=== PATIENT | male | born 1950 | race Caucasian/White ===

== ENCOUNTER 2018-07-01 23:51 | Inpatient (IN) | payer MEDICARE, MEDICAID, SELFPAY ==
[2018-07-01 23:52] VITALS: BP 116/85; PULSE 75; RESP 18; TEMP 36.6; O2SAT 92; BMI 16.7
[2018-07-01 23:58] VITALS: BP 116/85; PULSE 65; RESP 16; TEMP 36.6; O2SAT 91
[2018-07-02] VITALS (13 sets, daily range): BP systolic 120–143; BP diastolic 53–77; PULSE 54–107; RESP 16–24; TEMP 36.6–37.6; O2SAT 91–100; BMI 16.2
--- NOTE | 2018-07-02 00:20 | RAD_ITS ---
STUDY: X-RAY CHEST REASON FOR EXAM: Male, 68 years old. Dyspnea TECHNIQUE: Single AP portable view of the chest. COMPARISON: 12/20/2016 FINDINGS: There is hyperinflation of the lungs consistent with chronic obstructive lung disease (COPD). Ill-defined groundglass opacities are seen in the left upper lobe and left lower lobe suggesting superimposed pneumonia. There is no demonstrated pleural abnormality. Normal size heart. Normal mediastinum and ankur. Normal visualized pulmonary arteries. Normal visualized aortic arch and descending thoracic aorta. Normal visualized thoracic spine. Normal visualized ribs, clavicles, and shoulders. There is no demonstrated abnormality of the visualized soft tissue structures of the upper abdomen. RAD/Chest 1 View (Portable) IMPRESSION: Left upper lobe and left lower lobe pneumonia. Electronically Signed: Jory Alvarez MD at 1:10 EST Tel , Service support ,
--- NOTE | 2018-07-02 00:21 | EKG12_ITS ---
Test Reason : GENERAL ILLNESS Blood Pressure : / mmHG Vent. Rate : 093 BPM Atrial Rate : 093 BPM P-R Int : 134 ms QRS Dur : 080 ms QT Int : 326 ms P-R-T Axes : 077 074 069 degrees QTc Int : 405 ms Sinus rhythm with Premature supraventricular complexes Possible Left atrial enlargement Borderline ECG Confirmed by JUAN VILLANUEVA, DAVONTE ([id number]), editorial director SHERITA YOON ([id number]) on 07/06/2018 10:57:15 AM Referred By: CARLIN Confirmed By:DAVONTE MARTINEZ MD
--- NOTE | 2018-07-02 00:26 | ED.VISSUMM ---
- ER Visit Summary Date of Service: 07/02/18 Chief Complaint: Diarrhea and confusion History of Present Illness: The patient is a 68 M with frequent diarrhea for the past 1 week. Family states he is not really eaten. His arms and legs were discolored and the patient is more confused this evening so EMS was called. Blood sugar was 86 for EMS. Patient is a drinker and typically drinks beer. He is been drinking less this past week but is drinking some. He is not in withdrawal. Physical Examination: Blood pressure is 116/85, temperature 97.9, heart rate 75, respiratory rate 18, pulse ox 92% on room air. At time of my exam patient does have frequent PACs on monitor. His pulse ox is 88 with a poor waveform. He is placed on 2 L nasal cannula. Patient is sitting upright in bed. He is in no acute distress. He appears older than his stated age. Head and neck examination significant for dry mucous membranes. Heart is regular. Lungs sounds are grossly clear, with slightly diminished sounds at the bases. Abdomen is soft and nontender. Active bowel sounds are noted throughout. Skin examination is a slightly dark discoloration to his legs. They are warm to the touch. Palpable distal pulses. Neuro exam reveals him to be alert. He has no focal deficits. Test Results: EKG is sinus at 93 with no sign of acute ischemia. Portable chest x-ray read by radiology as left upper and left lower lobe pneumonia. CBC was normal white count with a left shift. Hemoglobin is concentrated at 16.6. Chemistry studies significant for a BUN of 43 and a creatinine 1.4. LFTs and lipase normal. Troponin 0 0.018. Lactate is elevated at 2.6. Emergency Department Course and Treatment: Patient was given IV fluids. Upon completion of lab studies blood cultures have been ordered along with IV fluid bolus. He is given Rocephin and Zithromax. Test results were discussed with patient and family at bedside. Patient be admitted for further treatment and care. Treatment Plan: [] Disposition: Admit Impression: 1. Pneumonia 2. Dehydration 3. Diarrhea 4. Elevated lactate This note was generated with [employer] dictation software. It may contain incorrect words, spelling, and punctuation that were not noted in review of the chart prior to signing ED Disposition - Plan for ED Patient: Referrals: Care Physician,No Primary [Primary Care Provider] -
[2018-07-02] MEDS: 0.9% Normal Saline 1,000 ML 1000 ML IV (00:29)
[2018-07-02 00:43] LABS: Absolute Lymphocyte Count 0.39 X10^3/ul (0.83-4.51); Absolute Neutrophil Count 7.9 X10^3/uL (2.0-7.7); Basophil# 0.02 X10^3/uL; Basophil% 0.2 % (0-1); Hematocrit 48.6 % (40-54); Hemoglobin 16.6 g/dl (13.0-16.5); Lymphocyte # 0.39 X10^3/ul (4.0); Lymphocyte % 4.3 % (19-41); Mean Corp Hgb Conc 34.2 g/gl (32-36); Mean Corpuscular Hgb 33.3 pg (27.0-32.0); Mean Corpuscular Volume 97.4 fL (80-94); Mean Platelet Vol. 8.6 fl (6.2-12.0); Monocyte# 0.74 X10^3/uL; Monocyte% 8.2 % (0-10); Neutrophil # 7.85 X10^3/uL (2.7-7.7); Neutrophil % 86.6 % (47-70); Platelet Count 169 K/mm3 (150-450); RBC Distribution Width CV 12.6 % (11.6-14.6); RBC Distribution Width SD 44.5 fl (35.1-43.9); Red Blood Count 4.99 M/mm3 (4.6-6.2); White Blood Count 9.1 K/mm3 (4.4-11.0)
[2018-07-02 00:45] LABS: Differential Indicated SCAN CRITERIA MET; POSITIVE COUNT NO; POSITIVE DIFFERENTIAL YES; POSITIVE MORPHOLOGY NO
[2018-07-02 00:52] LABS: AST(SGOT) 73 U/L (15-37); Alanine Aminotransfer ALT/SGPT 52 U/L (16-61); Albumin, Serum 3.2 g/dL (3.2-5.0); Alkaline Phosphatase 100 U/L (45-117); Anion Gap 11 (5-15); BUN 43 mg/dL (7-18); BUN/Creat Ratio 30.7 RATIO (10-20); Bilirubin, Direct 0.22 mg/dL (0.00-0.30); Calcium,Total 8.7 mg/dL (8.5-10.1); Chloride 99 mmol/L (98-107); EST Glomerular Filtration Rate 54 mL/min (>60); Est Glom Filt Rate - Afr Amer 65 mL/min (>60); Estimated Creatinine Clearance 39.54 ml/min; Globulin 4.6 g/dL (2.2-4.2); Glucose 131 mg/dL (74-106); Lipase 76 U/L (73-393); Potassium 3.9 mmol/L (3.5-5.1); Protein, Total 7.8 g/dL (6.4-8.2); Sodium Level 135 mmol/L (136-145)
[2018-07-02 01:06] LABS: Lactic Acid 2.6 mmol/L (0.4-2.0)
--- NOTE | 2018-07-02 01:19 | ED.RN ---
HOSPITALIST PAGED FOR DR GILLIS
--- NOTE | 2018-07-02 01:22 | PCM.HP.STD ---
Problem List (1) Pneumonia Status: Acute Qualifiers: Pneumonia type: due to unspecified organism Laterality: left Lung location: unspecified part of lung Qualified Code(s): J18.9 - Pneumonia, unspecified organism (2) JUAN (acute kidney injury) Status: Acute (3) Elevated lactic acid level Status: Acute (4) Viral syndrome Status: Acute (5) Alcohol abuse Status: Chronic (6) Tobacco use Status: Chronic (7) COPD (chronic obstructive pulmonary disease) Status: Chronic Qualifiers: COPD type: COPD with acute exacerbation Qualified Code(s): J44.1 - Chronic obstructive pulmonary disease with (acute) exacerbation History of Present Illness Date of Admission: 07/02/18 Chief Complaint: Confusion, Cough, Diarrhea, Malaise The patient is a 68 y/o M w/ PMHx: Severe Protein-Calorie Malnutrition, Tobacco use, Chronic COPD, EtOH Abuse who presents to the [facility] ED on 07/02/18 with history of recent confusion per family as well as ongoing loose stools for at least a week with poor oral intake, increased productive cough, progressively worsening malaise, fatigue, no fevers or chills. He notes that over the last week his alcohol consumption has decreased from his prior. He again confirms that he can go without alcohol for duration without any alcohol withdrawal history and previous admission when he had hip fracture for majority of this. Patient denies any abdominal pain or cramping. Work-up in the ED included T 97.9, heart rate 75, BP 116/85, respiratory rate 18, 92% on room air, CBC with W BC 9.1, hemoglobin 16.6, platelet 169 with left shift, CMP with sodium 135, BUN/Cr 43/1.40 (baseline Cr 0.6), glucose 131, LA 2.6, trop 0.018, chest x-ray with left upper lobe and left lower lobe pneumonia, Bld Cx x 2 obtained per ED. In the ED patient administered IV rocephin, azithromycin, NS. Past Medical History Past Medical History (Chronic Problems): Chronic Problems Tobacco use (Chronic) Alcohol abuse (Chronic) COPD (chronic obstructive pulmonary disease) (Chronic) Allergies No Known Allergies Allergy (Verified 07/02/18 00:02) Home Medications: Ambulatory Orders Medication Instructions Recorded NK 07/02/18 Surgical History: - - right hip cephalomedullary nail gamma s/p fracture. Psychiatric History: No pertinent psych hx Lives: Roommate Smoking Status: Current every day smoker - 1-1.5 ppd Tobacco Use: Cigarettes Alcohol: Heavy - / 24 ounce beers QOD, notes has gone periods without intake without withdrawal Drugs: None - *Family History Maternal History Items: Hypertension Paternal History Items: - - No marked paternal history including DM, HD, CA. Review of Systems Constitutional: Reports: Anorexia, Malaise, Weakness, Fatigue. Denies: Chills, Fever, Weight Change HEENT: Denies: Head Aches, Sinus Congestion, Sinus Drainage Cardiovascular: Denies: Chest Pain, Palpitations Respiratory: Reports: Cough, Shortness of Breath, Shortness of breath at rest, Shortness of breath upon exertion, Sputum production. Denies: Wheezing Gastrointestinal: Reports: Diarrhea. Denies: Abdominal Pain, Nausea, Vomiting Genitourinary: Denies: Dysuria Musculoskeletal: Reports: Joint Pain. Denies: Joint Tenderness Skin: Reports: Skin Changes. Denies: Rash, Wounds Neurological: Reports: Confusion. Denies: Focal weakness, Numbness, Tingling Psychiatric: Denies: Anxiety, Depression, Homicidal Ideations, Suicidal Ideations Hematologic/ Lymphatic: Denies: Easy Bruising, Easy Bleeding VTE Information - Inpt Only VTE Present on Admission: No VTE Mechan Device Prophylaxis: SCD's VTE Pharm Prophylaxis ordered?: Yes Patient Problems: Active and Suspected Problems Pneumonia (Acute) JUAN (acute kidney injury) (Acute) Elevated lactic acid level (Acute) Viral syndrome (Acute) Subjective: Patient seated upright in bed, notes feeling mildly improved since initial presentation, currently mental status improved since initial presentation as had been noted to be confused per family roommate. Objective: Physical Examination: General: awake, alert, oriented to self, place, some recent events, improved from initial complaints of confusion per family and roommate, remains cooperative, seated upright in the ED bed in no apparent distress. Skin: Decreased hue, decreased skin turgor, no icterus, cyanotic finger tips w/ clubbing. HEENT: AT/NC, EOMI, PERRLA, MMM, no carotid bruits or JVD noted. Lungs: Severely diffusely diminished, does not appear distressed, no accessory muscle usage, moderate effort, no rales, ronchi or wheezing. Heart: Regular rate and rhythm; no gallop, rub audible. Abdomen: soft, thin cachetic habitus, NTTP, ND, mildly hyperactive BS, + HM. Extremities: cyanotic finger tips w/ clubbing, no edema. Neurological: patient awake, alert, oriented as noted; cognitive function improved, nearing baseline intact; pupils equally reactive to light and accomodation; cranial nerves II-XII grossly normal, moving all 4 extremities, no focal deficits, strength moderately to severely globally decreased secondary to acute presentation. Psychiatric: affect appears flat, fatigued, no acute evidence of depressive or anxiety feelings. - Physical Exam Vital Signs Temp Pulse Resp BP Pulse Ox 97.9 F 83 16 116/85 H 91 07/02/18 01:07 07/02/18 01:07 07/02/18 01:07 07/01/18 23:58 07/02/18 01:07 Oxygen Delivery Method Room Air Weight: 120 lb 5.958 oz Body Mass Index (BMI) 16.7 Laboratory Tests Past 24 Hrs 07/02/18 07/02/18 07/02/18 00:15 00:15 00:15 WBC 9.1 RBC 4.99 Hgb 16.6 H Hct 48.6 MCV 97.4 H MCH 33.3 H MCHC 34.2 RDW 12.6 RDW Differential 44.5 H Plt Count 169 MPV 8.6 Immature Gran % (Auto) 0.700 Neut % (Auto) 86.6 H Lymph % (Auto) 4.3 L Calloway % (Auto) 8.2 Eos % (Auto) 0.0 Baso % (Auto) 0.2 Absolute Neuts (auto) 7.9 H Absolute Lymphs (auto) 0.39 L Total Counted Pending Sodium 135 L Potassium 3.9 Chloride 99 Carbon Dioxide 25.0 Anion Gap 11 BUN 43 H Creatinine 1.40 H Estim Creat Clear Calc 39.54 Est GFR (MDRD) Af Amer 65 Est GFR (MDRD) Non-Af 54 L BUN/Creatinine Ratio 30.7 H Glucose 131 H Lactic Acid 2.6 H Calcium 8.7 Total Bilirubin 0.40 Direct Bilirubin 0.22 AST 73 H ALT 52 Alkaline Phosphatase 100 Troponin I 0.018 Total Protein 7.8 Albumin 3.2 Globulin 4.6 H Lipase 76 Assessment/Plan All Active Problems Pneumonia (Acute) JUAN (acute kidney injury) (Acute) Elevated lactic acid level (Acute) Viral syndrome (Acute) Wrist drop, right wrist (Acute) Closed right hip fracture (Acute) The patient is a 68 y/o M w/ PMHx: Severe Protein-Calorie Malnutrition, Tobacco use, Chronic COPD, EtOH Abuse who presents to the [facility] ED on 07/02/18 with history of recent confusion per family as well as ongoing loose stools for at least a week with poor oral intake, increased productive cough, progressively worsening malaise, fatigue, no fevers or chills. (1) Acute Encephalopathy (Infectious, metabolic), Multifactorial (#2, #3), including Community Acquired Pneumonia: Aspiration/Community Acquired/HCAP Pneumonia: Work-up in the ED included T 97.9, heart rate 75, BP 116/85, respiratory rate 18, 92% on room air, CBC with W BC 9.1, hemoglobin 16.6, platelet 169 with left shift, CMP with sodium 135, BUN/Cr 43/1.40 (baseline Cr 0.6), glucose 131, LA 2.6, trop 0.018, chest x-ray with left upper lobe and left lower lobe pneumonia. Will admit to MS w/ telemetry, maintain on oxygen with wean as tolerated to room air, continue ATC duonebs, PRN albuterol, maintained on IV Rocephin and Azithromycin, HOB, IS parameters w/ pending sputum cultures, respiratory viral panel and urine antigens. Bld cx x 2 obtained in the ED. (2) Acute kidney injury: Secondary to #1, GI losses as noted #3. Admission BUN/Cr 43/1.40, prior baseline creatinine noted to be 0/6. Will hydrate, hold nephrotoxic medications and repeat chemistry in AM. If no improvement would plan FeNa and renal US assessment. (3) Diarrhea, Unclear Etiology, Possibly secondary to #1: Will continue aggressive hydration, will obtain c diff, stool cx, trend CBC, on abx for #1 as noted above. (4) Lactic Acidosis: Admission LA mildly elevated 2.6, suspected secondary to dehydration with GI losses as noted and acute CAP, continue to hydrate, trend LA per facility protocol. (5) EtOH Abuse: Will maintain on CIWA protocol, MVI, thiamine and folic acid. Mag, phos pending. No history prior withdrawal when patient has gone without, will closely monitor and if necessitated will initiate and continue on tapering course of librium, initiate as needed Seroquel, Catapres, Bentyl, Vistaril, IV fluids, IV antiemetics, Tylenol as needed for pain. Case management consulted. (6) Chronic COPD: Will maintain on oxygen with wean as tolerated to room air, continue ATC duonebs, PRN albuterol, HOB, IS parameters. (7) Tobacco Abuse: Encouraged cessation, inpatient consultation per RT, NR if desired. (8) Severe Protein-Calorie Malnutrition: Evidenced per BMI, habitus with obvious muscle and fat loss, nutrition consulted, supplementations with diet. (9) DVT Prophylaxis: SCDs, heparin. Code Visit Inpatient E&M: 91237 Init Hosp L3
[2018-07-02] MEDS: Ceftriaxone 1 GM/50 ML BAG IV ×2 (01:30→21:16)
[2018-07-02] MEDS: 0.9% Normal Saline 1,000 ML 150 ML IV (01:38)
[2018-07-02 02:06] LABS: Allen Test POS; Base Excess -5 mmol/L (-2 to +2); Bicarbonate 20.3 mmol/L (22-26); Blood Gas Specimen Type ART; O2 Delivery Device Nasal Can; PO2 71 mmHG (75-100); SITE R Radial; SO2 94 % (95-99); Time Given 150; Total Carbon Dioxide 21 mmol/L; pCO2 33.9 mmHg (35-45); pH 7.39 (7.35-7.45)
[2018-07-02 02:42] LABS: Magnesium 2.2 mg/dL (1.6-2.6); Phosphorus 2.6 mg/dL (2.5-4.9)
[2018-07-02] MEDS: 0.9% Normal Saline 1,000 ML 125 ML IV ×3 (03:04→18:16)
[2018-07-02] MEDS: Ipratropium/Albuterol Sulfate 3 ML AMPUL.NEB INHALATION ×4 (03:05→18:33)
[2018-07-02 04:18] LABS: Mucous, Urine 0 SEEN /hpf (<or=2+)
[2018-07-02 04:21] LABS: Color, Urine Yellow (Yellow); Glucose, Dipstick Normal (Normal); Ketone-Dipstick Negative (Negative); Leukocyte Esterase-Dipstick Negative /ul (Negative); Nitrite-Dipstick Negative (Negative); Occult Blood-Urine 25 /ul (Negative); Protein-Dipstick 30 mg/dl (Negative); Specific Gravity, Urine 1.015 (1.002-1.030); Urine Bilirubin Dipstick Negative (Negative); Urine Clarity Sl. Cloudy (Clear); Urine Urobilinogen Normal (Normal)
[2018-07-02 04:31] LABS: Reflex Lactate? Y
[2018-07-02 04:31] LABS: Bacteria RARE /hpf (None Seen); Hyaline Cast 0-5 SEEN /lpf (0-5); Red Blood Cells-Urine 0-5 SEEN /hpf (0-5); Squamous Epithelial Cells - UA 0-5 SEEN /hpf (0-5); White Blood Cells 0-5 SEEN /hpf (0-5)
[2018-07-02 05:04] LABS: Absolute Lymphocyte Count 0.56 X10^3/ul (0.83-4.51); Absolute Neutrophil Count 6.6 X10^3/uL (2.0-7.7); Basophil# 0.02 X10^3/uL; Basophil% 0.3 % (0-1); Hematocrit 44.6 % (40-54); Lymphocyte # 0.56 X10^3/ul (4.0); Lymphocyte % 7.2 % (19-41); Mean Corp Hgb Conc 33.6 g/gl (32-36); Mean Platelet Vol. 8.7 fl (6.2-12.0); Monocyte# 0.57 X10^3/uL; Monocyte% 7.3 % (0-10); Neutrophil # 6.64 X10^3/uL (2.7-7.7); Neutrophil % 84.9 % (47-70); Platelet Count 140 K/mm3 (150-450); RBC Distribution Width CV 12.4 % (11.6-14.6); Red Blood Count 4.55 M/mm3 (4.6-6.2); White Blood Count 7.8 K/mm3 (4.4-11.0)
[2018-07-02 05:06] LABS: Differential Indicated SCAN CRITERIA MET; POSITIVE COUNT NO; POSITIVE DIFFERENTIAL YES; POSITIVE MORPHOLOGY NO
[2018-07-02 05:13] LABS: Anion Gap 11 (5-15); BUN 34 mg/dL (7-18); BUN/Creat Ratio 34.4 RATIO (10-20); Chloride 105 mmol/L (98-107); Creatinine, Serum 0.99 mg/dL (0.70-1.30); EST Glomerular Filtration Rate 80 mL/min (>60); Est Glom Filt Rate - Afr Amer 97 mL/min (>60); Estimated Creatinine Clearance 52.49 ml/min; Glucose 152 mg/dL (74-106); Potassium 3.2 mmol/L (3.5-5.1); Sodium Level 139 mmol/L (136-145)
--- NOTE | 2018-07-02 05:20 | NURSING ---
pt forgets to call for assist when getting up and is unsteady on his feet. pt moved to ms [id number] to be closer to nursing station for safety.
[2018-07-02 05:26] LABS: Lactic Acid 2.4 mmol/L (0.4-2.0)
--- NOTE | 2018-07-02 08:33 | PCM.PN.BLA ---
Progress Note Patient is a 68-year-old gentleman who presented with confusion with associated diarrhea and generalized malaise. His workup was consistent with acute influenza A infection superimposed pneumonia admitted to regular nursing floor for further management Physical examination: GENERAL: cooperative HEENT: Atraumatic; moist oral mucosa EYES; Anicteric, Normal Conjunctiva NECK; supple, normal thyroid, RESPIRATORY: Diminished to auscultation bilaterally, CARDIOVASCULAR: Regular S1 S2, GI: soft, non-tender, : No Renal angle tenderness; EXTREMITIES: No edema, no clubbing, MUSCULOSKELETAL: No Joint Tenderness; NEURO: Awake; no lateralizing signs. SKIN: No Rash PSYCH; Normal affect 1. Acute influenza A infection: Patient has been admitted to regular nursing floor currently being managed with Tamiflu in addition to symptomatic management 2. Acute infectious encephalopathy secondary to above 3. Severe sepsis secondary to acute influenza A infection and pneumonia 4. Left upper lobe and lower lobe pneumonia in the setting of acute influenza A infection. Admitted to nursing floor after cultures have been obtained. Placed on bronchodilator treatment in addition to azithromycin and Rocephin 4. Diarrhea secondary to viral gastroenteritis treated symptomatically 5. Chronic alcohol abuse patient placed on DT precautions 5. Acute kidney injury; kidney function improved with rehydration 7. COPD not in acute exacerbation did continue home regimen 8. Severe protein calorie malnutrition as evidenced by patient decreased energy level low BMI consultation placed to dietitian 9. Tobacco dependence counseled on cessation, offered nicotine patch for tobacco cravings 10. DVT Prophylaxis: SCDs, heparin. Clinical Impression(s) from Imaging Studies Chest X-Ray 07/02/18 00:20 IMPRESSION: Left upper lobe and left lower lobe pneumonia. Electronically Signed: Jory Alvarez MD at 1:10 EST Tel , Service support , Active Medications Acetaminophen (Tylenol) 650 mg PO Q6H PRN PRN PRN Reason: Non-cardiac pain (mod-severe) Al Hydroxide/Mg Hydroxide (Mylanta Ii) 30 ml PO Q6H PRN PRN PRN Reason: Gastric burning Albuterol Sulfate (Ventolin Aerosols) 2.5 mg INHALATION Q2H PRN PRN PRN Reason: SHORTNESS OF BREATH Albuterol/Ipratropium (Duoneb) 3 ml INHALATION Q4HWA.RT PARVEEN Last Admin: 07/02/18 10:55 Dose: Not Given Dicyclomine HCl (Bentyl) 20 mg PO Q6H PRN PRN PRN Reason: abdominal discomfort Folic Acid (Folic Acid) 1 mg PO DAILYCM [facility] Last Admin: 07/02/18 10:38 Dose: 1 mg Guaifenesin (Mucinex) 1,200 mg PO BID [facility] Last Admin: 07/02/18 10:38 Dose: 1,200 mg Heparin Sodium (Porcine) (Heparin Na) 5,000 unit SC Q12 [facility] Last Admin: 07/02/18 10:38 Dose: 5,000 unit Hydralazine HCl (Apresoline Iv) 10 mg IV Q4H PRN PRN PRN Reason: SBP > 160 Hydroxyzine Pamoate (Vistaril Pamoate Capsule) 50 mg PO Q6H PRN PRN PRN Reason: Mild Anxiety (score 1/3) Sodium Chloride () 1,000 mls @ 125 mls/hr IV .Q8H [facility] Last Admin: 07/02/18 10:39 Dose: 125 mls/hr Azithromycin 500 mg/ Dextrose 255 mls @ 250 mls/hr IV Q24H [facility] Stop: 07/04/18 23:02 Ceftriaxone Sodium (Rocephin) 1 gm in 50 mls @ 100 mls/hr IV Q24H [facility] Lorazepam (Ativan) 1 mg IV Q4H PRN PRN PRN Reason: Severe Anxiety Lorazepam (Ativan) 2 mg IV X1 PRN PRN Reason: Seizure Magnesium Hydroxide (Milk Of Magnesia) 30 ml PO DAILY PRN PRN PRN Reason: Constipation Methocarbamol (Methocarbamol) 750 mg PO Q6H PRN PRN PRN Reason: Muscle Aches Last Admin: 07/02/18 10:38 Dose: 750 mg [facility]amin) [facility] Last Admin: 07/02/18 10:38 Dose: 1 tablet Nicotine (Nicoderm Cq (Pbkc)) 21 mg TRANSDERM. DAILY [facility] Last Admin: 07/02/18 10:38 Dose: 21 mg Nutritional Formula (Lactose Free) (Ensure Enlive) 120 ml PO 4X/DAY [facility] Last Admin: 07/02/18 10:37 Dose: 120 ml Ondansetron HCl (Zofran) 4 mg IV Q8H PRN PRN PRN Reason: NAUSEA/VOMITING Quetiapine Fumarate (Seroquel) 25 mg PO Q6H PRN PRN PRN Reason: AGITATION Sodium Chloride () 5 - 15 ml IV UD PRN PRN Reason: SALINE FLUSH Thiamine HCl ([facility]amin B1) [facility] Last Admin: 07/02/18 10:38 Dose: 100 mg
[2018-07-02] MEDS: Thiamine Hydrochloride 100 MG Tablet PO (10:38)
[2018-07-02] MEDS: Multivitamins,Therapeutic Tablet 1 TABLET PO (10:38)
[2018-07-02] MEDS: Heparin Injection (Vial) 5,000 UNIT/ML VIAL 5000 UNIT SC ×2 (10:38→21:16)
[2018-07-02] MEDS: Folic Acid 1 MG Tablet PO (10:38)
[2018-07-02] MEDS: guaiFENesin 1,200 MG Tablet 1200 MG PO ×2 (10:38→21:16)
[2018-07-02] MEDS: Methocarbamol 750 MG Tablet PO (10:38)
--- NOTE | 2018-07-02 11:32 | CASEMGMT ---
RN CM Assessment Presentation: Admitted for PNA, unsp. organism, JUAN, Elevated Lactate, Viral Syndrome. C/o Confusion, Cough, Malaise. Intro role of CM and purpose of RN CM assessment, alert and oriented to participate in discussion. PCP: None, Provided Resources on PCP's per patient request. Preferred Pharmacy: [id number] Insurance: Medicare A&B, Medicaid Prescription Benefit: Yes LNOK: Tati Boo-Friend Living Arrangements: Lives in a Home wih Friend Tati & her sister and sister's BF. Independent with ambulation and ADL's. Transportation: Does not drive, Friend and others listed above whom he lives transports and will on DC. DME: Denies/None. No preference of DME company. HHC: Denies HH in past. States SNF in past in [facility]. DC PLAN: Home with possible Home Oxygen, HH PT, Walker. Consult done for ETOH Abuse. MARYCARMEN Gaona CM
--- NOTE | 2018-07-02 13:44 | CASEMGMT ---
SW spoke w/pt regarding his alcohol abuse and marijuana use. Pt states he plans to stop drinking, states he thinks he can do it on her own. Pt states he has been drinking a long time. SW asked about counseling or AA resources, pt declined. SW asked if he has ever had counseling for alcohol or been to AA in the past, pt states no. SW asked pt if he would like resources, pt declined. SW explained can get them for him should he change his mind, pt states very politely he does not want any resources and would likely not look at them. No further needs at this time, pt declining any resources in regard to substance abuse support. IDALIA Ashton, LICENSED OPTICAL DISPENSER
[2018-07-03 02:49] VITALS: BP 132/71; PULSE 80; RESP 20; TEMP 36.3; O2SAT 97
[2018-07-03] MEDS: 0.9% Normal Saline 1,000 ML 125 ML IV (04:42)
[2018-07-03 07:03] LABS: Hemoglobin 14.2 g/dl (13.0-16.5); Mean Corp Hgb Conc 32.3 g/gl (32-36); Mean Corpuscular Hgb 31.8 pg (27.0-32.0); Mean Corpuscular Volume 98.7 fL (80-94); Mean Platelet Vol. 9.4 fl (6.2-12.0); Platelet Count 131 K/mm3 (150-450); RBC Distribution Width CV 12.8 % (11.6-14.6); RBC Distribution Width SD 46.5 fl (35.1-43.9); Red Blood Count 4.46 M/mm3 (4.6-6.2); White Blood Count 6.9 K/mm3 (4.4-11.0)
[2018-07-03 07:06] LABS: Scan Indicated on CBC? Y/N NO
[2018-07-03 07:20] VITALS: PULSE 88; RESP 16; O2SAT 95
[2018-07-03] MEDS: Ipratropium/Albuterol Sulfate 3 ML AMPUL.NEB INHALATION (07:20)
[2018-07-03 07:30] VITALS: BP 129/70; PULSE 73; RESP 18; TEMP 36.4; O2SAT 95
[2018-07-03] MEDS: Folic Acid 1 MG Tablet PO (07:30)
[2018-07-03] MEDS: Thiamine Hydrochloride 100 MG Tablet PO (07:30)
[2018-07-03] MEDS: Multivitamins,Therapeutic Tablet 1 TABLET PO (07:30)
[2018-07-03 07:35] LABS: Anion Gap 9 (5-15); BUN 10 mg/dL (7-18); BUN/Creat Ratio 23.8 RATIO (10-20); Calcium,Total 7.9 mg/dL (8.5-10.1); Chloride 109 mmol/L (98-107); Creatinine, Serum 0.42 mg/dL (0.70-1.30); EST Glomerular Filtration Rate 215 mL/min (>60); Est Glom Filt Rate - Afr Amer 261 mL/min (>60); Estimated Creatinine Clearance 51.97 ml/min; Glucose 93 mg/dL (74-106); Magnesium 1.7 mg/dL (1.6-2.6); Potassium 2.9 mmol/L (3.5-5.1); Sodium Level 143 mmol/L (136-145)
--- NOTE | 2018-07-03 08:47 | DCINST_ITS ---
- Discharge Diagnoses Current Active Problems: Current Active and Chronic Problems Pneumonia (Acute) JUAN (acute kidney injury) (Acute) Elevated lactic acid level (Acute) Viral syndrome (Acute) You will use the following diet at home:: No restrictions Allergies/Adverse Reactions: Allergies No Known Allergies Allergy (Verified 07/02/18 00:02) Medications to take at Discharge Acetaminophen [Tylenol Tablet] 650 mg PO Q6H PRN PRN tablet 07/03/18 Albuterol IH (ProAir) [Proair Hfa] 2 puff INHALATION Q4H PRN PRN #1 inhaler 07/03/18 Doxycycline 100 mg PO BID #14 capsule 07/03/18 Guaifenesin [Mucinex] 1,200 mg PO BID #14 tablet 07/03/18 Oseltamivir Phosphate [Tamiflu] 75 mg PO BID #14 capsule 07/03/18 Prednisone [Deltasone] 20 mg PO BID #10 tablet 07/03/18 The following prescriptions were given: Albuterol IH (ProAir) [Proair Hfa] 2 puff INHALATION Q4H PRN PRN #1 inhaler PRN Reason: Dyspnea/Wheezing/Sob Doxycycline 100 mg PO BID #14 capsule Guaifenesin [Mucinex] 1,200 mg PO BID #14 tablet Oseltamivir Phosphate [Tamiflu] 75 mg PO BID #14 capsule Prednisone [Deltasone] 20 mg PO BID #10 tablet Primary Care Physician: Care Physician,No Primary [Primary Care Provider] - Please follow up with your Primary Care Physician in: in 5-7 days Test Results: Test results from this visit will be discussed in further detail at your follow- up appointment, if applicable. Proposed Discharge Date: 07/03/18
--- NOTE | 2018-07-03 08:47 | PCM.DC.SUM ---
Discharge Date and Diagnosis - Problem List Patient Problems: Active and Suspected Problems Pneumonia (Acute) JUAN (acute kidney injury) (Acute) Elevated lactic acid level (Acute) Viral syndrome (Acute) Date of Admission: 07/02/18 Date of Discharge: 07/03/18 - Primary Discharge Diagnosis Active and Suspected Problems Pneumonia (Acute) JUAN (acute kidney injury) (Acute) Elevated lactic acid level (Acute) Viral syndrome (Acute) - Secondary Discharge Diagnosis Chronic Problems Tobacco use (Chronic) Alcohol abuse (Chronic) COPD (chronic obstructive pulmonary disease) (Chronic) Hospital Course and Treatment Imaging Results: Clinical Impression(s) from Imaging Studies Chest X-Ray 07/02/18 00:20 IMPRESSION: Left upper lobe and left lower lobe pneumonia. Electronically Signed: Jory Alvarez MD at 1:10 EST Tel , Service support , Microbiology 07/02/18 03:15 Mucosa - Nasopharyngeal Respiratory Panel (PCR) - Final Influenza A (Subtype H1) 07/02/18 03:15 Sputum, Expectorated/Coughed Gram Stain - Final 07/02/18 04:05 Stool C. difficile DNA Amplification - Final 07/02/18 04:05 Urine, Clean Catch Streptococcus pneumoniae Antigen (M - Final 07/02/18 04:05 Urine, Clean Catch Legionella Antigen - Final Operations: - - Right hip septal medullary nail. Summary of Care Provided: Patient is a 68-year-old gentleman who presented with confusion with associated diarrhea and generalized malaise. His workup was consistent with acute influenza A infection superimposed pneumonia admitted to regular nursing floor for further management 1. Acute influenza A infection: Patient has been admitted to regular nursing floor currently being managed with Tamiflu in addition to symptomatic management patient was expected to stay at least 2 midnight however his condition did improve rapidly necessitating patient being discharged home after a day of hospitalization. Of note patient did request to be discharged 2. Acute infectious encephalopathy secondary to above 3. Severe sepsis secondary to acute influenza A infection and pneumonia 4. Left upper lobe and lower lobe pneumonia in the setting of acute influenza A infection. Admitted to nursing floor after cultures have been obtained. Placed on bronchodilator treatment in addition to azithromycin and Rocephin 4. Diarrhea secondary to viral gastroenteritis treated symptomatically 5. Chronic alcohol abuse patient placed on DT precautions 5. Acute kidney injury; kidney function improved with rehydration 7. COPD not in acute exacerbation did continue home regimen 8. Severe protein calorie malnutrition as evidenced by patient decreased energy level low BMI consultation placed to dietitian 9. Tobacco dependence counseled on cessation, offered nicotine patch for tobacco cravings 10. DVT Prophylaxis: SCDs, heparin. 11. Chronic alcohol abuse counseled on cessation patient was offered to be managed with the [facility] medical stabilization protocol he was not interested at this point. Patient Problems: Active and Suspected Problems Pneumonia (Acute) JUAN (acute kidney injury) (Acute) Elevated lactic acid level (Acute) Viral syndrome (Acute) Objective: Patient is a 68-year-old gentleman who presented with confusion with associated diarrhea and generalized malaise. His workup was consistent with acute influenza A infection superimposed pneumonia admitted to regular nursing floor for further management Physical examination: GENERAL: cooperative HEENT: Atraumatic; moist oral mucosa EYES; Anicteric, Normal Conjunctiva NECK; supple, normal thyroid, RESPIRATORY: Diminished to auscultation bilaterally, CARDIOVASCULAR: Regular S1 S2, GI: soft, non-tender, : No Renal angle tenderness; EXTREMITIES: No edema, no clubbing, MUSCULOSKELETAL: No Joint Tenderness; NEURO: Awake; no lateralizing signs. SKIN: No Rash PSYCH; Normal affect 1. Acute influenza A infection: Patient has been admitted to regular nursing floor currently being managed with Tamiflu in addition to symptomatic management 2. Acute infectious encephalopathy secondary to above 3. Severe sepsis secondary to acute influenza A infection and pneumonia 4. Left upper lobe and lower lobe pneumonia in the setting of acute influenza A infection. Admitted to nursing floor after cultures have been obtained. Placed on bronchodilator treatment in addition to azithromycin and Rocephin 4. Diarrhea secondary to viral gastroenteritis treated symptomatically 5. Chronic alcohol abuse patient placed on DT precautions 5. Acute kidney injury; kidney function improved with rehydration 7. COPD not in acute exacerbation did continue home regimen 8. Severe protein calorie malnutrition as evidenced by patient decreased energy level low BMI consultation placed to dietitian 9. Tobacco dependence counseled on cessation, offered nicotine patch for tobacco cravings 10. DVT Prophylaxis: SCDs, heparin. - Physical Exam Vital Signs Temp Pulse Resp BP Pulse Ox 97.5 F L 73 18 129/70 H 95 07/03/18 07:30 07/03/18 07:30 07/03/18 07:30 07/03/18 07:30 07/03/18 07:30 Oxygen Flow Rate (L/min) 1 Oxygen Delivery Method Nasal Cannula Weight: 51.256 kg Body Mass Index (BMI) 16.2 Intake and Output for Last 24 Hours 07/01/18 07/02/18 07/03/18 23:59 23:59 23:59 Intake Total 3805 / 3805 950 / 950 Balance 3805 / 3805 950 / 950 Microbiology Past 72 Hours 07/02/18 03:15 Respiratory Panel (PCR) - Final Mucosa - Nasopharyngeal Influenza A (Subtype H1) 07/02/18 03:15 Gram Stain - Final Sputum, Expectorated/Coughed 07/02/18 04:05 C. difficile DNA Amplification - Final Stool 07/02/18 04:05 Streptococcus pneumoniae Antigen (M - Final Urine, Clean Catch 07/02/18 04:05 Legionella Antigen - Final Urine, Clean Catch Laboratory Tests Past 24 Hrs 07/03/18 07/03/18 06:36 06:36 WBC 6.9 RBC 4.46 L Hgb 14.2 Hct 44.0 MCV 98.7 H MCH 31.8 MCHC 32.3 RDW 12.8 RDW Differential 46.5 H Plt Count 131 L MPV 9.4 Sodium 143 Potassium 2.9 L Chloride 109 H Carbon Dioxide 25.0 Anion Gap 9 BUN 10 Creatinine 0.42 L Estim Creat Clear Calc 51.97 Est GFR (MDRD) Af Amer 261 Est GFR (MDRD) Non-Af 215 BUN/Creatinine Ratio 23.8 H Glucose 93 Calcium 7.9 L Magnesium 1.7 Discharge Diet: No Restrictions Discharge Activity: May not drive while taking narcotic pain medications. Home Medications: Medications to take at Discharge Acetaminophen [Tylenol Tablet] 650 mg PO Q6H PRN PRN tablet 07/03/18 Albuterol IH (ProAir) [Proair Hfa] 2 puff INHALATION Q4H PRN PRN #1 inhaler 07/03/18 Doxycycline 100 mg PO BID #14 capsule 07/03/18 Guaifenesin [Mucinex] 1,200 mg PO BID #14 tablet 07/03/18 Oseltamivir Phosphate [Tamiflu] 75 mg PO BID #14 capsule 07/03/18 Prednisone [Deltasone] 20 mg PO BID #10 tablet 07/03/18 Following Prescrptions Were Given to Patient: Albuterol IH (ProAir) [Proair Hfa] 2 puff INHALATION Q4H PRN PRN #1 inhaler PRN Reason: Dyspnea/Wheezing/Sob Doxycycline 100 mg PO BID #14 capsule Guaifenesin [Mucinex] 1,200 mg PO BID #14 tablet Oseltamivir Phosphate [Tamiflu] 75 mg PO BID #14 capsule Prednisone [Deltasone] 20 mg PO BID #10 tablet Primary Care Physician: Care Physician,No Primary [Primary Care Provider] - Please follow up with your Primary Care Physician in: in 5-7 days Disposition: Home Minutes spent on discharge:: 35 Patient Condition:: Stable Medical Necessity - Tobacco Use Smoking Status: Current every day smoker Tobacco Use: Cigarettes Meaningful Use Info Meaningful Use Diagnoses (Choose all that apply): None applicable Code Visit Inpatient E&M: 26700 Disch Hosp
[2018-07-03] MEDS: guaiFENesin 1,200 MG Tablet 1200 MG PO (10:00)
[2018-07-03 10:10] VITALS: BP 122/67; PULSE 84; RESP 18; TEMP 37.3; O2SAT 93
== END 2018-07-03 10:46 | disposition home or self-care (01) | DRG 871 ==
LOC: ED 07-02 00:45 → MS2 07-02 01:45
PROVIDERS: Admitting Provider Family Medicine; Emergency Provider Emergency Medicine; Visit Provider Internal Medicine
DX: A41.89 Other specified sepsis (principal); J10.00 Influenza due to other identified influenza virus with unspecified type of pneumonia; G93.41 Metabolic encephalopathy; E43 Unspecified severe protein-calorie malnutrition; Z68.1 Body mass index [BMI] 19.9 or less, adult; N17.9 Acute kidney failure, unspecified; E87.2 Acidosis; R65.20 Severe sepsis without septic shock; F10.10 Alcohol abuse, uncomplicated; A08.4 Viral intestinal infection, unspecified; J44.9 Chronic obstructive pulmonary disease, unspecified; F17.210 Nicotine dependence, cigarettes, uncomplicated
CPT/HCPCS: 36415; 36600; 71045; 80048; 80076; 81001; 82803; 83605; 83690; 83735; 84100; 84484; 85025; 85027; 87040; 87070; 87205; 87449; 87493; 87506; 87633; 93005; 94640; 94667; 94668; 97162; 97165; 97802; 99285; 99406; J7030; J7040; A4216

== ENCOUNTER 2018-11-27 04:15 | Emergency (ER) | payer MEDICARE, MEDICAID, SELFPAY ==
[2018-07-02 02:25] VITALS: BMI 16.2
[2018-11-27 04:16] VITALS: BP 169/110; PULSE 90; RESP 16; TEMP 36.5; O2SAT 92; BMI 16.7
--- NOTE | 2018-11-27 04:36 | RAD_ITS ---
HISTORY: Fall EXAMINATION/TECHNIQUE: XR right wrist 3 views COMPARISON: None FINDINGS: No dislocation or acute fracture. Joint spaces are preserved. Remote, healed fractures of the right fourth and fifth metacarpals. No radiopaque foreign body. RAD/Wrist min 3 Views IMPRESSION: No fracture or acute osseous abnormality. at 0557 Reported and signed by: Kashmir Longoria MD Electronically Signed: Kashmir Longoria, at 5:56 EDT Tel , Service support ,
--- NOTE | 2018-11-27 04:36 | RAD_ITS ---
HISTORY: Fall EXAMINATION/TECHNIQUE: XR right hand 3 views COMPARISON: None FINDINGS: Remote, healed fractures of the right fourth and fifth metacarpal necks. No dislocation or acute fracture. Joint spaces appear preserved. No radiopaque foreign body. RAD/Hand Min 3 Views IMPRESSION: 1. No dislocation or acute fracture. 2. Remote, healed fractures of the right fourth and fifth metacarpals. at 0603 Reported and signed by: Kashmir Longoria MD Electronically Signed: Kashmir Longoria, at 6:02 EDT Tel , Service support ,
--- NOTE | 2018-11-27 04:45 | RAD_ITS ---
HISTORY: Pain fall. EXAMINATION/TECHNIQUE: XR right forearm 2 views COMPARISON: None FINDINGS: No fracture or dislocation. No bone destruction or bony lesion. No osteomyelitis seen. Minor atherosclerotic calcifications. Otherwise negative exam. No radiopaque foreign body seen. RAD/Forearm 2 Views IMPRESSION: No fracture or acute osseous abnormality. at 0554 Reported and signed by: Kashmir Longoria MD Electronically Signed: Kashmir Longoria, at 5:53 EDT Tel , Service support ,
--- NOTE | 2018-11-27 04:45 | RAD_ITS ---
HISTORY: Pain falling injury EXAMINATION/TECHNIQUE: XR right humerus 3 views COMPARISON: None FINDINGS: No dislocation or acute fracture. Remote, healed fracture of the right humeral neck which shows residual cortical thickening and bony sclerosis. Intact distal right humerus. As visualized, the soft tissues are negative. RAD/Humerus min 2 Views IMPRESSION: 1. No dislocation or acute fracture. 2. Remote, healed fracture of the right humeral neck. at 0609 Reported and signed by: Kashmir Longoria MD Electronically Signed: Kashmir Longoria, at 6:08 EDT Tel , Service support ,
--- NOTE | 2018-11-27 06:16 | ED.VISSUMM ---
- ER Visit Summary Date of Service: 11/27/18 Chief Complaint: Right wrist injury History of Present Illness: The patient is a 68 M who presents with wrist drop. 2 to 2-1/2 weeks ago he fell in the basement floor and suffered a hyperflexion injury to his wrist. Since that time he has been unable to extend his wrist. He no longer has any pain. He denies paresthesias. Physical Examination: Afebrile blood pressure 164/110 vitals otherwise normal Heart regular rate and rhythm Lungs clear Abdomen soft No pain at the shoulder elbow he does have tenderness over the right wrist and right hand without bony deformity his sensation is intact to light touch in the radial ulnar and median nerve distributions of the hand he has an easily palpable radial pulse he is able to oppose all digits and heel sprayer first but he is unable to extend the wrist Test Results: X-rays were obtained of the right humerus forearm wrist and hand. There are no acute fractures. There are remote healed fractures of the humeral neck and right fourth and fifth metacarpals. Emergency Department Course and Treatment: X-rays are negative. There is no fracture. Patient's wrist drop is likely due to radial nerve injury from hyperflexion of the wrist. However this has already been 2 to [address] him in a wrist splint and referred to orthopedics for follow-up. I stressed that it is critical he follows up. He understands to return for new or worsening symptoms. Treatment Plan: [] Disposition: Discharge Impression: Right wrist drop This note was generated with [employer] dictation software. It may contain incorrect words, spelling, and punctuation that were not noted in review of the chart prior to signing ED Disposition - Plan for ED Patient: Referrals: Care Physician,No Primary [Primary Care Provider] -
--- NOTE | 2018-11-27 06:20 | ED.DEP ---
ED Disposition - Plan for ED Patient: Instructions: Wrist Drop Referrals: Care Physician,No Primary [Primary Care Provider] - Hugh Castillo DO [STAFF PHYSICIAN] -
== END 2018-11-27 06:36 | disposition home or self-care (01) ==
LOC: ED 05:41
PROVIDERS: Emergency Provider Emergency Medicine
DX: M21.331 Wrist drop, right wrist (principal); W19.XXXA Unspecified fall, initial encounter; Y93.9 Activity, unspecified; Y92.9 Unspecified place or not applicable; Z72.0 Tobacco use
CPT/HCPCS: 73060; 73090; 73110; 73130; 99283

== ENCOUNTER 2018-12-18 11:15 | Emergency (ER) | payer MEDICARE, MEDICAID, SELFPAY ==
[2018-12-18 11:18] VITALS: BP 158/100; PULSE 97; RESP 20; TEMP 36; O2SAT 91; BMI 16.5
--- NOTE | 2018-12-18 11:44 | RAD_ITS ---
STUDY: X-RAY - UNILATERAL RIBS ( RIGHT ) WITH CHEST REASON FOR EXAM: Male, 68 years old. Fall and rib pain TECHNIQUE - RIBS: 5 view(s) of the ribs. TECHNIQUE - CHEST: 1 COMPARISON: None. FINDINGS - No evidence for pneumothorax or consolidation. Eighth posterior rib slightly displaced rib fractures seen possibly acute. Fracture deformities of the fifth, sixth and seventh posterior ribs also seen which were not present on previous examination from July 02, 2018. Bilateral increased reticular markings seen. Left upper lobe nodule again seen similar to previous examination. There are likely emphysematous changes present. Calcifications of the thoracic aorta. Chronic deformity of the right humerus. RAD/Ribs Uni Min 3V w/PA Chest IMPRESSION: Multiple right-sided rib fractures which were not seen on previous radiographs likely acute. No pneumothorax or consolidative process. Electronically Signed: Ezio Rock, at 13:05 EDT Tel , Service support ,
--- NOTE | 2018-12-18 11:48 | ED.DCSUM_ITS ---
History of Present Illness <Aristeo Xiao - Last Filed: 12/18/18 13:38> Detail of Chief Complaint: Right rib pain after fall Informant: Patient, Family Onset: Yesterday Current Severity: Moderate Maximum Severity: Moderate Worsened by: Movement and cough Relieved by: remaining still Narrative: Adis is a 68-year-old male who drinks alcohol daily. He was at the bar last night and lost his balance falling off the barstool. He landed on his right side and is complaining of right rib pain. He denies chest pain or shortness of breath or fever or chills. He denies head trauma or loss of consciousness. Prior similar symptoms: No Recent Illness/Hospitalization: No <Phylicia Keita - Last Filed: 12/18/18 15:36> Chief Complaint: Chest Other Past Medical History <Aristeo Xiao - Last Filed: 12/18/18 13:38> Surgical History: - - right hip cephalomedullary nail gamma s/p fracture. Smoking Status: Current every day smoker - Family History Maternal Family History: Reports: Hypertension Paternal Family History: Reports: - - No marked paternal history including DM, HD, CA. <Phylicia Keita - Last Filed: 12/18/18 15:36> - Allergies and Home Meds Allergies/Adverse Reactions: Allergies No Known Allergies Allergy (Verified 12/18/18 11:16) Primary Care Physician: Care Physician,No Primary [Primary Care Provider] - Review of Systems General: Denies: Chills, Fever Eyes: Denies: Visual changes - left, Blurred vision - left Cardiovascular: Reports: - - Right chest wall pain. Denies: Chest pain, Palpitations, Heart racing Respiratory: Reports: Cough - Chronic smoker's cough. Denies: Dyspnea, Sputum Gastrointestinal: Denies: Abdominal pain, Nausea, Vomiting, Melena Neurological: Denies: Headache, Weakness - Chronic right wrist drop, Parasthesia, Numbness <Phylicia Keita - Last Filed: 12/18/18 15:36> Physical Exam Vital Signs/Narrative: Vital Signs Temp Pulse Resp BP Pulse Ox 12/18/18 13:15 95 18 95 12/18/18 11:18 96.8 F L 97 20 H 158/100 H 91 <Aristeo Xiao - Last Filed: 12/18/18 13:38> Vital Signs/Narrative: Vital Signs Temp Pulse Resp BP Pulse Ox 12/18/18 11:18 96.8 F L 97 20 H 158/100 H 91 Inital Vital Signs reviewed: Yes General: Well nourished, Well developed Head: Normocephalic, Atraumatic. Negative for: Trauma, Tenderness Eyes: Perrl, EOMI ENT: Moist mucous membranes, No rhinorrhea. Negative for: Dry mucous membranes Neck: Negative for: Supple, Nontender, No lymphadenopathy Cardiovascular: Negative for: Regular rate, Regular rhythm, No murmurs Respiratory: No distress, CTA bilaterally, Wheezing - Diffuse scattered wheeze history of COPD, Chest tenderness - Right lateral chest wall tenderness without crepitance Abdomen: Negative for: Soft, Nontender, Nondistended Back: Normal Inspection. Negative for: CVA tenderness Extremities: Negative for: Tenderness, Edema Skin: Normal color, No rash Neurological: Alert, Oriented x3 Psychological: Normal affect, Normal Mood <Phylicia Keita - Last Filed: 12/18/18 15:36> Diagnostic/Tx/Re-eval - Medical Decision Making Evaluated this patient with our [employer]. 68-year-old male chronic history of alcohol abuse. Was drinking last night. A another male in the room states this patient drinks when he wakes up in the morning till when he goes to bed at night. He fell off a barstool this morning injuring his right rib cage. He denies any LOC. States he did not hit his head. He denies other injuries. Physical exam vital signs are stable and afebrile. Acutely intoxicated older male tolerating that well. HEENT exam atraumatic nontender. Neck nontender. Lungs clear to auscultation bilaterally. Splinting on the right. Heart regular rhythm no murmur. Chest wall tender on the right lateral lower rib cage. Abdomen soft and nontender. No bruising. No peritoneal signs. Pelvic girdle intact. Extremities moving all 4. He has a Velcro wrist brace on the right which is old. Neurologically he is awake and alert. With no focal motor deficits. Chest x-ray AP and lateral view shows multiple rib fractures on the right. No pneumothorax. No hemothorax. Family wants the patient undergo detox. I explained to him that his decision. I encouraged him to do so. We are waiting to see if he wants to be admitted to detox or not. If he gets admitted to detox will do screening labs. Impression: 1. Acute fall with multiple rib fractures on the right 2. History of chronic alcohol abuse with acute intoxication <DameonAristeo - Last Filed: 12/18/18 13:38> Chest X-Ray - ED: Right Rib Fx, - - No pneumothorax on chest x-ray. Patient has rib fractures 5, 6, 7, 8 - Medical Decision Making Remain in no acute distress and hemodynamically stable. He was initially treated with Lidoderm patch for his pain but when x-ray results revealed multiple rib fractures, he was treated with IV morphine with some improvement. Laboratory tests reveal sodium of 128, white count 12.2 and mild liver function elevations. Hospitalist was notified to see if they would admit him for detoxification but since he is intoxicated none acute alcohol withdrawal he declined. He was told that he should try to stop drinking he becomes tremulous or having any signs of withdrawal he should return for admission for detoxification. He is prescribed Vicodin for his rib fracture pain but instructed not to use it with alcohol. He is in agreement with this plan will be discharged with family member. He is comfortable with discharge plan. He was discharged with incentive spirometer and given instructions on use. Also instructed return for worsening pain. Impression: Alcohol abuse Acute alcohol intoxification Multiple rib fractures Requesting Alcohol detox <Phylicia Keita - Last Filed: 12/18/18 15:36> ED Disposition <DameonAristeo - Last Filed: 12/18/18 13:38> <Phylicia Keita - Last Filed: 12/18/18 15:36> - Plan for ED Patient: Disposition: Home or Assisted Living Diagnosis: Alcohol abuse, Ribs, multiple fractures, Alcohol intoxication Prescriptions: Hydrocodone Bitart/Apap 5-325 [[place] 5MG-325MG] 1 tablet PO Q6H PRN PRN 3 Days #10 tablet PRN Reason: Pain Referrals: Care Physician,No Primary [Primary Care Provider] - Additional Instructions: Use incentive spirometer hourly awake. Return for fever, worsening pain or shortness of breath. If you stop drinking alcohol and develop withdrawal symptoms such as tremor or confusion or nausea vomiting return to the ED for detoxification admission.
[2018-12-18] MEDS: Lidocaine 5% Patch 1 PATCH TOPICAL (12:15)
[2018-12-18 13:15] VITALS: PULSE 95; RESP 18; O2SAT 95
--- NOTE | 2018-12-18 13:45 | CM.ED ---
SOCIAL WORK INFORMANT: NURSING REASON FOR REFERRAL: D/C PLANNING/SUBSTANCE ABUSE LIVING ARRANGEMENTS: PATIENT LIVES HOME WITH FRIENDS, EILEEN OLMOS AND CANDICE IRIZARRY. MENTAL HEALTH: PATIENT DENIES ANY HX OF MENTAL HEALTH. SUBSTANCE ABUSE: PATIENT AND PATIENT'S FRIEND REPORT PATIENT DRINKS FROM THE TIME HE WAKES UP UNTIL HE GOES TO BED AT NIGHT. PATIENT REPORTS LAST DRINK WAS EARLY THIS MORNING. PATIENT FELL OFF A BAR STOOL AND PRESENTS TO ED WITH RIB PAIN. PATIENT ADMITS TO MARIJUANA USE WEEKLY. DME: [facility]E NEEDED TRANSPORTATION: PATIENT DOES NOT DRIVE. FRIENDS ASSIST WITH TRANSPORTATION NEEDS. ASSESSMENT: PATIENT IS A 68 Y/O MALE WHO PRESENTS TO ED AFTER FALLING OFF A BAR STOOL. PATIENT C/O OF RIB PAIN. PATIENT ADMITS TO ALCOHOL ABUSE AND IS WANTING PLACEMENT AT [facility] FRIEND WORKS THERE AND HAS ALREADY STARTED WORKING ON PLACEMENT FOR PATIENT. INFORMED PATIENT [facility] WILL NOT TAKE PATIENT UNTIL DETOXED. PATIENT IN AGREEMENT WITH DETOX PRIOR TO [facility] PLACEMENT. DR. VENTURA TO DISCUSS WITH HOSPITALIST. PATIENT AND FRIEND GIVEN INFORMATION ON ALL TREATMENT OPTIONS IF NOT ACCEPTED TO DETOX HERE IN THE HOSPITAL. ALL QUESTIONS ANSWERED AND THIS WORKER'S CONTACT INFORMATION PROVIDED. PLAN: TBD- DR. VENTURA TO DISCUSS WITH HOSPITALIST. ADE REY, HEAT TRANSFER TECHNICIAN, [employer] APPLIANCE TECH.
[2018-12-18] MEDS: Morphine 4 MG/ML Syringe IV (14:05)
[2018-12-18 14:14] LABS: Absolute Lymphocyte Count 0.59 X10^3/uL (0.83-4.51); Basophil# 0.04 X10^3/uL; Basophil% 0.3 % (0-1); Differential Indicated SCAN CRITERIA MET; Hematocrit 45.4 % (40-54); Lymphocyte # 0.59 X10^3/ul (4.0); Lymphocyte % 4.8 % (19-41); Mean Corp Hgb Conc 35.2 g/dL (32-36); Mean Corpuscular Hgb 33.7 pg (27.0-32.0); Mean Corpuscular Volume 95.6 fL (80-94); Mean Platelet Vol. 8.3 fl (6.2-12.0); Monocyte# 0.53 X10^3/uL; Monocyte% 4.3 % (0-10); NRBC Flagged by Analyzer 0 % (0-5); Neutrophil # 10.98 X10^3/uL (2.7-7.7); POSITIVE DIFFERENTIAL YES; Platelet Count 216 K/mm3 (150-450); RBC Distribution Width CV 12.2 % (11.6-14.6); RBC Distribution Width SD 42.5 fl (35.1-43.9); Red Blood Count 4.75 M/mm3 (4.6-6.2); White Blood Count 12.2 K/mm3 (4.4-11.0)
[2018-12-18 14:28] LABS: ALB/GLOB Ratio 0.8 RATIO (0.9-2.4); AST(SGOT) 69 U/L (15-37); Alanine Aminotransfer ALT/SGPT 37 U/L (16-61); Albumin, Serum 3.7 g/dL (3.2-5.0); Alkaline Phosphatase 187 U/L (45-117); Anion Gap 6 (5-15); BUN 5 mg/dL (7-18); BUN/Creat Ratio 8.6 RATIO (10-20); Calcium,Total 8.8 mg/dL (8.5-10.1); Chloride 93 mmol/L (98-107); Creatinine, Serum 0.58 mg/dL (0.70-1.30); EST Glomerular Filtration Rate 148 mL/min (>60); Est Glom Filt Rate - Afr Amer 179 mL/min (>60); Estimated Creatinine Clearance 52.89 ml/min; Globulin 4.4 g/dL (2.2-4.2); Glucose 99 mg/dL (74-106); Potassium 4.1 mmol/L (3.5-5.1); Protein, Total 8.1 g/dL (6.4-8.2); Sodium Level 128 mmol/L (136-145)
[2018-12-18 15:00] VITALS: PULSE 90; RESP 18
[2018-12-18 15:57] VITALS: RESP 18
== END 2018-12-18 15:58 | disposition home or self-care (01) ==
PROVIDERS: Emergency Provider Nurse Practitioner
DX: S22.41XA Multiple fractures of ribs, right side, initial encounter for closed fracture (principal); F10.129 Alcohol abuse with intoxication, unspecified; Y90.9 Presence of alcohol in blood, level not specified; W17.89XA Other fall from one level to another, initial encounter; Y93.9 Activity, unspecified; Y92.9 Unspecified place or not applicable; J44.9 Chronic obstructive pulmonary disease, unspecified; F17.200 Nicotine dependence, unspecified, uncomplicated
CPT/HCPCS: 71101; 80053; 85025; 99283; A4216

== ENCOUNTER 2018-12-18 23:40 | Inpatient (IN) | payer MEDICARE, MEDICAID, SELFPAY ==
[2018-12-18 11:18] VITALS: BMI 16.5
[2018-12-18 23:42] VITALS: BP 140/80; PULSE 94; RESP 20; TEMP 36.3; O2SAT 89; BMI 17.2
[2018-12-19] VITALS (10 sets, daily range): BP systolic 98–159; BP diastolic 58–93; PULSE 70–100; RESP 14–20; TEMP 36.6–37.8; O2SAT 92–97; BMI 16.3
--- NOTE | 2018-12-19 00:35 | ED.VISSUMM ---
- ER Visit Summary Date of Service: 12/19/18 Chief Complaint: Rib fractures History of Present Illness: The patient is a 68 M alcoholic who fell last night. He was seen in the emergency department yesterday and diagnosed with multiple rib fractures. He was discharged on [place] which is not controlling his pain. He does complain of shortness of breath. No new injury. Physical Examination: Afebrile vitals unremarkable Heart regular rate and rhythm Equal breath sounds bilaterally right-sided chest tenderness Abdomen soft Alert Test Results: Two-view chest x-ray shows right fourth through ninth rib fractures and chronic interstitial lung disease. Emergency Department Course and Treatment: She was given IV morphine and Zofran. He is more comfortable on reevaluation. He was put on nasal cannula due to her initial pulse ox of 89%. Given multiple rib fractures the patient will likely need some rehab. He is also requesting detox from alcohol is not in alcohol withdrawal currently. Patient will be discussed with hospitalist and admitted. Treatment Plan: [] Disposition: Admit Impression: Multiple right-sided rib fractures This note was generated with [employer] dictation software. It may contain incorrect words, spelling, and punctuation that were not noted in review of the chart prior to signing ED Disposition - Plan for ED Patient: Referrals: Care Physician,No Primary [Primary Care Provider] -
[2018-12-19] MEDS: Ondansetron 4 MG/2 ML Vial IV (00:44)
[2018-12-19] MEDS: Morphine 4 MG/ML Syringe IV (00:44)
[2018-12-19 01:14] LABS: Absolute Neutrophil Count 12.3 X10^3/uL (2.0-7.7); Basophil# 0.03 X10^3/uL; Basophil% 0.2 % (0-1); Eosinophil# 0.07 X10^3/uL; Eosinophils% 0.5 % (0-5); Hematocrit 45.6 % (40-54); Hemoglobin 16.1 g/dL (13.0-16.5); Lymphocyte % 4.4 % (19-41); Mean Corp Hgb Conc 35.3 g/dL (32-36); Mean Corpuscular Volume 96.4 fL (80-94); Mean Platelet Vol. 8.7 fl (6.2-12.0); Monocyte# 0.54 X10^3/uL; NRBC Flagged by Analyzer 0 % (0-5); Neutrophil % 90.2 % (47-70); POSITIVE DIFFERENTIAL YES; POSITIVE MORPHOLOGY YES; Platelet Count 217 K/mm3 (150-450); RBC Distribution Width CV 12.4 % (11.6-14.6); RBC Distribution Width SD 44.1 fl (35.1-43.9); Red Blood Count 4.73 M/mm3 (4.6-6.2); White Blood Count 13.6 K/mm3 (4.4-11.0)
[2018-12-19 01:15] LABS: Differential Indicated SCAN CRITERIA MET
[2018-12-19 01:22] LABS: Anion Gap 5 (5-15); BUN 9 mg/dL (7-18); BUN/Creat Ratio 12.3 RATIO (10-20); Chloride 94 mmol/L (98-107); Creatinine, Serum 0.73 mg/dL (0.70-1.30); EST Glomerular Filtration Rate 113 mL/min (>60); Est Glom Filt Rate - Afr Amer 137 mL/min (>60); Estimated Creatinine Clearance 55.19 ml/min; Glucose 125 mg/dL (74-106); Sodium Level 128 mmol/L (136-145)
[2018-12-19 01:42] LABS: Differential Comment SCANNED
--- NOTE | 2018-12-19 02:00 | RAD_ITS ---
STUDY: X-RAY CHEST REASON FOR EXAM: Male, 68 years old. PT SEEN THIS AM FOR FALL AT THE BAR, DX WITH 4 FX RIBS. PT STATES PAIN MEDS ARE NOT WORKING WELL ENOUGH, HURTS TO BREATHE. TECHNIQUE: Single AP portable view of the chest. COMPARISON: None. FINDINGS: Patchy groundglass opacities are seen in both lungs with increased interstitial markings in the lung bases suggesting chronic interstitial lung disease. There is hyperinflation of the lungs consistent with chronic obstructive lung disease (COPD). A calcified granuloma seen in the left lung upper lobe measures 1 cm. There is no demonstrated pleural abnormality. Normal size heart. Normal mediastinum and ankur. Normal visualized pulmonary arteries. Normal visualized aortic arch and descending thoracic aorta. Normal visualized thoracic spine. Nondisplaced fractures of the right fourth, fifth, 6, seventh, eighth, ninth ribs. There is no demonstrated abnormality of the visualized soft tissue structures of the upper abdomen. RAD/Chest PA and Lateral IMPRESSION: Patchy groundglass opacities are seen in both lungs with increased interstitial markings in the lung bases suggesting chronic interstitial lung disease. There is hyperinflation of the lungs consistent with chronic obstructive lung disease (COPD). Nondisplaced fractures of the right fourth, fifth, 6, seventh, eighth, ninth ribs. Electronically Signed: Jory Alvarez, at 3:58 EDT Tel , Service support ,
--- NOTE | 2018-12-19 04:33 | HP.PCM_ITS ---
Problem List (1) Multiple fractures of ribs, right side, initial encounter for closed fracture Status: Acute (2) Closed right hip fracture Status: Acute (3) Elevated lactic acid level Status: Acute (4) Pneumonia Status: Acute Qualifiers: Pneumonia type: due to unspecified organism Laterality: left Lung location: unspecified part of lung Qualified Code(s): J18.9 - Pneumonia, unspecified organism (5) Viral syndrome Status: Acute (6) Wrist drop, right wrist Status: Acute (7) Alcohol abuse Status: Chronic (8) COPD (chronic obstructive pulmonary disease) Status: Chronic Qualifiers: COPD type: COPD with acute exacerbation Qualified Code(s): J44.1 - Chronic obstructive pulmonary disease with (acute) exacerbation (9) Tobacco use Status: Chronic History of Present Illness Date of Admission: 12/19/18 Chief Complaint: Right-sided rib fracture The patient is a 68 year old M with history of chronic alcohol use and dependence came to ER when he slid down from a stool in bar on the right side of chest and severe pain. Patient came in the morning of 12/18 and was sent home on pain medication but returned back same night for uncontrolled pain. Patient states whenever he tries to move or cough he experienced severe pain. [] Patient also drinks about 6-8 Budweiser beer and hard drink like leatha 1-2 shots daily. Earlier chest x-ray done in ER shows typical right-sided rib fracture including fifth 6, seventh and eighth rib. Today, x-ray was repeated and shows further from right 4th-9th rib fractures. It also shows patchy ground grams opacities in both lungs with increased interstitial marking lung bases history of chronic interstitial lung disease. Patient has history of COPD and he smokes 11/2 pack since teenage. Currently, he does not have tremors, sweating, nausea, vomiting, tachycardia or high blood pressure suggestive of alcohol withdrawal syndrome but he has potential for undergoing alcohol withdrawal syndrome Past Medical History Past Medical History (Chronic Problems): Chronic Problems Tobacco use (Chronic) Alcohol abuse (Chronic) COPD (chronic obstructive pulmonary disease) (Chronic) Allergies No Known Allergies Allergy (Verified 12/18/18 23:41) Home Medications: Ambulatory Orders Medication Instructions Recorded NK 12/19/18 Surgical History: - - right hip cephalomedullary nail gamma s/p fracture. Psychiatric History: No pertinent psych hx Smoking Status: Current every day smoker - *Family History Maternal History Items: Hypertension Paternal History Items: - - No marked paternal history including DM, HD, CA. Review of Systems Constitutional: Denies: Chills, Fever, Weight Change HEENT: Denies: Head Aches, Sinus Congestion, Sinus Drainage Cardiovascular: Reports: Chest Pain. Denies: Palpitations Respiratory: Reports: Cough - Chronic cough secondary to smoking and COPD, Shortness of breath upon exertion. Denies: Shortness of breath at rest, Sputum production Gastrointestinal: Denies: Abdominal Pain, Nausea, Vomiting Genitourinary: Denies: Dysuria, Frequency, Urgency Musculoskeletal: Reports: - - Rib pain. Denies: Joint Pain, Joint Tenderness Skin: Denies: Rash, Wounds Neurological: Reports: Balance problems. Denies: Focal weakness, Numbness, Tingling Psychiatric: Denies: Anxiety, Depression, Homicidal Ideations, Suicidal Ideations Hematologic/ Lymphatic: Denies: Easy Bruising, Easy Bleeding VTE Information - Inpt Only VTE Present on Admission: No VTE Mechan Device Prophylaxis: None VTE Pharm Prophylaxis ordered?: Yes Patient Problems: Active and Suspected Problems Multiple fractures of ribs, right side, initial encounter for closed fracture (Acute) - Physical Exam General: Alert, Oriented x3, Cooperative HEENT: Atraumatic, PERRLA, EOMI, Normocephalic Oral: Dry Mucosa Neck: Supple, No JVD, Negative Carotid Bruits, Negative Hepatojugular Reflux Lungs: Diminished - Air entry diminished in all lung jenkins, predominantly in the right side. Tenderness from right 4th-9th rib. Any movement is painful. Cardiovascular: Regular rate, Regular Rhythm, Normal S1, Normal S2, No murmurs Abdomen: Bowel Sounds Present, Soft, Non Tender, Non-Distended Extremities: No edema, Capillary Refill Less than 3 Seconds Skin: No rashes, No breakdown Musculoskeletal: No Tenderness to Palpation of Joints or Extremities, Arthritic Changes, Muscle Wasting - Muscle wasting of extremities including intervertebral and intercostal muscle Neurological: Cranial nerves II-XII grossly intact, Deep Tendon Reflexes 2+/4 and Symmetrical, Neuro grossly intact Psych/Mental Status: Normal Affect, Appropriate Vital Signs Temp Pulse Resp BP Pulse Ox 97.4 F L 85 18 121/78 H 96 12/18/18 23:42 12/19/18 04:05 12/19/18 04:05 12/19/18 04:05 12/19/18 04:05 Oxygen Delivery Method Room Air Weight: 120 lb Body Mass Index (BMI) 17.2 Laboratory Tests Past 24 Hrs 12/19/18 12/19/18 00:40 00:40 WBC 13.6 H RBC 4.73 Hgb 16.1 Hct 45.6 MCV 96.4 H MCH 34.0 H MCHC 35.3 RDW Std Deviation 44.1 H RDW Coeff of Gabrielle 12.4 Plt Count 217 MPV 8.7 Immature Gran % (Auto) 0.700 Neut % (Auto) 90.2 H Lymph % (Auto) 4.4 L Holt % (Auto) 4.0 Eos % (Auto) 0.5 Baso % (Auto) 0.2 Absolute Neuts (auto) 12.3 H Absolute Lymphs (auto) 0.60 L Nucleated RBC % 0 Differential Comment SCANNED Sodium 128 L Potassium 4.0 Chloride 94 L Carbon Dioxide 29.0 Anion Gap 5 BUN 9 Creatinine 0.73 Estim Creat Clear Calc 55.19 Est GFR (MDRD) Af Amer 137 Est GFR (MDRD) Non-Af 113 BUN/Creatinine Ratio 12.3 Glucose 125 H Calcium 9.0 Assessment/Plan All Active Problems Pneumonia (Acute) JUAN (acute kidney injury) (Acute) Elevated lactic acid level (Acute) Viral syndrome (Acute) Multiple fractures of ribs, right side, initial encounter for closed fracture (Acute) Wrist drop, right wrist (Acute) Closed right hip fracture (Acute) The patient is a 68 year old M with history of chronic alcohol use and dependence came to ER when he slid down from a stool in bar on the right side of chest and severe pain. Patient came in the morning of 12/18 and was sent home on pain medication but returned back same night for uncontrolled pain. Patient states whenever he tries to move or cough he experienced severe pain. [] Patient also drinks about 6-8 Budweiser beer and hard drink like leatha 1-2 shots daily. Earlier chest x-ray done in ER shows typical right-sided rib fracture including fifth 6, seventh and eighth rib. Today, x-ray was repeated and shows further from right 4th-9th rib fractures. It also shows patchy ground grams opacities in both lungs with increased interstitial marking lung bases history of chronic interstitial lung disease. Patient has history of COPD and he smokes 11/2 pack since teenage. Currently, he does not have tremors, sweating, nausea, vomiting, tachycardia or high blood pressure suggestive of alcohol withdrawal syndrome but he has potential for undergoing alcohol withdrawal syndrome 1. Multiple rib fracture without evidence of pneumothorax: [facility] Pain control. Incentive spirometry. PT and OT ordered. 2. Chronic alcohol use with dependence and tolerance with potential alcohol withdrawal syndrome: CIWA monitoring. Patient is started on diazepam as per CIWA score. Ativan as needed for agitation, seizure. On thiamine, folic acid and multivitamin. IV fluid normal saline total 2 L at 100 mL/h as patient is very dehydrated. Serum alcohol, GGT, LFT and U tox ordered. 3. COPD with chronic x-ray changes of reticular markings suggestive of interstitial lung disease or possible due to COPD: Albuterol as needed as needed. Patient needs to further follow-up in pulmonary clinic for PFT. 4. Cigarette smoking/nicotine dependence: Nicotine patch. Severe protein calorie malnutrition secondary to chronic alcohol abuse and COPD: Nutrition is consulted. DVT prophylaxis: Lovenox 40 mg subcu daily. Discontinue if platelet count drops less than 50,000 or hemoglobin less than 8 g% Clinical Impression(s) from Imaging Studies Chest X-Ray 12/19/18 02:00 IMPRESSION: Patchy groundglass opacities are seen in both lungs with increased interstitial markings in the lung bases suggesting chronic interstitial lung disease. There is hyperinflation of the lungs consistent with chronic obstructive lung disease (COPD). Nondisplaced fractures of the right fourth, fifth, 6, seventh, eighth, ninth ribs. Code Visit OBSV E&M: 18308 Initial observation care L3
[2018-12-19 05:23] LABS: Amphetamine Urine VISTA NEGATIVE (<1000 ng/mL); Barbiturate Urine VISTA NEGATIVE (< 200 ng/mL); Benzodiazepine Urine VISTA NEGATIVE (< 200 ng/mL); Cocaine Urine VISTA NEGATIVE (< 300 ng/mL); Ecstacy Urine VISTA NEGATIVE (< 500 ng/mL); Methadone Urine VISTA NEGATIVE (< 300 ng/mL); PCP Urine VISTA NEGATIVE (< 25 ng/mL); THC Urine VISTA NEGATIVE (< 50 ng/mL); Vista UDS pH Range 6
[2018-12-19] MEDS: 0.9% Normal Saline 1,000 ML 100 ML IV ×2 (05:31→15:36)
[2018-12-19 05:32] LABS: Alcohol, Blood (Medical)-Serum < 3.0 mg/dL
[2018-12-19] MEDS: LORazepam 1 MG Tablet 2 MG PO ×4 (05:32→23:55)
[2018-12-19] MEDS: oxyCODONE 5 MG Tablet 10 MG PO (05:32)
[2018-12-19 05:47] LABS: AST(SGOT) 38 U/L (15-37); Alanine Aminotransfer ALT/SGPT 27 U/L (16-61); Alkaline Phosphatase 151 U/L (45-117); Bilirubin, Direct 0.54 mg/dL (0.00-0.30); GGTP 153 U/L (15-85); Globulin 3.5 g/dL (2.2-4.2); Protein, Total 6.5 g/dL (6.4-8.2)
--- NOTE | 2018-12-19 07:30 | PN_ITS ---
Progress Note Is a 68-year-old gentleman presented to the emergency department with right- sided chest pain. He apparently slid from us to and hit his chest. Imaging studies obtained in the emergency department demonstrated multiple rib fractures without evidence of pneumothorax. Patient admitted to regular nursing floor for subsequent management Patient has been seen and examined. His initial assessment including physical, diagnostic work-up, management orders reviewed follow
[2018-12-19 08:38] LABS: International Normalized Ratio 1.1; Prothrombin Time (Protime)PT. 14.4 SECONDS (11.7-14.9)
[2018-12-19 08:55] LABS: Magnesium 1.7 mg/dL (1.6-2.6); Thyroid Stim Hormone (TSH) 1.55 uIU/mL (0.358-3.74)
[2018-12-19] MEDS: Thiamine Hydrochloride 100 MG Tablet PO ×2 (11:48→17:51)
[2018-12-19] MEDS: Enoxaparin 40 MG/0.4 ML Syringe SC (11:48)
[2018-12-19] MEDS: Multivitamins,Ther W-Minerals Tablet 1 TABLET PO (11:48)
[2018-12-19] MEDS: Folic Acid 1 MG Tablet PO (11:48)
--- NOTE | 2018-12-19 12:02 | NURSING ---
LIDADERM PATCH REMOVED FROM PT'S RIGHT SIDE - LOOKS LIKE IT WAS FROM HIS VISIT TO ER- WASTED WITH ELFEGO CONROY
[2018-12-20 02:55] VITALS: BP 145/88; PULSE 108; RESP 20; TEMP 37; O2SAT 94
[2018-12-20 05:35] LABS: Absolute Lymphocyte Count 0.77 X10^3/uL (0.83-4.51); Absolute Neutrophil Count 9.5 X10^3/uL (2.0-7.7); Basophil# 0.03 X10^3/uL; Basophil% 0.3 % (0-1); Eosinophil# 0.14 X10^3/uL; Eosinophils% 1.3 % (0-5); Hematocrit 41.9 % (40-54); Hemoglobin 14.3 g/dL (13.0-16.5); Lymphocyte # 0.77 X10^3/ul (4.0); Mean Corp Hgb Conc 34.1 g/dL (32-36); Mean Corpuscular Hgb 33.6 pg (27.0-32.0); Mean Corpuscular Volume 98.6 fL (80-94); Mean Platelet Vol. 9.1 fl (6.2-12.0); Monocyte# 0.57 X10^3/uL; Monocyte% 5.2 % (0-10); NRBC Flagged by Analyzer 0 % (0-5); Neutrophil # 9.45 X10^3/uL (2.7-7.7); Neutrophil % 85.7 % (47-70); POSITIVE MORPHOLOGY YES; Platelet Count 175 K/mm3 (150-450); RBC Distribution Width CV 12.6 % (11.6-14.6); RBC Distribution Width SD 45.2 fl (35.1-43.9); Red Blood Count 4.25 M/mm3 (4.6-6.2)
[2018-12-20] MEDS: LORazepam 1 MG Tablet 2 MG PO (05:40)
[2018-12-20 06:37] LABS: ALB/GLOB Ratio 0.7 RATIO (0.9-2.4); AST(SGOT) 24 U/L (15-37); Alanine Aminotransfer ALT/SGPT 20 U/L (16-61); Albumin, Serum 2.4 g/dL (3.2-5.0); Alkaline Phosphatase 126 U/L (45-117); Anion Gap 7 (5-15); BUN 5 mg/dL (7-18); BUN/Creat Ratio 13.8 RATIO (10-20); Calcium,Total 8.2 mg/dL (8.5-10.1); Chloride 102 mmol/L (98-107); Creatinine, Serum 0.36 mg/dL (0.70-1.30); EST Glomerular Filtration Rate 255 mL/min (>60); Est Glom Filt Rate - Afr Amer 309 mL/min (>60); Globulin 3.4 g/dL (2.2-4.2); Glucose 110 mg/dL (74-106); Potassium 3.4 mmol/L (3.5-5.1); Protein, Total 5.8 g/dL (6.4-8.2); Sodium Level 136 mmol/L (136-145)
[2018-12-20 06:42] LABS: Differential Indicated SCAN CRITERIA MET
[2018-12-20 07:22] LABS: Differential Comment SCANNED
[2018-12-20 07:53] LABS: Magnesium 1.6 mg/dL (1.6-2.6)
[2018-12-20] MEDS: Enoxaparin 40 MG/0.4 ML Syringe SC (08:01)
[2018-12-20] MEDS: Folic Acid 1 MG Tablet PO (08:16)
[2018-12-20] MEDS: Thiamine Hydrochloride 100 MG Tablet PO ×2 (08:16→16:02)
[2018-12-20] MEDS: Multivitamins,Ther W-Minerals Tablet 1 TABLET PO (08:16)
[2018-12-20 08:47] VITALS: BP 108/67; PULSE 102; RESP 20; TEMP 37.5; O2SAT 96
--- NOTE | 2018-12-20 10:16 | NURSING ---
Please note brace to right arm is from home, patient reports for wrist drop
[2018-12-20] MEDS: Lidocaine 5% Patch 2 PATCH TOPICAL (10:28)
--- NOTE | 2018-12-20 11:57 | CASEMGMT ---
RN CM Note. Attempted to speak with pt re: assessment/DC planning. Pt very sleepy, not able to participate at this time. Alvin MONTERON RN ACM
[2018-12-20 12:00] VITALS: O2SAT 93
--- NOTE | 2018-12-20 12:06 | PN_ITS ---
Patient Problems: Active and Suspected Problems Multiple fractures of ribs, right side, initial encounter for closed fracture (Acute) Subjective: Patient was seen and examined. He is somnolent this morning. Medicated with scheduled Ativan for alcohol withdrawal. Currently on 4L oxygen. Not been taking in deep breath. Objective: Physical Exam General: Lethargic, cooperative HEENT: Atraumatic, PERRLA, EOMI, Normocephalic Oral: Dry Mucosa Neck: Supple, No JVD, Negative Carotid Bruits, Negative Hepatojugular Reflux Lungs: Diminished - Air entry diminished in all lung jenkins, predominantly in the right side. Tenderness from right 4th-9th rib Cardiovascular: Regular rate, Regular Rhythm, Normal S1, Normal S2, No murmurs Abdomen: Bowel Sounds Present, Soft, Non Tender, Non-Distended Extremities: No edema, Capillary Refill Less than 3 Seconds Skin: No rashes, No breakdown Musculoskeletal: No Tenderness to Palpation of Joints or Extremities, Arthritic Changes, Muscle Wasting - Muscle wasting of extremities including intervertebral and intercostal muscle Neurological: Cranial nerves II-XII grossly intact, Deep Tendon Reflexes 2+/4 and Symmetrical, Neuro grossly intact Psych/Mental Status: Normal Affect, Appropriate Vitals/I&O's: Vital Signs Temp Pulse Resp BP Pulse Ox 99.5 F H 102 H 20 H 108/67 96 12/20/18 08:47 12/20/18 08:47 12/20/18 08:47 12/20/18 08:47 12/20/18 08:47 Oxygen Flow Rate (L/min) 4 Oxygen Delivery Method Nasal Cannula Weight: 50.2 kg Body Mass Index (BMI) 16.3 Intake and Output for Last 24 Hours 12/18/18 12/19/18 12/20/18 23:59 23:59 23:59 Intake Total 2382 / 2382 300 / 300 Output Total 350 / 350 Balance 2031 / 2031 300 / 300 Laboratory Results 12/20/18 05:06: WBC 11.0, RBC 4.25 L, Hgb 14.3, Hct 41.9, MCV 98.6 H, MCH 33.6 H , MCHC 34.1, RDW Std Deviation 45.2 H, RDW Coeff of Gabrielle 12.6, Plt Count 175, MPV 9.1, Immature Gran % (Auto) 0.500, Neut % (Auto) 85.7 H, Lymph % (Auto) 7.0 L, Jasper % (Auto) 5.2, Eos % (Auto) 1.3, Baso % (Auto) 0.3, Absolute Neuts (auto) 9.5 H, Absolute Lymphs (auto) 0.77 L, Nucleated RBC % 0, Differential Comment S CANNED 12/20/18 05:06: Sodium 136, Potassium 3.4 L, Chloride 102, Carbon Dioxide 27.0, Anion Gap 7, BUN 5 L, Creatinine 0.36 L, Estim Creat Clear Calc 50.90, Est GFR (MDRD) Af Amer 309, Est GFR (MDRD) Non-Af 255, BUN/Creatinine Ratio 13.8, Glucose 110 H, Calcium 8.2 L, Total Bilirubin 0.90, AST 24, ALT 20, Alkaline Phosphatase 126 H, Total Protein 5.8 L, Albumin 2.4 L, Globulin 3.4, Albumin/Globulin Ratio 0.7 L 12/20/18 05:06: Magnesium 1.6 Current Medications Acetaminophen (Tylenol) 650 mg PO Q6H PRN PRN PRN Reason: Mild Pain (1-3)/Temp > 100.7 F Albuterol Sulfate (Ventolin Aerosols) 2.5 mg INHALATION Q2H PRN PRN PRN Reason: Shortness of Breath/Wheezing Bisacodyl (Dulcolax) 10 mg RECTAL DAILY PRN PRN Reason: Constipation Dextrose (D50w Syringe) 0 gm IV X1 PRN; Protocol PRN Reason: Hypoglycemia Dicyclomine HCl (Bentyl) 20 mg PO Q6H PRN PRN PRN Reason: abdominal discomfort Enoxaparin Sodium (Lovenox) 40 mg SC DAILY [facility] Last Admin: 12/20/18 08:01 Dose: 40 mg Documented by: Folic Acid (Folic Acid) 1 mg PO DAILY@0800 [facility] Stop: 12/21/18 08:01 Last Admin: 12/20/18 08:16 Dose: 1 mg Documented by: Glucagon () 1 mg IM .X1 PRN PRN Reason: Hypoglycemia Hydroxyzine Pamoate (Vistaril Pamoate Capsule) 50 mg PO Q6H PRN PRN PRN Reason: Mild Anxiety (score 1/3) Ibuprofen (Motrin) 600 mg PO Q8H PRN PRN PRN Reason: Mild-Moderate Pain (1-5/10) Lidocaine (Lidoderm Patch) 2 patch TOPICAL DAILY [facility]; Protocol Last Admin: 12/20/18 10:28 Dose: 2 patch Documented by: Loperamide HCl (Imodium) 2 - 4 mg PO UD PRN PRN Reason: LOOSE STOOLS Lorazepam (Ativan) 2 mg PO Q2H PRN PRN; Protocol PRN Reason: CIWA score > 8 but <15 Lorazepam (Ativan) 2 mg PO UD PRN; Protocol PRN Reason: CIWA score >/=15. Lorazepam (Ativan) 2 mg IV Q2H PRN PRN; Protocol PRN Reason: CIWA score > 8 but <15 Lorazepam (Ativan) 2 mg IV UD PRN; Protocol PRN Reason: CIWA score >/=15. Lorazepam (Ativan) 2 mg IV X1 PRN PRN Reason: Seizure Lorazepam (Ativan) 1 mg PO Q24H PRN PRN Reason: Agitation Lorazepam (Ativan) 1 mg PO Q6 [facility]; Taper Stop: 12/26/18 11:59 Melatonin (Melatonin) 3 mg PO QHS PRN PRN PRN Reason: INSOMNIA Methocarbamol (Methocarbamol) 750 mg PO Q6H PRN PRN PRN Reason: Muscle Aches Multivitamins/Minerals (Multivitamin With Minerals) [facility] Last Admin: 12/20/18 08:16 Dose: 1 tablet Documented by: Nutritional Formula (Lactose Free) (Ensure Enlive) 120 ml PO 4X/DAY [facility] Last Admin: 12/20/18 08:02 Dose: 120 ml Documented by: Ondansetron HCl (Zofran) 4 mg IV Q8H PRN PRN PRN Reason: NAUSEA/VOMITING Oxycodone HCl (Oxyir) 10 mg PO Q4H PRN PRN PRN Reason: Moderate Pain (4-6/10) Last Admin: 12/19/18 05:32 Dose: 10 mg Documented by: Promethazine HCl (Phenergan) 12.5 mg IV Q6H PRN PRN PRN Reason: Breakthrough nausea/vomiting Senna/Docusate Sodium (Senokot-S, Darlene-Colace) 2 tablet PO BID PRN PRN PRN Reason: Constipation Sodium Chloride () 10 - 40 ml IV UD PRN PRN Reason: SALINE FLUSH Thiamine HCl (Vitamin B1) 100 mg PO BIDCM [facility] Stop: 12/21/18 17:01 Last Admin: 12/20/18 08:16 Dose: 100 mg Documented by: Medical Necessity - Tobacco Use Smoking Status: Current every day smoker Assessment/Plan All Active Problems Pneumonia (Acute) JUAN (acute kidney injury) (Acute) Elevated lactic acid level (Acute) Viral syndrome (Acute) Multiple fractures of ribs, right side, initial encounter for closed fracture (Acute) Wrist drop, right wrist (Acute) Closed right hip fracture (Acute) 68 y/o male with past medical history of alcohol use disorder comes in ,after he slid from his stool in the bar, with acute onset of right-sided chest pain. 1. Acute right 4th-9th rib fractures, traumatic, status post fall, pain is fairly controlled, continue on oxycodone, discontinue Dilaudid IV PT and OT to evaluate and treat 2. Hypoxia left secondary to atelectasis secondary to rib fractures, patient is on 4 L oxygen, will continue to wean for SPO2 more than 94% Encourage use of incentive spirometer 3. Acute alcohol withdrawal, on medical stabilization for alcohol withdrawal, will continue on protocol -decrease Ativan to 1 mg 4. Nicotine dependence, on replacement 5. COPD, no signs of acute exacerbation, on PRN albuterol, outpatient follow-up with pulmonology recommended 6. DVT prophylaxis with Lovenox subcu Code Visit Inpatient E&M: 68816 Subs Hosp L2
--- NOTE | 2018-12-20 12:22 | CASEMGMT ---
RN CM Assessment Presentation: pt presented to ER with rib fx and closed fx of R hip after falling off stool in bar. Intro role of CM and purpose of RN CM assessment Pt was very sleepy, unable to participate in assessment at this time. Pt appears unkempt. PCP: none. Requested SW give pt information on [facility]. Preferred Pharmacy: [facility] Prescription Benefit: yes LNOK: Friend Daniel Boo Living Arrangements: Pt lives with daniel Boo. Pt not able to participate in PT/OT at this time and not able to discuss care needs at home Transportation: does not drive. DME: unknown HHC: none SW referral: social issues, ETOH abuse. Patient DC goals: unknown DC PLAN: undetermined at this time. Will await PT/OT evaluations and SW evaluation. Alvin CHANG RN ACM
--- NOTE | 2018-12-20 14:09 | CASEMGMT ---
Social Work Note SW received referral for alcohol use. Per RN EMMA Michael note, pt is sleepy and unable to participate in assessment. PT/OT evaluations state pt was drowsy from ativan and confused and max assist of 2 and are recommending SNF. SW unable to meet with pt at this time due to being sleepy, drowsy, and confused. SW will continue to follow along and meet with pt once pt continues to go through alcohol withdrawal and hopefully becomes more alert. Plan: TBD. SW will follow up with pt once pt becomes more alert. SW Will discuss alcohol resources and SNF if needed. Barbara Berman [employer] MA[employer], M[employer]GAGE CLOSING CLERK
[2018-12-20 14:34] VITALS: BP 123/79; PULSE 96; RESP 20; TEMP 36.6; O2SAT 96
[2018-12-20] MEDS: 0.9% NaCl Peripheral Flush Adult/Peds IV ×2 (16:02→21:26)
[2018-12-20 21:19] VITALS: BP 140/91; PULSE 95; RESP 16; TEMP 38.1; O2SAT 95
[2018-12-20] MEDS: Acetaminophen 325 MG Tablet 650 MG PO (21:46)
[2018-12-21] VITALS (7 sets, daily range): BP systolic 106–142; BP diastolic 64–91; PULSE 75–100; RESP 18–20; TEMP 36.7–37.3; O2SAT 93–98
[2018-12-21] MEDS: LORazepam 1 MG Tablet PO ×5 (00:11→23:13)
--- NOTE | 2018-12-21 07:20 | PN_ITS ---
Patient Problems: Active and Suspected Problems Multiple fractures of ribs, right side, initial encounter for closed fracture (Acute) Subjective: Patient was seen and examined. No acute events overnight. CIWA score is 1. Patient is less lethargic. Awake and interactive this morning. Denies any pain. Lidoderm patches in situ. He is off oxygen. Objective: Physical Exam General: Lethargic, cooperative HEENT: Atraumatic, PERRLA, EOMI, Normocephalic Oral: Dry Mucosa Neck: Supple, No JVD, Negative Carotid Bruits Lungs: Diminished - Air entry diminished in all lung jenkins, predominantly in the right side. Tenderness from right 4th-9th rib Cardiovascular: Regular rate, Regular Rhythm, Normal S1, Normal S2, No murmurs Abdomen: Bowel Sounds Present, Soft, Non Tender, Non-Distended Extremities: No edema, Capillary Refill Less than 3 Seconds Skin: No rashes, No breakdown Musculoskeletal: No Tenderness to Palpation of Joints or Extremities, Arthritic Changes, Muscle Wasting - Muscle wasting of extremities including intervertebral and intercostal muscle Neurological: Cranial nerves II-XII grossly intact, Deep Tendon Reflexes 2+/4 and Symmetrical, Neuro grossly intact Psych/Mental Status: Normal Affect, Appropriate Vitals/I&O's: Vital Signs Temp Pulse Resp BP Pulse Ox 99.2 F H 91 20 H 116/74 95 12/21/18 06:57 12/21/18 06:57 12/21/18 06:57 12/21/18 06:57 12/21/18 06:57 Oxygen Flow Rate (L/min) 2.5 Oxygen Delivery Method Nasal Cannula Weight: 50.2 kg Body Mass Index (BMI) 16.3 Intake and Output for Last 24 Hours 12/19/18 12/20/18 12/21/18 23:59 23:59 23:59 Intake Total 2382 / 2382 600 / 710 210 / 210 Output Total 350 / 350 300 / 300 Balance 2031 / 2031 600 / 710 -90 / -90 Laboratory Results 12/20/18 05:06: Differential Comment SCANNED 12/20/18 05:06: Magnesium 1.6 Current Medications Acetaminophen (Tylenol) 650 mg PO Q6H PRN PRN PRN Reason: Mild Pain (1-3)/Temp > 100.7 F Last Admin: 12/20/18 21:46 Dose: 650 mg Documented by: Albuterol Sulfate (Ventolin Aerosols) 2.5 mg INHALATION Q2H PRN PRN PRN Reason: Shortness of Breath/Wheezing Bisacodyl (Dulcolax) 10 mg RECTAL DAILY PRN PRN Reason: Constipation Dextrose (D50w Syringe) 0 gm IV X1 PRN; Protocol PRN Reason: Hypoglycemia Dicyclomine HCl (Bentyl) 20 mg PO Q6H PRN PRN PRN Reason: abdominal discomfort Enoxaparin Sodium (Lovenox) 40 mg SC DAILY [facility] Last Admin: 12/20/18 08:01 Dose: 40 mg Documented by: Folic Acid (Folic Acid) 1 mg PO DAILY@0800 [facility] Stop: 12/21/18 08:01 Last Admin: 12/20/18 08:16 Dose: 1 mg Documented by: Glucagon () 1 mg IM .X1 PRN PRN Reason: Hypoglycemia Hydroxyzine Pamoate (Vistaril Pamoate Capsule) 50 mg PO Q6H PRN PRN PRN Reason: Mild Anxiety (score 1/3) Ibuprofen (Motrin) 600 mg PO Q8H PRN PRN PRN Reason: Mild-Moderate Pain (1-5/10) Lidocaine (Lidoderm Patch) 2 patch TOPICAL DAILY [facility]; Protocol Last Admin: 12/20/18 10:28 Dose: 2 patch Documented by: Loperamide HCl (Imodium) 2 - 4 mg PO UD PRN PRN Reason: LOOSE STOOLS Lorazepam (Ativan) 2 mg PO Q2H PRN PRN; Protocol PRN Reason: CIWA score > 8 but <15 Lorazepam (Ativan) 2 mg PO UD PRN; Protocol PRN Reason: CIWA score >/=15. Lorazepam (Ativan) 2 mg IV Q2H PRN PRN; Protocol PRN Reason: CIWA score > 8 but <15 Lorazepam (Ativan) 2 mg IV UD PRN; Protocol PRN Reason: CIWA score >/=15. Lorazepam (Ativan) 2 mg IV X1 PRN PRN Reason: Seizure Lorazepam (Ativan) 1 mg PO Q24H PRN PRN Reason: Agitation Lorazepam (Ativan) 1 mg PO Q6 [facility]; Taper Stop: 12/26/18 11:59 Last Admin: 12/21/18 05:56 Dose: 1 mg Documented by: Melatonin (Melatonin) 3 mg PO QHS PRN PRN PRN Reason: INSOMNIA Methocarbamol (Methocarbamol) 750 mg PO Q6H PRN PRN PRN Reason: Muscle Aches Multivitamins/Minerals (Multivitamin With Minerals) [facility] Last Admin: 12/20/18 08:16 Dose: 1 tablet Documented by: Nutritional Formula (Lactose Free) (Ensure Enlive) 120 ml PO 4X/DAY [facility] Last Admin: 12/20/18 21:26 Dose: 120 ml Documented by: Ondansetron HCl (Zofran) 4 mg IV Q8H PRN PRN PRN Reason: NAUSEA/VOMITING Oxycodone HCl (Oxyir) 5 mg PO Q4H PRN PRN PRN Reason: Moderate Pain (4-6/10) Promethazine HCl (Phenergan) 12.5 mg IV Q6H PRN PRN PRN Reason: Breakthrough nausea/vomiting Senna/Docusate Sodium (Senokot-S, Darlene-Colace) 2 tablet PO BID PRN PRN PRN Reason: Constipation Sodium Chloride () 10 - 40 ml IV UD PRN PRN Reason: SALINE FLUSH Last Admin: 12/20/18 21:26 Dose: 10 ml Documented by: Thiamine HCl (Vitamin B1) [facility] Stop: 12/21/18 17:01 Last Admin: 12/20/18 16:02 Dose: 100 mg Documented by: Medical Necessity - Tobacco Use Smoking Status: Current every day smoker Assessment/Plan All Active Problems Pneumonia (Acute) JUAN (acute kidney injury) (Acute) Elevated lactic acid level (Acute) Viral syndrome (Acute) Multiple fractures of ribs, right side, initial encounter for closed fracture (Acute) Wrist drop, right wrist (Acute) Closed right hip fracture (Acute) 68 y/o male with past medical history of alcohol use disorder comes in ,after he slid from his stool in the bar, with acute onset of right-sided chest pain. 1. Acute right 4th-9th rib fractures, traumatic, status post fall, is controlled on Lidoderm patches, oxycodone as needed, PT and OT consulted 2. Hypokalemia, noted on 12/20/18, resolved with replacement, recheck in am 3. Hypomagnesemia, replaced, recheck in am 4. Hypoxia left secondary to atelectasis secondary to rib fractures, resolved, continue to encourage use of incentive spirometer 5. Acute alcohol withdrawal, on medical stabilization for alcohol withdrawal, continue on Ativan protocol 6. Nicotine dependence, on replacement 7. COPD, no signs of acute exacerbation, on PRN albuterol, outpatient follow-up with pulmonology recommended 8. DVT prophylaxis with Lovenox subcu 9. Disposition: Discharge to SNF when bed is available Code Visit Inpatient E&M: 49998 Subs Hosp L2
[2018-12-21] MEDS: Lidocaine 5% Patch 2 PATCH TOPICAL (08:04)
[2018-12-21] MEDS: Enoxaparin 40 MG/0.4 ML Syringe SC (08:05)
[2018-12-21] MEDS: Multivitamins,Ther W-Minerals Tablet 1 TABLET PO (08:05)
[2018-12-21] MEDS: Folic Acid 1 MG Tablet PO (08:05)
[2018-12-21] MEDS: Thiamine Hydrochloride 100 MG Tablet PO ×2 (08:05→16:55)
[2018-12-21 09:06] LABS: ALB/GLOB Ratio 0.5 RATIO (0.9-2.4); AST(SGOT) 28 U/L (15-37); Alanine Aminotransfer ALT/SGPT 17 U/L (16-61); Albumin, Serum 2.2 g/dL (3.2-5.0); Alkaline Phosphatase 143 U/L (45-117); Anion Gap 6 (5-15); BUN 10 mg/dL (7-18); BUN/Creat Ratio 19.9 RATIO (10-20); Chloride 103 mmol/L (98-107); EST Glomerular Filtration Rate 175 mL/min (>60); Est Glom Filt Rate - Afr Amer 212 mL/min (>60); Globulin 4.6 g/dL (2.2-4.2); Glucose 90 mg/dL (74-106); Potassium 4.2 mmol/L (3.5-5.1); Protein, Total 6.8 g/dL (6.4-8.2); Sodium Level 132 mmol/L (136-145)
[2018-12-21 10:21] LABS: Magnesium 1.9 mg/dL (1.6-2.6)
--- NOTE | 2018-12-21 10:33 | CASEMGMT ---
Addendum entered by Barbara Berman 12/21/18 13:25: SW placed a call to Vanessa at [facility]. [facility] is able to accept pt tomorrow. Vanessa provided cell phone number [phone]. Plan: [facility] tomorrow Original Note: Social Work Note Pt worked with PT/OT and pt is max assist of 2 and SNF is recommended for pt. Per physician note, pt is more alert today. SW met with pt. SW introduced self and role at [facility]. Pt is alert and orientated x3, does periodically fall asleep, still appears drowsy. Pt states that she lives with someone in a one story home. Pt states there are three steps in the front and two steps in the back. Pt states that he has a cane and walker at home and was previously independent with ADLs. Mental Health Hx: Pt denied Substance abuse Hx: Pt admits to smoking cigarettes, states still currently smokes. SW asked pt specifically about alcohol use. Pt states I used to drink but I am no longer drinking. Pt states that he would drink couple bottles of vodka and Ashly everyday. Pt confirms that he is at [facility] because he was intoxicated at a bar and slipped out of his barstool. Pt states he plans on no longer drinking when he returns home. Pt denied wanting any counseling/rehab resources at this time. SW informed pt that at this time pt is max assist of two and PT/OT are recommending SNF. Pt is agreeable states he has been to [facility] in the past and is agreeable to returning to [facility]. SW explained that pt will remain at [facility] tonight and possibly discharge to [facility] tomorrow. Pt states understanding. SW faxed referral to [facility]. SW waiting to hear back. Plan: [facility] tomorrow pending acceptance Barbara Berman CODE NUMBER STAMPER, LOAN ORIGINATOR
--- NOTE | 2018-12-21 15:28 | CASEMGMT ---
Social Work Spoke with pt about [facility] accepting pt for rehab. Pt agreed. SW will continue to follow for finalized discharge plans. Cristina Carrasco, BUFFET SERVER SYSTEMS MECHANIC
[2018-12-21] MEDS: Ibuprofen 600 MG Tablet PO (22:39)
[2018-12-22 03:15] VITALS: BP 113/72; PULSE 88; RESP 18; TEMP 37.2; O2SAT 92
[2018-12-22] MEDS: LORazepam 1 MG Tablet PO ×2 (05:04→11:27)
[2018-12-22] MEDS: 0.9% NaCl Peripheral Flush Adult/Peds IV (05:04)
[2018-12-22 05:42] LABS: ALB/GLOB Ratio 0.6 RATIO (0.9-2.4); AST(SGOT) 17 U/L (15-37); Alanine Aminotransfer ALT/SGPT 16 U/L (16-61); Albumin, Serum 2.3 g/dL (3.2-5.0); Alkaline Phosphatase 119 U/L (45-117); Anion Gap 6 (5-15); BUN 15 mg/dL (7-18); BUN/Creat Ratio 33.4 RATIO (10-20); Calcium,Total 8.6 mg/dL (8.5-10.1); Chloride 104 mmol/L (98-107); Creatinine, Serum 0.45 mg/dL (0.70-1.30); EST Glomerular Filtration Rate 199 mL/min (>60); Est Glom Filt Rate - Afr Amer 241 mL/min (>60); Globulin 3.8 g/dL (2.2-4.2); Glucose 100 mg/dL (74-106); Magnesium 2.2 mg/dL (1.6-2.6); Potassium 3.4 mmol/L (3.5-5.1); Protein, Total 6.1 g/dL (6.4-8.2); Sodium Level 140 mmol/L (136-145)
[2018-12-22 07:27] VITALS: BP 121/68; PULSE 87; RESP 18; TEMP 36.9; O2SAT 94; O2SAT 95
[2018-12-22] MEDS: Multivitamins,Ther W-Minerals Tablet 1 TABLET PO (07:31)
--- NOTE | 2018-12-22 09:08 | PCM.TXEXTCAR ---
- Diet 12/19/18 05:07 Diet: Regular Diet Food consistency:: Regular Liquid Consistency:: Regular/Thin Type of Dietary Supplement:: Ensure Complete - Routine Orders/Code Status Keep PO Greater than or Equal to (%): 94 - Encourage use of incentive spirometer Routine Lab Work: CBC - within 3 days, BMP - within 3 days - Wound(s) left lower leg Wound Type: scabs - Therapies Weight Bearing: Weight bearing as tolerated Physical Therapy: Eval and Treat Occupational Therapy: Eval and Treat - Allergies/Procedures Done in Hospital Allergies/Adverse Reactions: Allergies No Known Allergies Allergy (Verified 12/18/18 23:41) Procedures: None - Type of Care/Length of Stay Estimated LOS: Convalescent Care Less Than 30 days Type of Care Needed: Skilled Rehab Potential: Good Prognosis: Good - Additional Orders/Day of Discharge Day of Discharge: 12/22/18 - Dietary and Speech Recommendations Dietitian Recommendations/Changes: Will provide ensure pudding or magic cup w/ meals instead of ensure enlive to help prevent flavor fatigue - pt receiving ensure enlive w/ medpass - Follow Up Care Primary Care Physician: Care Physician,No Primary [Primary Care Provider] - Please follow up with your Primary Care Physician in: within 1-2 weeks
[2018-12-22] MEDS: Lidocaine 5% Patch 2 PATCH TOPICAL (09:09)
[2018-12-22] MEDS: Enoxaparin 40 MG/0.4 ML Syringe SC (09:09)
--- NOTE | 2018-12-22 09:10 | PCM.DC.SUM ---
Discharge Date and Diagnosis - Problem List Patient Problems: Active and Suspected Problems Multiple fractures of ribs, right side, initial encounter for closed fracture (Acute) Date of Admission: 12/19/18 Date of Discharge: 12/22/18 - Primary Discharge Diagnosis Active and Suspected Problems Multiple fractures of ribs, right side, initial encounter for closed fracture (Acute) Hypokalemia Hypomagnesemia Hypoxia Acute alcohol withdrawal Nicotine dependence - Secondary Discharge Diagnosis Chronic Problems Tobacco use (Chronic) Alcohol abuse (Chronic) COPD (chronic obstructive pulmonary disease) (Chronic) Hospital Course and Treatment Imaging Results: Clinical Impression(s) from Imaging Studies Chest X-Ray 12/19/18 02:00 IMPRESSION: Patchy groundglass opacities are seen in both lungs with increased interstitial markings in the lung bases suggesting chronic interstitial lung disease. There is hyperinflation of the lungs consistent with chronic obstructive lung disease (COPD). Nondisplaced fractures of the right fourth, fifth, 6, seventh, eighth, ninth ribs. Electronically Signed: Jory Alvarez, at 3:58 EDT Tel , Service support , None Operations: None, - - Right hip septal medullary nail. Procedures: None Summary of Care Provided: 68 y/o male with past medical history of alcohol use disorder comes in ,after he slid from his stool in the bar, with acute onset of right-sided chest pain. His management in the hospital was as follows: 1. Acute right 4th-9th rib fractures, traumatic, status post fall, patient's pain was controlled with Tylenol, ibuprofen as needed as well as Lidoderm patches. He was encouraged on incentive spirometer 2. Hypokalemia, replaced 3. Hypomagnesemia, replaced 4. Hypoxia left secondary to atelectasis secondary to rib fractures, patient's oxygen use improved with use of incentive spirometer. He was off oxygen at the time of discharge. 5. Acute alcohol withdrawal, managed on medical stabilization for alcohol withdrawal 6. Nicotine dependence, was on nicotine replacement 7. COPD, no signs of acute exacerbation, on PRN albuterol, outpatient follow-up with pulmonology recommended He was seen by PT and OT and skilled for subacute care in a detention facility and subsequently discharged there. Patient Problems: Active and Suspected Problems Multiple fractures of ribs, right side, initial encounter for closed fracture (Acute) Subjective: On the day of discharge, patient was seen and examined. He is more coherent. Denied any complaints. Pain in his right chest is improved. Objective: Physical Exam General: Lethargic, cooperative HEENT: Atraumatic, PERRLA, EOMI, Normocephalic Oral: Dry Mucosa Neck: Supple, No JVD, Negative Carotid Bruits Lungs: Diminished - Air entry diminished in all lung jenkins, predominantly in the right side. Tenderness from right 4th-9th rib Cardiovascular: Regular rate, Regular Rhythm, Normal S1, Normal S2, No murmurs Abdomen: Bowel Sounds Present, Soft, Non Tender, Non-Distended Extremities: No edema, Capillary Refill Less than 3 Seconds Skin: No rashes, No breakdown Musculoskeletal: No Tenderness to Palpation of Joints or Extremities, Arthritic Changes, Muscle Wasting - Muscle wasting of extremities including intervertebral and intercostal muscle Neurological: Cranial nerves II-XII grossly intact, Deep Tendon Reflexes 2+/4 and Symmetrical, Neuro grossly intact Psych/Mental Status: Normal Affect, Appropriate - Physical Exam Vital Signs Temp Pulse Resp BP Pulse Ox 98.4 F 87 18 121/68 H 94 12/22/18 07:27 12/22/18 07:27 12/22/18 07:27 12/22/18 07:27 12/22/18 07:27 Oxygen Flow Rate (L/min) 2 Oxygen Delivery Method Nasal Cannula Weight: 50.2 kg Body Mass Index (BMI) 16.3 Intake and Output for Last 24 Hours 12/20/18 12/21/18 12/22/18 23:59 23:59 23:59 Intake Total 600 / 710 730 / 730 60 / 60 Output Total 300 / 300 Balance 600 / 710 430 / 430 60 / 60 Laboratory Tests Past 24 Hrs 12/21/18 12/22/18 09:50 04:46 Sodium 140 Potassium 3.4 L Chloride 104 Carbon Dioxide 30.0 Anion Gap 6 BUN 15 Creatinine 0.45 L Estim Creat Clear Calc 50.90 Est GFR (MDRD) Af Amer 241 Est GFR (MDRD) Non-Af 199 BUN/Creatinine Ratio 33.4 H Glucose 100 Calcium 8.6 Magnesium 1.9 2.2 Total Bilirubin 1.10 H AST 17 ALT 16 Alkaline Phosphatase 119 H Total Protein 6.1 L Albumin 2.3 L Globulin 3.8 Albumin/Globulin Ratio 0.6 L Discharge Diet: No Restrictions Discharge Activity: Return to Normal Activity Home Medications: Medications to take at Discharge Acetaminophen [Tylenol Tablet] 650 mg PO Q6H PRN PRN tab 12/22/18 Albuterol Aerosols [Ventolin Aerosols] 2.5 mg INHALATION Q2H PRN PRN vial.neb. 12/22/18 Ensure Enlive 120 ml PO 4X/DAY liquid 12/22/18 Ibuprofen [Motrin] 600 mg PO Q8H PRN PRN tab 12/22/18 Lidocaine [Lidoderm Patch] 2 patch TOPICAL DAILY patch 12/22/18 Melatonin 3 mg PO QHS PRN PRN tab 12/22/18 Multivitamins,Ther W-Minerals [Multivitamin With Minerals] 1 tab PO DAILYCM tab 12/22/18 Primary Care Physician: Care Physician,No Primary [Primary Care Provider] - Please follow up with your Primary Care Physician in: within 1-2 weeks Disposition: Assisted facility Minutes spent on discharge:: 40 Patient Condition:: Stable Medical Necessity - Tobacco Use Smoking Status: Current every day smoker Tobacco Use: Cigarettes Meaningful Use Info Meaningful Use Diagnoses (Choose all that apply): None applicable Code Visit Inpatient E&M: 43267 Disch Hosp
--- NOTE | 2018-12-22 10:20 | CASEMGMT ---
Social Work Note Pt is discharging today to [facility]. TALI faxed completed discharge paperwork to [facility] including transfer to extended care facility, signed medication list and any scripts. Original in SNF folder and copy on pt's chart. TALI completed convalescent [facility]000 in [facility]. Original in SNF folder and copy on pt's chart. TALI arranged transportation through [facility] via cot for 3:00pm as this is the earliest they can transport pt. Transportation form completed and original in SNF folder and copy on pt's chart. TALI placed a call to Vanessa at [facility] and updated her on discharge and transportation time. RN and Pt updated on transportation time. Plan: Pt to discharge to [facility] today skilled with [facility] transporting via cot at 3:00pm Barbara GONZÁLES, OTOLARYNGOLOGY TEACHER
--- NOTE | 2018-12-22 12:47 | NURSING ---
call placed to [facility], report given
[2018-12-22 14:03] VITALS: BP 149/91; PULSE 99; RESP 18; TEMP 36.7; O2SAT 94
== END 2018-12-22 15:55 | disposition skilled nursing facility (03) | DRG 183 ==
LOC: ED 12-19 04:22 → MS3 12-19 05:29
PROVIDERS: Admitting Provider Internal Medicine; Emergency Provider Emergency Medicine; Referring Provider Internal Medicine; Visit Provider Internal Medicine
DX: S22.41XA Multiple fractures of ribs, right side, initial encounter for closed fracture (principal); E43 Unspecified severe protein-calorie malnutrition; Z68.1 Body mass index [BMI] 19.9 or less, adult; F10.239 Alcohol dependence with withdrawal, unspecified; J98.11 Atelectasis; W07.XXXA Fall from chair, initial encounter; Y92.89 Other specified places as the place of occurrence of the external cause; F17.210 Nicotine dependence, cigarettes, uncomplicated; J44.9 Chronic obstructive pulmonary disease, unspecified; R09.02 Hypoxemia; E87.6 Hypokalemia; E83.42 Hypomagnesemia
CPT/HCPCS: 36415; 71046; 71101; 80048; 80053; 80076; 80307; 80320; 82977; 83735; 84443; 85025; 85610; 96374; 97162; 97166; 97530; 99283; 99284; 99406; J7030; A4216; G0480; J2405

== ENCOUNTER 2019-07-28 17:38 | Inpatient (IN) | payer MEDICARE, MEDICAID, SELFPAY ==
[2018-12-19 05:16] VITALS: BMI 16.3
[2019-07-28] VITALS (8 sets, daily range): BP systolic 121–190; BP diastolic 70–99; PULSE 81–109; RESP 20–28; TEMP 36.5–36.9; O2SAT 84–97; BMI 17.4
--- NOTE | 2019-07-28 18:00 | EKG12_ITS ---
Test Reason : SOB Blood Pressure : / mmHG Vent. Rate : 075 BPM Atrial Rate : 075 BPM P-R Int : 150 ms QRS Dur : 082 ms QT Int : 396 ms P-R-T Axes : 069 054 063 degrees QTc Int : 442 ms Sinus rhythm with marked sinus arrhythmia Otherwise normal ECG Confirmed by KRISTY VILLANUEVA, ANGELA ([id number]), fan mail editor MICHELINE MAGANA ([id number]) on 07/29/2019 1:14:21 PM Referred By: JORDAN Confirmed By:OPAL WAGNER MD
[2019-07-28] MEDS: MethylPREDNISolone 125 MG/2 ML Vial IV (18:14)
[2019-07-28] MEDS: 0.9% Normal Saline 1,000 ML 999 ML IV (18:18)
[2019-07-28 18:27] LABS: Absolute Lymphocyte Count 2.85 X10^3/uL (0.83-4.51); Absolute Neutrophil Count 6.3 X10^3/uL (2.0-7.7); Basophil% 0.9 % (0-1); Eosinophil# 0.37 X10^3/uL; Eosinophils% 3.5 % (0-5); Hematocrit 47.7 % (40-54); Hemoglobin 15.5 g/dL (13.0-16.5); Lymphocyte # 2.85 X10^3/ul (4.0); Lymphocyte % 26.8 % (19-41); Mean Corp Hgb Conc 32.5 g/dL (32-36); Mean Corpuscular Hgb 29.7 pg (27.0-32.0); Mean Corpuscular Volume 91.4 fL (80-94); Mean Platelet Vol. 9.2 fl (6.2-12.0); Monocyte# 0.97 X10^3/uL; Monocyte% 9.1 % (0-10); NRBC Flagged by Analyzer 0 % (0-5); Neutrophil # 6.31 X10^3/uL (2.7-7.7); Neutrophil % 59.2 % (47-70); Platelet Count 322 K/mm3 (150-450); RBC Distribution Width CV 12.1 % (11.6-14.6); RBC Distribution Width SD 40.8 fl (35.1-43.9); Red Blood Count 5.22 M/mm3 (4.6-6.2); White Blood Count 10.7 K/mm3 (4.4-11.0)
[2019-07-28 18:38] LABS: Anion Gap 6 (5-15); BUN 13 mg/dL (7-18); BUN/Creat Ratio 15.2 RATIO (10-20); Calcium,Total 9.2 mg/dL (8.5-10.1); Chloride 106 mmol/L (98-107); Creatinine, Serum 0.86 mg/dL (0.70-1.30); EST Glomerular Filtration Rate 94 mL/min (>60); Est Glom Filt Rate - Afr Amer 114 mL/min (>60); Estimated Creatinine Clearance 62.24 ml/min; Glucose 105 mg/dL (74-106); Potassium 3.7 mmol/L (3.5-5.1); Sodium Level 140 mmol/L (136-145)
--- NOTE | 2019-07-28 18:44 | RAD_ITS ---
STUDY: X-RAY CHEST REASON FOR EXAM: Male, 69 years old. SOB WITH PRODUCTIVE COUGH x2 WKS TECHNIQUE: PA and lateral chest COMPARISON: 12/19/2018. FINDINGS: There is old calcified granuloma within the left upper lobe. There are COPD changes and scattered pulmonary scarring unchanged. Old right rib fractures and old right humeral fracture. The lungs are clear and expanded. There is no demonstrated pleural abnormality. Normal size heart. Normal mediastinum and ankur. Normal visualized pulmonary arteries. Normal visualized aortic arch and descending thoracic aorta. There is generalized osteopenia with kyphosis. There are old lower thoracic spine mild compression fractures. There is no demonstrated abnormality of the visualized soft tissue structures of the upper abdomen. RAD/Chest PA and Lateral IMPRESSION: No acute process COPD changes and scattered pulmonary scarring Old right rib fractures and old right humeral fracture Generalized osteopenia with kyphosis, old lower thoracic spine mild compression fractures Electronically Signed: Benson Jimenez, at 20:16 EDT Tel , Service support ,
[2019-07-28] MEDS: Ipratropium/Albuterol Sulfate 3 ML AMPUL.NEB INHALATION (18:50)
[2019-07-28 18:57] LABS: Lactic Acid 1.9 mmol/L (0.4-1.9)
--- NOTE | 2019-07-28 19:06 | HP.PCM_ITS ---
Problem List (1) COPD exacerbation Status: Acute (2) Hypoxia Status: Acute (3) Severe protein-calorie malnutrition Status: Chronic (4) Tobacco use Status: Chronic (5) History of alcohol abuse Status: Chronic History of Present Illness Date of Admission: 07/28/19 Chief Complaint: Dyspnea, cough, wheezing The patient is a 69 y/o M w/ PMHx: Tobacco use, History of EtOH Abuse, Severe protein calorie malnutrition, Chronic COPD who presents to the [facility] ED on 07/28/19 with history of ongoing mildly productive cough with dyspnea, progressively worsening with wheezing without fever or chills x 2 weeks, more severe over the last 48 hours prompting eventual ED presentation. Work-up in the ED includes T 97.8, HR initially 109, BP 190/92, RR 28, 84% on RA-->97% on 2L NC, unremarkable CBC without WBC elevation or shift, unremarkable BMP, LA 1.9, Bld Cx x 2 pending per ED, CXR with preliminary assessment with ED physician with chronic changes without evidence of acute cardiopulmonary findings. In the ED patient administered NS, solumedrol, duoneb. Past Medical History Past Medical History (Chronic Problems): Chronic Problems Severe protein-calorie malnutrition (Chronic) Tobacco use (Chronic) Former cigarette smoker (Chronic) History of alcohol abuse (Chronic) Alcohol abuse (Chronic) COPD (chronic obstructive pulmonary disease) (Chronic) Allergies No Known Allergies Allergy (Verified 07/28/19 17:50) Surgical History: - - right hip cephalomedullary nail gamma s/p fracture. Psychiatric History: No pertinent psych hx Lives: Roommate Smoking Status: Current every day smoker - Ongoing 1 ppd tobacco usage. Tobacco Use: Cigarettes Alcohol: Sober - Sober x1 year. Drugs: None - *Family History Maternal History Items: Hypertension Paternal History Items: - - No marked paternal history including DM, HD, CA. Review of Systems Constitutional: Reports: Malaise, Weakness, Fatigue. Denies: Anorexia, Chills, Fever, Weight Change HEENT: Denies: Head Aches, Sinus Congestion, Sinus Drainage Cardiovascular: Denies: Chest Pain, Palpitations Respiratory: Reports: Cough, Shortness of Breath, Shortness of breath at rest, Shortness of breath upon exertion, Sputum production, Wheezing Gastrointestinal: Denies: Abdominal Pain, Nausea, Vomiting Genitourinary: Denies: Dysuria Musculoskeletal: Reports: Back Pain, Joint Pain. Denies: Joint Tenderness Skin: Denies: Rash, Wounds Neurological: Denies: Numbness, Tingling, Focal weakness Psychiatric: Denies: Anxiety, Depression, Homicidal Ideations, Suicidal Ideations Hematologic/ Lymphatic: Denies: Easy Bruising, Easy Bleeding VTE Information - Inpt Only VTE Present on Admission: No VTE Mechan Device Prophylaxis: SCD's VTE Pharm Prophylaxis ordered?: Yes Patient Problems: Active and Suspected Problems COPD exacerbation (Acute) Hypoxia (Acute) Subjective: Patient seated upright in the ED, fatigued appearance, improved but still increased respiratory rate, some accessory muscle usage. Objective: Physical Examination: General: awake, alert, oriented x 3 and cooperative, seated upright in the ED bed, fatigued and ill-appearing, increased respiratory rate and some accessory muscle usage but improved since ED presentation. Skin: normal color, turgor, no icterus, cyanosis. HEENT: AT/NC, EOMI, PERRLA, dry MM, no carotid bruits or JVD noted. Lungs: Diminished BS throughout, > bases, increased respiratory rate and some accessory muscle usage but improved since ED presentation, wheezing. Heart: Tachycardic with regular rhythm; no gallop, rub audible. Abdomen: soft, thin cachetic habitus, NTTP, ND, normal BS, no HSM. Extremities: no cyanosis, clubbing, or edema. Neurological: patient awake, alert, oriented x 3; cognitive function appears bas faustino intact; pupils equally reactive to light and accomodation; cranial nerves II-XII grossly normal, moving all 4 extremities, no focal deficits, strength severely globally decreased. Psychiatric: affect appears fatigued and ill, no acute evidence of depressive or anxiety feelings. - Physical Exam Vitals/I&O's: Vital Signs Temp Pulse Resp BP Pulse Ox 97.8 F 81 21 H 190/92 H 97 07/28/19 17:39 07/28/19 18:52 07/28/19 18:52 07/28/19 17:39 07/28/19 17:57 Oxygen Flow Rate (L/min) 2 Oxygen Delivery Method Nasal Cannula Weight: 118 lb Body Mass Index (BMI) 17.4 Laboratory Results 07/28/19 18:09: WBC 10.7, RBC 5.22, Hgb 15.5, Hct 47.7, MCV 91.4, MCH 29.7, MCHC 32.5, RDW Std Deviation 40.8, RDW Coeff of Gabrielle 12.1, Plt Count 322, MPV 9.2, Immature Gran % (Auto) 0.500, Neut % (Auto) 59.2, Lymph % (Auto) 26.8, Benzie % (Auto) 9.1, Eos % (Auto) 3.5, Baso % (Auto) 0.9, Absolute Neuts (auto) 6.3, Absolute Lymphs (auto) 2.85, Nucleated RBC % 0 07/28/19 18:09: Sodium 140, Potassium 3.7, Chloride 106, Carbon Dioxide 28.0, Anion Gap 6, BUN 13, Creatinine 0.86, Estim Creat Clear Calc 62.24, Est GFR (MDRD) Af Amer 114, Est GFR (MDRD) Non-Af 94, BUN/Creatinine Ratio 15.2, Glucose 105, Calcium 9.2 07/28/19 18:09: Lactic Acid 1.9 Assessment/Plan All Active Problems Pneumonia (Acute) JUAN (acute kidney injury) (Acute) Elevated lactic acid level (Acute) Viral syndrome (Acute) Multiple fractures of ribs, right side, initial encounter for closed fracture (Acute) COPD exacerbation (Acute) Hypoxia (Acute) Wrist drop, right wrist (Acute) Closed right hip fracture (Acute) The patient is a 69 y/o M w/ PMHx: Tobacco use, History of EtOH Abuse, Severe protein calorie malnutrition, Chronic COPD who presents to the [facility] ED on 07/28/19 with history of ongoing mildly productive cough with dyspnea, progressively worsening with wheezing without fever or chills x 2 weeks, more severe over the last 48 hours prompting eventual ED presentation. 1. Acute on chronic COPD exacerbation with Acute Hypoxic Respiratory Failure: Work-up in the ED includes T 97.8, HR initially 109, BP 190/92, RR 28, 84% on RA-->97% on 2L NC, unremarkable CBC without WBC elevation or shift, unremarkable BMP, LA 1.9, Bld Cx x 2 pending per ED, CXR with preliminary assessment with ED physician with chronic changes without evidence of acute cardiopulmonary findings. Will admit to [facility] with telemetry given severity of hypoxia, maintain on oxygen with wean as tolerated to room air, continue ATC duonebs, PRN albuterol, IV methylprednisolone, HOB, IS parameters, defer abx given no WBC elevation or L shift and afebrile with pending sputum cultures and requested respiratory viral panel. 2. Tobacco Abuse: Encouraged cessation, inpatient consultation per RT, NR if desired. 3. Severe protein calorie malnutrition: Evidenced per BMI, muscle and fat loss, nutrition consulted. 4. Former EtOH Abuse: Sober nearly 1 year, encouraged continued sobriety, mag and phos pending. 5. GERD: Maintain on famotidine. 6. DVT prophylaxis: SCDs, lovenox. Inpatient E&M: 54078 Init Hosp L3
[2019-07-28] MEDS: 0.9% Normal Saline 1,000 ML 100 ML IV (20:30)
[2019-07-28 20:54] LABS: Magnesium 2.3 mg/dL (1.6-2.6); Phosphorus 3.5 mg/dL (2.5-4.9)
[2019-07-28] MEDS: Famotidine 20 MG Tablet PO (22:36)
[2019-07-28] MEDS: MELATONIN 3 MG TABLET PO (23:21)
[2019-07-29] VITALS (9 sets, daily range): BP systolic 135–145; BP diastolic 83–88; PULSE 77–100; RESP 18–20; TEMP 36.3–36.5; O2SAT 95–96
--- NOTE | 2019-07-29 00:28 | ED.DCSUM_ITS ---
- ER Visit Summary Date of Service: 07/29/19 Chief Complaint: Cough and shortness of breath History of Present Illness: The patient is a 69 M with no primary care physician. The cough began 2 weeks ago. Is productive yellow sputum without blood. Denies any fever or chills. Does report he has severe shortness of breath worse and is mild currently. He ran out of his inhaler 2 days ago. He did get a flu shot this year. He denies any other complaints. Physical Examination: Vitals: 97.8, 190/92, 84, 28, 84% on room air which is hypoxic rile. General: Well-nourished and well-developed. Head: Normocephalic atraumatic. Neck: Supple, no lymphadenopathy. No JVD. Nontender. Cardiovascular: Regular rate and rhythm. No murmurs. Respiratory: No respiratory distress. Mild wheezing bilaterally with greatly decreased air movement. Abdominal: Soft, nontender, nondistended, normal bowel sounds. No guarding, rebound, or peritoneal signs. Back: Nontender. Extremities: Nontender, no edema. Clubbing of his fingers. Skin: Normal color, no rash. Neurologic: Alert and oriented ?3. Cranial nerves II through XII are intact. Normal strength and sensation. Psych: Normal affect. Test Results: EKG is sinus at 75 nonspecific changes. CBC is normal. Chem-7 is normal. Lactic acid is 1.9. Clinical Impression(s) from Imaging Studies Chest X-Ray 07/28/19 18:44 IMPRESSION: No acute process COPD changes and scattered pulmonary scarring Old right rib fractures and old right humeral fracture Generalized osteopenia with kyphosis, old lower thoracic spine mild compression fractures Electronically Signed: Benson Jimenez, at 20:16 EDT Tel , Service support , Emergency Department Course and Treatment: Patient was treated for butyryl and Atrovent aerosols. He was given Solu-Medrol IV. He is resting comfortably. Treatment Plan: Patient was discussed with Dr. Freeman. He will be admitted the hospital for further evaluation and treatment. Disposition: Admitted in improved condition. Impression: 1. COPD exacerbation. This note was generated with [employer] software. It may contain incorrect words, spelling, and punctuation that were not noted in review of the chart prior to signing ED Disposition - Plan for ED Patient: Disposition: Acute Care Hospital [facility]
[2019-07-29] MEDS: Ipratropium/Albuterol Sulfate 3 ML AMPUL.NEB INHALATION ×3 (00:36→10:55)
[2019-07-29] MEDS: 0.9% Normal Saline 1,000 ML 100 ML IV (06:47)
[2019-07-29 07:13] LABS: Absolute Lymphocyte Count 1.18 X10^3/uL (0.83-4.51); Absolute Neutrophil Count 7.6 X10^3/uL (2.0-7.7); Basophil# 0.01 X10^3/uL; Basophil% 0.1 % (0-1); Hematocrit 41.2 % (40-54); Hemoglobin 13.4 g/dL (13.0-16.5); Lymphocyte # 1.18 X10^3/ul (4.0); Lymphocyte % 13.3 % (19-41); Mean Corp Hgb Conc 32.5 g/dL (32-36); Mean Corpuscular Hgb 29.2 pg (27.0-32.0); Mean Corpuscular Volume 89.8 fL (80-94); Mean Platelet Vol. 9.7 fl (6.2-12.0); Monocyte# 0.06 X10^3/uL; Monocyte% 0.7 % (0-10); NRBC Flagged by Analyzer 0 % (0-5); Neutrophil # 7.56 X10^3/uL (2.7-7.7); Neutrophil % 85.4 % (47-70); POSITIVE MORPHOLOGY YES; Platelet Count 282 K/mm3 (150-450); RBC Distribution Width CV 12.2 % (11.6-14.6); RBC Distribution Width SD 40.1 fl (35.1-43.9); Red Blood Count 4.59 M/mm3 (4.6-6.2); White Blood Count 8.9 K/mm3 (4.4-11.0)
[2019-07-29 07:14] LABS: Differential Indicated SCAN CRITERIA MET
[2019-07-29 07:32] LABS: Differential Comment SCANNED; Reactive Lymphocyte RARE
[2019-07-29 07:38] LABS: Anion Gap 6 (5-15); BUN 10 mg/dL (7-18); BUN/Creat Ratio 16.2 RATIO (10-20); Calcium,Total 8.7 mg/dL (8.5-10.1); Chloride 110 mmol/L (98-107); Creatinine, Serum 0.62 mg/dL (0.70-1.30); EST Glomerular Filtration Rate 137 mL/min (>60); Est Glom Filt Rate - Afr Amer 166 mL/min (>60); Estimated Creatinine Clearance 53.52 ml/min; Glucose 152 mg/dL (74-106); Potassium 3.9 mmol/L (3.5-5.1); Sodium Level 141 mmol/L (136-145)
--- NOTE | 2019-07-29 09:27 | NURSING ---
per dr. leung pt will need new aerosol machine as one at home is broken. CM to be notified.
--- NOTE | 2019-07-29 10:35 | CASEMGMT ---
MARYCARMEN CARTER Face to Face with patient for initial transition planning/care coordination assessment. MARYCARMEN CARTER introduced self and role at [facility]. Patient lying in bed, alert and oriented. Patient willing to participate in assessment and is able to answer all questions appropriately. Care providers, pharmacy, and demographics verified. Patient wishes to discharge home, denies need for home health at this time. Patient states he has no further needs or concerns at this time. CM to follow for discharge planning needs that may arise. PCP: no PCP, list provided, patient to review and CM to assist with scheduling appt Specialists: none Preferred Pharmacy: [facility] Insurance: [facility] Prescription Benefit: yes Living Will/HPOA: none LNOK: friends Living Arrangements: Patient lives with friends in mobile home with 4 steps and railing to enter the home. Patient is independent at home Transportation: friends DME/HHC: Patient states he has cane at home. Uses inhaler and space but inhaler is empty and spacer is broken. MARYCARMEN CARTER updated hospitalist. Disposition Plan: Patient to discharge home with support from friends and follow-up plans in place. Barbara CHANG, RN, CM
[2019-07-29] MEDS: Enoxaparin 40 MG/0.4 ML Syringe SC (11:19)
[2019-07-29] MEDS: Famotidine 20 MG Tablet PO (11:19)
--- NOTE | 2019-07-29 11:54 | DCINST_ITS ---
- Discharge Diagnoses Current Active Problems: Current Active and Chronic Problems COPD exacerbation (Acute) Hypoxia (Acute) Severe protein-calorie malnutrition (Chronic) Tobacco use (Chronic) Former cigarette smoker (Chronic) History of alcohol abuse (Chronic) You will use the following diet at home:: No restrictions Your food should be the consistency of: Regular Your liquids should be the consistency of: Regular/Thin Discharge Activity: Return to Normal Activity Weight Bearing Status: Full weight bearing Additional Instructions: do not smoke Allergies/Adverse Reactions: Allergies No Known Allergies Allergy (Verified 07/28/19 17:50) Medications to take at Discharge Albuterol Inhaler [Ventolin Hfa (SP)] 2 puff INHALATION Q4H PRN PRN #1 inhaler 07/29/19 MethylPREDNISolone DosePak [Medrol DosePak] 4 mg PO UD #1 box 07/29/19 The following prescriptions were given: MethylPREDNISolone DosePak [Medrol DosePak] 4 mg PO UD #1 box Transmission Status: Pending to [facility] Albuterol Inhaler [Ventolin Hfa (SP)] 2 puff INHALATION Q4H PRN PRN #1 inhaler PRN Reason: Wheezing Transmission Status: Pending to [facility] Primary Care Physician: Care Physician,No Primary [Primary Care Provider] - Please follow up with your Primary Care Physician in: next week Test Results: Test results from this visit will be discussed in further detail at your follow- up appointment, if applicable.
--- NOTE | 2019-07-29 12:30 | CASEMGMT ---
Addendum entered by Barbara Betancourt 07/29/19 13:56: MARYCARMEN CARTER received call from Dr. Christianson's office and patient was scheduled for wrong physician. Office attempted to call patient but number not working. New appt made with ELO Cottrell for 08/02/19 1130, office unable to get a hold of patient. MARYCARMEN CARTER called friend Mahi and updated with appt. Original Note: MARYCARMEN CARTER back to discuss patient' choice for PCP. Patient states he would like setup with Dr. Perales or Dr. Christianson. MARYCARMEN CARTER called [facility] and Dr. Perales is not accepting new patients. Appt made with Dr. Christianson for Thursday08/01/19 1500. Script received for inhaler spacer and given to patient.
--- NOTE | 2019-07-31 15:58 | DS.PCM_ITS ---
Discharge Date and Diagnosis Date of Admission: 07/28/19 Date of Discharge: 07/29/19 - Primary Discharge Diagnosis #1 exacerbation of COPD #2 noncompliance with medical regimen - Secondary Discharge Diagnosis Chronic Problems Severe protein-calorie malnutrition (Chronic) Tobacco use (Chronic) Former cigarette smoker (Chronic) History of alcohol abuse (Chronic) Alcohol abuse (Chronic) COPD (chronic obstructive pulmonary disease) (Chronic) Hospital Course and Treatment Operations: None, - - Right hip septal medullary nail. Procedures: None Summary of Care Provided: The patient is a 69 year old M was seen in the emergency room at [facility] with a chief complaint of shortness of breath and cough, work-up in the emergency room included a chest x-ray which showed no active pulmonary disease, patient was felt to have an exacerbation of COPD, he was admitted to [place] [address] and placed on IV corticosteroids as well as aerosol treatm ents, patient improved rapidly on this regimen and quite unexpectedly, patient appeared stable for discharge on 07/29/2019-he was on room air and was not short of breath. On 07/29/2019, patient was seen and examined: On examination he appeared in good health and spirits. Vital signs as documented. Skin warm and dry and without overt rashes. Neck without JVD. Lungs clear, breath sounds were distant bilaterally. Heart exam notable for regular rhythm, normal sounds and absence of murmurs, rubs or gallops. Abdomen unremarkable and without evidence of organomegaly, masses, or abdominal aortic enlargement. Extremities nonedematous. Neuro: Cranial nerves II through XII are grossly intact, no focal motor deficits were noted, sensation to light touch and pinprick intact. Psych: Patient is alert and oriented x3, he does not appear anxious or depressed Patient was discharged home in stable condition on 07/29/2019, patient admitted that he had not followed up with a doctor as directed when he was discharged from a group home recently, he also continues to smoke although he has been instructed many times to quit smoking. - Physical Exam Vitals/I&O's: Vital Signs Temp Pulse Resp BP Pulse Ox 97.4 F L 82 20 H 145/88 H 96 07/29/19 11:55 07/29/19 11:55 07/29/19 11:55 07/29/19 11:55 07/29/19 11:55 Oxygen Flow Rate (L/min) 2 Oxygen Delivery Method Room Air Weight: 53.524 kg Body Mass Index (BMI) 17.4 Intake and Output for Last 24 Hours 07/29/19 07/30/19 07/31/19 23:59 23:59 23:59 Intake Total 1000 / 1000 Output Total 200 / 200 Balance 800 / 800 Microbiology Past 72 Hours 07/28/19 18:23 Blood Culture (Wb) #2 - Venous Blood Culture - Preliminary No growth in 48 hours. 07/28/19 18:09 Blood Culture (Wb) - Right Forearm Blood Culture - Preliminary No growth in 48 hours. 07/29/19 00:30 Sputum, Expectorated/Coughed Gram Stain - Final 07/29/19 00:30 Mucosa - Nose Respiratory Panel (PCR) - Final Discharge Activity: Return to Normal Activity Weight Bearing Status: Full weight bearing Home Medications: Medications to take at Discharge Albuterol Inhaler [Ventolin Hfa (SP)] 2 puff INHALATION Q4H PRN PRN #1 inhaler 07/29/19 MethylPREDNISolone DosePak [Medrol DosePak] 4 mg PO UD #1 box 07/29/19 Following Prescrptions Were Given to Patient: MethylPREDNISolone DosePak [Medrol DosePak] 4 mg PO UD #1 box Transmission Status: Received by [facility]30 Albuterol Inhaler [Ventolin Hfa (SP)] 2 puff INHALATION Q4H PRN PRN #1 inhaler PRN Reason: Wheezing Transmission Status: Received by [facility] #30 Primary Care Physician: Care Physician,No Primary [Primary Care Provider] - Please follow up with your Primary Care Physician in: next week Please Follow Up With: Jazzy Christianson MD When: Thursday Disposition: Home Minutes spent on discharge:: 30 Patient Condition:: Stable Medical Necessity - Tobacco Use Smoking Status: Current every day smoker Tobacco Use: Cigarettes Meaningful Use Info Meaningful Use Diagnoses (Choose all that apply): None applicable Inpatient E&M: 46310 Disch Hosp
== END 2019-07-29 12:55 | disposition home or self-care (01) | DRG 190 ==
LOC: ED 18:41 → MS3 19:42
PROVIDERS: Admitting Provider Family Medicine; Emergency Provider Emergency Medicine; Visit Provider Internal Medicine
DX: J44.1 Chronic obstructive pulmonary disease with (acute) exacerbation (principal); E43 Unspecified severe protein-calorie malnutrition; J96.01 Acute respiratory failure with hypoxia; Z68.1 Body mass index [BMI] 19.9 or less, adult; F17.210 Nicotine dependence, cigarettes, uncomplicated; F10.11 Alcohol abuse, in remission; K21.9 Gastro-esophageal reflux disease without esophagitis; Z91.19 Patient's noncompliance with other medical treatment and regimen
CPT/HCPCS: 36415; 71046; 80048; 83605; 83735; 84100; 85025; 87040; 87070; 87077; 87205; 87633; 93005; 94640; 94667; 94668; 97802; 99251; 99285; 99406; J7030; A4216; G0463

== ENCOUNTER 2022-06-03 10:56 | Emergency (ER) | payer MEDICARE, MEDICAID, SELFPAY ==
[2022-06-03] VITALS (10 sets, daily range): BP systolic 111–206; BP diastolic 74–118; PULSE 62–94; RESP 16–20; TEMP 36.3–36.5; O2SAT 88–96; BMI 17.6
--- NOTE | 2022-06-03 11:00 | CT_ITS ---
We are attempting to reach an attending provider to discuss findings. An addendum with communication details will be sent when the communication is complete. HISTORY: Neuro deficit, acute, stroke suspected. TECHNIQUE: Multiple axial images were obtained of the head without intravenous contrast. A radiation dose optimization technique was used for this scan. 244 images. COMPARISON: None. 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 Multiple foci and zones of low attenuation in the bilateral cerebral white matter compatible with chronic small vessel ischemic gliosis. No acute intra-axial hemorrhage identified. CSF SPACES: Generalized volume loss. No midline shift or other significant mass effect. No acute extra-axial hemorrhage seen. OTHER: Intact calvarium. No significant air fluid levels in the paranasal sinuses or mastoid air cells. Unremarkable orbits. 5 mm left parietal cutaneous scalp nodule. ASPECTS Score for Acute Strokes: 10 CT/STROKE Brain/Head without Cont IMPRESSION: No acute intracranial process identified. Chronic involutional and white matter changes. Old right parietal infarct. Electronically Signed: Meghan Green MD at 11:15 EST ,
--- NOTE | 2022-06-03 11:00 | EKG12_ITS ---
Test Reason : STROKE TEAM Blood Pressure : / mmHG Vent. Rate : 078 BPM Atrial Rate : 078 BPM P-R Int : 172 ms QRS Dur : 078 ms QT Int : 410 ms P-R-T Axes : 080 065 061 degrees QTc Int : 467 ms Sinus rhythm with Premature supraventricular complexes and with occasional Premature ventricular comp lexes Otherwise normal ECG Confirmed by JUAN VILLANUEVA, DAVONTE ([id number]), script editor DEISY NAVARRO ([id number]) on 06/04/2022 2:46:35 PM Referred By: Confirmed By:DAVONTE MARTINEZ MD
--- NOTE | 2022-06-03 11:00 | RAD_ITS ---
HISTORY: Neuro deficit, acute stroke suspected. TECHNIQUE: XR Chest 1 View. COMPARISON: 07/28/2019. FINDINGS: CARDIOMEDIASTINAL BORDERS: Cardiac silhouette within normal limits in size. Mediastinal contour unchanged with mild tortuosity and calcification of the aorta. LUNGS: Calcified left upper lobe granuloma and chronic coarse interstitial markings in the lungs without focal consolidation. PLEURA: No pleural effusion or pneumothorax seen. OSSEOUS STRUCTURES: Osteopenia and degenerative change. Multiple old right rib fractures and old right humeral neck fracture. RAD/Chest 1 View IMPRESSION: No acute cardiopulmonary process identified. Electronically Signed: Meghan Green MD at 12:50 EST ,
--- NOTE | 2022-06-03 11:00 | CT_ITS ---
HISTORY: Neuro deficit, acute stroke suspected. TECHNIQUE: [place]/head and carotid CT angiogram protocol was performed after the intravenous administration of 100 mL Isovue 370. NASCET criteria using the distal ICAs for comparison were used for evaluation of stenoses. 3D reconstructions were reviewed. A radiation dose optimization technique was used for this scan. 2090 images. COMPARISON: CT head same day. FINDINGS: AORTIC ARCH AND BRANCHES: Calcified plaque present. Bovine arch configuration. Noncalcified plaque in the proximal left subclavian artery with 50% stenosis. RIGHT CCA: Calcified plaque with approximately 60% stenosis at the bifurcation. RIGHT ICA: Calcified plaque with approximately 50% stenosis proximally. LEFT CCA: Calcified plaque with approximately 50% stenosis at the bifurcation. LEFT ICA: Severe stenosis at the origin and long segment occlusion. RIGHT VERTEBRAL ARTERY: Hypoplastic. Severe calcified plaque with occlusion or near occlusion. LEFT VERTEBRAL ARTERY: Dominant. Calcified plaque at the origin with approximately 50% stenosis. No occlusion, other significant stenosis or dissection. SOFT TISSUES: Emphysema in the lung apices. Soft tissue fullness and asymmetry in the left nasopharynx. ICAs: Long occluded segment of the left internal carotid artery extends into the petrous and cavernous portions with reconstitution of flow distally at its bifurcation. Patent intracranial right internal carotid artery with calcified plaque at the carotid siphon. ACAs: No significant stenosis at the visualized segments. MCAs: No significant stenosis at the visualized segments. lining machine operator: No significant stenosis at the visualized segments. BASILAR ARTERY: No significant stenosis. VERTEBRAL ARTERIES: Occluded intracranial right vertebral artery with slight reconstitution of flow distally. Dominant and patent intracranial left vertebral artery. No evidence of intracranial aneurysm or vascular malformation. 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 Occluded segments of the right vertebral artery in the neck and intracranial portion. Moderate stenoses at the bilateral carotid bifurcations in the neck. Soft tissue fullness of the left nasopharynx, nonspecific. N.B. : The above Results were Read Back by Meghan Green MD to Leonardo Ordonez DO, and understanding confirmed on 06/03/2022 11:37:28 (ET). Electronically Signed: Meghan Green MD at 11:38 EST Reading Location ID and State: [facility] / [place] Tel , Service support ,
--- NOTE | 2022-06-03 11:02 | ED.VIS.STROK ---
HPI History of Present Illness Chief Complaint: Stroke Alert Narrative Narrative: 72-year-old male with strokelike symptoms. Stroke team was called from the field. Patient was met at the door. Last known well 10:30 AM. This was witnessed by his . Patient had reportedly complained of some chest discomfort and fell over onto a freezer and he was holding himself up. On EMS arrival patient reported that both of his arms felt tight. He had an ataxic gait, rightward gaze palsy, left-sided weakness in the left upper extremity and lower extremity. Patient reportedly not on any blood thinners. No reported history of trauma. PFSH PFS Medical History COPD (chronic obstructive pulmonary disease) ETOH abuse Home Medications NK 06/03/22 [History Last Taken Unknown] Allergy/AdvReac Type Severity Reaction Status Date / Time No Known Allergies Allergy Verified 06/03/22 10:57 Social History Smoking Status: Current every day smoker tobacco type: cigarettes ROS ROS ED Constitutional Constitutional ED: Denies fever(s) ENT ENT ED: Denies rhinorrhea or sore throat Cardiovascular Cardiovascular: Reports chest pain Respiratory/Chest Respiratory/Chest: Denies cough or dyspnea Gastrointestinal Gastrointestinal: Denies nausea or vomiting Genitourinary Genitourinary ED: Denies dysuria or hematuria Musculoskeletal Musculoskeletal: Denies arthralgias or myalgias Integumentary Denies abscess or Abrasions Neurologic Neurologic: Denies headache(s) Psychiatric Psychiatric: Denies anxiety Endocrine Endocrinology: Denies polydipsia or polyphagia EXAM Physical Exam Const Vital Signs: 06/03/22 11:00 06/03/22 11:00 06/03/22 11:12 Temperature 97.3 F L Temperature Source Temporal Pulse Rate 70 94 Respiratory Rate 18 18 Blood Pressure 156/116 H 155/105 H Blood Pressure Mean 129 121 Blood Pressure Source Blood Pressure Position Blood Pressure Location Pulse Ox 94 94 Oxygen Delivery Method Room Air Room Air Oxygen Flow Rate (L/min) 06/03/22 11:00 06/03/22 11:39 06/03/22 11:30 Temperature Temperature Source Pulse Rate 87 84 Respiratory Rate 18 18 Blood Pressure 206/79 H 175/104 H 161/118 H Blood Pressure Mean 121 132 Blood Pressure Source Blood Pressure Position Blood Pressure Location Pulse Ox 96 96 Oxygen Delivery Method Room Air Room Air Oxygen Flow Rate (L/min) 06/03/22 12:00 06/03/22 11:30 06/03/22 11:45 Temperature 97.3 F L 97.4 F L 97.7 F L Temperature Source Temporal Temporal Temporal Pulse Rate 68 80 75 Respiratory Rate 20 H 18 16 Blood Pressure 138/87 H 175/104 H 143/95 H Blood Pressure Mean 104 127 111 Blood Pressure Source Monitor Monitor Blood Pressure Position Semi-Fowlers Supine Blood Pressure Location Right Arm Right Arm Pulse Ox 95 95 95 Oxygen Delivery Method Room Air Room Air Room Air Oxygen Flow Rate (L/min) 06/03/22 12:00 06/03/22 12:35 06/03/22 12:15 Temperature 97.7 F L 97.6 F L Temperature Source Temporal Temporal Pulse Rate 67 64 Respiratory Rate 18 16 Blood Pressure 137/78 H 121/82 H Blood Pressure Mean 97 95 Blood Pressure Source Monitor Monitor Blood Pressure Position Semi-Fowlers Semi-Fowlers Blood Pressure Location Right Arm Right Arm Pulse Ox 93 88 94 Oxygen Delivery Method Room Air Room Air Room Air Oxygen Flow Rate (L/min) 06/03/22 12:30 06/03/22 12:30 06/03/22 12:43 Temperature 97.7 F L 97.7 F L 97.7 F L Temperature Source Temporal Temporal Pulse Rate 62 62 65 Respiratory Rate 16 16 18 Blood Pressure 136/78 H 136/78 H 111/74 Blood Pressure Mean 97 97 86 Blood Pressure Source Monitor Blood Pressure Position Semi-Fowlers Blood Pressure Location Right Arm Pulse Ox 94 94 94 Oxygen Delivery Method Nasal Cannula Nasal Cannula Oxygen Flow Rate (L/min) 2 2 Positive cachectic and unkempt General Appearance ED: unkempt and cachectic Nutritional Appearance: cachectic HEENT Reports dry mucous membranes Mouth ED: Yes dry mucous membranes Mouth: dry mucous membranes Eyes PERRL and EOMs intact bilaterally Neck no lymphadenopathy Chest Wall inspection of chest normal Resp normal respiratory effort Cardio Rate: regular rate Rhythm: regular rhythm GI normal to inspection, nondistended, normoactive bowel sounds Neuro Sensorium / Orientation: alert Speech: speech normal Psych Psych Narrative: Confused Appearance: unkempt Skin no wounds NIHSS NIHSS Initial: 1a Level of Consciousness: 0 1b LOC Questions (Score 2 if aphasic/stupor): 1 1c LOC Commands (Only score 1st attempt): 2 2 Best Gaze (If aphasic, use reflexive mvmts.): 1 3 Visual: 1 4 Facial Palsy: 0 5 Motor Arm Right (UN = amputation/fusion): 0 5 Motor Arm Left: 4 6 Motor Leg Right: 2 6 Motor Leg Left: 0 7 Limb ataxia (Only + if out of proportion): 2 8 Sensory (Aphasia/stupor=0 or 1, coma=2): 1 9 Best Language: 1 10 Dysarthria (mute, coma=2, intubated=UN): 1 11 Extinction and Inattention (only scored if +): 1 Total Score: 17 MDM MDM MDM Narrative Medical decision making narrative: 72-year-old male presenting with strokelike symptoms. Patient was met at the door. NIH stroke scale score of 17. Patient was taken to CT scanner. [facility] was able to [facility] in and at that point the patient had an NIH score of 16 and was moving his left arm although it was very difficult for him to hold it up and there was some mild drift. CT brain was initially negative. After speaking with the patient, neurologist we did determine that we wanted to use tPA. This was ordered at 11:30 AM. Prior to tPA given patient had an elevated blood pressure and needed labetalol 20 mg x 1. Initial blood pressure on arrival was 156/160. Highest blood pressure was 206/79. After labetalol patient's blood pressure is now 138/87. After receiving the tPA I was called to the room as a patient was started to have involuntary twitching. Patient given initial dose of Ativan without relief was given a second dose of Ativan for total 2. Received a phone call from radiology stating patient had abnormal findings on CTA. These wereLong segment occlusion of the left internal carotid artery in the neck and intracranial portion and occluded segments of the right vertebral artery in the neck and intracranial portion. This was discussed with neurology as well as the new onset twitching. Patient was given 40 mg/kg of Keppra per neurology. At this point we determined that we would transport the patient to [facility] for neurology care. We did initially speak with [facility] who is not flying. We are trying to arrange ground transport. EKG was obtained and on my interpretation shows sinus rhythm at 78 bpm with occasional PACs. UT interval 170 ms, QRS duration 78 ms, QTC 467 ms. Chest x-ray on my interpretation shows no acute cardiopulmonary process. Radiologist represents and agrees. Patient reassessed and appears to have improvement of the shaking however due to giving him the Ativan he seems to be more sedated. His vital signs remained stable. Review of his blood work shows that his CBC shows normal blood cell count 8.7. Hemoglobin hematocrit are stable. Platelets are normal. PT/INR within normal limits. Renal function and electrolytes unremarkable. High-sensitivity troponin is 10. Critical care transport was able to take the patient to [facility] by ground. Impression: 1. Acute CVA 2. 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 Seizure-like activity Lab Data Attestation: I reviewed the patient's lab results. Labs: Laboratory Results - last 24 hr 06/03/22 06/03/22 06/03/22 11:00 11:00 11:00 WBC 8.7 RBC 5.07 Hgb 15.3 Hct 47.2 MCV 93.1 MCH 30.2 MCHC 32.4 RDW Std Deviation 42.3 RDW Coeff of Gabrielle 12.3 Plt Count 236 MPV 9.2 Immature Gran % (Auto) 0.500 Neut % (Auto) 52.5 Lymph % (Auto) 34.1 [place] % (Auto) 7.7 Eos % (Auto) 4.3 Baso % (Auto) 0.9 Absolute Neuts (auto) 4.6 Absolute Lymphs (auto) 2.95 Nucleated RBC % 0 PT 12.7 INR 1.0 APTT 25.9 Sodium 137 Potassium 3.5 Chloride 102 Carbon Dioxide 27.0 Anion Gap 8 BUN 5 L Creatinine 0.93 Estim Creat Clear Calc 57.60 Est GFR (MDRD) Af Amer 103 Est GFR (MDRD) Non-Af 85 BUN/Creatinine Ratio 5.4 L Glucose 120 H Calcium 9.1 Troponin I High Sens 10 Ethyl Alcohol 06/03/22 11:16 WBC RBC Hgb Hct MCV MCH MCHC RDW Std Deviation RDW Coeff of Gabrielle Plt Count MPV Immature Gran % (Auto) Neut % (Auto) Lymph % (Auto) [place] % (Auto) Eos % (Auto) Baso % (Auto) Absolute Neuts (auto) Absolute Lymphs (auto) Nucleated RBC % PT INR APTT Sodium Potassium Chloride Carbon Dioxide Anion Gap BUN Creatinine Estim Creat Clear Calc Est GFR (MDRD) Af Amer Est GFR (MDRD) Non-Af BUN/Creatinine Ratio Glucose Calcium Troponin I High Sens Ethyl Alcohol < 3.0 Radiography Diagnostic Testing: Clinical Impression(s) from Imaging Studies Brain CT 06/03/22 11:00 IMPRESSION: No acute intracranial process identified. Chronic involutional and white matter changes. Old right parietal infarct. Electronically Signed: Meghan Green MD at 11:15 EST Reading Location ID and State: [facility] / [place] Tel , Service support , ADDENDUM: 06/03/22 1124 IMPRESSION: No acute intracranial process identified. Chronic involutional and white matter changes. Old right parietal infarct. N.B. : The above Results were Read Back by Meghan Green MD to Leonardo Ordonez DO, and understanding confirmed on 06/03/2022 11:17:14 (ET). Electronically Signed: Meghan Green MD at 11:15 EST , Chest X-Ray 06/03/22 11:00 IMPRESSION: No acute cardiopulmonary process identified. 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 Occluded segments of the right vertebral artery in the neck and intracranial portion. Moderate stenoses at the bilateral carotid bifurcations in the neck. Soft tissue fullness of the left nasopharynx, nonspecific. N.B. : The above Results were Read Back by Meghan Green MD to Leonardo Ordonez DO, and understanding confirmed on 06/03/2022 11:37:28 (ET). 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 Occluded segments of the right vertebral artery in the neck and intracranial portion. Moderate stenoses at the bilateral carotid bifurcations in the neck. Soft tissue fullness of the left nasopharynx, nonspecific. N.B. : The above Results were Read Back by Meghan Green MD to Leonardo Ordonez DO, and understanding confirmed on 06/03/2022 11:37:28 (ET). Electronically Signed: Meghan Green MD at 11:38 EST , Stroke Documentation Questions Stroke Team Activated: Yes Reviewed Inclusion/Exclusion criteria: Yes Was Patient considered for Endovascular Intervention?: Yes-CTA +,PT transferred for further eval of endovascular intervention IV Thrombolytic Administered: Yes No contraindications from thrombolytic administration: Yes Risks, Benefits, Alternatives Discussed: Yes Not given: Patient refusal: No Reasons for Thrombolytic Delay IV antihypertensives needed to reduce BP prior to Thrombolytic Administration: Yes Critical Care Time Critical care time (excluding procedures): 30-74 minutes (32), Discussing w/Patient &/or Family/Director Of Pharmacy, Discussing w/Consultants, Arranging Admission or Transfer and Performing Direct Patient Care at Bedside Discharge Plan Triage Chief Complaint: Stroke Alert ED Provider: Leonardo Ordonez Dx/Rx/DC Orders Prescriptions: No Action NK Primary Care Provider: Care Physician,No Primary Referrals: Care Physician,No Primary [Primary Care Provider] - Disposition Disposition: Acute Care Hospital Discharge Location: [facility] Discharge Date/Time: 06/03/22 12:44
[2022-06-03 11:06] LABS: Absolute Lymphocyte Count 2.95 X10^3/uL (0.83-4.51); Absolute Neutrophil Count 4.6 X10^3/uL (2.0-7.7); Basophil# 0.08 X10^3/uL; Basophil% 0.9 % (0-1); Eosinophil# 0.37 X10^3/uL; Eosinophils% 4.3 % (0-5); Hematocrit 47.2 % (40-54); Hemoglobin 15.3 g/dL (13.0-16.5); Lymphocyte # 2.95 X10^3/ul (0.83-4.51); Lymphocyte % 34.1 % (19-41); Mean Corp Hgb Conc 32.4 g/dL (32-36); Mean Corpuscular Hgb 30.2 pg (27.0-32.0); Mean Corpuscular Volume 93.1 fL (80-94); Mean Platelet Vol. 9.2 fl (6.2-12.0); Monocyte# 0.67 X10^3/uL; Monocyte% 7.7 % (0-10); NRBC Flagged by Analyzer 0 % (0-5); Neutrophil # 4.55 X10^3/uL (2.7-7.7); Neutrophil % 52.5 % (47-70); Platelet Count 236 K/mm3 (150-450); RBC Distribution Width CV 12.3 % (11.6-14.6); RBC Distribution Width SD 42.3 fl (35.1-43.9); Red Blood Count 5.07 M/mm3 (4.6-6.2); White Blood Count 8.7 K/mm3 (4.4-11.0)
[2022-06-03 11:15] LABS: Prothrombin Time (Protime)PT. 12.7 SECONDS (11.7-14.9)
--- NOTE | 2022-06-03 11:16 | CM.ED ---
TALI Note TALI and TALI Jacobs responded to stroke alert. No family present. Patient lives with roommate. Roommate is not present in the ED room. SW is available if roommate comes to the ED to offer support. Jeaneth DOMINGO
[2022-06-03 11:17] LABS: Partial Thromboplast Time 25.9 Seconds (24.1-36.2)
[2022-06-03 11:20] LABS: Anion Gap 8 (5-15); BUN 5 mg/dL (7-18); BUN/Creat Ratio 5.4 RATIO (10-20); Calcium,Total 9.1 mg/dL (8.5-10.1); Chloride 102 mmol/L (98-107); Creatinine, Serum 0.93 mg/dL (0.70-1.30); EST Glomerular Filtration Rate 85 mL/min (>60); Est Glom Filt Rate - Afr Amer 103 mL/min (>60); Glucose 120 mg/dL (74-106); Potassium 3.5 mmol/L (3.5-5.1); Sodium Level 137 mmol/L (136-145); Troponin-I HS 10 pg/mL (3.0-78.0)
--- NOTE | 2022-06-03 11:29 | ED.RN ---
Dr. Ordonez spoke with neurologist Dr. Villar while on telestroke. Dr. Ordonez will order TPA, pharmacy notified.
[2022-06-03] MEDS: Labetalol (Prefilled) 20 MG/4 ML IV (11:38)
[2022-06-03] MEDS: 0.9% Normal Saline 1,000 ML 100 ML IV (11:43)
[2022-06-03 11:52] LABS: Alcohol, Blood (Medical)-Serum < 3.0 mg/dL
--- NOTE | 2022-06-03 11:53 | ED.RN ---
THIS RN CONTACTED [facility] TO ARRANGE TRANSPORT FOR PT TO [facility].
[2022-06-03] MEDS: LORazepam 2 MG/ML Syringe 1 MG IV ×2 (11:55→12:11)
--- NOTE | 2022-06-03 12:04 | ED.RN ---
Addendum entered by Yolanda Sibley 06/03/22 12:05: 1151 instead of 1051. Original Note: at 1051, noticed seizure activity to left arm, left side of face/head. Dr. Ordonez witnessed as well and ordered 1 mg Ativan, IVP. seizure activity lasted approx 3 min.
--- NOTE | 2022-06-03 12:20 | CM.ED ---
TALI met with Isaiah, patient's roommates. Provided emotional support. SW advised patient is being transferred to [facility] and roommates said that they will go to [facility] with patient. SW provided them with driving directions and address and map of [facility]. No further needs identified at this time. Plan: Transfer to [facility] Jeaneth DOMINGO
--- NOTE | 2022-06-03 12:50 | CHAPLAIN ---
Type of Pastoral Visit ___ Initial Visit ___ Follow-up Visit ___ On-call Visit ___ General Patient Visit ___ Spiritual Assessment ___ Family Conference ___ Bereavement _x__ Rapid Response ___ Code Blue ___ Other (describe below) Pastoral Care Referral From ___ Patient ___ Family ___ Nurse ___ Physician ___ Surgical Endoscopist ___ Drug Safety Scientist _x__ Other (describe below) Sacrament/Intervention ___ Active listening ___ Anointing ___ Moravian ___ Bereavement ___ Communion ___ [place] exploration ___ ___ Life review ___ Prayer ___ Reconciliation ___ Sacrament of Sick _x__ Supportive presence ___ Wedding ___ Other (describe below) Pastoral Comments responded to stroke alert and was present when patient was brought in to ED; no family came at that time; patient was taken to CT; SW's were present and this piercing artist noted return as needed
--- NOTE | 2022-06-03 12:56 | ED.RN ---
seizure activity continued at 1200, another dose of 1 mg ativan and keppra dose given- see MAR. verified dose with pharmacist and Dr. Ordonez.
--- NOTE | 2022-06-03 12:57 | ED.RN ---
1215- pt increase in drowsiness, see NIH score. Dr. Ordonez at bedside and discussed changes with.
--- NOTE | 2022-06-03 13:02 | ED.RN ---
friends were giving directions to [facility] and will meet pt there. called transfter center to inquire about calling report- update given on seizure activity, meds given, and now with increased drowsiness. Transfer center reported not needing to give nurse to nurse report.
== END 2022-06-03 12:44 | disposition short-term general hospital (02) ==
PROVIDERS: Emergency Provider Student in an Organized Health Care Education/Training Program; Visit Provider Student in an Organized Health Care Education/Training Program
DX: I63.233 Cerebral infarction due to unspecified occlusion or stenosis of bilateral carotid arteries (principal); J44.9 Chronic obstructive pulmonary disease, unspecified; R56.9 Unspecified convulsions; R26.0 Ataxic gait; R03.0 Elevated blood-pressure reading, without diagnosis of hypertension; F17.210 Nicotine dependence, cigarettes, uncomplicated; R29.717 NIHSS score 17
CPT/HCPCS: 51702; 70450; 70496; 70498; 71045; 80048; 82077; 84484; 85025; 85610; 85730; 93005; 96365; 96367; 96375; 96376; 99285; J2997; J7030; J7050; Q9967; A4216

== ENCOUNTER 2022-10-31 16:56 | Emergency (ER) | payer MEDICARE, MEDICAID, SELFPAY ==
[2022-10-31 16:57] VITALS: BP 158/93; PULSE 68; RESP 16; TEMP 36.6; O2SAT 95; BMI 17.0
--- NOTE | 2022-10-31 17:12 | CT_ITS ---
INDICATION: weakness EXAMINATION: CT BRAIN - CT Head or Brain W/O Contrast Injection TECHNIQUE: Multiple axial images were obtained of the head without intravenous contrast. A radiation dose optimization technique was used for this scan. IV Contrast dosage and agent: None. RADIATION DOSAGE (If Supplied By Facility): CTDIvol = ( 44.99 ) mGy, DLP = ( 829.85 ) mGycm COMPARISON: 06/03/2022 FINDINGS: BRAIN PARENCHYMA: No intra- or extra-axial hemorrhage. Right temporal parietal encephalomalacia redemonstrated. No evidence of acute infarct. No intracranial mass or mass effect. There is preservation of the coronado/white matter interface. Posterior fossa structures are unremarkable. CSF SPACES: Appropriate for age. No hydrocephalus. Basal cisterns are patent. CALVARIUM, SKULL BASE, PARANASAL SINUSES AND MASTOID AIR CELLS: Clear. No discrete lytic or blastic abnormalities. ORBITS: Both globes, extraocular muscles, optic nerves and retrobulbar fat appear unremarkable. ASPECTS Score for Acute Strokes: 10 CT/Brain/Head without Contrast IMPRESSION: No acute abnormal intracranial finding. Electronically Signed: Fran Mckeon MD at 18:17 EDT ,
--- NOTE | 2022-10-31 17:12 | EKG12_ITS ---
Test Reason : WEAKNESS Blood Pressure : / mmHG Vent. Rate : 055 BPM Atrial Rate : 055 BPM P-R Int : 170 ms QRS Dur : 080 ms QT Int : 406 ms P-R-T Axes : 054 055 068 degrees QTc Int : 388 ms Sinus bradycardia Otherwise normal ECG Confirmed by KRISTY VILLANUEVA, ANGELA ([id number]), online editor DEISY NAVARRO ([id number]) on 11/03/2022 10:51:40 A M Referred By: TAD Confirmed By:OPAL WAGNER MD
--- NOTE | 2022-10-31 17:14 | EDS_ITS ---
HPI History of Present Illness Chief Complaint: Weakness Narrative Narrative: 72-year-old male past medical history of previous stroke in May where he had vision problems and went unresponsive, per EMR COPD and alcohol abuse presents with generalized weakness that began today. He states his symptoms have essentially resolved and he feels improved. He was sitting down watching TV and felt numbness of his bilateral arms and felt weak where he could not get up. He has improved significantly. He denies any headache currently, no nausea or vomiting recently, no diarrhea, no other symptoms. PFSH PFSH Medical History COPD (chronic obstructive pulmonary disease) CVA (cerebral vascular accident) ETOH abuse Home Medications NK 06/03/22 [History Last Taken Unknown] Allergy/AdvReac Type Severity Reaction Status Date / Time No Known Allergies Allergy Verified 06/03/22 10:57 Social History Smoking Status: Current every day smoker tobacco type: cigarettes ROS ROS ED ROS Narrative Constitutional: No fever, no chills. HEENT: No sore throat. No neck pain. No loss of vision. No rhinorrhea. Cardiovascular: No chest pain. No palpitations. No pedal edema. Respiratory: No cough, no shortness of breath. Abdominal: No abdominal pain. No nausea. No vomiting. Genitourinary: No dysuria. No hematuria. Musculoskeletal: No myalgias. No arthralgias. Neurologic: No headaches. No dizziness. No lightheadedness. Paresthesias bilateral upper extremities-resolved Skin: No rash. No change in color. Psychiatric: No depression. No anxiety. EXAM Physical Exam Narrative Exam Narrative: Afebrile. Vital signs noted. HEENT: Normocephalic. Atraumatic. PERRL, EOMI. Neck soft and supple. No point tenderness or step off. Cardiovascular: Regular rate and rhythm. No murmurs, rubs, or gallops appreciated. Respiratory: No tachypnea. Lungs clear to auscultation bilaterally. Gastrointestinal: Abdomen soft, nontender, with normoactive bowel sounds. No rebound or guarding. Neurological: Awake. Alert. Nonfocal, nonlateralizing. Skin: No rash. Normal color. No pallor. Musculoskeletal: No pedal edema. Full range of motion extremities. Const Vital Signs: 10/31/22 16:57 10/31/22 17:01 10/31/22 18:26 Temperature 97.8 F Temperature Source Oral Pulse Rate 68 88 Respiratory Rate 16 18 Respiratory Effort Normal Non-Labored Respiratory Pattern Normal Blood Pressure 158/93 H 158/83 H Blood Pressure Mean 114 108 Pulse Ox 95 94 Oxygen Delivery Method Room Air Room Air 10/31/22 19:08 Temperature Temperature Source Pulse Rate 63 Respiratory Rate 17 Respiratory Effort Respiratory Pattern Blood Pressure 130/85 H Blood Pressure Mean 100 Pulse Ox 93 Oxygen Delivery Method Room Air MDM MDM MDM Narrative Medical decision making narrative: His symptoms have completely resolved. He is already on medication for stroke. I will obtain a CT of the brain just to look for any acute process. I do feel that his weakness was generalized and his paresthesias were bilateral upper extremities so I have low suspicion for stroke or other central nervous process. I will also obtain a chest x-ray and urinalysis along with basic laboratory work including CBC and CMP. EKG was obtained and interpreted by myself as sinus bradycardia at 55 bpm without ectopy or acute ST changes. No STEMI. No significant change from previous EKG dated June 03, 2022. I reviewed his laboratory work and he has a normal white count of 7.5, hemoglobin normal at 14.9, platelet count normal at 277. He has slight hypokalemia of 3.3 which was replaced orally. BUN normal at 8, creatinine 0.68 without evidence of dehydration. Glucose appropriately elevated at 98 with a normal anion gap of 8. Ethyl alcohol level is only slightly elevated at 10. He does have a history of alcohol abuse. Urinalysis is negative after review, no evidence of infection or ketones. I do not feel that he requires antibiotics. Chest x-ray interpreted by myself independently shows no pneumothorax, no pneumonia. I reviewed the radiology report which confirms my independent interpretation. I reviewed the CT imaging of the brain, and reviewed the radiology report which shows no acute process. At this point in time, I do feel that he can be discharged safely home to follow-up with his primary care provider. Return instructions to the emergency department were reviewed. Disposition is discharged home in stable condition. I do not feel that he requires observation at this time. History & Record Review Discussion w/independent historian: Patient and Friend Additional record(s) reviewed:: Prior ED visit and Prior labs Lab Data Attestation: I reviewed the patient's lab results. Labs: Laboratory Results - last 24 hr 10/31/22 10/31/22 10/31/22 17:20 17:20 17:20 WBC 7.5 RBC 5.03 Hgb 14.9 Hct 46.7 MCV 92.8 MCH 29.6 MCHC 31.9 L RDW Std Deviation 44.2 H RDW Coeff of Gabrielle 13.0 Plt Count 277 MPV 9.9 Immature Gran % (Auto) 0.400 Neut % (Auto) 59.6 Lymph % (Auto) 30.7 [place] % (Auto) 6.4 Eos % (Auto) 2.0 Baso % (Auto) 0.9 Absolute Neuts (auto) 4.4 Absolute Lymphs (auto) 2.29 Nucleated RBC % 0 Sodium 137 Potassium 3.3 L Chloride 102 Carbon Dioxide 27.0 Anion Gap 8 BUN 8 Creatinine 0.68 L Estim Creat Clear Calc 51.56 Est GFR (MDRD) Af Amer 147 Est GFR (MDRD) Non-Af 121 BUN/Creatinine Ratio 11.7 Glucose 98 Calcium 8.9 Total Bilirubin 0.60 AST 35 ALT 19 Alkaline Phosphatase 143 H Total Protein 7.7 Albumin 3.2 Globulin 4.5 H Albumin/Globulin Ratio 0.7 L Urine Color Urine Clarity Urine pH Ur Specific [place] Urine Protein Urine Glucose (UA) Urine Ketones Urine Occult Blood Urine Nitrite Urine Bilirubin Urine Urobilinogen Ur Leukocyte Esterase Urine RBC Urine WBC Ur Squamous Epith Cells Urine Bacteria Urine Mucus Ethyl Alcohol 10.0 10/31/22 18:20 WBC RBC Hgb Hct MCV MCH MCHC RDW Std Deviation RDW Coeff of Gabrielle Plt Count MPV Immature Gran % (Auto) Neut % (Auto) Lymph % (Auto) [place] % (Auto) Eos % (Auto) Baso % (Auto) Absolute Neuts (auto) Absolute Lymphs (auto) Nucleated RBC % Sodium Potassium Chloride Carbon Dioxide Anion Gap BUN Creatinine Estim Creat Clear Calc Est GFR (MDRD) Af Amer Est GFR (MDRD) Non-Af BUN/Creatinine Ratio Glucose Calcium Total Bilirubin AST ALT Alkaline Phosphatase Total Protein Albumin Globulin Albumin/Globulin Ratio Urine Color Yellow Urine Clarity Sl. Cloudy Urine pH 6.5 Ur Specific [place] 1.015 Urine Protein 15 H Urine Glucose (UA) Normal Urine Ketones Negative Urine Occult Blood 10 H Urine Nitrite Negative Urine Bilirubin Negative Urine Urobilinogen 1 H Ur Leukocyte Esterase Negative Urine RBC 0 SEEN Urine WBC 0-5 SEEN Ur Squamous Epith Cells 0 SEEN Urine Bacteria 0 SEEN Urine Mucus 0 SEEN Ethyl Alcohol Radiography Diagnostic Testing: Clinical Impression(s) from Imaging Studies Brain CT 10/31/22 17:12 IMPRESSION: No acute abnormal intracranial finding. Electronically Signed: Fran Mckeon MD at 18:17 EDT Reading Location ID and State: [facility] / [place] Tel , Service support , Chest X-Ray 10/31/22 17:57 IMPRESSION: No radiographic evidence of acute cardiopulmonary disease. Electronically Signed: Fran Mckeon MD at 18:12 EDT , Discharge Plan Triage Chief Complaint: Weakness ED Provider: Arjun Rodriguez Dx/Rx/DC Orders Clinical Impression: Generalized weakness, Hypokalemia Prescriptions: No Action NK Primary Care Provider: Richard Escobedo Referrals: Care Physician,No Primary [Non-Staff] - Activity Restrictions/Additional Instructions: Follow-up with Dr. Escobedo as soon as possible. Call the office on Thursday for an appointment. Disposition Disposition: Home, Self Care
[2022-10-31 17:45] LABS: Absolute Lymphocyte Count 2.29 X10^3/uL (0.83-4.51); Absolute Neutrophil Count 4.4 X10^3/uL (2.0-7.7); Basophil# 0.07 X10^3/uL; Basophil% 0.9 % (0-1); Eosinophil# 0.15 X10^3/uL; Hematocrit 46.7 % (40-54); Hemoglobin 14.9 g/dL (13.0-16.5); Lymphocyte # 2.29 X10^3/ul (0.83-4.51); Lymphocyte % 30.7 % (19-41); Mean Corp Hgb Conc 31.9 g/dL (32-36); Mean Corpuscular Hgb 29.6 pg (27.0-32.0); Mean Corpuscular Volume 92.8 fL (80-94); Mean Platelet Vol. 9.9 fl (6.2-12.0); Monocyte# 0.48 X10^3/uL; Monocyte% 6.4 % (0-10); NRBC Flagged by Analyzer 0 % (0-5); Neutrophil # 4.43 X10^3/uL (2.7-7.7); Neutrophil % 59.6 % (47-70); Platelet Count 277 K/mm3 (150-450); RBC Distribution Width SD 44.2 fl (35.1-43.9); Red Blood Count 5.03 M/mm3 (4.6-6.2); White Blood Count 7.5 K/mm3 (4.4-11.0)
--- NOTE | 2022-10-31 17:57 | RAD_ITS ---
INDICATION: Weakness, cad EXAMINATION/TECHNIQUE: X-RAY - XR Chest 1 View COMPARISON: 06/03/2022 FINDINGS: LUNGS: Emphysematous lungs. No focal consolidation or large pleural effusion. MEDIASTINUM AND CARDIOVASCULAR STRUCTURES: Cardiac silhouette not enlarged. Central airways and mediastinal contour are unremarkable. RAD/Chest 1 View (Portable) IMPRESSION: No radiographic evidence of acute cardiopulmonary disease. Electronically Signed: Fran Mckeon MD at 18:12 EDT ,
[2022-10-31 18:07] LABS: ALB/GLOB Ratio 0.7 RATIO (0.9-2.4); AST(SGOT) 35 U/L (15-37); Alanine Aminotransfer ALT/SGPT 19 U/L (16-61); Albumin, Serum 3.2 g/dL (3.2-5.0); Alkaline Phosphatase 143 U/L (45-117); Anion Gap 8 (5-15); BUN 8 mg/dL (7-18); BUN/Creat Ratio 11.7 RATIO (10-20); Calcium,Total 8.9 mg/dL (8.5-10.1); Chloride 102 mmol/L (98-107); Creatinine, Serum 0.68 mg/dL (0.70-1.30); EST Glomerular Filtration Rate 121 mL/min (>60); Est Glom Filt Rate - Afr Amer 147 mL/min (>60); Estimated Creatinine Clearance 51.56 ml/min; Globulin 4.5 g/dL (2.2-4.2); Glucose 98 mg/dL (74-106); Potassium 3.3 mmol/L (3.5-5.1); Protein, Total 7.7 g/dL (6.4-8.2); Sodium Level 137 mmol/L (136-145)
[2022-10-31 18:26] VITALS: BP 158/83; PULSE 88; RESP 18; O2SAT 94
[2022-10-31 18:28] LABS: Bacteria 0 SEEN /hpf (None Seen); Mucous, Urine 0 SEEN /hpf (<or=2+); Red Blood Cells-Urine 0 SEEN /hpf (0-5); Squamous Epithelial Cells - UA 0 SEEN /hpf (0-5)
[2022-10-31] MEDS: Potassium Chloride Oral Tablet 20 MEQ 40 MEQ PO (18:41)
[2022-10-31 18:45] LABS: Color, Urine Yellow (Yellow); Glucose, Dipstick Normal (Normal); Ketone-Dipstick Negative (Negative); Leukocyte Esterase-Dipstick Negative /ul (Negative); Nitrite-Dipstick Negative (Negative); Occult Blood-Urine 10 /ul (Negative); Protein-Dipstick 15 mg/dl (Negative); Specific Gravity, Urine 1.015 (1.002-1.030); Urine Bilirubin Dipstick Negative (Negative); Urine Clarity Sl. Cloudy (Clear); Urine Urobilinogen 1 mg/dl (Normal); Urine pH 6.5 (5.0 - 8.0)
[2022-10-31 18:56] LABS: White Blood Cells 0-5 SEEN /hpf (0-5)
[2022-10-31 19:08] VITALS: BP 130/85; PULSE 63; RESP 17; O2SAT 93
[2022-11-02 06:18] LABS: Bedside Glucose 92 mg/dL (74-106)
== END 2022-10-31 19:54 | disposition home or self-care (01) ==
PROVIDERS: Emergency Provider Emergency Medicine; PCP Internal Medicine; Visit Provider Emergency Medicine
DX: R53.1 Weakness (principal); J44.9 Chronic obstructive pulmonary disease, unspecified; E87.6 Hypokalemia; F17.210 Nicotine dependence, cigarettes, uncomplicated; Z86.73 Personal history of transient ischemic attack (TIA), and cerebral infarction without residual deficits; Z79.899 Other long term (current) drug therapy
CPT/HCPCS: 99285; 70450; 71045; 80053; 81001; 82077; 82962; 85025; 93005; A4216

== ENCOUNTER 2022-11-01 09:56 | Inpatient (IN) | payer MEDICARE, MEDICAID, SELFPAY ==
[2022-11-01] VITALS (29 sets, daily range): BP systolic 76–188; BP diastolic 53–118; PULSE 22–114; RESP 18–31; TEMP 34.6–38; O2SAT 92–977; BMI 16.5; BMI 16.6
--- NOTE | 2022-11-01 10:07 | ED.RN ---
pt has deficits from previous cva,
--- NOTE | 2022-11-01 10:11 | EKG12_ITS ---
Test Reason : Blood Pressure : / mmHG Vent. Rate : 091 BPM Atrial Rate : 091 BPM P-R Int : 164 ms QRS Dur : 074 ms QT Int : 376 ms P-R-T Axes : 077 073 068 degrees QTc Int : 462 ms Normal sinus rhythm ST elevation consider inferolateral injury or acute infarct vs artifact Abnormal ECG Confirmed by KRISTY VILLANUEVA, ANGELA ([id number]), editor book DEISY NAVARRO ([id number]) on 11/03/2022 11:01:04 A M Referred By: MAY Confirmed By:OPAL WAGNER MD
--- NOTE | 2022-11-01 10:11 | CT_ITS ---
EXAM: CT HEAD WITHOUT INTRAVENOUS CONTRAST CLINICAL INDICATION: AMS TECHNIQUE: Multiple axial images were obtained of the head without intravenous contrast. This CT exam was performed using one or more of the following dose reduction techniques: automated exposure control, adjustment of the mA and/or kV according to patient size, and/or use of iterative reconstruction technique. COMPARISON: CT Head dated 10/31/2022 FINDINGS: BRAIN AND EXTRA-AXIAL SPACES: Chronic right temporal and parieto-occipital lobe encephalomalacia again noted. Areas of diminished white matter density noted within both cerebral hemispheres suggestive of chronic microvascular change. Prominence of the cortical sulci and ventricles related to volume loss change. No evidence of acute ischemia. No hemorrhage or mass effect. BONES/JOINTS: No suspicious lytic or blastic abnormality. SINUSES: No acute sinusitis. MASTOID AIR CELLS: Normal. Clear. ORBITS: Visualized globes, extraocular muscles, optic nerves and retrobulbar fat appear unremarkable. CT/Brain/Head without Contrast IMPRESSION: 1. No acute intracranial abnormality. 2. Stable chronic ischemic changes Electronically Signed: Wilmar Henderson MD at 11:42 EDT ,
--- NOTE | 2022-11-01 10:14 | EDS_ITS ---
HPI History of Present Illness Chief Complaint: Alt LOC PFSH PFSH Medical History COPD (chronic obstructive pulmonary disease) CVA (cerebral vascular accident) ETOH abuse Home Medications albuterol sulfate 90 mcg/actuation aerosol inhaler inhalation 11/01/22 [History Last Taken Unknown] aspirin 81 mg tablet,delayed release 81 mg PO DAILY 11/01/22 [History Last Taken Unknown] atorvastatin 40 mg tablet 40 mg PO DAILY 11/01/22 [History Last Taken Unknown] Allergy/AdvReac Type Severity Reaction Status Date / Time No Known Allergies Allergy Verified 11/01/22 10:10 Social History Smoking Status: Current every day smoker tobacco type: cigarettes EXAM Physical Exam Const Vital Signs: 11/01/22 09:57 11/01/22 10:08 11/01/22 11:08 Temperature 98 F Temperature Source Temporal Pulse Rate 95 94 Respiratory Rate 31 H 22 H Respiratory Pattern Blood Pressure 121/105 H 139/98 H Blood Pressure Mean 110 111 Pulse Ox 97 Oxygen Delivery Method Room Air Fraction of Inspired Oxygen (FIO2) 11/01/22 11:28 Temperature Temperature Source Pulse Rate 113 H Respiratory Rate 22 H Respiratory Pattern Normal Blood Pressure Blood Pressure Mean Pulse Ox 98 Oxygen Delivery Method Fraction of Inspired Oxygen (FIO2) 40 MDM MDM MDM Narrative Medical decision making narrative: HISTORY OF PRESENT ILLNESS: 72-year-old male here for change in mental status. History is provided by his and EMS. Previous records due to change in mental status. They sent prelim EKG. No blood sugar was 79. Per the patient's he was seen yesterday for low potassium. Potassium replaced here in the emergency department he was sent home. She notes at approximately 3:30 PM patient became more altered was vomiting dark vomitus. REVIEW OF SYSTEMS: Cannot obtain review of systems secondary to acuity of patient's condition PHYSICAL EXAM: Nursing triage notes reviewed, Vital signs reviewed Constitutional: please see mdm HENT: MMM, no nystagmus, dark vomitus noted on the chin Eyes: Pupils equal round and reactive to light, Extraocular muscles intact Neck: No stridor, no JVD, full neck ROM Lungs: Clear to auscultation, No wheezing or rales. No increased work of breathing, no conversational dyspnea, no accessory muscle use, no nasal flaring. No respiratory distress noted Heart: Regular rate and rhythm, No murmurs, No rubs and No gallops, 2+ distal pulses (radial, femoral, posterior tibial) in all extremities Abdomen: Soft, there is no tenderness, rigidity, rebound or guarding, no obvious peritoneal signs, no palpable pulsatile abdominal masses, no auscultated abdominal bruit : No CVAT Extremities: No edema Neuro: Patient was alert, oriented to 0, diffuse encephalopathic, responsive to pain and verbal stimuli, would not follow commands, moves all 4 extremities had sensation in all 4 extremities,. Patient looked to the left foot acknowledge object on his right. Skin: No rash or lesions noted MEDICAL DECISION MAKING: Chief Complaint: Altered mental status External records reviewed: Seen yesterday for generalized weakness Factors affecting care: History of CVA, alcohol abuse, COPD, malnutrition, hypokalemia Social determinants of health: Alcohol abuse History obtained from others: EMS, patient's Consults: Internal medicine ALL IMAGES (IF OBTAINED) HAVE BEEN PERSONALLY REVIEWED AND INTERPRETED BY MYSELF. MDM Narrative: Patient was initially hemodynamically stable, he was afebrile he was nontoxic- appearing. He appeared diffuse encephalopathic slightly uncomfortable. Did note patient was looking to the left however he had no focal neurologic deficits in terms of weakness or loss of sensation. I do not activate a stroke team given patient's diffuse encephalopathy. He had no obvious focality to his wea kness other than him looking to the left. He could look to the right although he preferred to look to the left again likely this is secondary to encephalopathy rather than acute CVA. I did obtain a CT scan of the head to rule out bleed or mass. Also obtained a broad lab work-up. I r resuscitated the patient patient with 1 L normal saline. Patient CBC showed evidence of leukocytosis suggestive of systemic inflammation and more suggestive of infection. At this point I obtained a lactate and audra blood cultures. Given the patient elevated lactate of 5.[address] scan of the chest abdomen pelvis to look for occult sources of infection. Patient was given a 30 cc/kg bolus and given broad-spectrum antibiotics in the form of Zosyn and vancomycin. CT scan of the head was negative. X-ray did not show evidence of pneumonia. He was admitted to the intensive care unit for ongoing evaluation and treatment. I considered the following differential diagnosis: ICH, acute CVA, infectious or metabolic encephalopathy, hypokalemia, dehydration, alcohol intoxication The patient and/or family, caregivers express understanding. The patient and/or family, caregivers agrees with the plan. Total critical care time today provided was at least 60 minutes. This excludes separately billable procedures. Critical care time (if documented) is secondary to the patient having high probability of clinically significant/life threatening deterioration in the patient's condition which required my urgent intervention. Shared decision making: I will have a discussion with the patient and or visitors regarding risk/benefits of further testing or admission. They will be made aware of of the risk/benefits inherent in this decision they will be given the opportunity to voice understanding. Goals of care discussion: Had a long and into goals of care discussion with the patient's POA. She agreed the patient in this case would want to be intubated and attempt to try to reverse his clinical condition. Lab Data Attestation: I reviewed the patient's lab results. Lab results narrative: CBC with leukocytosis suggestive of systemic inflammation, no anemia or thrombocytopenia noted Initial EKG with normal sinus rhythm normal axis no obvious STEMI BMP without significant electrolyte abnormalities, no acute kidney injury, no anion gap to suggest endorgan hypoperfusion, LFTs show no evidence of hepatobiliary pathology. Initial troponin elevated consistent with myocardial ischemia likely secondary to JUAN/demand ischemia given EKG shows no evidence of STEMI TSH initially elevated concerning for hypothyroidism Lipase is wnl indicating no pancreatic inflammation. Urine tox screen negative Serum alcohol negative Ammonia not elevated making hepatic encephalopathy less likely VBG with acute respiratory acidosis with pH 7.1 and a CO2 of 60 CK is elevated along with JUAN this may be indicative of rhabdomyolysis Labs: Laboratory Results - last 24 hr 11/01/22 11/01/22 11/01/22 09:40 09:40 09:40 WBC 27.2 H RBC 4.72 Hgb 14.5 Hct 43.7 MCV 92.6 MCH 30.7 MCHC 33.2 RDW Std Deviation 43.5 RDW Coeff of Gabrielle 12.7 Plt Count 309 MPV 10.0 Sodium 139 Potassium 4.0 Chloride 102 Carbon Dioxide 24.0 Anion Gap 13 BUN 12 Creatinine 1.76 H Estim Creat Clear Calc 28.40 Est GFR (MDRD) Af Amer 49 L Est GFR (MDRD) Non-Af 41 L BUN/Creatinine Ratio 6.8 L Glucose 78 Lactic Acid Calcium 9.8 Phosphorus Magnesium Total Bilirubin 0.60 AST 93 H ALT 43 Alkaline Phosphatase 159 H Ammonia Total Creatine Kinase Troponin I High Sens 104 H Total Protein 8.1 Albumin 3.5 Globulin 4.6 H Albumin/Globulin Ratio 0.8 L Lipase 18 TSH 4.16 H Free T4 1.43 Free T3 pg/dL 1.9 L Urine Opiates Screen Urine Methadone Screen Ur Barbiturates Screen Ur Phencyclidine Scrn Ur Amphetamines Screen MDMA (Ecstasy) Screen U Benzodiazepines Scrn Urine Cocaine Screen U Cannabinoids Screen Ur Drug Screen Comment Ethyl Alcohol 11/01/22 11/01/22 11/01/22 09:40 10:30 10:37 WBC RBC Hgb Hct MCV MCH MCHC RDW Std Deviation RDW Coeff of Gabrielle Plt Count MPV Sodium Potassium Chloride Carbon Dioxide Anion Gap BUN Creatinine Estim Creat Clear Calc Est GFR (MDRD) Af Amer Est GFR (MDRD) Non-Af BUN/Creatinine Ratio Glucose Lactic Acid Calcium Phosphorus 5.2 H Magnesium 3.3 H Total Bilirubin AST ALT Alkaline Phosphatase Ammonia 42.0 H Total Creatine Kinase 1180 H Troponin I High Sens Total Protein Albumin Globulin Albumin/Globulin Ratio Lipase TSH Free T4 Free T3 pg/dL Urine Opiates Screen NEGATIVE Urine Methadone Screen NEGATIVE Ur Barbiturates Screen NEGATIVE Ur Phencyclidine Scrn NEGATIVE Ur Amphetamines Screen NEGATIVE MDMA (Ecstasy) Screen NEGATIVE U Benzodiazepines Scrn NEGATIVE Urine Cocaine Screen NEGATIVE U Cannabinoids Screen NEGATIVE Ur Drug Screen Comment Ethyl Alcohol 11/01/22 11/01/22 10:37 10:37 WBC RBC Hgb Hct MCV MCH MCHC RDW Std Deviation RDW Coeff of Gabrielle Plt Count MPV Sodium Potassium Chloride Carbon Dioxide Anion Gap BUN Creatinine Estim Creat Clear Calc Est GFR (MDRD) Af Amer Est GFR (MDRD) Non-Af BUN/Creatinine Ratio Glucose Lactic Acid 5.3 H* Calcium Phosphorus Magnesium Total Bilirubin AST ALT Alkaline Phosphatase Ammonia Total Creatine Kinase Troponin I High Sens Total Protein Albumin Globulin Albumin/Globulin Ratio Lipase TSH Free T4 Free T3 pg/dL Urine Opiates Screen Urine Methadone Screen Ur Barbiturates Screen Ur Phencyclidine Scrn Ur Amphetamines Screen MDMA (Ecstasy) Screen U Benzodiazepines Scrn Urine Cocaine Screen U Cannabinoids Screen Ur Drug Screen Comment Ethyl Alcohol < 3.0 ABG Data ABG results: ABG 11/01/22 10:41 Specimen Type JORGE VBG pH 7.19 L* VBG pO2 27 VBG HCO3 23 VBG Total CO2 25 VBG O2 Sat (Calc) 35 L VBG Base Excess -5 L POC Mix VBG pCO2 Pt Tmp 60.6 H Crit Call To/Read Back Yes Blood Gas Notified Whom dr panchal Blood Gas Notified Time 10:43:10 Radiography Diagnostic Testing: Clinical Impression(s) from Imaging Studies Brain CT 11/01/22 10:11 IMPRESSION: 1. No acute intracranial abnormality. 2. Stable chronic ischemic changes Electronically Signed: Wilmar Henderson MD at 11:42 EDT , Chest X-Ray 11/01/22 10:52 IMPRESSION: No acute cardiopulmonary abnormality. COPD. Electronically Signed: Wilmar Henderson MD at 12:17 EDT Reading Location ID and State: [facility] / [place] Tel , Service support , KUB X-Ray 11/01/22 11:08 IMPRESSION: Satisfactory endogastric tube placement. Electronically Signed: Wilmar Henderson MD at 13:25 EDT , Chest/Abdomen/Pelvis CT 11/01/22 11:35 IMPRESSION: 1. Diffuse pulmonary emphysema. 2. Satisfactory intubation. 3. Evidence of old granulomatous disease involving the chest and abdomen. Electronically Signed: Wilmar Henderson MD at 15:01 EDT , Procedures Intubations Intubation Method: orotracheal Intubation Verification: Positive color change and Bilateral breath sounds confirmed Intubation Complications: no complications Discharge Plan Dx/Rx/DC Orders Clinical Impression: Acute alteration in mental status, Acidosis, metabolic, with respiratory acid osis, Acute renal failure due to rhabdomyolysis, Septic shock Disposition Disposition: Acute Care Hospital [facility] Discharge Date/Time: 11/01/22 13:25
[2022-11-01 10:38] LABS: Hematocrit 43.7 % (40-54); Hemoglobin 14.5 g/dL (13.0-16.5); Mean Corp Hgb Conc 33.2 g/dL (32-36); Mean Corpuscular Hgb 30.7 pg (27.0-32.0); Mean Corpuscular Volume 92.6 fL (80-94); Platelet Count 309 K/mm3 (150-450); RBC Distribution Width CV 12.7 % (11.6-14.6); RBC Distribution Width SD 43.5 fl (35.1-43.9); Red Blood Count 4.72 M/mm3 (4.6-6.2); White Blood Count 27.2 K/mm3 (4.4-11.0)
[2022-11-01 10:46] LABS: Blood Gas Specimen Type VEN; VBG BASE EXCESS -5 mmol/L (-1.0-3.5); VBG Bicarbonate 23 mmol/L (22-26); VBG PO2 27 mmHg (25-40); VBG SO2 35 % (50-70); VBG TCO2 25 mmol/L (23-33); VBG pCO2 60.6 mmHg (41-51); VBG pH 7.19 (7.32-7.42)
[2022-11-01 10:50] LABS: Amphetamine Urine VISTA NEGATIVE (<1000 ng/mL); Barbiturate Urine VISTA NEGATIVE (< 200 ng/mL); Benzodiazepine Urine VISTA NEGATIVE (< 200 ng/mL); Cocaine Urine VISTA NEGATIVE (< 300 ng/mL); Ecstacy Urine VISTA NEGATIVE (< 500 ng/mL); Methadone Urine VISTA NEGATIVE (< 300 ng/mL); PCP Urine VISTA NEGATIVE (< 25 ng/mL); THC Urine VISTA NEGATIVE (< 50 ng/mL); Vista UDS pH Range 6
--- NOTE | 2022-11-01 10:52 | RAD_ITS ---
EXAM: XR CHEST, 1 VIEW CLINICAL INDICATION: AMS TECHNIQUE: Frontal view of the chest. COMPARISON: XR Chest dated 10/31/2022 FINDINGS: LUNGS AND PLEURAL SPACES: Hyperinflation suggesting emphysema. No pneumothorax. No effusion. HEART: Normal heart size. MEDIASTINUM: No mediastinal or hilar mass. BONES/JOINTS: Chronic bilateral rib fractures and old right humeral fracture again seen. RAD/Chest 1 View (Portable) IMPRESSION: No acute cardiopulmonary abnormality. COPD. Electronically Signed: Wilmar Henderson MD at 12:17 EDT ,
[2022-11-01 11:03] LABS: ALB/GLOB Ratio 0.8 RATIO (0.9-2.4); AST(SGOT) 93 U/L (15-37); Alanine Aminotransfer ALT/SGPT 43 U/L (16-61); Albumin, Serum 3.5 g/dL (3.2-5.0); Alkaline Phosphatase 159 U/L (45-117); Anion Gap 13 (5-15); BUN 12 mg/dL (7-18); BUN/Creat Ratio 6.8 RATIO (10-20); Calcium,Total 9.8 mg/dL (8.5-10.1); Chloride 102 mmol/L (98-107); Creatinine, Serum 1.76 mg/dL (0.70-1.30); EST Glomerular Filtration Rate 41 mL/min (>60); Est Glom Filt Rate - Afr Amer 49 mL/min (>60); Globulin 4.6 g/dL (2.2-4.2); Glucose 78 mg/dL (74-106); Lipase 18 U/L (13-75); Protein, Total 8.1 g/dL (6.4-8.2); Sodium Level 139 mmol/L (136-145); Thyroid Stim Hormone (TSH) 4.16 uIU/mL (0.358-3.74); Troponin-I HS 104 pg/mL (3.0-78.0)
--- NOTE | 2022-11-01 11:08 | RAD_ITS ---
EXAM: XR ABDOMEN, 1 VIEW CLINICAL INDICATION: NG Insertion TECHNIQUE: Frontal supine view of the abdomen/pelvis. COMPARISON: No relevant prior studies available. FINDINGS: GASTROINTESTINAL TRACT: No evaluation of the bowel. ORGANS: Hepatic and splenic granulomata noted. BONES/JOINTS: No acute abnormality. TUBES, LINES AND DEVICES: Enteric tube extends into the stomach. OTHER FINDINGS: Only the upper portion of the abdomen is evaluated. RAD/Abdomen Single View (Portable) IMPRESSION: Satisfactory endogastric tube placement. Electronically Signed: Wilmar Henderson MD at 13:25 EDT ,
[2022-11-01] MEDS: Etomidate 20 MG/10 ML Vial 15 MG IV (11:20)
[2022-11-01] MEDS: Rocuronium Bromide 50 MG/5 ML Vial 73 MG IV (11:21)
[2022-11-01] MEDS: fentaNYL drip 100 ML 5 MCG CONT INF (11:25)
[2022-11-01 11:26] LABS: Alcohol, Blood (Medical)-Serum < 3.0 mg/dL
[2022-11-01 11:35] LABS: Lactic Acid 5.3 mmol/L (0.4-1.9)
--- NOTE | 2022-11-01 11:35 | CT_ITS ---
EXAM: CT CHEST, ABDOMEN AND PELVIS WITHOUT INTRAVENOUS CONTRAST CLINICAL INDICATION: +SIRS, no source, AMS TECHNIQUE: Helically acquired images were obtained of the chest, abdomen and pelvis without intravenous contrast. This CT exam was performed using one or more of the following dose reduction techniques: automated exposure control, adjustment of the mA and/or kV according to patient size, and/or use of iterative reconstruction technique. COMPARISON: No relevant prior studies available. FINDINGS: CHEST: LUNGS AND PLEURAL SPACES: Calcific pleural plaquing on the left which may be related to chronic empyema. Prominent diffuse centrilobular pulmonary emphysema. Mild atelectatic change left lung base. Calcified granulomata noted within the left lung. No mass. No pneumothorax. HEART: Normal. Heart size is normal. No pericardial effusion. No significant coronary artery calcifications. MEDIASTINUM: Normal. No mediastinal or hilar adenopathy. Esophagus is unremarkable. No hiatal hernia. THYROID: Normal. No thyroid nodules or calcification. ABDOMEN: LIVER: Ultimately hepatic granulomata. PANCREAS: Normal. No focal cystic mass. SPLEEN: Multiple splenic granulomata. ADRENALS: Normal. No nodules. KIDNEYS AND URETERS: Nonspecific perinephric fat stranding noted bilaterally. Bilateral renal sinus calcifications appear to be vascular in origin. STOMACH AND BOWEL: Normal. No bowel obstruction or ileus. No focal inflammatory change. PELVIS: APPENDIX: No evidence of acute appendicitis. BLADDER: Rodriguez catheter in the bladder. REPRODUCTIVE: Unremarkable as visualized. No mass. CHEST, ABDOMEN and PELVIS: INTRAPERITONEAL SPACE: Normal. No ascites or other fluid collection. No free air. BONES/JOINTS: Multilevel chronic appearing compression deformities of the thoracic and lumbar vertebral bodies. Chronic right-sided rib fractures. SOFT TISSUES: Normal. No discrete abdominal or pelvic wall hernia. VASCULATURE: Diffuse ectasia of the thoracic aorta. Ascending thoracic aorta measures 3.9 cm in maximum diameter. LYMPH NODES: Small calcified retroperitoneal lymph nodes noted along the hepatoduodenal ligament. TUBES, LINES AND DEVICES: The endotracheal tube (ETT) is in satisfactory position with tip 3 cm above the daniella. Enteric tube extends into the stomach. CT/CT Chest, Abd, Pelvis WO Cont IMPRESSION: 1. Diffuse pulmonary emphysema. 2. Satisfactory intubation. 3. Evidence of old granulomatous disease involving the chest and abdomen. Electronically Signed: Wilmar Henderson MD at 15:01 EDT ,
--- NOTE | 2022-11-01 11:37 | NURSING ---
DR ROSLYN UREÑA
--- NOTE | 2022-11-01 11:40 | PCM.HP.STD ---
HPI - General General Date of Admission: 11/01/22 Date of Service: 11/01/22 Chief Complaint: Altered mental status for last 2 days HPI Narrative PAULA HA, is a 72 M was brought to ED for altered mental status. Patient's friend and POA is present near the bedside. Patient was here yesterday for generalized weakness and concern of a stroke varies both arms felt numb and could not get up. Basic work-up was done along with CT head did not show acute change. Mild hypokalemia and potassium replacement was sent home. As per POA, he was still confused and disoriented at home, looking at ceiling, not comprehendible and does not follow command therefore was brought to ED. Glucose was 79. Patient also had dark-colored vomiting 1 time witnessed by it may be couple more. He has brownish staining of the mouth. ER physician felt diffuse encephalopathic and no focal neurological deficit in terms of weakness or loss of sensation therefore stroke alert was not called. Patient head and neck and eyes deviated to left side. Later on patient got more confused and unresponsive and was intubated. I saw the patient after intubated, on IV fentanyl drip. Social history: As per POA, patient has alcohol use disorder and has been drinking for more than 30 years, hard liquor whiskey continuously. History of smoking cigarettes and COPD. PFSH Medical History COPD (chronic obstructive pulmonary disease) CVA (cerebral vascular accident) ETOH abuse Home Medications albuterol sulfate 90 mcg/actuation aerosol inhaler inhalation 11/01/22 [History Last Taken Unknown] aspirin 81 mg tablet,delayed release 81 mg PO DAILY 11/01/22 [History Last Taken Unknown] atorvastatin 40 mg tablet 40 mg PO DAILY 11/01/22 [History Last Taken Unknown] Allergy/AdvReac Type Severity Reaction Status Date / Time No Known Allergies Allergy Verified 11/01/22 10:10 Social History Smoking Status: Current every day smoker tobacco type: cigarettes ROS ROS Narrative 14 system ROS unobtainable as patient intubated on fentanyl drip. Rest 14 system ROS obtained by patient's POA. As per her, he was walking without aid 2 days ago before confusion/altered mental status started. No fever but patient was shaking for last 2 days. No chest pain or acute shortness of breath. No acute cough or flulike symptoms. No abdominal pain, change in urine or bowel movement. Rest mentioned in HPI Vital Signs Vital Signs Vital Signs: 11/01/22 09:57 11/01/22 10:08 11/01/22 11:08 Temperature 98 F Temperature Source Temporal Pulse Rate 95 94 Respiratory Rate 31 H 22 H Blood Pressure 121/105 H 139/98 H Blood Pressure Mean 110 111 Pulse Ox 97 Oxygen Delivery Method Room Air Weight Weight: 115 lb Body Mass Index (BMI) 16.5 Physical Exam Narrative General: Intubated, unresponsive HEENT: Atraumatic, PERRLA, EOMI, Normocephalic Oral: ET and OG tube present. Neck: Supple, No JVD, Negative Carotid Bruits Lungs: On vent support. Cardiovascular: Irregular rhythm with PVCs, Normal S1, Normal S2, No murmurs Abdomen: Bowel Sounds absent. Soft, Non Tender, Non-Distended : Rodriguez catheter. Draining light yellow urine. No renal angle tenderness. No suprapubic tenderness. Extremities: No edema, Capillary Refill Less than 3 Seconds Skin: No rashes, No breakdown Musculoskeletal: Mild muscle atrophy of extremities of thigh calf and craniofacial muscles. No Tenderness to Palpation of Joints or Extremities Neurological: Neuro exam unobtainable. Was unresponsive then intubated Psych/Mental Status: On fentanyl drip. Results Lab / Micro Data Result Diagrams: 11/01/22 09:40 11/01/22 09:40 Labs: Laboratory Results - last 24 hr 11/01/22 09:40: WBC 27.2 H, RBC 4.72, Hgb 14.5, Hct 43.7, MCV 92.6, MCH 30.7, MCHC 33.2, RDW Std Deviation 43.5, RDW Coeff of Gabrielle 12.7, Plt Count 309, MPV 10.0 11/01/22 09:40: Sodium 139, Potassium 4.0, Chloride 102, Carbon Dioxide 24.0, Anion Gap 13, BUN 12, Creatinine 1.76 H, Estim Creat Clear Calc 28.40, Est GFR (MDRD) Af Amer 49 L, Est GFR (MDRD) Non-Af 41 L, BUN/Creatinine Ratio 6.8 L, Glucose 78, Calcium 9.8, Total Bilirubin 0.60, AST 93 H, ALT 43, Alkaline Phosphatase 159 H, Troponin I High Sens 104 H, Total Protein 8.1, Albumin 3.5, Globulin 4.6 H, Albumin/Globulin Ratio 0.8 L, Lipase 18, TSH 4.16 H 11/01/22 10:30: Urine Opiates Screen NEGATIVE, Urine Methadone Screen NEGATIVE, Ur Barbiturates Screen NEGATIVE, Ur Phencyclidine Scrn NEGATIVE, Ur Amphetamines Screen NEGATIVE, MDMA (Ecstasy) Screen NEGATIVE, U Benzodiazepines Scrn NEGATIVE, Urine Cocaine Screen NEGATIVE, U Cannabinoids Screen NEGATIVE, Ur Drug Screen Comment 11/01/22 10:37: Ammonia 42.0 H 11/01/22 10:37: Lactic Acid 5.3 H* 11/01/22 10:37: Ethyl Alcohol < 3.0 ABG Data ABG results: ABG 11/01/22 10:41 Specimen Type JORGE VBG pH 7.19 L* VBG pO2 27 VBG HCO3 23 VBG Total CO2 25 VBG O2 Sat (Calc) 35 L VBG Base Excess -5 L POC Mix VBG pCO2 Pt Tmp 60.6 H Crit Call To/Read Back Yes Blood Gas Notified Whom dr panchal Blood Gas Notified Time 10:43:10 Assessment & Plan Assessment/Plan (1) Unresponsive episode: (2) GI bleed: PLAN: Plan This 71-year-old gentleman was brought to ED for altered mental status which progressed to unresponsiveness and intubation 1. Altered mental status then unresponsiveness, acute encephalopathy exact etiology unclear: Possible differential diagnosis are metabolic encephalopathy from upper GI bleed, hypercapnia or infectious: Patient is intubated on ventilator. Patient is being admitted in ICU. MRI brain without contrast ordered when patient is hemodynamically stable. Rest as mentioned below 2. Acute hypercapnic respiratory failure with COPD with high probability of exacerbation: As per POA, she did not notice acute change in breathing, cough or other URI symptoms. VBG 7.19/60. Lactic acid 5.3. ABGs ordered. Patient is intubated on ventilator. Crate Tier consulted. Patient also history of smoking more than a pack per day since early age. 3. Concern of sepsis: There is concern of sepsis in view of acute hypercapnic respiratory failure, lactic acidosis, increased creatinine and acute encephalopathy. Patient has leukocytosis. Chest x-ray does not show acute infiltrate. CTA chest abdomen pelvis ordered. Panculture ordered. Empirically patient started on IV vancomycin and Zosyn. Patient had IV fluid bolus 30 mill per KG. 4. Upper GI bleed with concern of alcoholic hepatitis/cirrhosis with portal hypertension: Patient does not have prior abdominal imaging in our system. CTA chest abdomen and pelvis ordered by ER physician. OG tube still draining brownish/altered blood product. Hemoglobin 14.5/43.7%. H&H every 6 hourly for 24 hours. GI is consulted. Patient is started on Protonix drip after bolus and octreotide drip. Patient might have lactic acidosis from GI bleed. Patient is also history of longtime alcohol use disorder with more than 30 years of continuous, heavy drinking of whiskey. 5. Elevated troponin, exact etiology unclear possible from acute myocardial injury from increased cardiac demand/possible sepsis: Troponin 104. Cycle troponin enzymes. Serial EKG was done in ED from yesterday and today. First EKG from 10/31 shows sinus bradycardia 55 bpm. And today shows normal sinus rhythm with artifacts in inferior leads. Next EKG shows sinus irregular rhythm with PVCs and premature supraventricular complexes. EKG from 07/27 shows sinus rhythm with sinus arrhythmia. Patient does not have known prior cardiac disease. Prior history of CVA: As per. No residual deficit from previous stroke. 6. Moderate chronic protein calorie malnutrition: BMI 16.5 kg/m?. Patient has mild to moderate muscle atrophy of extremities and craniofacial muscles. Joint Machine Operator consult. Living will/advanced directive/end of life care: Patient does not have living will or advanced directive. He is POA is friend, present in ED. After discussion of benefits/risks procedures involved with full code, DNR CC arrest and DNR CC, the POA does not want CPR. Patient is already intubated on ventilator. Patient does want artificial life support including chest compression, and DC shock if needed Total time spent in [id number] encounter in discussion of advanced directive 17 minutes. Laboratory Results 11/01/22 09:40: WBC 27.2 H, RBC 4.72, Hgb 14.5, Hct 43.7, MCV 92.6, MCH 30.7, MCHC 33.2, RDW Std Deviation 43.5, RDW Coeff of Gabrielle 12.7, Plt Count 309, MPV 10.0 11/01/22 09:40: Sodium 139, Potassium 4.0, Chloride 102, Carbon Dioxide 24.0, Anion Gap 13, BUN 12, Creatinine 1.76 H, Estim Creat Clear Calc 28.40, Est GFR (MDRD) Af Amer 49 L, Est GFR (MDRD) Non-Af 41 L, BUN/Creatinine Ratio 6.8 L, Glucose 78, Calcium 9.8, Total Bilirubin 0.60, AST 93 H, ALT 43, Alkaline Phosphatase 159 H, Troponin I High Sens 104 H, Total Protein 8.1, Albumin 3.5, Globulin 4.6 H, Albumin/Globulin Ratio 0.8 L, Lipase 18, TSH 4.16 H 11/01/22 09:40: Free T4 1.43, Free T3 pg/dL 1.9 L 11/01/22 10:30: Urine Opiates Screen NEGATIVE, Urine Methadone Screen NEGATIVE, Ur Barbiturates Screen NEGATIVE, Ur Phencyclidine Scrn NEGATIVE, Ur Amphetamines Screen NEGATIVE, MDMA (Ecstasy) Screen NEGATIVE, U Benzodiazepines Scrn NEGATIVE, Urine Cocaine Screen NEGATIVE, U Cannabinoids Screen NEGATIVE, Ur Drug Screen Comment 11/01/22 10:37: Ammonia 42.0 H 11/01/22 10:37: Lactic Acid 5.3 H* 11/01/22 10:37: Ethyl Alcohol < 3.0 11/01/22 10:41: Specimen Type JORGE, VBG pH 7.19 L*, VBG pO2 27, VBG HCO3 23, VBG Total CO2 25, VBG O2 Sat (Calc) 35 L, VBG Base Excess -5 L, POC Mix VBG pCO2 Pt Tmp 60.6 H, Crit Call To/Read Back Yes, Blood Gas Notified Whom dr panchal, Blood Gas Notified Time 10:43:10 11/01/22 11:54: Urine Color Yellow, Urine Clarity Clear, Urine pH 7.0, Ur Specific [place] 1.005, Urine Protein 15 H, Urine Glucose (UA) Normal, Urine Ketones 5 H, Urine Occult Blood 250 H, Urine Nitrite Negative, Urine Bilirubin Negative, Urine Urobilinogen Normal, Ur Leukocyte Esterase Negative, Urine RBC 0 SEEN, Urine WBC 0 SEEN, Ur Squamous Epith Cells 0 SEEN, Urine Bacteria 0 SEEN, Urine Mucus 0 SEEN 11/01/22 : PT 14.8, INR 1.2, APTT 28.7 Charges/Coding Visit Charges Inpatient E&M: 12251 Init Hosp L3 Procedures Hospitalists Procedures: 53149 Advncd Care Plan 30 Min
[2022-11-01] MEDS: Sodium Bicarbonate 8.4% 50 ML Syringe 50 MEQ IV (11:55)
[2022-11-01 11:59] LABS: Bacteria 0 SEEN /hpf (None Seen); Mucous, Urine 0 SEEN /hpf (<or=2+); Red Blood Cells-Urine 0 SEEN /hpf (0-5); Squamous Epithelial Cells - UA 0 SEEN /hpf (0-5); White Blood Cells 0 SEEN /hpf (0-5)
[2022-11-01] MEDS: Lactated Ringers 1,500 ML 999 ML IV (12:00)
[2022-11-01 12:02] LABS: Color, Urine Yellow (Yellow); Glucose, Dipstick Normal (Normal); Ketone-Dipstick 5 mg/dl (Negative); Leukocyte Esterase-Dipstick Negative /ul (Negative); Nitrite-Dipstick Negative (Negative); Occult Blood-Urine 250 /ul (Negative); Protein-Dipstick 15 mg/dl (Negative); Specific Gravity, Urine 1.005 (1.002-1.030); Urine Bilirubin Dipstick Negative (Negative); Urine Clarity Clear (Clear); Urine Urobilinogen Normal (Normal)
[2022-11-01 12:15] LABS: Free T3 1.9 pg/mL (2.18-3.98); T4 Free Direct 1.43 ng/dL (0.76-1.46)
--- NOTE | 2022-11-01 12:30 | RAD_ITS ---
EXAM: XR CHEST, 1 VIEW CLINICAL INDICATION: tube placement TECHNIQUE: Frontal view of the chest. COMPARISON: XR Chest dated 11/01/2022 FINDINGS: LUNGS AND PLEURAL SPACES: Hyperinflation suggesting emphysema. No pneumothorax. No effusion. HEART: Normal heart size. MEDIASTINUM: No mediastinal or hilar mass. BONES/JOINTS: Chronic right-sided rib fractures. Chronic fracture of the right humerus. TUBES, LINES AND DEVICES: The endotracheal tube (ETT) is in satisfactory position with tip 6.0 cm above the daniella. Enteric tube extends into the stomach. RAD/Chest 1 View (Portable) IMPRESSION: Satisfactory intubation. COPD. Electronically Signed: Wilmar Henderson MD at 13:26 EDT ,
[2022-11-01 12:43] LABS: International Normalized Ratio 1.2; Partial Thromboplast Time 28.7 Seconds (24.1-36.2); Prothrombin Time (Protime)PT. 14.8 SECONDS (11.7-14.9)
--- NOTE | 2022-11-01 13:12 | NURSING ---
ICU ROSLYN ALTERED MENTAL STATUS
--- NOTE | 2022-11-01 13:17 | NURSING ---
ICU 1
--- NOTE | 2022-11-01 13:23 | CON.PCM.GI_ITS ---
HPI Consult Data Date of Consult: 11/01/22 HPI Narrative Reason for Consultation: Possible GI bleed HPI Narrative: PAULA HA, is a 72 M w/ PMHx: Tobacco use, History of EtOH Abuse, Severe protein calorie malnutrition, Chronic COPD who presented to to the [facility] ED yesterday. He also presented in May where he had vision problems and went unresponsive. As per his who is at the bedside he has a previous history of alcohol abuse. He does not have any previous history of cirrhosis. She says that he has been cutting down the amount of alcohol that he drinks. Currently is intubated and sedated so all history is coming from family at the bedside and the chart. Hemoglobin in the ED is 14.5, white blood cell count is 27.2, platelet count is 309. His total bili is 0.6, AST 93, ALT 43, alkaline phosphatase 145, troponin is high at 104. His lipase is 18, ammonia 42, lactic acid 5.3. His alcohol level is less than 3. [facility] Medical History COPD (chronic obstructive pulmonary disease) CVA (cerebral vascular accident) ETOH abuse Home Medications albuterol sulfate 90 mcg/actuation aerosol inhaler inhalation 11/01/22 [History Last Taken Unknown] aspirin 81 mg tablet,delayed release 81 mg PO DAILY 11/01/22 [History Last Taken Unknown] atorvastatin 40 mg tablet 40 mg PO DAILY 11/01/22 [History Last Taken Unknown] Allergy/AdvReac Type Severity Reaction Status Date / Time No Known Allergies Allergy Verified 11/01/22 10:10 Social History Smoking Status: Current every day smoker tobacco type: cigarettes ROS Review of Systems ROS Unobtainable: due to mental status Physical Exam Narrative General: Intubated, unresponsive HEENT: Atraumatic, PERRLA, EOMI, Normocephalic Oral: ET and OG tube present. Neck: Supple, No JVD, Negative Carotid Bruits Lungs: On vent support. Cardiovascular: Irregular rhythm with PVCs, Normal S1, Normal S2, No murmurs Abdomen: Bowel Sounds absent. Soft, Non Tender, Non-Distended : Rodriguez catheter. Draining light yellow urine. No renal angle tenderness. No suprapubic tenderness. Extremities: No edema, Capillary Refill Less than 3 Seconds Skin: No rashes, No breakdown Musculoskeletal: Mild muscle atrophy of extremities of thigh calf and craniofacial muscles. No Tenderness to Palpation of Joints or Extremities Neurological: Neuro exam unobtainable. Was unresponsive then intubated Psych/Mental Status: On fentanyl drip. Lab / Micro Data Result Diagrams: 11/01/22 09:40 11/01/22 09:40 Labs: Laboratory Results - last 24 hr 11/01/22 09:40: WBC 27.2 H, RBC 4.72, Hgb 14.5, Hct 43.7, MCV 92.6, MCH 30.7, MCHC 33.2, RDW Std Deviation 43.5, RDW Coeff of Gabrielle 12.7, Plt Count 309, MPV 10.0 11/01/22 09:40: Sodium 139, Potassium 4.0, Chloride 102, Carbon Dioxide 24.0, Anion Gap 13, BUN 12, Creatinine 1.76 H, Estim Creat Clear Calc 28.40, Est GFR (MDRD) Af Amer 49 L, Est GFR (MDRD) Non-Af 41 L, BUN/Creatinine Ratio 6.8 L, Glucose 78, Calcium 9.8, Total Bilirubin 0.60, AST 93 H, ALT 43, Alkaline Phosphatase 159 H, Troponin I High Sens 104 H, Total Protein 8.1, Albumin 3.5, Globulin 4.6 H, Albumin/Globulin Ratio 0.8 L, Lipase 18, TSH 4.16 H 11/01/22 09:40: Free T4 1.43, Free T3 pg/dL 1.9 L 11/01/22 10:30: Urine Opiates Screen NEGATIVE, Urine Methadone Screen NEGATIVE, Ur Barbiturates Screen NEGATIVE, Ur Phencyclidine Scrn NEGATIVE, Ur Amphetamines Screen NEGATIVE, MDMA (Ecstasy) Screen NEGATIVE, U Benzodiazepines Scrn NEGATIVE, Urine Cocaine Screen NEGATIVE, U Cannabinoids Screen NEGATIVE, Ur Drug Screen Comment 11/01/22 10:37: Ammonia 42.0 H 11/01/22 10:37: Lactic Acid 5.3 H* 11/01/22 10:37: Ethyl Alcohol < 3.0 11/01/22 11:54: Urine Color Yellow, Urine Clarity Clear, Urine pH 7.0, Ur Specific [place] 1.005, Urine Protein 15 H, Urine Glucose (UA) Normal, Urine Ketones 5 H, Urine Occult Blood 250 H, Urine Nitrite Negative, Urine Bilirubin Negative, Urine Urobilinogen Normal, Ur Leukocyte Esterase Negative, Urine RBC 0 SEEN, Urine WBC 0 SEEN, Ur Squamous Epith Cells 0 SEEN, Urine Bacteria 0 SEEN, Urine Mucus 0 SEEN 11/01/22 : PT 14.8, INR 1.2, APTT 28.7 ABG Data ABG results: ABG 11/01/22 10:41 Specimen Type JORGE VBG pH 7.19 L* VBG pO2 27 VBG HCO3 23 VBG Total CO2 25 VBG O2 Sat (Calc) 35 L VBG Base Excess -5 L POC Mix VBG pCO2 Pt Tmp 60.6 H Crit Call To/Read Back Yes Blood Gas Notified Whom dr panchal Blood Gas Notified Time 10:43:[address] 11/01/22 10:11 IMPRESSION: 1. No acute intracranial abnormality. 2. Stable chronic ischemic changes Electronically Signed: Wilmar Henderson MD at 11:42 EDT , Chest X-Ray 11/01/22 10:52 IMPRESSION: No acute cardiopulmonary abnormality. COPD. Electronically Signed: Wilmar Henderson MD at 12:17 EDT , Assessment & Plan Assessment/Plan (1) GI bleed: PLAN: At this time he does not seem to be showing any signs of upper GI bleed and he does not have any labs or imaging consistent with cirrhosis. Would recommend ultrasound of the right upper quadrant, Protonix 40 mg IV every 12 hours for prophylaxis. Work-up is still in progress regarding the etiology of his altered mental status. I will continue to follow. Charges/Coding Visit Charges Inpatient E&M: 76624 Init Hosp L2
[2022-11-01 14:19] LABS: Allen Test Positive; Base Excess -2 mmol/L (-2 to +2); Bicarbonate 22.9 mmol/L (22-26); Blood Gas Specimen Type ART; FI02 40; Mode AC; O2 Delivery Device ET Tube; PEEP 5; PO2 73 mmHG (75-100); RR 22; SITE L Radial; SO2 95 % (95-99); Total Carbon Dioxide 24 mmol/L; Vt 400; pCO2 36.2 mmHg (35-45); pH 7.41 (7.35-7.45)
[2022-11-01 14:21] LABS: Hemoglobin 15.4 g/dL (13.0-16.5)
--- NOTE | 2022-11-01 14:29 | RAD_ITS ---
STUDY: X-RAY CHEST REASON FOR EXAM: Male, 72 years old. check tube placement TECHNIQUE: Single AP portable view of the chest. COMPARISON: 11/01/2022 FINDINGS: Endotracheal tube overlies mid trachea in proper position. NG tube overlies the mid to distal stomach. Hyperinflation is present with no distinct focal infiltrate. There is no demonstrated pleural abnormality. Normal size heart. Normal mediastinum and ankur. Normal visualized pulmonary arteries. Normal visualized aortic arch and descending thoracic aorta. Normal visualized thoracic spine. Normal visualized ribs, clavicles, and shoulders. There is no demonstrated abnormality of the visualized soft tissue structures of the upper abdomen. RAD/Chest 1 View (Portable) IMPRESSION: COPD related changes with lines and tubes as above. Electronically Signed: Joey Garcia DO at 16:00 EDT ,
--- NOTE | 2022-11-01 14:30 | CPS ---
physician wants tube at 25.5 at gum, charted 26 at lip
[2022-11-01] MEDS: 0.9% Normal Saline 1,000 ML 100 ML IV ×2 (14:34→20:26)
[2022-11-01 14:44] LABS: Reflex Lactate? Y
--- NOTE | 2022-11-01 14:47 | EX.PCM.CONCC ---
Assessment & Plan Assessment/Plan (1) Acute alteration in mental status: (2) ST elevation (STEMI) myocardial infarction: (3) Alcohol withdrawal seizure: (4) Alcohol abuse: (5) Septic shock: (6) GI bleed: (7) COPD (chronic obstructive pulmonary disease): QUALIFIERS: COPD type: COPD with acute exacerbation Qualified Code(s): J44.1 - Chronic obstructive pulmonary disease with (acute) exacerbation (8) JUAN (acute kidney injury): (9) Elevated lactic acid level: PLAN: Plan Altered mental status: Possibly due to seizures, related to alcohol withdrawal. This is the patient's presenting concern today, he apparently lost his mental status this morning with his family. In the ICU was observed to have twitching, possibly seizure activity. The patient was intubated for airway protection and altered mental status with GCS less than 8. Medications were ordered for seizure, he was supported on mechanical ventilation. He has not recovered his mental status since in ICU, with no lucid periods observed yet. He had a negative CT head during yesterday's ER evaluation, and in the absence of new focality, not repeated today. - as kim - lactulose 20 cc q4h Acute STEMI: This is likely due to the stress of seizure. I spoke with Dr. Do after cath: He Has JUANCARLOS 3 flow, 90% LAD, 80-90% distal RCA. Recommended medical treatment with statin, without anticoagulation for now due to hematemesis. Anticoagulation can be added when patient's GI bleeding stabilizes. 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 Alcohol withdrawal seizure: Patient had a positive EtOH level yesterday, which decreased today. He will be on propofol sedation for ventilation, which also covers seizure, in addition to Keppra. - propofol, Keppra Possible sepsis with septic shock (vs. cardiogenic shock). Source uncertain; increased WBC may also be due to seizure. Empirically covered with vanco/Zosyn. Await culture results, and will adjust antibiotics as clinically indicated. - Follow lactates. He received LR boluses for sepsis resuscitation - continue abx - await cultures - maintain MAP >65 with levophed - avoid fluid overload UGI bleed with hemetemesis. - follow h/h - octreotide per GI - holding anticoagulation for now. - PPI 80/12h COPD without exacerbation - Duoneb - holding steroids for now due to GI bleed Acute respiratory failure on mechanical ventilation. - ABG adequate on current settings. - neb - keep intubated for airway control, until pressors are weaned off and cardiac and neuro situations stabilize. - propofol and fentanyl sedation. - he received 1 dose of Rocuroniom 1 mg/kg for intubation. Very guarded prognosis. Critical care time spent with patient at bedside, review of documentation, lab results, radiology and other test results, discussion with colleagues and ancillary staff, clinical management of patient, and updating family if applicable, was 90 minutes. This time does not include any procedures, if performed. [place] 12456, [address]4748. HPI Consult Data Date of Consult: 11/01/22 HPI Narrative Reason for Consultation: 72-year-old man with failure to thrive, unresponsive, intubated HPI Narrative: PAULA HA, is a 72 M with known alcohol abuse (alcohol level yesterday was elevated at 10 in the ER), COPD, history of GI bleeding, who presents with altered mental status who went unresponsive in the emergency room, required intubation. His transferred to ICU for further management on mechanical ventilation. He was in the emergency room yesterday for weakness paresthesias and altered mental status. He had an extensive work-up which is summarized as follows from yesterday's ER providers note: His symptoms have completely resolved.? He is already on medication for stroke. I do feel that his weakness was generalized and his paresthesias were bilateral upper extremities so I have low suspicion for stroke or other central nervous process.? I will also obtain a chest x-ray and urinalysis along with basic laboratory work including CBC and CMP. EKG was obtained and interpreted by myself as sinus bradycardia at 55 bpm without ectopy and no acute ST changes.? No STEMI.? No significant change from previous EKG dated June 03, 2022.? I reviewed his laboratory work and he has a normal white count of 7.5, hemoglobin normal at 14.9, platelet count normal at 277.? He has slight hypokalemia of 3.3 which was replaced orally.? BUN normal at 8, creatinine 0.68 without evidence of dehydration.? Glucose appropriately elevated at 98 with a normal anion gap of 8.? Ethyl alcohol level is only slightly elevated at 10.? He does have a history of alcohol abuse.? Urinalysis is negative after review, no evidence of infection or ketones.? I do not feel that he requires antibiotics.? Chest x-ray interpreted by myself independently shows no pneumothorax, no pneumonia. Today, he was last seen well at approximately 5:30 AM by family members. Became more confused as the morning went on and then was unresponsive. Kemal was called and he came to the ER. He was initially talking according to some staff, then eyes deviated to the left and he became unresponsive. He was intubated after medications including rocuronium. He was cultured, initial ventilator settings of tidal volume 400 rate of 22 FiO2 40%, PEEP of 5 AC mode yielded a acceptable blood gas of 7.41 PCO2 36 PO2 73. Chest x-ray to my personal interpretation had no acute infiltrates or effusions but was severely hyperinflated. The high endotracheal tube was repositioned to 25 cm at the upper teeth in ICU arrival. Secretions with scant, clear, thin, according to the respiratory therapist. Continue with these ventilator settings for now. He is transferred to the ICU for further management. He was noted to have lipsmacking involuntary movements. Alcohol level today was 3. He was placed on Vanco, Zosyn, and loaded with Keppra. OG tube had been placed and tube feeds will start soon. Ammonia level was elevated, lactulose ordered, will recheck daily. CMP daily for his alcoholic hepatitis. He will be on Precedex drip with propofol added as needed for alcohol withdrawal which should occur within the next few days. Differential diagnosis includes sepsis, toxic metabolic encephalopathy, drug overdose, dehydration, low perfusion, blood loss, [employer] event. Head CT scan yesterday showed no acute pathology. Chest x-ray was clear today, white count has increased from 10-27 making infection more likely. We will obtain a chest and abdominal CT scan today stat. As the day continued, patient had intermittent eye twitching, minimal semi-purposeful response to stimuli, and I noted on the monitor that ST segments were elevated compared to AM. A second EKG showed a STEMI, and the STEMI team was called. Amador arrived on the unit at 6:45P. [facility] Medical History (Updated 11/01/22 @ 19:[address] Aman Washington MD) Alcohol withdrawal seizure COPD (chronic obstructive pulmonary disease) CVA (cerebral vascular accident) ETOH abuse ST elevation (STEMI) myocardial infarction Home Medications albuterol sulfate 90 mcg/actuation aerosol inhaler inhalation 11/01/22 [History Last Taken Unknown] aspirin 81 mg tablet,delayed release 81 mg PO DAILY 11/01/22 [History Last Taken Unknown] atorvastatin 40 mg tablet 40 mg PO DAILY 11/01/22 [History Last Taken Unknown] Allergy/AdvReac Type Severity Reaction Status Date / Time No Known Allergies Allergy Verified 11/01/22 10:10 Social History Smoking Status: Current every day smoker tobacco type: cigarettes ROS ROS Narrative Unable on mechanical ventilation Physical Exam Narrative Cachectic man with a BMI of 16.6, who is minimally responsive, none to noxious stimuli, intubated and sedated on the mechanical ventilator. HEENT: Extraoculars are diminished, random eye movements, does not track or focus. Pulls are 1 mm and reactive, equal bilaterally. Sclera anicteric. Intubated, mucous membranes moist. No significant secretions suctioned via endotracheal tube. Chest is hyperinflated, diminished, with coarse breath sounds, and bilateral expiratory wheezes present. Lungs expiratory phase. Heart normal S1-S2 with no murmurs rubs or gallops, distant heart sounds Abdomen is soft, nontender, with no organomegaly or mass, positive bowel sounds Extremities are slender with no clubbing cyanosis or edema. Neuro is diffusely obtunded, grossly nonfocal, does not follow commands, with apparent seizure like activity of the eyes mouth. Skin is cool, dry, temperature was 95 degrees. A robert hugger was on the patient. Medical Records Data Attestation: I reviewed the patient's medical records Lab / Micro Data Result Diagrams: 11/01/22 14:10 11/01/22 09:40 Labs: Laboratory Results - last 24 hr 11/01/22 09:40: WBC 27.2 H, RBC 4.72, Hgb 14.5, Hct 43.7, MCV 92.6, MCH 30.7, MCHC 33.2, RDW Std Deviation 43.5, RDW Coeff of Gabrielle 12.7, Plt Count 309, MPV 10.0 11/01/22 09:40: Sodium 139, Potassium 4.0, Chloride 102, Carbon Dioxide 24.0, Anion Gap 13, BUN 12, Creatinine 1.76 H, Estim Creat Clear Calc 28.40, Est GFR (MDRD) Af Amer 49 L, Est GFR (MDRD) Non-Af 41 L, BUN/Creatinine Ratio 6.8 L, Glucose 78, Calcium 9.8, Total Bilirubin 0.60, AST 93 H, ALT 43, Alkaline Phosphatase 159 H, Troponin I High Sens 104 H, Total Protein 8.1, Albumin 3.5, Globulin 4.6 H, Albumin/Globulin Ratio 0.8 L, Lipase 18, TSH 4.16 H 11/01/22 09:40: Free T4 1.43, Free T3 pg/dL 1.9 L 11/01/22 10:30: Urine Opiates Screen NEGATIVE, Urine Methadone Screen NEGATIVE, Ur Barbiturates Screen NEGATIVE, Ur Phencyclidine Scrn NEGATIVE, Ur Amphetamines Screen NEGATIVE, MDMA (Ecstasy) Screen NEGATIVE, U Benzodiazepines Scrn NEGATIVE, Urine Cocaine Screen NEGATIVE, U Cannabinoids Screen NEGATIVE, Ur Drug Screen Comment 11/01/22 10:37: Ammonia 42.0 H 11/01/22 10:37: Lactic Acid 5.3 H* 11/01/22 10:37: Ethyl Alcohol < 3.0 11/01/22 11:54: Urine Color Yellow, Urine Clarity Clear, Urine pH 7.0, Ur Specific Brave 1.005, Urine Protein 15 H, Urine Glucose (UA) Normal, Urine Ketones 5 H, Urine Occult Blood 250 H, Urine Nitrite Negative, Urine Bilirubin Negative, Urine Urobilinogen Normal, Ur Leukocyte Esterase Negative, Urine RBC 0 SEEN, Urine WBC 0 SEEN, Ur Squamous Epith Cells 0 SEEN, Urine Bacteria 0 SEEN, Urine Mucus 0 SEEN 11/01/22 14:10: Hgb 15.4, Hct 47.0 11/01/22 : PT 14.8, INR 1.2, APTT 28.7 ABG Data ABG results: ABG 11/01/22 11/01/22 10:41 14:15 Specimen Type JORGE ART Sample Site L Radial pH 7.41 Bicarbonate Actual 22.9 Total CO2 24 Base Excess -2 O2 Saturation 95 O2 % 40 ABG pCO2 36.2 ABG pO2 73 L Eric Test Positive VBG pH 7.19 L* VBG pO2 27 VBG HCO3 23 VBG Total CO2 25 VBG O2 Sat (Calc) 35 L VBG Base Excess -5 L POC Mix VBG pCO2 Pt Tmp 60.6 H Respiration Rate 22 O2 Delivery Device ET Tube Vent Mode AC Tidal Volume 400 POC PEEP 5 Crit Call To/Read Back Yes Blood Gas Notified Whom dr panchal Blood Gas Notified Time 10:43:10 1415 ABG on mechanical ventilation Interpretation: Adequate ventilation and oxygenation on current settings. Radiology Impression Brain CT 11/01/22 10:11 IMPRESSION: 1. No acute intracranial abnormality. 2. Stable chronic ischemic changes Electronically Signed: Wilmar Henderson MD at 11:42 EDT , Chest X-Ray 11/01/22 10:52 IMPRESSION: No acute cardiopulmonary abnormality. COPD. Electronically Signed: Wilmar Henderson MD at 12:17 EDT , KUB X-Ray 11/01/22 11:08 IMPRESSION: Satisfactory endogastric tube placement. Electronically Signed: Wilmar Henderson MD at 13:25 EDT , Chest X-Ray 11/01/22 12:30 IMPRESSION: Satisfactory intubation. COPD. Electronically Signed: Wilmar Henderson MD at 13:26 EDT , Sepsis Attestation Sepsis Alert: Yes Sepsis Attestation: Agree w/Sepsis Possible Source of Sepsis: Unknown Sepsis Organ Dysfunction Criteria Present: SBP < 90 mmHg or MAP < 65 mmHg, Acute Respiratory Failure (New need for BiPAP/CPAP or MV), Lactic Acid > 2 mmol/L and New/Unexplained change in mental status Fluid Resuscitation Fluid resuscitation indicated?: Yes Fluid Resuscitation ordered: 30 ml/kg fluid bolus ordered Amount of fluid ordered: 2 Sepsis Note Date exam was performed: 11/01/22 Sepsis Attestation: Sepsis re-evaluation was performed Response to fluids: Fluid responsive hypotension and Vasopressors started Charges/Coding Procedures Hospitalists Procedures: [id number] Critial Care 1st Hr (and [id number])
[2022-11-01 15:02] LABS: CPK Total, Creatine Kinase 1180 U/L (39-308); Magnesium 3.3 mg/dL (1.6-2.6); Phosphorus 5.2 mg/dL (2.5-4.9)
[2022-11-01 15:24] LABS: Troponin-I HS 102 pg/mL (3.0-78.0)
[2022-11-01] MEDS: Ipratropium/Albuterol Sulfate 3 ML AMPUL.NEB INHALATION ×3 (15:37→23:19)
[2022-11-01 15:38] LABS: Lactic Acid 4.9 mmol/L (0.4-1.9)
[2022-11-01 17:18] LABS: Troponin-I HS 126 pg/mL (3.0-78.0)
--- NOTE | 2022-11-01 17:38 | EKGRS_ITS ---
Test Reason : AM EKG Blood Pressure : / mmHG Vent. Rate : 096 BPM Atrial Rate : 096 BPM P-R Int : 146 ms QRS Dur : 076 ms QT Int : 364 ms P-R-T Axes : 078 073 074 degrees QTc Int : 459 ms Sinus rhythm with occasional Premature ventricular complexes Otherwise normal ECG When compared with ECG of 01-NOV-2022 17:39, MANUAL COMPARISON REQUIRED, DATA IS UNCONFIRMED Confirmed by JUAN VILLANUEVA, DAVONTE ([id number]), video effects editor DEISY NAVARRO ([id number]) on 11/10/2022 2:34:00 PM Referred By: ROSLYN Confirmed By:DAVONTE MARTINEZ MD
--- NOTE | 2022-11-01 17:39 | EKG12_ITS ---
Test Reason : Blood Pressure : / mmHG Vent. Rate : 093 BPM Atrial Rate : 093 BPM P-R Int : 172 ms QRS Dur : 082 ms QT Int : 370 ms P-R-T Axes : 075 078 078 degrees QTc Int : 460 ms Normal sinus rhythm ST elevation consider inferolateral injury or acute infarct ACUTE ND / STEMI Abnormal ECG When compared with ECG of 01-NOV-2022 10:03, ST more elevated in Inferior leads Confirmed by JUAN VILLANUEVA, DAVONTE ([id number]), city editor DEISY NAVARRO ([id number]) on 11/10/2022 2:37:12 PM Referred By: ROSLYN Confirmed By:DAVONTE MARTINEZ MD
--- NOTE | 2022-11-01 18:04 | PCM.RX.CS ---
Consult Pharmacy has been consulted to manage selected antiobiotic: Vancomycin Type of Consult: New start Suspected Infection: Sepsis Prior Doses of Antibiotics Received/Current Regimen: loading dose of 1250mg Labs: Sodium 139 mmol/L (136-145) 11/01/22 09:40 Potassium 4.0 mmol/L (3.5-5.1) 11/01/22 09:40 Chloride 102 mmol/L (98-107) 11/01/22 09:40 Carbon Dioxide 24.0 mmol/L (21.0-32.0) 11/01/22 09:40 Anion Gap 13 (5-15) 11/01/22 09:40 BUN 12 mg/dL (7-18) 11/01/22 09:40 Creatinine 1.76 mg/dL (0.70-1.30) H 11/01/22 09:40 Est GFR (MDRD) Af Amer 49 mL/min (>60) L 11/01/22 09:40 Est GFR (MDRD) Non-Af 41 mL/min (>60) L 11/01/22 09:40 BUN/Creatinine Ratio 6.8 RATIO (10-20) L 11/01/22 09:40 Glucose 78 mg/dL (74-106) 11/01/22 09:40 Microbiology: Microbiology 11/01/22 11:54 Urine Catheter - Rodriguez Legionella Antigen - Final 11/01/22 11:54 Urine Catheter - Rodriguez Streptococcus pneumoniae Antigen (M - Final Weight used for dosin.6 kg Estimated Creatinine Clearance: 28 ml/min Goal Trough: 15-20 mcg/mL Pharmacy Plan for Drug Dosing: Will begin 500mg iv q24h per protocol. Trough level ordered for before third total dose on 11.03.22. Pharmacy Service will continue to monitor and adjust dosing as required. Follow-Up Labs: Trough Vancomycin - 11.03.22 @1130 before 1200 dose
--- NOTE | 2022-11-01 19:25 | NURSING ---
pt returned to room icu 1 from slab miller operator
--- NOTE | 2022-11-01 19:25 | PCM.CONS.C ---
Assessment & Plan Assessment/Plan (1) ST elevation (STEMI) myocardial infarction: PLAN: Patient does have significant CAD however has JUANCARLOS-3 flow in all the coronaries with no major occluded epicardial coronary vessels. It is reasonable to keep the patient on aspirin and statin. Aspirin can be on hold now till the hematemesis issue is stable. Patient is not a candidate for PCI at this time. At a later date revascularization can be addressed. Due to heavy calcification if patient is a candidate for CABG, that could be considered as well. If not a candidate for CABG then he may need rotablation. Patient may have had spasm superimposed on severe atherosclerotic CAD that may have contributed to the ST elevation. Also his hemoglobin may have dropped due to ongoing hematemesis and that in combination with underlying CAD and also alcohol withdrawal seizures could be the cause for his ST elevation as well. HPI Consult Data Date of Consult: 11/01/22 HPI Narrative Reason for Consultation: STEMI HPI Narrative: PAULA HA, is a 72 M who presents with altered mental status. Apparently patient also had coffee-ground emesis. Patient was intubated and admitted to the ICU. Telemetry revealed ST elevation and a twelve-lead EKG was done which revealed ST elevation in the inferior and lateral leads suspicious for a STEMI. Patient was brought emergently to the cardiac [employer]. He underwent coronary angiography which revealed significant stenoses in the LAD and RCA with JUANCARLOS-3 flow in both vessels. The vessels were heavily calcified. Patient has low GFR as well. Overall because of multiple medical problems including altered mental status hematemesis and renal failure we felt that patient's CAD is best treated medically at this time. Review of systems: Could not be obtained as patient is intubated and sedated. [facility] Medical History (Updated 11/01/22 @ 19:[address] Aman Washington MD) Alcohol withdrawal seizure COPD (chronic obstructive pulmonary disease) CVA (cerebral vascular accident) ETOH abuse ST elevation (STEMI) myocardial infarction Home Medications albuterol sulfate 90 mcg/actuation aerosol inhaler inhalation 11/01/22 [History Last Taken Unknown] aspirin 81 mg tablet,delayed release 81 mg PO DAILY 11/01/22 [History Last Taken Unknown] atorvastatin 40 mg tablet 40 mg PO DAILY 11/01/22 [History Last Taken Unknown] Allergy/AdvReac Type Severity Reaction Status Date / Time No Known Allergies Allergy Verified 11/01/22 10:10 Social History Smoking Status: Current every day smoker tobacco type: cigarettes Physical Exam Const Constitutional Narrative: Intubated, sedated HEENT normocephalic Skin no rashes or lesions noted Risk Stratification Risk Stratification Applicable: No Charges/Coding Visit Charges Inpatient E&M: 55456 Init Hosp L2 Objective Data Vital Signs: Vital Signs Temp Pulse Resp BP Pulse Ox O2 Del Method FiO2 96.5 F L 98 22 H 125/94 H 96 Mechanical Ventilator 40 11/01/22 15:00 11/01/22 18:00 11/01/22 15:40 11/01/22 15:00 11/01/22 15:40 11/01/22 15:00 11/01/22 15:40 Oxygen Delivery Method Mechanical Ventilator Weight: 116 lb 0.01 oz Body Mass Index (BMI) 16.6 Intake & Output: Intake and Output for Last 24 Hours 10/30/22 10/31/22 11/01/22 23:59 23:59 23:59 Intake Total 2683.55 / 2683.55 Output Total 850 / 850 Balance 1833.55 / 1833.55 Lab / Micro Data Result Diagrams: 11/01/22 14:10 11/01/22 09:40 Labs: Laboratory Results - last 24 hr 11/01/22 09:40: WBC 27.2 H, RBC 4.72, Hgb 14.5, Hct 43.7, MCV 92.6, MCH 30.7, MCHC 33.2, RDW Std Deviation 43.5, RDW Coeff of Gabrielle 12.7, Plt Count 309, MPV 10.0 11/01/22 09:40: Sodium 139, Potassium 4.0, Chloride 102, Carbon Dioxide 24.0, Anion Gap 13, BUN 12, Creatinine 1.76 H, Estim Creat Clear Calc 28.40, Est GFR (MDRD) Af Amer 49 L, Est GFR (MDRD) Non-Af 41 L, BUN/Creatinine Ratio 6.8 L, Glucose 78, Calcium 9.8, Total Bilirubin 0.60, AST 93 H, ALT 43, Alkaline Phosphatase 159 H, Troponin I High Sens 104 H, Total Protein 8.1, Albumin 3.5, Globulin 4.6 H, Albumin/Globulin Ratio 0.8 L, Lipase 18, TSH 4.16 H 11/01/22 09:40: Free T4 1.43, Free T3 pg/dL 1.9 L 11/01/22 09:40: Phosphorus 5.2 H, Magnesium 3.3 H, Total Creatine Kinase 1180 H 11/01/22 10:30: Urine Opiates Screen NEGATIVE, Urine Methadone Screen NEGATIVE, Ur Barbiturates Screen NEGATIVE, Ur Phencyclidine Scrn NEGATIVE, Ur Amphetamines Screen NEGATIVE, MDMA (Ecstasy) Screen NEGATIVE, U Benzodiazepines Scrn NEGATIVE, Urine Cocaine Screen NEGATIVE, U Cannabinoids Screen NEGATIVE, Ur Drug Screen Comment 11/01/22 10:37: Ammonia 42.0 H 11/01/22 10:37: Lactic Acid 5.3 H* 11/01/22 10:37: Ethyl Alcohol < 3.0 11/01/22 11:54: Urine Color Cancelled, Urine Clarity Cancelled, Urine pH Cancelled, Ur Specific [place] Cancelled, U Specif Grav (Refrac) Cancelled, Urine Protein Cancelled, Urine Glucose (UA) Cancelled, Urine Ketones Cancelled, Urine Occult Blood Cancelled, Urine Nitrite Cancelled, Urine Bilirubin Cancelled, Urine Urobilinogen Cancelled, Ur Leukocyte Esterase Cancelled, Urine RBC Cancelled, Urine WBC Cancelled, Ur Squamous Epith Cells Cancelled, Ur Transition Epith Cell Cancelled, Ur Renal Epithelial Cell Cancelled, Calcium Oxalate Crystal Cancelled, Uric Acid Crystals Cancelled, Triple Phos Crystals Cancelled, Other Crystals Cancelled, Amorphous Sediment Cancelled, Urine Bacteria Cancelled, Hyaline Casts Cancelled, Fine Granular Casts Cancelled, Coarse Granular Casts Cancelled, Waxy Casts Cancelled, RBC Casts Cancelled, WBC Casts Cancelled, Urine Mucus Cancelled, Urine Trichomonas Cancelled, Urine Yeast Cancelled 11/01/22 11:54: Urine Color Yellow, Urine Clarity Clear, Urine pH 7.0, Ur Specific [place] 1.005, Urine Protein 15 H, Urine Glucose (UA) Normal, Urine Ketones 5 H, Urine Occult Blood 250 H, Urine Nitrite Negative, Urine Bilirubin Negative, Urine Urobilinogen Normal, Ur Leukocyte Esterase Negative, Urine RBC 0 SEEN, Urine WBC 0 SEEN, Ur Squamous Epith Cells 0 SEEN, Urine Bacteria 0 SEEN, Urine Mucus 0 SEEN 11/01/22 13:45: COVID-19 (SHANTHI) Not Detected 11/01/22 14:10: Hgb 15.4, Hct 47.0 11/01/22 14:58: Lactic Acid 4.9 H* 11/01/22 14:58: Troponin I High Sens 102 H 11/01/22 16:50: Troponin I High Sens 126 H* 11/01/22 : PT 14.8, INR 1.2, APTT 28.7 Micro: Microbiology 11/01/22 11:54 Urine Catheter - Rodriguez Legionella Antigen - Final 11/01/22 11:54 Urine Catheter - Rodriguez Streptococcus pneumoniae Antigen (M - Final ABG Data ABG results: ABG 11/01/22 11/01/22 10:41 14:15 Specimen Type JORGE ART Sample Site L Radial pH 7.41 Bicarbonate Actual 22.9 Total CO2 24 Base Excess -2 O2 Saturation 95 O2 % 40 ABG pCO2 36.2 ABG pO2 73 L Eric Test Positive VBG pH 7.19 L* VBG pO2 27 VBG HCO3 23 VBG Total CO2 25 VBG O2 Sat (Calc) 35 L VBG Base Excess -5 L POC Mix VBG pCO2 Pt Tmp 60.6 H Respiration Rate 22 O2 Delivery Device ET Tube Vent Mode AC Tidal Volume 400 POC PEEP 5 Crit Call To/Read Back Yes Blood Gas Notified Whom dr panchal Blood Gas Notified Time 10:43:10 Cardiology Labs/Tests 11/01/22 09:40: WBC 27.2 H, RBC 4.72, Hgb 14.5, Hct 43.7, MCV 92.6, MCH 30.7, MCHC 33.2, Plt Count 309, MPV 10.0 11/01/22 09:40: Sodium 139, Potassium 4.0, Chloride 102, Carbon Dioxide 24.0, Anion Gap 13, BUN 12, Creatinine 1.76 H, Est GFR (MDRD) Af Amer 49 L, Est GFR (MDRD) Non-Af 41 L, BUN/Creatinine Ratio 6.8 L, Glucose 78, Calcium 9.8, Total Bilirubin 0.60 11/01/22 09:40: Phosphorus 5.2 H, Magnesium 3.3 H 11/01/22 10:37: Lactic Acid 5.3 H* 11/01/22 10:41: VBG pH 7.19 L*, VBG pO2 27, VBG HCO3 23, VBG O2 Sat (Calc) 35 L, VBG Base Excess -5 L 11/01/22 11:54: Urine Color Cancelled, Urine Clarity Cancelled, Urine pH Cancelled, Ur Specific [place] Cancelled, U Specif Grav (Refrac) Cancelled, Urine Protein Cancelled, Urine Glucose (UA) Cancelled, Urine Ketones Cancelled, Urine Occult Blood Cancelled, Urine Nitrite Cancelled, Urine Bilirubin Cancelled, Urine Urobilinogen Cancelled, Ur Leukocyte Esterase Cancelled, Urine RBC Cancelled, Urine WBC Cancelled 11/01/22 11:54: Urine Color Yellow, Urine Clarity Clear, Urine pH 7.0, Ur Specific [place] 1.005, Urine Protein 15 H, Urine Glucose (UA) Normal, Urine Ketones 5 H, Urine Occult Blood 250 H, Urine Nitrite Negative, Urine Bilirubin Negative, Urine Urobilinogen Normal, Ur Leukocyte Esterase Negative, Urine RBC 0 SEEN, Urine WBC 0 SEEN 11/01/22 14:10: Hgb 15.4, Hct 47.0 11/01/22 14:15: pH 7.41, Bicarbonate Actual 22.9, Base Excess -2, O2 Saturation 95, ABG pCO2 36.2, ABG pO2 73 L, Eric Test Positive 11/01/22 14:58: Lactic Acid 4.9 H* 11/01/22 : PT 14.8, INR 1.2, APTT 28.7 Rhythm: EKG: ECHO: Stress Test: Cardiac Cath: PCI: CT Surgery: Holter monitor: EPS: PPM: CXR: Chest CT Scan: Radiography Diagnostic Testing: Radiology Impression Brain CT 11/01/22 10:11 IMPRESSION: 1. No acute intracranial abnormality. 2. Stable chronic ischemic changes Electronically Signed: Wilmar Henderson MD at 11:42 EDT , Chest X-Ray 11/01/22 10:52 IMPRESSION: No acute cardiopulmonary abnormality. COPD. Electronically Signed: Wilmar Henderson MD at 12:17 EDT , KUB X-Ray 11/01/22 11:08 IMPRESSION: Satisfactory endogastric tube placement. Electronically Signed: Wilmar Henderson MD at 13:25 EDT , Chest/Abdomen/Pelvis CT 11/01/22 11:35 IMPRESSION: 1. Diffuse pulmonary emphysema. 2. Satisfactory intubation. 3. Evidence of old granulomatous disease involving the chest and abdomen. Electronically Signed: Wilmar Henderson MD at 15:01 EDT , Chest X-Ray 11/01/22 12:30 IMPRESSION: Satisfactory intubation. COPD. Electronically Signed: Wilmar Henderson MD at 13:26 EDT , Chest X-Ray 11/01/22 14:29 IMPRESSION: COPD related changes with lines and tubes as above. Electronically Signed: Joey Garcia DO at 16:00 EDT ,
--- NOTE | 2022-11-01 19:34 | US_ITS ---
INDICATION: RUQ, EtOH, hepatic ultrasound recc by GI EXAMINATION: Ultrasound US Abdomen RUQ (limited) TECHNIQUE: Huang scale and color doppler imaging was performed of the right upper quadrant. COMPARISON: None. FINDINGS: Pancreas: Not visualized due to overlying bowel gas and patient''s condition. Liver: The liver measures 18 cm in length and is mildly enlarged. Cirrhotic morphology and slightly heterogeneous echotexture. There are a few scattered calcifications which likely relate to calcified granulomas. No intrahepatic bile duct dilation. Normal hepatopedal flow. Gallbladder: Normal appearance with no intraluminal sludge or gallstones. No significant wall thickening or pericholecystic fluid. Negative sonographic [place] sign. Common bile duct: 6.0 cm and is within normal limits. Right kidney: 10.7 x 4.7 x 4.9 cm. Normal size and appearance. US/Abdomen Limited IMPRESSION: 1. No acute findings. 2. Mild hepatomegaly and hepatic cirrhosis. Electronically Signed: Gibson Lagos DO at 12:19 EDT ,
[2022-11-01] MEDS: Propofol 10MG/Ml 1,000 MG/100 ML Bottle 3.2 MG CONT INF (20:27)
[2022-11-01] MEDS: Lactulose 20 GM/30 ML UDC NG (22:10)
[2022-11-01] MEDS: CHLORHEXIDINE GLUC 2% CLOTH 1 EACH TOWELETTE TOPICAL (22:14)
--- NOTE | 2022-11-01 22:34 | PCM.HOSP.N ---
Hospitalist Note I was contacted tonight by ICU nursing regarding this patient, they are unable to get a pulse and the patient's left foot at this time, the left foot is not cold, below the left knee area of the leg is cool however as compared with the patient's right leg. We talked by phone with cardiology about his care, cardiology did not feel it was a good idea to place the patient on systemic anticoagulation due to his possibility of hematemesis, cardiology recommended continuing to observe the patient for any changes in the appearance of the patient's left foot. Relayed this to ICU nursing, they will keep me posted if there is any changes in the patient's condition.
[2022-11-01] MEDS: Chlorhexidine 15 ML PO (23:11)
[2022-11-02] VITALS (42 sets, daily range): BP systolic 88–113; BP diastolic 47–68; PULSE 84–114; RESP 16–22; TEMP 36.5–37.6; O2SAT 96–100; BMI 16.2
--- NOTE | 2022-11-02 00:26 | PCM.HOSP.N ---
Hospitalist Note Patient was seen and examined briefly at approximately 2300 hrs., left and right feet are cool to the touch but there is no cyanosis, at this time he will be monitored closely in the ICU for any changes regarding his circulatory status.
[2022-11-02] MEDS: Lactulose 20 GM/30 ML UDC NG ×5 (02:14→22:38)
[2022-11-02] MEDS: Ipratropium/Albuterol Sulfate 3 ML AMPUL.NEB INHALATION ×6 (02:46→23:10)
[2022-11-02] MEDS: TITRATION PARAMETER CHANGE 1 EACH IV ×2 (04:14→06:24)
[2022-11-02 04:31] LABS: International Normalized Ratio 1.2; Prothrombin Time (Protime)PT. 15.5 SECONDS (11.7-14.9)
[2022-11-02 04:36] LABS: Absolute Lymphocyte Count 1.02 X10^3/uL (0.83-4.51); Basophil# 0.03 X10^3/uL; Basophil% 0.3 % (0-1); Eosinophil# 0.19 X10^3/uL; Eosinophils% 1.6 % (0-5); Hematocrit 37.8 % (40-54); Hemoglobin 12.3 g/dL (13.0-16.5); Lymphocyte # 1.02 X10^3/ul (0.83-4.51); Lymphocyte % 8.7 % (19-41); Mean Corp Hgb Conc 32.5 g/dL (32-36); Mean Corpuscular Hgb 29.8 pg (27.0-32.0); Mean Corpuscular Volume 91.5 fL (80-94); Mean Platelet Vol. 9.8 fl (6.2-12.0); Monocyte# 0.51 X10^3/uL; Monocyte% 4.3 % (0-10); NRBC Flagged by Analyzer 0 % (0-5); Neutrophil # 9.98 X10^3/uL (2.7-7.7); Neutrophil % 84.8 % (47-70); Platelet Count 247 K/mm3 (150-450); RBC Distribution Width CV 13.2 % (11.6-14.6); RBC Distribution Width SD 44.5 fl (35.1-43.9); Red Blood Count 4.13 M/mm3 (4.6-6.2); White Blood Count 11.8 K/mm3 (4.4-11.0)
[2022-11-02 04:43] LABS: Phosphorus 3.8 mg/dL (2.5-4.9)
[2022-11-02 04:54] LABS: ALB/GLOB Ratio 0.7 RATIO (0.9-2.4); AST(SGOT) 156 U/L (15-37); Alanine Aminotransfer ALT/SGPT 37 U/L (16-61); Albumin, Serum 2.3 g/dL (3.2-5.0); Alkaline Phosphatase 103 U/L (45-117); Anion Gap 9 (5-15); BUN 14 mg/dL (7-18); BUN/Creat Ratio 12.5 RATIO (10-20); Calcium,Total 7.2 mg/dL (8.5-10.1); Chloride 110 mmol/L (98-107); Cholesterol 55 mg/dL (200); Creatinine, Serum 1.12 mg/dL (0.70-1.30); EST Glomerular Filtration Rate 69 mL/min (>60); Est Glom Filt Rate - Afr Amer 83 mL/min (>60); Estimated Creatinine Clearance 45.02 ml/min; Globulin 3.3 g/dL (2.2-4.2); Glucose 160 mg/dL (74-106); High Density Lipoprotein 28 mg/dL; Potassium 2.9 mmol/L (3.5-5.1); Protein, Total 5.6 g/dL (6.4-8.2); Sodium Level 142 mmol/L (136-145); Thyroid Stim Hormone (TSH) 0.58 uIU/mL (0.358-3.74); Triglycerides 73 mg/dL; Very Low Density Lipoprotein 15 mg/dL (5-40)
--- NOTE | 2022-11-02 05:55 | RAD_ITS ---
STUDY: X-RAY CHEST REASON FOR EXAM: Male, 72 years old. respiratory failure, shock, daily while on vent TECHNIQUE: Single AP portable view of the chest. COMPARISON: 11/01/2022 FINDINGS: Endotracheal tube and nasogastric tube which are unchanged. There is hyperinflation of the lungs consistent with chronic obstructive lung disease (COPD). There is no demonstrated pleural abnormality. Normal size heart. Normal mediastinum and ankur. Normal visualized pulmonary arteries. There is atherosclerotic tortuosity of the aortic arch and descending thoracic aorta. Normal visualized thoracic spine. Normal visualized ribs, clavicles, and shoulders. There is no demonstrated abnormality of the visualized soft tissue structures of the upper abdomen. RAD/Chest 1 View (Portable) IMPRESSION: No change from 11/01/2022. Electronically Signed: Shant Yanez MD at 18:30 EDT ,
--- NOTE | 2022-11-02 05:55 | EKGRS_ITS ---
Test Reason : POST CATH Blood Pressure : / mmHG Vent. Rate : 086 BPM Atrial Rate : 086 BPM P-R Int : 142 ms QRS Dur : 076 ms QT Int : 402 ms P-R-T Axes : 067 066 072 degrees QTc Int : 481 ms Sinus rhythm with occasional Premature ventricular complexes ST elevation consider inferior injury or acute infarct Prolonged QT ACUTE NE / STEMI Abnormal ECG Confirmed by JUAN VILLANUEVA, DAVONTE ([id number]), editorial project manager DEISY NAVARRO ([id number]) on 11/10/2022 2:34:35 PM Referred By: ROSLYN Confirmed By:DAVONTE MARTINEZ MD
[2022-11-02] MEDS: Chlorhexidine 15 ML PO ×2 (07:48→22:38)
[2022-11-02 08:20] LABS: Base Excess -4 mmol/L (-2 to +2); Bicarbonate 21.5 mmol/L (22-26); Blood Gas Specimen Type ART; FI02 40; Mode AC; O2 Delivery Device Adult Vent; PEEP 5; PO2 94 mmHG (75-100); RR 20; SITE Art Line; SO2 97 % (95-99); Total Carbon Dioxide 23 mmol/L; Vt 400; pCO2 38.7 mmHg (35-45); pH 7.35 (7.35-7.45)
[2022-11-02] MEDS: fentaNYL drip 100 ML 2.5 MCG CONT INF (08:49)
--- NOTE | 2022-11-02 09:00 | MRI_ITS ---
We are attempting to reach an attending provider to discuss findings. An addendum with communication details will be sent when the communication is complete. EXAM: MR HEAD WITHOUT INTRAVENOUS CONTRAST CLINICAL INDICATION: encephalopathic -- when pt more hemodynamically stable TECHNIQUE: Multiplanar and multisequence MR images of the brain were obtained without intravenous contrast. COMPARISON: CT brain 11/01/2022 FINDINGS: BRAIN AND EXTRA-AXIAL SPACES: Right temporal parietal encephalomalacic changes again seen. Increased T2 signal intensity within the cerebral white matter suggestive of chronic microvascular change. Cortical regions of restricted diffusion noted to involve the right temporal and posterior right frontal lobe consistent with acute cortical ischemia. No acute hemorrhage or mass effect. Posterior fossa structures are unremarkable. Ventricles are appropriate for age. No hydrocephalus. Basal cisterns are patent. SELLA: Normal. Normal sella turcica, pituitary gland, infundibular stalk, optic chiasm and hypothalamus. AUDITORY SYSTEM: Normal. The internal auditory canals are patent. BONES/JOINTS: Intact calvarium. SINUSES: Unremarkable as visualized. Clear. MASTOID AIR CELLS: Unremarkable as visualized. Clear. ORBITS: Unremarkable as visualized. Both globes, extraocular muscles, optic nerves and retrobulbar fat appear unremarkable. VASCULATURE: Unremarkable as visualized. Normal flow voids in the major intracranial circulation. MRI/Brain without Contrast IMPRESSION: 1. Focal acute cortical ischemic changes of the right frontal and temporal lobes. 2. Chronic ischemic changes. Electronically Signed: Wilmar Henderson MD at 11:25 EDT ,
[2022-11-02] MEDS: Propofol 10MG/Ml 1,000 MG/100 ML Bottle 3.1 MG CONT INF (09:10)
[2022-11-02] MEDS: Vancomycin IV 500 MG/100 ML BAG 100 MG IV ×2 (11:59→13:31)
--- NOTE | 2022-11-02 12:07 | PN.HOSP_ITS ---
Reason for Visit Reason for Visit: Diagnoses Sepsis, unspecified organism (11/01/22) Alcohol abuse, uncomplicated (11/01/22) Alcohol use, unspecified with withdrawal, unspecified (11/01/22) ST elevation (STEMI) myocardial infarction of unspecified site (11/01/22) Chronic obstructive pulmonary disease with (acute) exacerbation (11/01/22) Gastrointestinal hemorrhage, unspecified (11/01/22) Acute kidney failure, unspecified (11/01/22) Transient alteration of awareness (11/01/22) Altered mental status, unspecified (11/01/22) Unspecified convulsions (11/01/22) Severe sepsis with septic shock (11/01/22) Other specified abnormal findings of blood chemistry (11/01/22) Objective Data Objective Data Vital Signs: Vital Signs Temp Pulse Resp BP Pulse Ox O2 Del Method FiO2 98.7 F 93 21 H 100/55 L 96 Mechanical Ventilator 50 11/02/22 05:00 11/02/22 07:03 11/02/22 07:03 11/02/22 07:03 11/02/22 07:03 11/02/22 07:03 11/02/22 07:03 Oxygen Delivery Method Mechanical Ventilator Weight: 113 lb 9.6 oz Body Mass Index (BMI) 16.2 Intake & Output: Intake and Output for Last 24 Hours 10/31/22 11/01/22 11/02/22 23:59 23:59 23:59 Intake Total 3591.63 / 3606.73 1189.86 / 1189.86 Output Total 850 / 1125 500 / 500 Balance 2741.63 / 2481.73 689.86 / 689.86 Medical Nutrition Assessment Dietitian: Malnutrition Criteria Met Start: 11/01/22 14:49 Freq: Status: Active Protocol: Document 11/01/22 15:05 RMA (Rec: 11/01/22 15:06 RMA [id number]) Nutrition Malnutrition Evidence of Malnutrition Exists Yes Malnutrition (severe): Chronic,Social/Behavioral/ Environmental Evidenced By Suboptimal Energy Intake ( Severe),Weight Loss (Severe), Physical Changes (Severe) Intake Problem Inadequate Oral Intake Etiology related to intubation and altered GI function Signs/Symptoms as evidenced by NPO Status Active Problem Clinical Problem Chronic Disease or Condition Related Malnutrition Etiology Severe protein-calorie malnutrition in the context of chronic disease and social circumstance related to ETOH abuse and inadequate oral intake Signs/Symptoms as evidenced by BMI 16.6, currently NPO, ~6% recent wt loss noted x past 4-5 months, poor oral intake meeting less than 50% estimated nutrition needs x past 6-12 months, physical symptoms of muscle wasting/fat depletion visible through out including clavicle , face, arms and legs Status Active Problem Recommendation Dietitian Recommendations/Changes Recommend Enteral Nutrition Support if pt remains intubated greater than 24 hours to prevent further pro/ yari depletion. Diet as tolerated when medically able to Regular with ONS as tolerated; consistency /texture as per PAID SEARCH MANAGER. If PO inadequate as able to advance diet, suggest TF support for energy/pro repletion. Lab / Micro Data Result Diagrams: 11/02/22 04:10 11/02/22 04:10 Labs: Laboratory Results - last 24 hr 11/01/22 09:40: WBC 27.2 H, RBC 4.72, Hgb 14.5, Hct 43.7, MCV 92.6, MCH 30.7, MCHC 33.2, RDW Std Deviation 43.5, RDW Coeff of Gabrielle 12.7, Plt Count 309, MPV 10. 0 11/01/22 09:40: Sodium 139, Potassium 4.0, Chloride 102, Carbon Dioxide 24.0, Anion Gap 13, BUN 12, Creatinine 1.76 H, Estim Creat Clear Calc 28.40, Est GFR (MDRD) Af Amer 49 L, Est GFR (MDRD) Non-Af 41 L, BUN/Creatinine Ratio 6.8 L, Glucose 78, Calcium 9.8, Total Bilirubin 0.60, AST 93 H, ALT 43, Alkaline Phosphatase 159 H, Troponin I High Sens 104 H, Total Protein 8.1, Albumin 3.5, Globulin 4.6 H, Albumin/Globulin Ratio 0.8 L, Lipase 18, TSH 4.16 H 11/01/22 09:40: Free T4 1.43, Free T3 pg/dL 1.9 L 11/01/22 09:40: Phosphorus 5.2 H, Magnesium 3.3 H, Total Creatine Kinase 1180 H 11/01/22 10:30: Urine Opiates Screen NEGATIVE, Urine Methadone Screen NEGATIVE, Ur Barbiturates Screen NEGATIVE, Ur Phencyclidine Scrn NEGATIVE, Ur Amphetamines Screen NEGATIVE, MDMA (Ecstasy) Screen NEGATIVE, U Benzodiazepines Scrn NEGATIVE, Urine Cocaine Screen NEGATIVE, U Cannabinoids Screen NEGATIVE, Ur Drug Screen Comment 11/01/22 10:37: Ammonia 42.0 H 11/01/22 10:37: Lactic Acid 5.3 H* 11/01/22 10:37: Ethyl Alcohol < 3.0 11/01/22 11:54: Urine Color Yellow, Urine Clarity Clear, Urine pH 7.0, Ur S pecific [place] 1.005, Urine Protein 15 H, Urine Glucose (UA) Normal, Urine Ketones 5 H, Urine Occult Blood 250 H, Urine Nitrite Negative, Urine Bilirubin Negative, Urine Urobilinogen Normal, Ur Leukocyte Esterase Negative, Urine RBC 0 SEEN, Urine WBC 0 SEEN, Ur Squamous Epith Cells 0 SEEN, Urine Bacteria 0 SEEN, Urine Mucus 0 SEEN 11/01/22 13:45: COVID-19 (SHANTHI) Not Detected 11/01/22 14:10: Hgb 15.4, Hct 47.0 11/01/22 14:58: Lactic Acid 4.9 H* 11/01/22 14:58: Troponin I High Sens 102 H 11/01/22 16:50: Troponin I High Sens 126 H* 11/01/22 : PT 14.8, INR 1.2, APTT 28.7 11/02/22 04:10: Sodium 142, Potassium 2.9 L, Chloride 110 H, Carbon Dioxide 23.0, Anion Gap 9, BUN 14, Creatinine 1.12, Estim Creat Clear Calc 45.02, Est GFR (MDRD) Af Amer 83, Est GFR (MDRD) Non-Af 69, BUN/Creatinine Ratio 12.5, Glucose 160 H, Calcium 7.2 L, Magnesium 2.0, Total Bilirubin 0.60, AST 156 H, ALT 37, Alkaline Phosphatase 103, Total Protein 5.6 L, Albumin 2.3 L, Globulin 3.3, Albumin/Globulin Ratio 0.7 L, Triglycerides 73, Cholesterol 55, LDL Cholesterol 12, VLDL Cholesterol 15, HDL Cholesterol 28 L, TSH 0.58 11/02/22 04:10: WBC 11.8 H, RBC 4.13 L, Hgb 12.3 L, Hct 37.8 L, MCV 91.5, MCH 29.8, MCHC 32.5, RDW Std Deviation 44.5 H, RDW Coeff of Gabrielle 13.2, Plt Count 247, MPV 9.8, Immature Gran % (Auto) 0.300, Neut % (Auto) 84.8 H, Lymph % (Auto) 8.7 L, [place] % (Auto) 4.3, Eos % (Auto) 1.6, Baso % (Auto) 0.3, Absolute Neuts (auto) 10.0 H, Absolute Lymphs (auto) 1.02, Nucleated RBC % 0 11/02/22 04:10: PT 15.5 H, INR 1.2 11/02/22 04:10: Phosphorus 3.8 Micro: Microbiology 11/01/22 15:10 Mucosa - Nasopharyngeal Respiratory Panel (PCR) - Final 11/01/22 11:54 Urine Catheter - Rodriguez Legionella Antigen - Final 11/01/22 11:54 Urine Catheter - Rodriguez Streptococcus pneumoniae Antigen (M - Final ABG Data ABG results: ABG 11/01/22 11/01/22 10:41 14:15 Specimen Type JORGE ART Sample Site L Radial pH 7.41 Bicarbonate Actual 22.9 Total CO2 24 Base Excess -2 O2 Saturation 95 O2 % 40 ABG pCO2 36.2 ABG pO2 73 L Eric Test Positive VBG pH 7.19 L* VBG pO2 27 VBG HCO3 23 VBG Total CO2 25 VBG O2 Sat (Calc) 35 L VBG Base Excess -5 L POC Mix VBG pCO2 Pt Tmp 60.6 H Respiration Rate 22 O2 Delivery Device ET Tube Vent Mode AC Tidal Volume 400 POC PEEP 5 Crit Call To/Read Back Yes Blood Gas Notified Whom dr panchal Blood Gas Notified Time 10:43:10 Radiography Diagnostic Testing: Radiology Impression Brain CT 11/01/22 10:11 IMPRESSION: 1. No acute intracranial abnormality. 2. Stable chronic ischemic changes Electronically Signed: Wilmar Henderson MD at 11:42 EDT , Chest X-Ray 11/01/22 10:52 IMPRESSION: No acute cardiopulmonary abnormality. COPD. Electronically Signed: Wilmar Henderson MD at 12:17 EDT , KUB X-Ray 11/01/22 11:08 IMPRESSION: Satisfactory endogastric tube placement. Electronically Signed: Wilmar Henderson MD at 13:25 EDT , Chest/Abdomen/Pelvis CT 11/01/22 11:35 IMPRESSION: 1. Diffuse pulmonary emphysema. 2. Satisfactory intubation. 3. Evidence of old granulomatous disease involving the chest and abdomen. Electronically Signed: Wilmar Henderson MD at 15:01 EDT , Chest X-Ray 11/01/22 12:30 IMPRESSION: Satisfactory intubation. COPD. Electronically Signed: Wilmar Henderson MD at 13:26 EDT , Chest X-Ray 11/01/22 14:29 IMPRESSION: COPD related changes with lines and tubes as above. Electronically Signed: Joey Garcia DO at 16:00 EDT , Physical Exam Narrative Patient had a STEMI last night. Telemetry revealed STEMI and then twelve-lead EKG was done which shows inferior and lateral leads suspicious for STEMI. Patient was taken to [facility] and found significant stenosis in LAD and RCA with JUANCARLOS-3 flow in both vessels. The vessels were calcified. It was decided for medical treatment. Right groin heart cath sheath using arterial line. Left PDA/TELEMARKETING SUPERVISOR pulses not palpable or Doppler pulses but left popliteal Doppler pulses present. General: Intubated, unresponsive HEENT: Atraumatic, PERRLA, EOMI, Normocephalic Oral: ET and OG tube present.? Neck: Supple, No JVD, Negative Carotid Bruits Lungs: On vent support. Cardiovascular: Irregular rhythm with PVCs, S1-S2 heart sound on Levophed drip, low-volume radial pulse. No murmurs. Chronic skin changes of left leg due to chronic atherosclerotic lower leg PAD. : Rodriguez catheter.? Draining light yellow urine.? No renal angle tenderness.? No suprapubic tenderness. Extremities: No edema, Capillary Refill Less than 3 Seconds Skin: Chronic skin changes of left leg PAD Musculoskeletal: Mild muscle atrophy of extremities of thigh calf and craniofacial muscles.? No Tenderness to Palpation of Joints or Extremities: No edema. No obvious left foot cyanosis/ecchymosis but mild coldness. Abdomen: Bowel Sounds sluggish soft, Non Tender, Non-Distended Neurological: Neuro exam unobtainable.? Was unresponsive then intubated Psych/Mental Status: On fentanyl drip. Assessment & Plan Assessment/Plan (1) Unresponsive episode: (2) GI bleed: PLAN: Plan This 71-year-old gentleman was brought to ED for altered mental status which progressed to unresponsiveness and intubation 1. Altered mental status then unresponsiveness, acute encephalopathy exact et iology unclear: Possible differential diagnosis are metabolic encephalopathy from upper GI bleed, hypercapnia or infectious: Patient is intubated on ventilator. Patient is being admitted in ICU. MRI brain without contrast ordered when patient is hemodynamically stable. Rest as mentioned below 11/02: Patient opens eyes on command but does not follow motor function, hard. Possibility of seizure. Patient on Keppra. MRI of brain showed right temporal and posterior right frontal region consistent with acute cortical ischemia. Right temporal parietal chronic microvascular changes. Posterior fossa structures unremarkable. EEG still pending. Once we have the EEG he can have neuro consult but aspirin has been started after discussion with heating element winder. 2. Acute hypercapnic respiratory failure with COPD with high probability of exacerbation: As per POA, she did not notice acute change in breathing, cough or other URI symptoms. VBG 7.19/60. Lactic acid 5.3. ABGs ordered. Patient is intubated on ventilator. Electronics Assembler And Tester consulted. Patient also history of s moking more than a pack per day since early age. 11/02: He still intubated, managed by heating element winder. Discussed with Dr. Roger 3. Shock most likely septic shock: There is concern of sepsis in view of acute hypercapnic respiratory failure, lactic acidosis, increased creatinine and acute encephalopathy. Patient has leukocytosis. Chest x-ray does not show acute infiltrate. CTA chest abdomen pelvis ordered. Panculture ordered. Empirically patient started on IV vancomycin and Zosyn. Patient had IV fluid bolus 30 mill per KG. 11/02: No fever or chills. Patient on Levophed drip. Urinary antigens are negative. Respiratory panel negative. COVID-19 PCR negative. Blood cultures x2 are pending. Lactic acid improved. 4. Upper GI bleed with concern of alcoholic hepatitis/cirrhosis with portal hypertension: Patient does not have prior abdominal imaging in our system. CTA chest abdomen and pelvis ordered by ER physician. OG tube still draining brownish/altered blood product. Hemoglobin 14.5/43.7%. H&H every 6 hourly for 24 hours. GI is consulted. Patient is started on Protonix drip after bolus and octreotide drip. Patient might have lactic acidosis from GI bleed. Patient is also history of longtime alcohol use disorder with more than 30 years of continuous, heavy drinking of whiskey. 11/02: Patient is still has NG tube and had altered blood on NG tube suction last night. Hemoglobin dropped about 2 to 3 g but does not need PRBC transfusion. Continue Protonix drip, octreotide drip and antibiotic. Discussed with the GI 5. Inferior lateral wall STEMI after admission: Troponin 104. Cycle troponin enzymes. Serial EKG was done in ED from yesterday and today. First EKG from 10/31 shows sinus bradycardia 55 bpm. And today shows normal sinus rhythm with artifacts in inferior leads. Next EKG shows sinus irregular rhythm with PVCs and premature supraventricular complexes. EKG from 07/27 shows sinus rhythm with sinus arrhythmia. Patient does not have known prior cardiac disease. 11/02: Inferior lateral wall STEMI: Yesterday EKG showed ST elevation in inferior lateral leads suspicious for STEMI and patient was taken to [facility]. Troponin did not show any major delta change. Was found to have significant CAD with JUANCARLOS-3 flow with significant stenosis in LAD and RCA, vessels were heavily calcified. No major occluded epicardial coronary artery. Patient cannot have antiplatelet agent or antithrombotic agent due to GI bleed. CK high at 1189 therefore will hold for high intensity statin. Left leg PAD: My clinical suspicion is that patient has chronically occluded left lower TELEMARKETING SUPERVISOR and DPA with collaterals as there is no acute pale, cyanosis, mottling, or change in color but mild cold. No Doppler or palpable pulses felt at left PT and DPA. As revealed in cardiac cath with chronically significant stenosis with heavy calcification, I suspect similar pathology in left leg PAD. Unfortunately patient cannot have antithrombotic agent. Prior history of CVA: As per. No residual deficit from previous stroke. 6. Moderate chronic protein calorie malnutrition: BMI 16.5 kg/m?. Patient has mild to moderate muscle atrophy of extremities and craniofacial muscles. Sheet Metal Assembler And Riveter consult. I called POA and gave the clinical update about inferolateral STEMI, cardiac cath finding about heavily calcified vessels and significantly stenosis and unable to do PCI, PAD, acute stroke and seizure, shock on life-saving medications including Levophed, IV antibiotics and respiratory failure still intubated. She does not want CPR if patient gets cardiac arrest. She emphasized more on the quality of life therefore does not want CPR. I told her prognosis is poor with multiple organ system failure, multiple vascular bed thrombosis along with GI bleed. He will go for EGD tomorrow AM. Total time of the visit including total time spent in counseling or coordination of care, (more than 50% of the total time, spent in obtaining medical information from nurses and other ancillary care providers,explaining to the patient about labs, imaging, diagnosis and management of active complex medical conditions), discussion with licensed occupational therapist, manager payment, heating element winder, critical finding of date of MRI and discussion with the radiologist, clinical update to patient's POA review of labs and imaging is 70 minutes. Living will/advanced directive/end of life care: Patient does not have living will or advanced directive. He is POA is friend, present in ED. After discussion of benefits/risks procedures involved with full code, DNR CC arrest and DNR CC, the POA does not want CPR. Patient is already intubated on ventilator. Patient does want artificial life support including chest compression, and DC shock if needed Charges/Coding Visit Charges Inpatient E&M: 18670 Subs Hosp L3
[2022-11-02] MEDS: CHLORHEXIDINE GLUC 2% CLOTH 1 EACH TOWELETTE TOPICAL (12:08)
[2022-11-02 12:40] LABS: CPK Total, Creatine Kinase 6269 U/L (39-308)
[2022-11-02] MEDS: Aspirin E.C. 325 MG Tablet PO (12:50)
[2022-11-02] MEDS: KCL 20MEQ in 0.45%NS 20 MEQ/1,000 ML IV.SOLN. 75 MEQ IV (14:01)
--- NOTE | 2022-11-02 14:17 | PN.CC_ITS ---
Assessment & Plan Assessment/Plan (1) Acute CVA (cerebrovascular accident): PLAN: Patient had altered mental status, last known well yesterday at about 5:30 in the morning when his family noted that he was less responsive. He was noted to have seizure activity yesterday and was treated with seizure disorder medications, with resolution. CT scan of the head on 11/01/2022 was without acute changes. His lactulose was elevated he had metabolic acidosis, and the several reasons of altered mental status were treated yesterday. He had new EKG changes and elevated troponin consistent with an inferior wall ST elevation IN, with no acute thrombosis seen on emergent cardiac cath, but extensive vascular calcifications consistent with his known severe diffuse atherosclerotic disease. Medical treatment was recommended. This morning when he had not awakened as expected after lactulose and treatment of acidosis, MRI was obtained which showed an acute stroke in the right frontal and temporal areas. He is not a candidate for thrombolytic therapy at this time, due to late time window, and fresh upper GI bleed. -Medical management of CVA with atorvastatin high-dose and aspirin 325 mg daily -Continue PPI high-dose for ulcer and GI bleed prophylaxis -Follow H&H -The patient was intubated for airway control in the setting of altered mental status. He may prove to be a difficult wean from the ventilator if his new stroke affects his swallowing, ability to maintain his airway and cough. - The family was contacted about his new stroke diagnosis by Dr. Diehl. He told me they stated that if his mental status does not recover, he would not want to be kept on prolonged life support, no trach or intubation if we are able to wean him successfully from the ventilator. This resulted in a change in his CODE STATUS today. -Please see Eleazar Diehl MD's note for further details about the conversation with family. -PT, OT, case management after patient is extubated and hopefully can begin to rehab. -Neuro consult after extubation. (2) Alcohol withdrawal seizure: PLAN: Controlled, no sign of withdrawal or seizure at this time - EEG ordered - propofol held for mental status evaluation, will re-start for seizure activity PRN. - continue Keppra (3) Acute alteration in mental status: PLAN: As above, multifactorial; postictal, hyperammonemia, metabolic acidosis, a cute stroke. ammonia level is normal today after lectulose via OGT. (4) Upper GI bleed: PLAN: Hemoglobin is dropped from 15-12, but I's and O's have been positive due to initial ~3L fluid resuscitation - Monitor for GI bleeding. He did not have ongoing hematemesis, just co ffeeground emesis briefly at admission. - Pantoprazole drip per GI - Upper endoscopy is planned for tomorrow, after reevaluation of risks and benefits - monitor h/h. (5) COPD (chronic obstructive pulmonary disease): QUALIFIERS: COPD type: COPD with acute exacerbation Qualified Code(s): J44.1 - Chronic obstructive pulmonary disease with (acute) exacerbation PLAN: Stable and not exacerbated. - Maintenance bronchodilators - Hold steroids for now to avoid exacerbating GI bleeding (6) Elevated lactic acid level: PLAN: Downtrending. - Repeat today. Likely combination of seizure and initial low BP. - Maintain good perfusion and oxygenation. - Possible sepsis of unknown source is being empirically treated with Zosyn and Vanco. - Cultures are negative to date, complete respiratory PCR is negative. - check procalcitonin, de-escalate abx in AM if culture and calcitonin neg. (7) Tobacco use: PLAN: Smoking cessation is recommended. (8) ST elevation (STEMI) myocardial infarction: PLAN: Patient had acute elevation in inferior lead ST segments, which have improved. - medical management (not on anticoagulation due to UGI bleed) - ASA - atorvastatin - eventual b isadora - maintain h/h >8 - if he recovers, may be a candidate for eventual intervention per cardiology. (9) JUAN (acute kidney injury): PLAN: Resolved, likely due to rhabdo and initial hypotension. - hypokalemia supplemented, re-check today - maintain perfusion and oxygenation, avoid nephrotoxic medications. - patient completed hydration for rhabdo, urine has been clear yellow x 2 days. PLAN: Plan Critical care time spent with patient at bedside, review of documentation, lab results, radiology and other test results, discussion with colleagues and ancillary staff, clinical management of patient, and updating family if applicable, was 60 minutes. [place] [address] Subjective Subjective Patient remains obtunded, opens eyes to voice, but does not track, does not follow commands. Minimal nonpurposeful response to noxious stimuli. No further seizure activity noted. Objective Data Objective Data The patient was seen and examined at the bedside this morning. Events from the last 24 hours have been reviewed. The patient's most recent labs microbiology and imaging have all been personally reviewed. The case was discussed with ICU staff and hospitalist. Overnight: Stable Pertinent events include: MRI shows new stroke. Seizures have resolved clinically, after loading with Keppra and IV propofol ventilator sedation protocol Vital Signs: Vital Signs Temp Pulse Resp BP Pulse Ox O2 Del Method FiO2 98.7 F 99 20 H 103/60 98 Mechanical Ventilator 40 11/02/22 14:00 11/02/22 14:00 11/02/22 14:00 11/02/22 14:00 11/02/22 14:00 11/02/22 14:00 11/02/22 14:00 Oxygen Delivery Method Mechanical Ventilator Weight: 113 lb 9.6 oz Body Mass Index (BMI) 16.2 Intake & Output: Intake and Output for Last 24 Hours 10/31/22 11/01/22 11/02/22 23:59 23:59 23:59 Intake Total 3591.63 / 3606.73 1792.67 / 1792.67 Output Total 850 / 1125 650 / 650 Balance 2741.63 / 2481.73 1142.67 / 1142.67 Medical Nutrition Assessment Dietitian: Malnutrition Criteria Met Start: 11/01/22 14:49 Freq: Status: Active Protocol: Document 11/01/22 15:05 RMA (Rec: 11/01/22 15:06 RMA [id number]) Nutrition Malnutrition Evidence of Malnutrition Exists Yes Malnutrition (severe): Chronic,Social/Behavioral/ Environmental Evidenced By Suboptimal Energy Intake ( Severe),Weight Loss (Severe), Physical Changes (Severe) Intake Problem Inadequate Oral Intake Etiology related to intubation and altered GI function Signs/Symptoms as evidenced by NPO Status Active Problem Clinical Problem Chronic Disease or Condition Related Malnutrition Etiology Severe protein-calorie malnutrition in the context of chronic disease and social circumstance related to ETOH abuse and inadequate oral intake Signs/Symptoms as evidenced by BMI 16.6, currently NPO, ~6% recent wt loss noted x past 4-5 months, poor oral intake meeting less than 50% estimated nutrition needs x past 6-12 months, physical symptoms of muscle wasting/fat depletion visible through out including clavicle , face, arms and legs Status Active Problem Recommendation Dietitian Recommendations/Changes Recommend Enteral Nutrition Support if pt remains intubated greater than 24 hours to prevent further pro/ yari depletion. Diet as tolerated when medically able to Regular with ONS as tolerated; consistency /texture as per NATIONAL INVESTIGATIVE PRODUCER. If PO inadequate as able to advance diet, suggest TF support for energy/pro repletion. Lab / Micro Data Attestation: I reviewed the patient's lab results. Result Diagrams: 11/02/22 04:10 11/02/22 04:10 Labs: Laboratory Results - last 24 hr 11/01/22 09:40: Phosphorus 5.2 H, Magnesium 3.3 H, Total Creatine Kinase 1180 H 11/01/22 11:54: Urine Color Cancelled, Urine Clarity Cancelled, Urine pH Cancelled, Ur Specific [place] Cancelled, U Specif Grav (Refrac) Cancelled, Urine Protein Cancelled, Urine Glucose (UA) Cancelled, Urine Ketones Cancelled, Urine Occult Blood Cancelled, Urine Nitrite Cancelled, Urine Bilirubin Cancelled, Urine Urobilinogen Cancelled, Ur Leukocyte Esterase Cancelled, Urine RBC Cancelled, Urine WBC Cancelled, Ur Squamous Epith Cells Cancelled, Ur Trans ition Epith Cell Cancelled, Ur Renal Epithelial Cell Cancelled, Calcium Oxalate Crystal Cancelled, Uric Acid Crystals Cancelled, Triple Phos Crystals Cancelled, Other Crystals Cancelled, Amorphous Sediment Cancelled, Urine Bacteria Cancelled, Hyaline Casts Cancelled, Fine Granular Casts Cancelled, Coarse Granular Casts Cancelled, Waxy Casts Cancelled, RBC Casts Cancelled, WBC Casts Cancelled, Urine Mucus Cancelled, Urine Trichomonas Cancelled, Urine Yeast Cancelled 11/01/22 13:45: COVID-19 (SHANTHI) Not Detected 11/01/22 14:10: Hgb 15.4, Hct 47.0 11/01/22 14:58: Lactic Acid 4.9 H* 11/01/22 14:58: Troponin I High Sens 102 H 11/01/22 16:50: Troponin I High Sens 126 H* 11/02/22 04:10: Sodium 142, Potassium 2.9 L, Chloride 110 H, Carbon Dioxide 23.0, Anion Gap 9, BUN 14, Creatinine 1.12, Estim Creat Clear Calc 45.02, Est GFR (MDRD) Af Amer 83, Est GFR (MDRD) Non-Af 69, BUN/Creatinine Ratio 12.5, Glucose 160 H, Calcium 7.2 L, Magnesium 2.0, Total Bilirubin 0.60, AST 156 H, ALT 37, Alkaline Phosphatase 103, Total Protein 5.6 L, Albumin 2.3 L, Globulin 3.3, Albumin/Globulin Ratio 0.7 L, Triglycerides 73, Cholesterol 55, LDL Cholesterol 12, VLDL Cholesterol 15, HDL Cholesterol 28 L, TSH 0.58 11/02/22 04:10: WBC 11.8 H, RBC 4.13 L, Hgb 12.3 L, Hct 37.8 L, MCV 91.5, MCH 29.8, MCHC 32.5, RDW Std Deviation 44.5 H, RDW Coeff of Gabrielle 13.2, Plt Count 247, MPV 9.8, Immature Gran % (Auto) 0.300, Neut % (Auto) 84.8 H, Lymph % (Auto) 8.7 L, Gibson % (Auto) 4.3, Eos % (Auto) 1.6, Baso % (Auto) 0.3, Absolute Neuts (auto) 10.0 H, Absolute Lymphs (auto) 1.02, Nucleated RBC % 0 11/02/22 04:10: PT 15.5 H, INR 1.2 11/02/22 04:10: Phosphorus 3.8 11/02/22 04:10: Total Creatine Kinase 6269 H Micro: Microbiology 11/01/22 11:54 Urine Catheter - Rodriguez Urine Culture - Preliminary Culture exhibits no growth. 11/01/22 11:54 Urine Catheter - Rodriguez Legionella Antigen - Final 11/01/22 11:54 Urine Catheter - Rodriguez Streptococcus pneumoniae Antigen (M - Final 11/01/22 15:10 Mucosa - Nasopharyngeal Respiratory Panel (PCR) - Final ABG Data ABG results: ABG 11/01/22 11/02/22 14:15 08:15 Specimen Type ART ART Sample Site L Radial Art Line pH 7.41 7.35 Bicarbonate Actual 22.9 21.5 L Total CO2 24 23 Base Excess -2 -4 L O2 Saturation 95 97 O2 % 40 40 ABG pCO2 36.2 38.7 ABG pO2 73 L 94 Eric Test Positive Respiration Rate 22 20 O2 Delivery Device ET Tube Adult Vent Vent Mode AC AC Tidal Volume 400 400 POC PEEP 5 5 Radiography Diagnostic Testing: Radiology Impression Chest/Abdomen/Pelvis CT 11/01/22 11:35 IMPRESSION: 1. Diffuse pulmonary emphysema. 2. Satisfactory intubation. 3. Evidence of old granulomatous disease involving the chest and abdomen. Electronically Signed: Wilmar Henderson MD at 15:01 EDT , Chest X-Ray 11/01/22 14:29 IMPRESSION: COPD related changes with lines and tubes as above. Electronically Signed: Joey Garcia DO at 16:00 EDT , Brain MRI 11/02/22 09:00 IMPRESSION: 1. Focal acute cortical ischemic changes of the right frontal and temporal lobes. 2. Chronic ischemic changes. Electronically Signed: Wilmar Henderson MD at 11:25 EDT , ADDENDUM: 11/02/22 1140 IMPRESSION: 1. Focal acute cortical ischemic changes of the right frontal and temporal lobes. 2. Chronic ischemic changes. N.B. : The above Results were Read Back by Wilmar Henderson MD to Eleazar Diehl MD, and understanding confirmed on 11/02/2022 11:33:08 (ET). Electronically Signed: Wilmar Henderson MD at 11:25 EDT , CT/Brain/Head without Contrast IMPRESSION: ? 1.? No acute intracranial abnormality. ? 2.? Stable chronic ischemic changes ? Electronically Signed: Wilmar Henderson MD at 11:42 EDT Physical Exam Narrative Cachectic man with a BMI of 16.6, who is minimally responsive, none to noxious stimuli, intubated and sedated on the mechanical ventilator. HEENT: Extraoculars are diminished, random eye movements, does not track or focus. Pupils are 2 mm and reactive, equal bilaterally. Sclera anicteric. Intubated, mucous membranes moist. No significant secretions suctioned via endotracheal tube. Chest is hyperinflated, diminished, with coarse breath sounds, no wheezes present. Heart normal S1-S2 with no murmurs rubs or gallops, distant heart sounds Abdomen is soft, nontender, with no organomegaly or mass, positive bowel sounds Extremities are slender with no clubbing cyanosis or edema. Diminished pulses, decreased hair distribution in LEs consistent with chronic arterial insufficiency, no findings of arterial emboli after cath. Neuro is diffusely obtunded, grossly nonfocal, eyelet riveter both hands (not on request), no resistance to passive movement, does not follow commands, with apparent seizure like activity of the eyes mouth. No purposeful withdrawal to sternal rub, but on propofol during exam. Skin is cool, dry, not cyanotic. Charges/Coding Procedures Hospitalists Procedures: 70144 Critial Care 1st Hr
[2022-11-02] MEDS: Potassium Chloride 10mEq/100mL 10 MEQ/100 ML IV.SOLN. 100 MEQ IV BOLUS ×2 (14:35→15:43)
[2022-11-02 15:18] LABS: Anion Gap 6 (5-15); BUN 16 mg/dL (7-18); BUN/Creat Ratio 16.1 RATIO (10-20); Calcium,Total 7.5 mg/dL (8.5-10.1); Chloride 111 mmol/L (98-107); Creatinine, Serum 0.99 mg/dL (0.70-1.30); EST Glomerular Filtration Rate 79 mL/min (>60); Est Glom Filt Rate - Afr Amer 95 mL/min (>60); Estimated Creatinine Clearance 49.88 ml/min; Glucose 170 mg/dL (74-106); Potassium 2.8 mmol/L (3.5-5.1); Sodium Level 141 mmol/L (136-145)
--- NOTE | 2022-11-02 15:25 | CL.D_ITS ---
Patient Name: PAULA HA Study Date: 11/01/2022 Performing: Hal Do MD Ht: 70 inches 177.8 cm : 1950 Wt: 116.2 lbs 52.62 kg Age: 72 Gender: male BSA: 1.66 PROCEDURE(S) PERFORMED [id number])[facility] CLINICAL PROFILE AND INDICATIONS Indications: ACS <= 24 hrs Heart Failure: None CAD Presentations: STEMI. Symptom onset Date/Time: Time Not Available. Patient was intubated sedated. ST elevation was noted on telemetry and twelve-lead EKG was done which revealed inferior and lateral ST elevation OH. CONCLUSIONS Heavily calcified coronary arteries with significant lesions in the LAD and RCA. RECOMMENDATIONS DESCRIPTION OF PROCEDURE The patient arrived to the procedure lab. The risks and benefits of the procedure as well as a full description of our services here and current unavailability of surgical backup were fully explained to the patient and/or their significant other prior to the catheterization. The Timeout was completed, verifying the correct patient and procedure. The patient's procedural site was prepped and draped in the usual fashion. Local anesthetic was given subcutaneously to right groin region with Lidocaine 2%. Using a modified Seldinger technique, arterial access was obtained via the right femoral artery, a 6Fr sheath was inserted. Left Coronary Artery selective angiography was performed in multiple views using a 5 Fr. JL4 catheter. Right Coronary Artery selective angiography was then performed in multiple views using a 5 Fr. JR 4 catheter.The arterial sheath was sutured in place with heparinized normal saline under pressure CORONARY ANGIOGRAPHY DOMINANCE: Right Dominant Patient's coronary arteries are heavily calcified LEFT MAIN: Mild luminal irregularities LEFT ANTERIOR DESCENDING ARTERY: PROX LAD: 80-90 % Stenosis CIRCUMFLEX ARTERY: Mild luminal irregularities RIGHT CORONARY ARTERY: PROX RCA: 90 % Stenosis DISTAL RCA: 80-90 % Stenosis COMPLICATIONS No Complications PROCEDURE MEDICATIONS Oxygen: 100 % FiO2 via ventilator. See Resp Record for Settings SUMMARY OF HEMODYNAMIC DATA Time AIR REST ECG 18:42:45 AO 115/76 (94) SA 18:55:10 Signed By Hal Do MD On 11/02/2022 15:24:15 Hal Do MD
[2022-11-02 15:29] LABS: Procalcitonin 2.66 ng/mL (0.00-0.09)
[2022-11-02 15:42] LABS: Lactic Acid 2.3 mmol/L (0.4-1.9)
[2022-11-02 19:01] LABS: Reflex Lactate? Y
--- NOTE | 2022-11-02 19:38 | NURSING ---
PROPOFOL WAS HANGING AT START OF SHIFT
[2022-11-02 21:00] LABS: Lactic Acid 1.5 mmol/L (0.4-1.9)
[2022-11-02] MEDS: 0.9% Saline Lock 10 ML Syringe IV (22:38)
[2022-11-03] VITALS (38 sets, daily range): BP systolic 97–121; BP diastolic 54–78; PULSE 20–110; RESP 19–21; TEMP 36.8–37.7; O2SAT 20–99; BMI 16.7
--- NOTE | 2022-11-03 | GASB_PTH ---
PATIENT: PAULA HA LOC: [facility] U#:[id number] AGE/SX: 72/M ROOM: [facility] RE11/01/[address]: Dr. Steve Gilliam MD : 1950 BED: 1 DIS: 11/10/2022 SPEC #: [id number] RECD: 11/03/22 13:53 STATUS: RUBI RE[place] #: [id number] NIECY: 11/03/22 00:[address]: Michael Kerr DEPT: SURGICAL PATHOLOGY RECD BY: Will Balbuena ENTERED: 11/03/22 13:54 SP TYPE: Gastric Bx OTHR DR: MD Dr. Tank Nelson DO Dr. Lee Ann Baggott, MD Dr. Nicholas F Kotsonis, MD Dr. Prakash Chand, MD Dr. Tanmay Panchabhai, MD Dr. Victor Velasquez, MD Christina Muller, GENERAL INTERNIST AND PHYSICIAN LEADER-C Tissues: A - Duodenum, NOS B - Gastric mucous membrane Procedures: Surgery Specimen Level IV Comments: @ Ordering doctor for SUIV edited from to @ by RGOOD at 11/03/22 1526 @ Submitting doctor edited from to @ by RGOOD at 11/03/22 [id number] HEADER OPERATION: EGD (MAC) PRE-OP DIAGNOSIS: Anticoagulation evaluation TISSUE SUBMITTED: A ? Duodenum biopsy, B ? Gastric body biopsy MICROSCOPIC DIAGNOSIS A. Duodenum, biopsy: No pathologic change. B. Gastric body, biopsy: Focal mucosal ulceration with associated hemorrhage. Minimal chronic inflammation. AM:precious 11/04/2022 COMMENT B. The results of immunohistochemistry for Helicobacter pylori will be reported separately ([id number]). MICROSCOPIC DESCRIPTION Slides are reviewed. GROSS DESCRIPTION A - Received in fixative is one container labeled with the patient's name and designated duodenum biopsy. The specimen consists of one irregular fragment of light menjivar soft tissue that measures 0.5 x 0.5 x 0.1 cm. The specimen is totally submitted in one cassette. B - Received in fixative is one container labeled with the patient's name and designated gastric body. The specimen consists of one irregular fragment of light menjivar soft tissue that measures 0.5 x 0.3 x 0.1 cm. The specimen is totally submitted in one cassette. / AM:precious 11/03/2022 TC:5 CPT: 70320 x2
[2022-11-03] MEDS: Lactulose 20 GM/30 ML UDC NG ×5 (03:20→21:02)
[2022-11-03] MEDS: Propofol 10MG/Ml 1,000 MG/100 ML Bottle 6.2 MG CONT INF (03:20)
[2022-11-03] MEDS: Ipratropium/Albuterol Sulfate 3 ML AMPUL.NEB INHALATION ×5 (03:35→19:20)
--- NOTE | 2022-11-03 05:00 | RAD_ITS ---
EXAM: XR CHEST, 1 VIEW CLINICAL INDICATION: respiratory failure, shock, daily while on vent TECHNIQUE: Frontal view of the chest. COMPARISON: Previous chest radiographs of 11/02/2022 and 11/01/2022. FINDINGS: LUNGS AND PLEURAL SPACES: Patient is mildly rotated to the right. Lungs remain hyperinflated consistent with pulmonary emphysema. Stable calcified granuloma in the left upper lung. Interval development of very mild patchy airspace disease in the left lower lung, suspicious for pneumonia. Right lung is clear. No pleural effusion or pneumothorax identified. HEART: Stable normal heart size. Pruning of the peripheral pulmonary vascular markings due to pulmonary emphysema. MEDIASTINUM: Stable elongation and calcification of the thoracic aorta. BONES/JOINTS: Osseous structures are demineralized. Old thoracic compression fractures. Old fracture proximal right humerus. SOFT TISSUES: Calcified granulomas in spleen. TUBES, LINES AND DEVICES: ET tube remains in place in satisfactory position. NG tube remains in place, extending into the stomach with its tip projected in the region of the gastric antrum; sidehole of the tube lies below the level of the hemidiaphragms. Right sided PICC line has been placed and its tip is projected over the mid SVC, in satisfactory position. RAD/Chest 1 View (Portable) IMPRESSION: Interval placement of PICC line in satisfactory position; no pneumothorax. Interval development of minimal patchy airspace disease in the left lower lung, suspicious for pneumonia. Electronically Signed: Jai Vargas MD at 5:30 EDT ,
[2022-11-03] MEDS: CHLORHEXIDINE GLUC 2% CLOTH 1 EACH TOWELETTE TOPICAL (05:04)
[2022-11-03 05:09] LABS: Absolute Lymphocyte Count 0.75 X10^3/uL (0.83-4.51); Absolute Neutrophil Count 9.2 X10^3/uL (2.0-7.7); Basophil# 0.02 X10^3/uL; Basophil% 0.2 % (0-1); Hematocrit 34.1 % (40-54); Hemoglobin 10.9 g/dL (13.0-16.5); Lymphocyte # 0.75 X10^3/ul (0.83-4.51); Lymphocyte % 7.2 % (19-41); Mean Corpuscular Volume 93.9 fL (80-94); Mean Platelet Vol. 9.8 fl (6.2-12.0); Monocyte# 0.44 X10^3/uL; Monocyte% 4.2 % (0-10); NRBC Flagged by Analyzer 0 % (0-5); Neutrophil # 9.16 X10^3/uL (2.7-7.7); Neutrophil % 87.5 % (47-70); Platelet Count 171 K/mm3 (150-450); RBC Distribution Width CV 13.6 % (11.6-14.6); RBC Distribution Width SD 46.9 fl (35.1-43.9); Red Blood Count 3.63 M/mm3 (4.6-6.2); White Blood Count 10.5 K/mm3 (4.4-11.0)
[2022-11-03 05:54] LABS: ALB/GLOB Ratio 0.6 RATIO (0.9-2.4); AST(SGOT) 118 U/L (15-37); Alanine Aminotransfer ALT/SGPT 30 U/L (16-61); Albumin, Serum 1.8 g/dL (3.2-5.0); Alkaline Phosphatase 86 U/L (45-117); Anion Gap 4 (5-15); BUN 15 mg/dL (7-18); BUN/Creat Ratio 18.5 RATIO (10-20); Calcium,Total 7.1 mg/dL (8.5-10.1); Chloride 110 mmol/L (98-107); Creatinine, Serum 0.81 mg/dL (0.70-1.30); EST Glomerular Filtration Rate 100 mL/min (>60); Est Glom Filt Rate - Afr Amer 121 mL/min (>60); Estimated Creatinine Clearance 62.95 ml/min; Globulin 3.2 g/dL (2.2-4.2); Glucose 107 mg/dL (74-106); Potassium 4.8 mmol/L (3.5-5.1); Sodium Level 137 mmol/L (136-145)
--- NOTE | 2022-11-03 06:02 | CPS ---
5 PS 5 PEEP 280 tidal volume RR 18, MV decreased. Put pt back on 02/19 to finish his first SBT.
[2022-11-03 06:25] LABS: CPK Total, Creatine Kinase 2479 U/L (39-308)
[2022-11-03] MEDS: KCL 20MEQ in 0.45%NS 20 MEQ/1,000 ML IV.SOLN. 75 MEQ IV ×2 (06:56→20:34)
--- NOTE | 2022-11-03 06:57 | PCM.PN.INT ---
Assessment & Plan Assessment/Plan (1) Acute CVA (cerebrovascular accident): (2) ST elevation (STEMI) myocardial infarction: (3) Acute alteration in mental status: PLAN: Plan RECOMMENDATIONS: 1. Resume mechanical ventilation 2. Discussed with family about goals of therapy 3. Await GI work-up 4. Continue cardiac optimization 5. Wean oxygen as tolerated IMPRESSIONS: 1. Acute respiratory failure secondary to metabolic encephalopathy Patient currently on mechanical ventilation. Patient unable to tolerate a spontaneous breathing trial this morning on 09/19. Increased pressure settings are well-tolerated, but it is unclear if patient would be able to tolerate BiPAP after extubation. We will continue to optimize mentation and see if patient can be safely extubated. Okay to wean oxygen as tolerated. 2. Acute CVA Patient's MRI is showing an acute CVA. EEG shows no epileptiform activity, but patient does have global slowing. Unclear if this is secondary to underlying metabolic encephalopathy versus sedation. Patient does continue on Keppra. There was some concern for alcohol withdrawal seizure initially, but this appears to be ruled out. Patient is not having other forms of withdrawal symptoms, but does have an acute CVA that may have led to postictal activity. 3. Possible upper GI bleed Patient guaiac positive. Patient on high-dose PPI. GI has been consulted. Patient did have coffee-ground emesis on presentation. Unclear if this is secondary to gastritis. Patient likely to have a upper GI today. 4. ST elevation NV Management is complicated by calcification and problem #3. Patient is currently on aspirin, statin and plans to start beta-isadora in the future. Patient is off of pressors at this time and can likely be started on the low-dose beta-isadora if requested by cardiology. 5. Acute kidney injury Resolved. Likely secondary to initial hypotension. Patient's blood pressure is much improved and creatinine has normalized. Continue supportive care. 6. History of alcohol abuse/reported COPD/severe protein calorie malnutrition/advanced age Complicates care, management, recovery and prognosis. We will clarify with the family on whether patient is to be reintubated if he is not able to tolerate extubation. Patient does not appear to be showing signs of alcohol withdrawal at this time. TIME: 45 minutes critical care time spent addressing patient's acute respiratory failure, CVA, GI bleed, review of all data and collaboration with care team. Subjective Subjective Patient did okay overnight. No seizure activity has been noted. Patient able to be taken off of Levophed at approximately 3 AM. Patient continues to have a right femoral sheath in place and blood pressures have been adequate. Patient is awake and actively tracks, but not following commands. Patient was able to tolerate a spontaneous breathing trial on 09/19, but did okay on 02/19. Objective Data Objective Data Vital Signs: Vital Signs Temp Pulse Resp BP Pulse Ox O2 Del Method O2 Flow Rate 37.4 C H 99 20 H 116/63 98 Mechanical Ventilator 40 11/03/22 05:00 11/03/22 06:47 11/03/22 06:47 11/03/22 05:00 11/03/22 06:44 11/03/22 05:22 11/02/22 18:00 FiO2 35 11/03/22 06:44 Oxygen Flow Rate (L/min) 40 Oxygen Delivery Method Mechanical Ventilator Weight: 53.206 kg Body Mass Index (BMI) 16.7 Intake & Output: Intake and Output for Last 24 Hours 11/01/22 11/02/22 11/03/22 23:59 23:59 23:59 Intake Total 3591.63 / 3606.73 2764.25 / 2771.40 524.53 / 524.53 Output Total 850 / 1125 975 / 1100 300 / 300 Balance 2741.63 / 2481.73 1789.25 / 1671.40 224.53 / 224.53 Medical Nutrition Assessment Dietitian: Malnutrition Criteria Met Start: 11/01/22 14:49 Freq: Status: Active Protocol: Document 11/01/22 15:05 RMA (Rec: 11/01/22 15:06 RMA [id number]) Nutrition Malnutrition Evidence of Malnutrition Exists Yes Malnutrition (severe): Chronic,Social/Behavioral/ Environmental Evidenced By Suboptimal Energy Intake ( Severe),Weight Loss (Severe), Physical Changes (Severe) Intake Problem Inadequate Oral Intake Etiology related to intubation and altered GI function Signs/Symptoms as evidenced by NPO Status Active Problem Clinical Problem Chronic Disease or Condition Related Malnutrition Etiology Severe protein-calorie malnutrition in the context of chronic disease and social circumstance related to ETOH abuse and inadequate oral intake Signs/Symptoms as evidenced by BMI 16.6, currently NPO, ~6% recent wt loss noted x past 4-5 months, poor oral intake meeting less than 50% estimated nutrition needs x past 6-12 months, physical symptoms of muscle wasting/fat depletion visible through out including clavicle , face, arms and legs Status Active Problem Recommendation Dietitian Recommendations/Changes Recommend Enteral Nutrition Support if pt remains intubated greater than 24 hours to prevent further pro/ yari depletion. Diet as tolerated when medically able to Regular with ONS as tolerated; consistency /texture as per TUBE SIZER OPERATOR. If PO inadequate as able to advance diet, suggest TF support for energy/pro repletion. Lab / Micro Data Attestation: I reviewed the patient's lab results. Result Diagrams: 11/03/22 05:00 11/03/22 05:00 Labs: Laboratory Results - last 24 hr 11/02/22 04:10: Total Creatine Kinase 6269 H 11/02/22 14:10: Ammonia 27.0 11/02/22 14:50: Sodium 141, Potassium 2.8 L, Chloride 111 H, Carbon Dioxide 24.0, Anion Gap 6, BUN 16, Creatinine 0.99, Estim Creat Clear Calc 49.88, Est GFR (MDRD) Af Amer 95, Est GFR (MDRD) Non-Af 79, BUN/Creatinine Ratio 16.1, Glucose 170 H, Calcium 7.5 L 11/02/22 14:50: Lactic Acid 2.3 H* 11/02/22 14:50: Procalcitonin 2.66 H 11/02/22 20:10: Lactic Acid 1.5 11/03/22 05:00: Sodium 137, Potassium 4.8, Chloride 110 H, Carbon Dioxide 23.0, Anion Gap 4 L, BUN 15, Creatinine 0.81, Estim Creat Clear Calc 62.95, Est GFR (MDRD) Af Amer 121, Est GFR (MDRD) Non-Af 100, BUN/Creatinine Ratio 18.5, Glucose 107 H, Calcium 7.1 L, Total Bilirubin 0.60, AST 118 H, ALT 30, Alkaline Phosphatase 86, Total Protein 5.0 L, Albumin 1.8 L, Globulin 3.2, Albumin/Globulin Ratio 0.6 L 11/03/22 05:00: WBC 10.5, RBC 3.63 L, Hgb 10.9 L, Hct 34.1 L, MCV 93.9, MCH 30.0, MCHC 32.0, RDW Std Deviation 46.9 H, RDW Coeff of Gabrielle 13.6, Plt Count 171, MPV 9.8, Immature Gran % (Auto) 0.900, Neut % (Auto) 87.5 H, Lymph % (Auto) 7.2 L, [place] % (Auto) 4.2, Eos % (Auto) 0.0, Baso % (Auto) 0.2, Absolute Neuts (auto) 9.2 H, Absolute Lymphs (auto) 0.75 L, Nucleated RBC % 0 11/03/22 05:00: Total Creatine Kinase 2479 H Micro: Microbiology 11/01/22 13:45 Sputum, Induced/Lukens Gram Stain - Final 11/01/22 11:54 Urine Catheter - Rodriguez Urine Culture - Preliminary Culture exhibits no growth. 11/01/22 11:54 Urine Catheter - Rodriguez Legionella Antigen - Final 11/01/22 11:54 Urine Catheter - Rodriguez Streptococcus pneumoniae Antigen (M - Final 11/01/22 15:10 Mucosa - Nasopharyngeal Respiratory Panel (PCR) - Final ABG Data ABG results: ABG 11/02/22 08:15 Specimen Type ART Sample Site Art Line pH 7.35 Bicarbonate Actual 21.5 L Total CO2 23 Base Excess -4 L O2 Saturation 97 O2 % 40 ABG pCO2 38.7 ABG pO2 94 Respiration Rate 20 O2 Delivery Device Adult Vent Vent Mode AC Tidal Volume 400 POC PEEP 5 Radiography Diagnostic Testing: Radiology Impression Chest X-Ray 11/02/22 05:55 IMPRESSION: No change from 11/01/2022. Electronically Signed: Shant Yanez MD at 18:30 EDT , Brain MRI 11/02/22 09:00 IMPRESSION: 1. Focal acute cortical ischemic changes of the right frontal and temporal lobes. 2. Chronic ischemic changes. Electronically Signed: Wilmar Henderson MD at 11:25 EDT , ADDENDUM: 11/02/22 1140 IMPRESSION: 1. Focal acute cortical ischemic changes of the right frontal and temporal lobes. 2. Chronic ischemic changes. N.B. : The above Results were Read Back by Wilmar Henderson MD to Eleazar Diehl MD, and understanding confirmed on 11/02/2022 11:33:08 (ET). Electronically Signed: Wilmar Henderson MD at 11:25 EDT , Chest X-Ray 11/03/22 05:00 IMPRESSION: Interval placement of PICC line in satisfactory position; no pneumothorax. Interval development of minimal patchy airspace disease in the left lower lung, suspicious for pneumonia. Electronically Signed: Jai Vargas MD at 5:30 EDT , Physical Exam Const alert Constitutional Narrative: Appears older than stated age General Appearance: frail and patient mechanically ventilated HEENT normocephalic and head/scalp atraumatic Teeth and Gingiva: poor dentition Eyes PERRL, EOMs intact bilaterally and conjunctivae normal Eyes Narrative: Tracks appropriately Neck full ROM and no lymphadenopathy Chest Chest: abnormal inspection of the chest increased A-P diameter Resp Auscultation: diminished lung sounds; Negative for rales, rhonchi or wheezes Cardio regular rate, regular rhythm, S1 normal heart sound, S2 normal heart sound, no murmurs, no rub and no gallops GI normal to inspection, nondistended, normoactive bowel sounds Extremity no clubbing, cyanosis or edema Extremity Narrative: Severely diminished peripheral pulses, especially left lower extremity Skin no rashes or lesions noted Neuro moves all extremities Psych Mood & Affect: flat affect Charges/Coding Procedures Hospitalists Procedures: 45414 Critial Care 1st Hr
[2022-11-03] MEDS: Chlorhexidine 15 ML PO ×2 (08:13→21:02)
[2022-11-03] MEDS: Aspirin E.C. 325 MG Tablet PO (08:15)
--- NOTE | 2022-11-03 08:18 | PCM.PN.CARD ---
Subjective Subjective Patient seen and evaluated. Patient is intubated. Objective Data Vital Signs: Vital Signs Temp Pulse Resp BP Pulse Ox O2 Del Method O2 Flow Rate 99.3 F H 99 20 H 117/78 98 Mechanical Ventilator 40 11/03/22 05:00 11/03/22 06:47 11/03/22 06:47 11/03/22 06:00 11/03/22 06:44 11/03/22 05:22 11/02/22 18:00 FiO2 35 11/03/22 06:44 Oxygen Flow Rate (L/min) 40 Oxygen Delivery Method Mechanical Ventilator Weight: 117 lb 4.8 oz Body Mass Index (BMI) 16.7 Intake & Output: Intake and Output for Last 24 Hours 11/01/22 11/02/22 11/03/22 23:59 23:59 23:59 Intake Total 3591.63 / 3606.73 2764.25 / 2771.40 1524.53 / 1524.53 Output Total 850 / 1125 975 / 1100 300 / 300 Balance 2741.63 / 2481.73 1789.25 / 1671.40 1224.53 / 1224.53 Lab / Micro Data Result Diagrams: 11/03/22 05:00 11/03/22 05:00 Labs: Laboratory Results - last 24 hr 11/02/22 04:10: Total Creatine Kinase 6269 H 11/02/22 14:10: Ammonia 27.0 11/02/22 14:50: Sodium 141, Potassium 2.8 L, Chloride 111 H, Carbon Dioxide 24.0, Anion Gap 6, BUN 16, Creatinine 0.99, Estim Creat Clear Calc 49.88, Est GFR (MDRD) Af Amer 95, Est GFR (MDRD) Non-Af 79, BUN/Creatinine Ratio 16.1, Glucose 170 H, Calcium 7.5 L 11/02/22 14:50: Lactic Acid 2.3 H* 11/02/22 14:50: Procalcitonin 2.66 H 11/02/22 20:10: Lactic Acid 1.5 11/03/22 05:00: Sodium 137, Potassium 4.8, Chloride 110 H, Carbon Dioxide 23.0, Anion Gap 4 L, BUN 15, Creatinine 0.81, Estim Creat Clear Calc 62.95, Est GFR (MDRD) Af Amer 121, Est GFR (MDRD) Non-Af 100, BUN/Creatinine Ratio 18.5, Glucose 107 H, Calcium 7.1 L, Total Bilirubin 0.60, AST 118 H, ALT 30, Alkaline Phosphatase 86, Total Protein 5.0 L, Albumin 1.8 L, Globulin 3.2, Albumin/Globulin Ratio 0.6 L 11/03/22 05:00: WBC 10.5, RBC 3.63 L, Hgb 10.9 L, Hct 34.1 L, MCV 93.9, MCH 30.0, MCHC 32.0, RDW Std Deviation 46.9 H, RDW Coeff of Gabrielle 13.6, Plt Count 171, MPV 9.8, Immature Gran % (Auto) 0.900, Neut % (Auto) 87.5 H, Lymph % (Auto) 7.2 L, [place] % (Auto) 4.2, Eos % (Auto) 0.0, Baso % (Auto) 0.2, Absolute Neuts (auto) 9.2 H, Absolute Lymphs (auto) 0.75 L, Nucleated RBC % 0 11/03/22 05:00: Total Creatine Kinase 2479 H Micro: Microbiology 11/01/22 11:54 Urine Catheter - Rodriguez Urine Culture - Final Culture exhibits no growth. 11/01/22 11:54 Urine Catheter - Rodriguez Legionella Antigen - Final 11/01/22 11:54 Urine Catheter - Rodriguez Streptococcus pneumoniae Antigen (M - Final 11/01/22 13:45 Sputum, Induced/Lukens Gram Stain - Final ABG Data ABG results: ABG 11/02/22 08:15 Specimen Type ART Sample Site Art Line pH 7.35 Bicarbonate Actual 21.5 L Total CO2 23 Base Excess -4 L O2 Saturation 97 O2 % 40 ABG pCO2 38.7 ABG pO2 94 Respiration Rate 20 O2 Delivery Device Adult Vent Vent Mode AC Tidal Volume 400 POC PEEP 5 Cardiology Labs/Tests 11/02/22 08:15: pH 7.35, Bicarbonate Actual 21.5 L, Base Excess -4 L, O2 Saturation 97, ABG pCO2 38.7, ABG pO2 94 11/02/22 14:50: Sodium 141, Potassium 2.8 L, Chloride 111 H, Carbon Dioxide 24.0, Anion Gap 6, BUN 16, Creatinine 0.99, Est GFR (MDRD) Af Amer 95, Est GFR (MDRD) Non-Af 79, BUN/Creatinine Ratio 16.1, Glucose 170 H, Calcium 7.5 L 11/02/22 14:50: Lactic Acid 2.3 H* 11/02/22 20:10: Lactic Acid 1.5 11/03/22 05:00: Sodium 137, Potassium 4.8, Chloride 110 H, Carbon Dioxide 23.0, Anion Gap 4 L, BUN 15, Creatinine 0.81, Est GFR (MDRD) Af Amer 121, Est GFR (MDRD) Non-Af 100, BUN/Creatinine Ratio 18.5, Glucose 107 H, Calcium 7.1 L, Total Bilirubin 0.60 11/03/22 05:00: WBC 10.5, RBC 3.63 L, Hgb 10.9 L, Hct 34.1 L, MCV 93.9, MCH 30.0, MCHC 32.0, Plt Count 171, MPV 9.8, Immature Gran % (Auto) 0.900, Neut % (Auto) 87.5 H, Lymph % (Auto) 7.2 L, [place] % (Auto) 4.2, Eos % (Auto) 0.0, Baso % (Auto) 0.2, Absolute Neuts (auto) 9.2 H, Nucleated RBC % 0 Rhythm: EKG: ECHO: Stress Test: Cardiac Cath: PCI: CT Surgery: Holter monitor: EPS: PPM: CXR: Chest CT Scan: Radiography Diagnostic Testing: Radiology Impression Chest X-Ray 11/02/22 05:55 IMPRESSION: No change from 11/01/2022. Electronically Signed: Shant Yanez MD at 18:30 EDT , Brain MRI 11/02/22 09:00 IMPRESSION: 1. Focal acute cortical ischemic changes of the right frontal and temporal lobes. 2. Chronic ischemic changes. Electronically Signed: Wilmar Henderson MD at 11:25 EDT , ADDENDUM: 11/02/22 1140 IMPRESSION: 1. Focal acute cortical ischemic changes of the right frontal and temporal lobes. 2. Chronic ischemic changes. N.B. : The above Results were Read Back by Wilmar Henderson MD to Eleazar Diehl MD, and understanding confirmed on 11/02/2022 11:33:08 (ET). Electronically Signed: Wilmar Henderson MD at 11:25 EDT , Chest X-Ray 11/03/22 05:00 IMPRESSION: Interval placement of PICC line in satisfactory position; no pneumothorax. Interval development of minimal patchy airspace disease in the left lower lung, suspicious for pneumonia. Electronically Signed: Jai Vargas MD at 5:30 EDT , Physical Exam Const alert Constitutional Narrative: Appears older than stated age General Appearance: frail and patient mechanically ventilated HEENT normocephalic and head/scalp atraumatic Teeth and Gingiva: poor dentition Eyes PERRL, EOMs intact bilaterally and conjunctivae normal Eyes Narrative: Tracks appropriately Neck full ROM and no lymphadenopathy Chest Chest: abnormal inspection of the chest increased A-P diameter Resp Auscultation: diminished lung sounds; Negative for rales, rhonchi or wheezes Cardio regular rate, regular rhythm, S1 normal heart sound, S2 normal heart sound, no murmurs, no rub and no gallops GI normal to inspection, nondistended, normoactive bowel sounds Extremity no clubbing, cyanosis or edema Extremity Narrative: Severely diminished peripheral pulses, especially left lower extremity Skin no rashes or lesions noted Neuro moves all extremities Psych Mood & Affect: flat affect Assessment & Plan Assessment/Plan (1) ST elevation (STEMI) myocardial infarction: PLAN: Patient does have significant CAD however has JUANCARLOS-3 flow in all the coronaries with no major occluded epicardial coronary vessels. It is reasonable to keep the patient on aspirin and statin. Aspirin can be on hold now till the hematemesis issue is stable. This will be reevaluated after seen by GI. Patient is not a candidate for PCI at this time. At a later date revascularization can be addressed. Due to heavy calcification if patient is a candidate for CABG, that could be considered as well. If not a candidate for CABG then he may need rotablation. Patient may have had spasm superimposed on severe atherosclerotic CAD that may have contributed to the ST elevation. Also his hemoglobin may have dropped due to ongoing hematemesis and that in combination with underlying CAD and also alcohol withdrawal seizures could be the cause for his ST elevation as well. Will consider beta-isadora after procedures and when stable. Thank you for allowing me to participate in the care of your patient. Please don't hesitate to call if any issues arise.
--- NOTE | 2022-11-03 09:22 | CASEMGMT ---
Social Work Pt is currently on a ventilator, so SW unable to ask pt about Healthcare POA. As per chart, and when pt came in, he had identified Mahi Haji as POA. SW reviewed chart, there are no POA papers on file. SW called Mahi, she confirms is POA and has the documents at home. SW asked her to bring in the papers. She states will be here this afternoon and will bring in the papers then. IDALIA Ashton
--- NOTE | 2022-11-03 09:24 | CASEMGMT ---
Social Work SW participated in ICU rounds this morning. PHQ-9 not completed at this time as pt is on a ventilator. SW will continue to follow, available for discharge needs as appropriate. IDALIA Ashton
--- NOTE | 2022-11-03 10:44 | PCM.PN.HOSP ---
Subjective Subjective Remains intubated and sedated. No issues overnight Objective Data Objective Data Vital Signs: Vital Signs Temp Pulse Resp BP Pulse Ox O2 Del Method O2 Flow Rate 98.3 F 97 20 H 103/56 L 96 Mechanical Ventilator 40 11/03/22 10:02 11/03/22 10:34 11/03/22 10:34 11/03/22 10:02 11/03/22 10:34 11/03/22 10:02 11/02/22 18:00 FiO2 35 11/03/22 10:34 Oxygen Flow Rate (L/min) 40 Oxygen Delivery Method Mechanical Ventilator Weight: 117 lb 4.8 oz Body Mass Index (BMI) 16.7 Intake & Output: Intake and Output for Last 24 Hours 11/02/22 11/03/22 11/04/22 03:59 03:59 03:59 Intake Total 3705.73 / 3724.53 3968.21 / 3972.34 413.97 / 413.97 Output Total 1125 / 1125 825 / 825 175 / 175 Balance 2580.73 / 2599.53 3143.21 / 3147.34 238.97 / 238.97 Medical Nutrition Assessment Dietitian: Malnutrition Criteria Met Start: 11/01/22 14:49 Freq: Status: Active Protocol: Document 11/03/22 09:42 ISAAK (Rec: 11/03/22 09:42 ISAAK [id number]) Nutrition Malnutrition Evidence of Malnutrition Exists Yes Malnutrition (severe): Chronic,Social/Behavioral/ Environmental Evidenced By Suboptimal Energy Intake ( Severe),Weight Loss (Severe), Physical Changes (Severe) Intake Problem Inadequate Oral Intake Etiology related to intubation and altered GI function Signs/Symptoms as evidenced by NPO Status Active Problem Clinical Problem Chronic Disease or Condition Related Malnutrition Etiology Severe protein-calorie malnutrition in the context of chronic disease and social circumstance related to ETOH abuse and inadequate oral intake Signs/Symptoms as evidenced by BMI 16.6, currently NPO, ~6% recent wt loss noted x past 4-5 months, poor oral intake meeting less than 50% estimated nutrition needs x past 6-12 months, physical symptoms of muscle wasting/fat depletion visible through out including clavicle , face, arms and legs Status Active Problem Recommendation Dietitian Recommendations/Changes Initiate tf with Vital AF 1.2 at 20 ml/hr with 30 ml water flush every 4 hours to provide 576 yari/36 gm pro/ 570 ml free fluid/day. Monitor magnesium and phosphorous d/t risk of refeeding syndrome. When medically able, rec BELINDA to Regular with ONS as tolerated; consistency/texture as per MUSIC THEORY PROFESSOR. Lab / Micro Data Result Diagrams: 11/03/22 05:00 11/03/22 05:00 Labs: Laboratory Results - last 24 hr 11/02/22 04:10: Total Creatine Kinase 6269 H 11/02/22 14:10: Ammonia 27.0 11/02/22 14:50: Sodium 141, Potassium 2.8 L, Chloride 111 H, Carbon Dioxide 24.0, Anion Gap 6, BUN 16, Creatinine 0.99, Estim Creat Clear Calc 49.88, Est GFR (MDRD) Af Amer 95, Est GFR (MDRD) Non-Af 79, BUN/Creatinine Ratio 16.1, Glucose 170 H, Calcium 7.5 L 11/02/22 14:50: Lactic Acid 2.3 H* 11/02/22 14:50: Procalcitonin 2.66 H 11/02/22 20:10: Lactic Acid 1.5 11/03/22 05:00: Sodium 137, Potassium 4.8, Chloride 110 H, Carbon Dioxide 23.0, Anion Gap 4 L, BUN 15, Creatinine 0.81, Estim Creat Clear Calc 62.95, Est GFR (MDRD) Af Amer 121, Est GFR (MDRD) Non-Af 100, BUN/Creatinine Ratio 18.5, Glucose 107 H, Calcium 7.1 L, Total Bilirubin 0.60, AST 118 H, ALT 30, Alkaline Phosphatase 86, Total Protein 5.0 L, Albumin 1.8 L, Globulin 3.2, Albumin/Globulin Ratio 0.6 L 11/03/22 05:00: WBC 10.5, RBC 3.63 L, Hgb 10.9 L, Hct 34.1 L, MCV 93.9, MCH 30.0, MCHC 32.0, RDW Std Deviation 46.9 H, RDW Coeff of Gabrielle 13.6, Plt Count 171, MPV 9.8, Immature Gran % (Auto) 0.900, Neut % (Auto) 87.5 H, Lymph % (Auto) 7.2 L, [place] % (Auto) 4.2, Eos % (Auto) 0.0, Baso % (Auto) 0.2, Absolute Neuts (auto) 9.2 H, Absolute Lymphs (auto) 0.75 L, Nucleated RBC % 0 11/03/22 05:00: Total Creatine Kinase 2479 H Micro: Microbiology 11/01/22 13:45 Sputum, Induced/Lukens Gram Stain - Final 11/01/22 13:45 Sputum, Induced/Lukens Respiratory Culture - Final 11/01/22 11:54 Urine Catheter - Rodriguez Urine Culture - Final Culture exhibits no growth. 11/01/22 11:54 Urine Catheter - Rodriguez Legionella Antigen - Final 11/01/22 11:54 Urine Catheter - Rodriguez Streptococcus pneumoniae Antigen (M - Final 11/01/22 15:10 Mucosa - Nasopharyngeal Respiratory Panel (PCR) - Final Radiography Diagnostic Testing: Radiology Impression Chest X-Ray 11/02/22 05:55 IMPRESSION: No change from 11/01/2022. Electronically Signed: Shant Yanez MD at 18:30 EDT , Brain MRI 11/02/22 09:00 IMPRESSION: 1. Focal acute cortical ischemic changes of the right frontal and temporal lobes. 2. Chronic ischemic changes. Electronically Signed: Wilmar Henderson MD at 11:25 EDT , ADDENDUM: 11/02/22 1140 IMPRESSION: 1. Focal acute cortical ischemic changes of the right frontal and temporal lobes. 2. Chronic ischemic changes. N.B. : The above Results were Read Back by Wilmar Henderson MD to Eleazar Diehl MD, and understanding confirmed on 11/02/2022 11:33:08 (ET). Electronically Signed: Wilmar Henderson MD at 11:25 EDT , Chest X-Ray 11/03/22 05:00 IMPRESSION: Interval placement of PICC line in satisfactory position; no pneumothorax. Interval development of minimal patchy airspace disease in the left lower lung, suspicious for pneumonia. Electronically Signed: Jai Vargas MD at 5:30 EDT , Physical Exam Const General Appearance: intubated and patient mechanically ventilated HEENT normocephalic Eyes PERRL and conjunctivae normal Neck supple and no JVD Resp normal respiratory effort, no retractions and no use of accessory muscles Resp Narrative: Diminished Auscultation: Negative for crackles, rales, rhonchi or wheezes Cardio regular rate, regular rhythm, S1 normal heart sound, S2 normal heart sound and no murmurs GI soft to palpation and non-distended; Negative for hepatosplenomegaly Extremity no clubbing, cyanosis or edema Skin no rashes or lesions noted Neuro Sensorium / Orientation: sedated on vent Psych Appearance: intubated Assessment & Plan Assessment/Plan (1) Unresponsive episode: (2) GI bleed: PLAN: Plan 1. Altered mental status then unresponsiveness, acute encephalopathy exact etiology unclear: Possible differential diagnosis are metabolic encephalopathy from upper GI bleed, hypercapnia or infectious: Patient is intubated on ventilator. Patient is being admitted in ICU. MRI brain without contrast ordered when patient is hemodynamically stable. Rest as mentioned below 11/02: Patient opens eyes on command but does not follow motor function, hard. Possibility of seizure. Patient on Keppra. MRI of brain showed right temporal and posterior right frontal region consistent with acute cortical ischemia. Right temporal parietal chronic microvascular changes. Posterior fossa structures unremarkable. EEG still pending. Once we have the EEG he can have neuro consult but aspirin has been started after discussion with pastry decorator. 11/03: EEG pending 2. Acute hypercapnic respiratory failure with COPD with high probability of exacerbation: As per POA, she did not notice acute change in breathing, cough or other URI symptoms. VBG 7./60. Lactic acid 5.3. ABGs ordered. Patient is intubated on ventilator. Inventory Worker consulted. Patient also history of smoking more than a pack per day since early age. 11/02: He still intubated, managed by pastry decorator. Discussed with Dr. Roger 11/03: Failed spontaneous breathing trial today, will attempt to identify POA and clarify CODE STATUS 3. Shock most likely septic shock: There is concern of sepsis in view of acute hypercapnic respiratory failure, lactic acidosis, increased creatinine and acute encephalopathy. Patient has leukocytosis. Chest x-ray does not show acute infiltrate. CTA chest abdomen pelvis ordered. Panculture ordered. Empirically patient started on IV vancomycin and Zosyn. Patient had IV fluid bolus 30 mill per KG. 11/02: No fever or chills. Patient on Levophed drip. Urinary antigens are negative. Respiratory panel negative. COVID-19 PCR negative. Blood cultures x2 are pending. Lactic acid improved. 4. Upper GI bleed with concern of alcoholic hepatitis/cirrhosis with portal hypertension: Patient does not have prior abdominal imaging in our system. CTA chest abdomen and pelvis ordered by ER physician. OG tube still draining brownish/altered blood product. Hemoglobin 14.5/43.7%. H&H every 6 hourly for 24 hours. GI is consulted. Patient is started on Protonix drip after bolus and octreotide drip. Patient might have lactic acidosis from GI bleed. Patient is also history of longtime alcohol use disorder with more than 30 years of continuous, heavy drinking of whiskey. 11/02: Patient is still has NG tube and had altered blood on NG tube suction last night. Hemoglobin dropped about 2 to 3 g but does not need PRBC transfusion. Continue Protonix drip, octreotide drip and antibiotic. Discussed with the GI 11/03: Plan for EGD appreciate GIs assistance 5. Inferior lateral wall STEMI after admission: Troponin 104. Cycle troponin enzymes. Serial EKG was done in ED from yesterday and today. First EKG from 10/31 shows sinus bradycardia 55 bpm. And today shows normal sinus rhythm with artifacts in inferior leads. Next EKG shows sinus irregular rhythm with PVCs and premature supraventricular complexes. EKG from 07/27 shows sinus rhythm with sinus arrhythmia. Patient does not have known prior cardiac disease. 11/02: Inferior lateral wall STEMI: Yesterday EKG showed ST elevation in inferior lateral leads suspicious for STEMI and patient was taken to Protection Analyst. Troponin did not show any major delta change. Was found to have significant CAD with JUANCARLOS-3 flow with significant stenosis in LAD and RCA, vessels were heavily calcified. No major occluded epicardial coronary artery. Patient cannot have antiplatelet agent or antithrombotic agent due to GI bleed. CK high at 1189 therefore will hold for high intensity statin. Left leg PAD: My clinical suspicion is that patient has chronically occluded left lower HOSPITAL CLERK and DPA with collaterals as there is no acute pale, cyanosis, mottling, or change in color but mild cold. No Doppler or palpable pulses felt at left PT and DPA. As revealed in cardiac cath with chronically significant stenosis with heavy calcification, I suspect similar pathology in left leg PAD. Unfortunately patient cannot have antithrombotic agent. Prior history of CVA: As per. No residual deficit from previous stroke. 6. Moderate chronic protein calorie malnutrition: BMI 16.5 kg/m?. Patient has mild to moderate muscle atrophy of extremities and craniofacial muscles. Network Control Supervisor consult. Charges/Coding Visit Charges Inpatient E&M: 48881 Subs Hosp L2
[2022-11-03] MEDS: Vancomycin IV 500 MG/100 ML BAG 100 MG IV (11:53)
--- NOTE | 2022-11-03 12:00 | IMM_PTH ---
PATIENT: PAULA HA LOC: [facility] U#:[id number] AGE/SX: 72/M ROOM: [facility] RE11/01/[address]: Dr. Steve Gilliam MD : 1950 BED: 1 DIS: 11/10/2022 SPEC #: [id number] RECD: 11/03/22 13:58 STATUS: RUBI REQ #: [id number] NIECY: 11/03/22 12:[address]: Michael Kerr DEPT: IMMUNOHISTOCHEMISTRY RECD BY: Barbara Martin ENTERED: 11/03/22 13:59 SP TYPE: IMMUNO OTHR DR: MD Dr. Tank Nelson DO Dr. Lee Ann Baggott, MD Dr. Nicholas F Kotsonis, MD Dr. Prakash Chand, MD Dr. Tanmay Panchabhai, MD Dr. Victor Velasquez, MD Christina Muller, POWERHOUSE MECHANIC-C Tissues: B - Stomach, NOS Procedures: H Pylori (initial) PHYSICIAN & [place] [id number] SPECIMEN INFORMATION: Tissue Source: B ? Gastric body Clinical Info: Anticoagulation evaluation Specimen Number: [id number] CPT code: 04531 METHODOLOGY: Deparaffinized sections of prefer/formalin-fixed tissue or PAP/DQ stained slides are incubated with monoclonal/polyclonal antibodies/oligonucleotide probes. Localization is made via biotin free immunoperoxidase method. Appropriate controls are performed and reacted as expected. Results on target cell population are indicated in the following table: RESULTS: ANTIBODY / CLONE RESULT Block B H Pylori (polyclonal) negative These tests were developed and their performance characteristics determined by [facility]. They may not have been cleared or approved by the U.S. Food and Drug Administration. The FDA has determined that such clearance or approval is not necessary. The above immunohistochemical/dualISH markers are ordered and reviewed by the Pathologist. INTERPRETATION: B. Gastric body, biopsy: Negative for Helicobacter pylori organisms. AM:precious 11/04/2022
--- NOTE | 2022-11-03 13:09 | OP.EGD_ITS ---
Patient Name: Adis Ivey Procedure Date: 11/03/2022 12:16 PM Date of : 1950 Age: 72 Procedure: Upper GI endoscopy Indications: Iron deficiency anemia Providers: Michael Kerr DO Medicines: Propofol total dose 20 mg IV Patient Profile: This is a 72 year old male. Refer to note in patient chart for documentation of history and physical. Patient has symptoms. Complications: No immediate complications. Procedure: Pre-Anesthesia Assessment: - Prior to the procedure, a History and Physical was performed, and patient medications and allergies were reviewed. The patient is competent. The risks and benefits of the procedure and the sedation options and risks were discussed with the patient. All questions were answered and informed consent was obtained. Patient identification and proposed procedure were verified by the physician in the pre-procedure area. Mental Status Examination: alert and oriented. Airway Examination: normal oropharyngeal airway and neck mobility. Respiratory Examination: clear to auscultation. CV Examination: normal. Prophylactic Antibiotics: The patient does not require prophylactic antibiotics. Prior Anticoagulants: The patient has taken aspirin, last dose was 1 day prior to procedure. ASA Grade Assessment: II - A patient with mild systemic disease. After reviewing the risks and benefits, the patient was deemed in satisfactory condition to undergo the procedure. The anesthesia plan was to use moderate sedation / analgesia (conscious sedation). Immediately prior to administration of medications, the patient was re-assessed for adequacy to receive sedatives. The heart rate, respiratory rate, oxygen saturations, blood pressure, adequacy of pulmonary ventilation, and response to care were monitored throughout the procedure. The physical status of the patient was re-assessed after the procedure. After obtaining informed consent, the endoscope was passed under direct vision. Throughout the procedure, the patient's blood pressure, pulse, and oxygen saturations were monitored continuously. The gastroscope was introduced through the mouth, and advanced to the second part of duodenum. The upper GI endoscopy was accomplished without difficulty. The patient tolerated the procedure well. Moderate Sedation: Moderate (conscious) sedation was personally administered by the endoscopist. The following parameters were monitored: oxygen saturation, heart rate, blood pressure, respiratory rate, EKG, adequacy of pulmonary ventilation, and response to care. Scope In: 12:26:33 PM Scope Out: 12:35:11 PM Total Procedure Duration Time 0 hours 8 minutes 38 seconds Findings: The examined esophagus was normal. Two oozing cratered gastric ulcers with pigmented material were found in the cardia. The largest lesion was 4 mm in largest dimension. Area was successfully injected with 4 mL of a 1:10,000 solution of epinephrine for drug delivery. Two non-bleeding cratered gastric ulcers with adherent clot were found in the gastric body. The largest lesion was 3 mm in largest dimension. Coagulation for hemostasis using heater probe was successful. Estimated blood loss was minimal. Patchy moderate inflammation characterized by congestion (edema), erosions, erythema and friability was found in the gastric body. Biopsies were taken with a cold forceps for Helicobacter pylori testing. Verification of patient identification for the specimen was done. Estimated blood loss was minimal. Patchy moderate inflammation characterized by erythema and friability was found in the first portion of the duodenum and in the second portion of the duodenum. Biopsies were taken with a cold forceps for histology. Verification of patient identification for the specimen was done. Estimated blood loss was minimal. Impression: - Normal esophagus. - Oozing gastric ulcers with pigmented material. Injected. - Non-bleeding gastric ulcers with adherent clot. Treated with a heater probe. - Acute gastritis. Biopsied. - Acute duodenitis. Biopsied. Recommendation: - [facility]. - Give Protonix (pantoprazole): initiate therapy with 80 mg IV bolus, then 8 mg/hr IV by continuous infusion. - Continue present medications. Procedure Code(s): --- Professional --- 76083, 59, Esophagogastroduodenoscopy, flexible, transoral; with control of bleeding, any method 80314, 59, Esophagogastroduodenoscopy, flexible, transoral; with directed submucosal injection(s), any substance 02750, 51, Esophagogastroduodenoscopy, flexible, transoral; with biopsy, single or multiple CPT copyright 2017 [employer]. All rights reserved. The codes documented in this report are preliminary and upon manager program review may be revised to meet current compliance requirements. Michael Kerr DO 11/03/2022 1:08:32 PM This report has been signed electronically. Number of Addenda: 0 Note Initiated On: 11/03/2022 12:16 PM
--- NOTE | 2022-11-03 13:10 | OP.CCLET_ITS ---
11/03/2022 Richard Escobedo [address] [place] [address] Re : Upper GI endoscopy procedure for Adis Ivey Dear Dr. Escobedo This procedure was performed on Thursday, November 03, 2022. My impressions and recommendations are as follows: Impressions : - Normal esophagus. - Oozing gastric ulcers with pigmented material. Injected. - Non-bleeding gastric ulcers with adherent clot. Treated with a heater probe. - Acute gastritis. Biopsied. - Acute duodenitis. Biopsied. Recommendations : - [facility]. - Give Protonix (pantoprazole): initiate therapy with 80 mg IV bolus, then 8 mg/hr IV by continuous infusion. - Continue present medications. My findings are described in the full procedure note, which is enclosed. If I can be of further assistance, please feel free to contact me at . Sincerely, Michael Kerr, 11/03/2022 1:08:32 PM This report has been signed electronically.
--- NOTE | 2022-11-03 13:40 | CASEMGMT ---
RN CM called friend and POA, Mahi, for initial transition planning/care coordination assessment. RN EMMA introduced self and role at [facility]. Patient is currently on ventilator and unable to participate in assessment. Mahi willing to participate in assessment and is able to answer all questions appropriately. Care providers, pharmacy, and demographics verified. Mahi states she has no further needs or concerns at this time. CM to follow for discharge planning needs that may arise. PCP: Gregg Specialists: none Preferred Pharmacy[facility] Prescription Benefit: yes Living Will/HPOA: yes, friend Mahi Haji LNOK: friends Mahi and Daniel Living Arrangements: Patient lives with friends Mahi and Daniel, in a mobile home with 5 steps to enter the home. Patient is independent at home. Transportation: Mahi DME/HHC: Patient has grab bars at home. Patient has previously been to [facility]. No previous [facility] Disposition Plan: TBD, will monitor progress with therapy and course of treatment. Barbara CHANG, RN, CM
[2022-11-03] MEDS: Vital AF 1.2 Cal Liquid 1,000 ML 20 ML GT (15:05)
--- NOTE | 2022-11-03 15:52 | CASEMGMT ---
Social Work Pt's friend Mahi Haji visiting pt and provided copy of pt HCPOA naming Mahi Haji. No alternate named. HCPOA indicates pt chose not to complete living will at time of completing HCPOA. Copy placed on pt chart. HAYDEN Pond
--- NOTE | 2022-11-03 19:20 | NURSING ---
propofol running at 10mcg/kg/hr at the start of shift.
[2022-11-03] MEDS: Sucralfate 1 GM Tablet PO (21:02)
[2022-11-03] MEDS: 0.9% Saline Lock 10 ML Syringe IV (21:04)
[2022-11-04] VITALS (36 sets, daily range): BP systolic 93–163; BP diastolic 59–104; PULSE 88–105; RESP 16–35; TEMP 36.3–37.1; O2SAT 94–99; BMI 17.0
[2022-11-04] MEDS: Lactulose 20 GM/30 ML UDC NG ×3 (02:11→08:31)
[2022-11-04] MEDS: Sucralfate 1 GM Tablet PO ×2 (05:12→11:01)
[2022-11-04 05:22] LABS: Absolute Lymphocyte Count 1.04 X10^3/uL (0.83-4.51); Absolute Neutrophil Count 8.9 X10^3/uL (2.0-7.7); Basophil# 0.03 X10^3/uL; Basophil% 0.3 % (0-1); Eosinophil# 0.07 X10^3/uL; Eosinophils% 0.7 % (0-5); Hematocrit 33.2 % (40-54); Hemoglobin 10.8 g/dL (13.0-16.5); Lymphocyte # 1.04 X10^3/ul (0.83-4.51); Lymphocyte % 9.8 % (19-41); Mean Corp Hgb Conc 32.5 g/dL (32-36); Mean Corpuscular Volume 92.2 fL (80-94); Mean Platelet Vol. 9.8 fl (6.2-12.0); Monocyte# 0.54 X10^3/uL; Monocyte% 5.1 % (0-10); NRBC Flagged by Analyzer 0 % (0-5); Neutrophil # 8.86 X10^3/uL (2.7-7.7); Neutrophil % 83.2 % (47-70); Platelet Count 170 K/mm3 (150-450); RBC Distribution Width CV 13.8 % (11.6-14.6); RBC Distribution Width SD 47.7 fl (35.1-43.9); White Blood Count 10.6 K/mm3 (4.4-11.0)
[2022-11-04 05:49] LABS: ALB/GLOB Ratio 0.6 RATIO (0.9-2.4); AST(SGOT) 120 U/L (15-37); Alanine Aminotransfer ALT/SGPT 31 U/L (16-61); Alkaline Phosphatase 95 U/L (45-117); Anion Gap 4 (5-15); BUN 13 mg/dL (7-18); Calcium,Total 7.8 mg/dL (8.5-10.1); Chloride 112 mmol/L (98-107); Creatinine, Serum 0.72 mg/dL (0.70-1.30); EST Glomerular Filtration Rate 114 mL/min (>60); Est Glom Filt Rate - Afr Amer 138 mL/min (>60); Estimated Creatinine Clearance 50.99 ml/min; Globulin 3.3 g/dL (2.2-4.2); Glucose 108 mg/dL (74-106); Potassium 3.5 mmol/L (3.5-5.1); Protein, Total 5.3 g/dL (6.4-8.2); Sodium Level 141 mmol/L (136-145)
[2022-11-04 05:51] LABS: Phosphorus 1.4 mg/dL (2.5-4.9)
--- NOTE | 2022-11-04 05:55 | RAD_ITS ---
EXAM: XR CHEST, 1 VIEW CLINICAL INDICATION: respiratory failure, shock, daily while on vent TECHNIQUE: Frontal view of the chest. COMPARISON: November 03, 2022 FINDINGS: LUNGS AND PLEURAL SPACES: Increasing hazy airspace opacity and subsegmental atelectasis at the lung bases. At this time I cannot exclude the presence of a small left pleural effusion at the central. No pneumothorax. HEART: Unremarkable. Cardiac silhouette not enlarged. MEDIASTINUM: Redemonstration of atherosclerotic calcifications of the nonenlarged thoracic aortic arch. Central airways and mediastinal contour are unremarkable. BONES/JOINTS: Diffuse osteopenia. Suspect chronic compression fractures of the thoracic spine which would be better seen on a lateral view. SOFT TISSUES: Unremarkable. TUBES, LINES AND DEVICES: Stable support devices. UPPER ABDOMEN: Redemonstration of a calcified granulomas of the spleen in the left upper quadrant. RAD/Chest 1 View (Portable) IMPRESSION: Increasing hazy airspace opacities and subsegmental atelectasis at the lung bases. Correlate clinically to exclude infectious etiology. Attention on follow-up. Cannot exclude the presence of a small left pleural effusion at the central. Electronically Signed: Hi Koch MD at 3:30 EDT ,
[2022-11-04 06:06] LABS: Allen Test Positive; Base Excess -1 mmol/L (-2 to +2); Bicarbonate 24.7 mmol/L (22-26); Blood Gas Specimen Type ART; FI02 35; Mode CPAP/PS; O2 Delivery Device Adult Vent; PEEP 5; PO2 74 mmHG (75-100); PS 5; SITE L Brach; SO2 94 % (95-99); Total Carbon Dioxide 26 mmol/L; pCO2 42.9 mmHg (35-45); pH 7.37 (7.35-7.45)
[2022-11-04 06:09] LABS: CPK Total, Creatine Kinase 2235 U/L (39-308); Magnesium 1.9 mg/dL (1.6-2.6)
[2022-11-04] MEDS: Ipratropium/Albuterol Sulfate 3 ML AMPUL.NEB INHALATION ×5 (06:52→23:05)
--- NOTE | 2022-11-04 07:38 | PCM.PN.INT ---
Assessment & Plan Assessment/Plan (1) Acute CVA (cerebrovascular accident): (2) ST elevation (STEMI) myocardial infarction: (3) Acute alteration in mental status: PLAN: Plan RECOMMENDATIONS: 1. Continue mechanical ventilation pending family discussion 2. Discussed with family about goals of therapy 3. PPI per GI 4. Continue cardiac optimization 5. Wean oxygen as tolerated 6. Potential extubation later today once goals of therapy are clarified IMPRESSIONS: 1. Acute respiratory failure secondary to metabolic encephalopathy Patient currently on mechanical ventilation. Patient able to tolerate a spontaneous breathing trial this morning on 09/19 with adequate ABG. Will clarify with the family on plan if patient fails extubation. We will continue to optimize mentation and see if patient can be safely extubated. Patient's mentation appears to be improving, but he is still not following commands. 2. Acute CVA Patient's MRI is showing an acute CVA. EEG shows no epileptiform activity, but patient does have global slowing. Unclear if this is secondary to underlying metabolic encephalopathy versus sedation. Patient does continue on Keppra. There was some concern for alcohol withdrawal seizure initially, but this appears to be ruled out. Patient is not having other forms of withdrawal symptoms, but does have an acute CVA that may have led to postictal activity. No seizure activity has been noted 3. Acute blood loss anemia secondary to upper GI bleed secondary to gastric ulcers Patient guaiac positive and found to have clots on ulcers in the stomach. These have been cauterized and injected. H&H appears to be stable. 4. ST elevation NM Management is complicated by calcification and problem #3. Patient is currently on aspirin, statin and plans to start beta-isadora in the future. Patient is off of pressors at this time and can likely be started on the low-dose beta-isadora if requested by cardiology. 5. Acute kidney injury Resolved. Likely secondary to initial hypotension. Patient's blood pressure is much improved and creatinine has normalized. Continue supportive care. 6. History of alcohol abuse/reported COPD/severe protein calorie malnutrition/advanced age Complicates care, management, recovery and prognosis. We will clarify with the family on whether patient is to be reintubated if he is not able to tolerate extubation. Patient does not appear to be showing signs of alcohol withdrawal at this time. Addendum 10:30 AM: Spoke with Dr. Simon and patient's Mahi SÁNCHEZ. Dr. Simon said it is okay to remove arterial sheath. Spoke with Mahi about patient's mental status and updated her on his overall condition. After review of all the data, she believes that Mr. Ivey would not want to be reintubated or trach for any reason. She is asked that we would move forward with extubation with no reintubation. Orders will be changed. If patient does not do well on extubation, hospice measures will be implemented. TIME: 57 minutes critical care time spent addressing patient's acute respiratory failure, CVA, GI bleed, review of all data and collaboration with care team. Subjective Subjective Patient did okay overnight. There has been no issues from a hemodynamic standpoint. Patient did have an EGD with coagulation and injection. Patient has been keeping his eyes open, but not following commands. Objective Data Objective Data Vital Signs: Vital Signs Temp Pulse Resp BP Pulse Ox O2 Del Method O2 Flow Rate 37.0 C 90 35 H 130/68 H 95 Mechanical Ventilator 40 11/04/22 06:00 11/04/22 06:53 11/04/22 06:53 11/04/22 06:00 11/04/22 06:53 11/04/22 06:00 11/02/22 18:00 FiO2 40 11/04/22 06:00 Oxygen Flow Rate (L/min) 40 Oxygen Delivery Method Mechanical Ventilator Weight: 54.1 kg Body Mass Index (BMI) 17.0 Intake & Output: Intake and Output for Last 24 Hours 11/02/22 11/03/22 11/04/22 23:59 23:59 23:59 Intake Total 2764.25 / 2771.40 3278.95 / 3283.55 764.65 / 764.65 Output Total 975 / 1100 750 / 750 250 / 250 Balance 1789.25 / 1671.40 2528.95 / 2533.55 514.65 / 514.65 Medical Nutrition Assessment Dietitian: Malnutrition Criteria Met Start: 11/01/22 14:49 Freq: Status: Active Protocol: Document 11/03/22 09:42 ISAAK (Rec: 11/03/22 09:42 ISAAK [id number]) Nutrition Malnutrition Evidence of Malnutrition Exists Yes Malnutrition (severe): Chronic,Social/Behavioral/ Environmental Evidenced By Suboptimal Energy Intake ( Severe),Weight Loss (Severe), Physical Changes (Severe) Intake Problem Inadequate Oral Intake Etiology related to intubation and altered GI function Signs/Symptoms as evidenced by NPO Status Active Problem Clinical Problem Chronic Disease or Condition Related Malnutrition Etiology Severe protein-calorie malnutrition in the context of chronic disease and social circumstance related to ETOH abuse and inadequate oral intake Signs/Symptoms as evidenced by BMI 16.6, currently NPO, ~6% recent wt loss noted x past 4-5 months, poor oral intake meeting less than 50% estimated nutrition needs x past 6-12 months, physical symptoms of muscle wasting/fat depletion visible through out including clavicle , face, arms and legs Status Active Problem Recommendation Dietitian Recommendations/Changes Initiate tf with Vital AF 1.2 at 20 ml/hr with 30 ml water flush every 4 hours to provide 576 yari/36 gm pro/ 570 ml free fluid/day. Monitor magnesium and phosphorous d/t risk of refeeding syndrome. When medically able, rec BELINDA to Regular with ONS as tolerated; consistency/texture as per CUST[employer] BROKERAGE MANAGER. Lab / Micro Data Attestation: I reviewed the patient's lab results. Result Diagrams: 11/04/22 05:15 11/04/22 05:15 Labs: Laboratory Results - last 24 hr 11/04/22 05:15: Sodium 141, Potassium 3.5, Chloride 112 H, Carbon Dioxide 25.0, Anion Gap 4 L, BUN 13, Creatinine 0.72, Estim Creat Clear Calc 50.99, Est GFR (MDRD) Af Amer 138, Est GFR (MDRD) Non-Af 114, BUN/Creatinine Ratio 18.0, Glucose 108 H, Calcium 7.8 L, Total Bilirubin 0.70, AST 120 H, ALT 31, Alkaline Phosphatase 95, Total Protein 5.3 L, Albumin 2.0 L, Globulin 3.3, Albumin/Globulin Ratio 0.6 L 11/04/22 05:15: WBC 10.6, RBC 3.60 L, Hgb 10.8 L, Hct 33.2 L, MCV 92.2, MCH 30.0, MCHC 32.5, RDW Std Deviation 47.7 H, RDW Coeff of Gabrielle 13.8, Plt Count 170, MPV 9.8, Immature Gran % (Auto) 0.900, Neut % (Auto) 83.2 H, Lymph % (Auto) 9.8 L, [place] % (Auto) 5.1, Eos % (Auto) 0.7, Baso % (Auto) 0.3, Absolute Neuts (auto) 8.9 H, Absolute Lymphs (auto) 1.04, Nucleated RBC % 0 11/04/22 05:15: Magnesium 1.9, Total Creatine Kinase 2235 H 11/04/22 05:15: Phosphorus 1.4 L Micro: Microbiology 11/01/22 11:35 Blood Culture (Wb) - Venous Blood Culture - Preliminary No growth in 48 hours. 11/01/22 11:25 Blood Culture (Wb) - Venous Blood Culture - Preliminary No growth in 48 hours. 11/01/22 13:45 Sputum, Induced/Lukens Gram Stain - Final 11/01/22 13:45 Sputum, Induced/Lukens Respiratory Culture - Final 11/01/22 11:54 Urine Catheter - Rodriguez Urine Culture - Final Culture exhibits no growth. 11/01/22 11:54 Urine Catheter - Rodriguez Legionella Antigen - Final 11/01/22 11:54 Urine Catheter - Rodriguez Streptococcus pneumoniae Antigen (M - Final 11/01/22 15:10 Mucosa - Nasopharyngeal Respiratory Panel (PCR) - Final ABG Data ABG results: ABG 11/04/22 06:01 Specimen Type ART Sample Site L Brach pH 7.37 Bicarbonate Actual 24.7 Total CO2 26 Base Excess -1 O2 Saturation 94 L O2 % 35 ABG pCO2 42.9 ABG pO2 74 L Eric Test Positive O2 Delivery Device Adult Vent Vent Mode CPAP/PS POC PEEP 5 POC Pressure Suppt 5 Attestation: I personally reviewed and interpreted this ABG as follows: (Compensated metabolic alkalosis with increased AA gradient) Radiography Diagnostic Testing: Radiology Impression Chest X-Ray 11/04/22 05:55 IMPRESSION: Increasing hazy airspace opacities and subsegmental atelectasis at the lung bases. Correlate clinically to exclude infectious etiology. Attention on follow-up. Cannot exclude the presence of a small left pleural effusion at the central. Electronically Signed: Hi Koch MD at 3:30 EDT , Physical Exam Const alert Constitutional Narrative: Appears older than stated age General Appearance: frail and patient mechanically ventilated HEENT normocephalic and head/scalp atraumatic Teeth and Gingiva: poor dentition Eyes PERRL, EOMs intact bilaterally and conjunctivae normal Eyes Narrative: Tracks appropriately Neck full ROM and no lymphadenopathy Chest Chest: abnormal inspection of the chest increased A-P diameter Resp Auscultation: diminished lung sounds; Negative for rales, rhonchi or wheezes Cardio regular rate, regular rhythm, S1 normal heart sound, S2 normal heart sound, no murmurs, no rub and no gallops GI normal to inspection, nondistended, normoactive bowel sounds Extremity Extremity Narrative: Severely diminished peripheral pulses, especially left lower extremity General Extremity: clubbing; Negative for edema Skin no rashes or lesions noted Neuro moves all extremities Psych Mood & Affect: flat affect Charges/Coding Procedures Hospitalists Procedures: 23190 Critial Care 1st Hr
[2022-11-04] MEDS: Chlorhexidine 15 ML PO (07:49)
[2022-11-04] MEDS: Aspirin E.C. 325 MG Tablet PO (07:49)
--- NOTE | 2022-11-04 09:32 | PN.HOSP_ITS ---
Subjective Subjective Intubated, off sedation. Awaiting to extubate after having a discussion with family about making him a DO NOT INTUBATE Objective Data Objective Data Vital Signs: Vital Signs Temp Pulse Resp BP Pulse Ox O2 Del Method O2 Flow Rate 98.6 F 90 35 H 130/68 H 95 Mechanical Ventilator 40 11/04/22 06:00 11/04/22 06:53 11/04/22 06:53 11/04/22 06:00 11/04/22 06:53 11/04/22 06:00 11/02/22 18:00 FiO2 40 11/04/22 06:00 Oxygen Flow Rate (L/min) 40 Oxygen Delivery Method Mechanical Ventilator Weight: 119 lb 4.321 oz Body Mass Index (BMI) 17.0 Intake & Output: Intake and Output for Last 24 Hours 11/03/22 11/04/22 11/05/22 03:59 03:59 03:59 Intake Total 3968.21 / 3972.34 2410.29 / 2414.89 522.75 / 522.75 Output Total 825 / 825 625 / 625 400 / 400 Balance 3143.21 / 3147.34 1785.29 / 1789.89 122.75 / 122.75 Medical Nutrition Assessment Dietitian: Malnutrition Criteria Met Start: 11/01/22 14: 49 Freq: Status: Active Protocol: Document 11/03/22 09:42 ISAAK (Rec: 11/03/22 09:42 ISAAK [id number]) Nutrition Malnutrition Evidence of Malnutrition Exists Yes Malnutrition (severe): Chronic,Social/Behavioral/ Environmental Evidenced By Suboptimal Energy Intake ( Severe),Weight Loss (Severe), Physical Changes (Severe) Intake Problem Inadequate Oral Intake Etiology related to intubation and altered GI function Signs/Symptoms as evidenced by NPO Status Active Problem Clinical Problem Chronic Disease or Condition Related Malnutrition Etiology Severe protein-calorie malnutrition in the context of chronic disease and social circumstance related to ETOH abuse and inadequate oral intake Signs/Symptoms as evidenced by BMI 16.6, currently NPO, ~6% recent wt loss noted x past 4-5 months, poor oral intake meeting less than 50% estimated nutrition needs x past 6-12 months, physical symptoms of muscle wasting/fat depletion visible through out including clavicle , face, arms and legs Status Active Problem Recommendation Dietitian Recommendations/Changes Initiate tf with Vital AF 1.2 at 20 ml/hr with 30 ml water flush every 4 hours to provide 576 yari/36 gm pro/ 570 ml free fluid/day. Monitor magnesium and phosphorous d/t risk of refeeding syndrome. When medically able, rec BELINDA to Regular with ONS as tolerated; consistency/texture as per BIKE MECHANIC. Lab / Micro Data Result Diagrams: 11/04/22 05:15 11/04/22 05:15 Labs: Laboratory Results - last 24 hr 11/04/22 05:15: Sodium 141, Potassium 3.5, Chloride 112 H, Carbon Dioxide 25.0, Anion Gap 4 L, BUN 13, Creatinine 0.72, Estim Creat Clear Calc 50.99, Est GFR (MDRD) Af Amer 138, Est GFR (MDRD) Non-Af 114, BUN/Creatinine Ratio 18.0, Glucose 108 H, Calcium 7.8 L, Total Bilirubin 0.70, AST 120 H, ALT 31, Alkaline Phosphatase 95, Total Protein 5.3 L, Albumin 2.0 L, Globulin 3.3, Albumin/Globulin Ratio 0.6 L 11/04/22 05:15: WBC 10.6, RBC 3.60 L, Hgb 10.8 L, Hct 33.2 L, MCV 92.2, MCH 30.0, MCHC 32.5, RDW Std Deviation 47.7 H, RDW Coeff of Gabrielle 13.8, Plt Count 170, MPV 9.8, Immature Gran % (Auto) 0.900, Neut % (Auto) 83.2 H, Lymph % (Auto) 9.8 L, [place] % (Auto) 5.1, Eos % (Auto) 0.7, Baso % (Auto) 0.3, Absolute Neuts (auto) 8.9 H, Absolute Lymphs (auto) 1.04, Nucleated RBC % 0 11/04/22 05:15: Magnesium 1.9, Total Creatine Kinase 2235 H 11/04/22 05:15: Phosphorus 1.4 L Micro: Microbiology 11/01/22 11:35 Blood Culture (Wb) - Venous Blood Culture - Preliminary No growth in 48 hours. 11/01/22 11:25 Blood Culture (Wb) - Venous Blood Culture - Preliminary No growth in 48 hours. 11/01/22 13:45 Sputum, Induced/Lukens Gram Stain - Final 11/01/22 13:45 Sputum, Induced/Lukens Respiratory Culture - Final 11/01/22 11:54 Urine Catheter - Rodriguez Urine Culture - Final Culture exhibits no growth. 11/01/22 11:54 Urine Catheter - Rodriguez Legionella Antigen - Final 11/01/22 11:54 Urine Catheter - Rodriguez Streptococcus pneumoniae Antigen (M - Final 11/01/22 15:10 Mucosa - Nasopharyngeal Respiratory Panel (PCR) - Final ABG Data ABG results: ABG 11/04/22 06:01 Specimen Type ART Sample Site L Brach pH 7.37 Bicarbonate Actual 24.7 Total CO2 26 Base Excess -1 O2 Saturation 94 L O2 % 35 ABG pCO2 42.9 ABG pO2 74 L Eric Test Positive O2 Delivery Device Adult Vent Vent Mode CPAP/PS POC PEEP 5 POC Pressure Suppt 5 Radiography Diagnostic Testing: Radiology Impression Abdomen Ultrasound 11/01/22 19:34 IMPRESSION: 1. No acute findings. 2. Mild hepatomegaly and hepatic cirrhosis. Electronically Signed: Gibson Lagos DO at 12:19 EDT , Chest X-Ray 11/04/22 05:55 IMPRESSION: Increasing hazy airspace opacities and subsegmental atelectasis at the lung bases. Correlate clinically to exclude infectious etiology. Attention on follow-up. Cannot exclude the presence of a small left pleural effusion at the central. Electronically Signed: Hi Koch MD at 3:30 EDT , Physical Exam Const General Appearance: intubated and patient mechanically ventilated HEENT normocephalic Eyes PERRL and conjunctivae normal Neck supple and no JVD Resp normal respiratory effort, no retractions and no use of accessory muscles Resp Narrative: Diminished Auscultation: Negative for crackles, rales, rhonchi or wheezes Cardio regular rate, regular rhythm, S1 normal heart sound, S2 normal heart sound and no murmurs GI soft to palpation and non-distended; Negative for hepatosplenomegaly Extremity no clubbing, cyanosis or edema Skin no rashes or lesions noted Neuro Sensorium / Orientation: sedated on vent Psych Appearance: intubated Assessment & Plan Assessment/Plan (1) Unresponsive episode: (2) GI bleed: PLAN: Plan 1. Altered mental status then unresponsiveness, acute encephalopathy exact etiology unclear: Possible differential diagnosis are metabolic encephalopathy from upper GI bleed, hypercapnia or infectious: Patient is intubated on ventilator. Patient is being admitted in ICU. MRI brain without contrast ordered when patient is hemodynamically stable. Rest as mentioned below 11/02: Patient opens eyes on command but does not follow motor function, hard. Possibility of seizure. Patient on Keppra. MRI of brain showed right temporal and posterior right frontal region consistent with acute cortical ischemia. Right temporal parietal chronic microvascular changes. Posterior fossa structures unremarkable. EEG still pending. Once we have the EEG he can have neuro consult but aspirin has been started after discussion with inbound ingredient logistics specialist. 11/03: EEG pending 11/04: EEG is read as an abnormal EKG with generalized slowing with possible toxic or metabolic encephalopathy 2. Acute hypercapnic respiratory failure with COPD with high probability of exacerbation: As per POA, she did not notice acute change in breathing, cough or other URI symptoms. VBG 7.. Lactic acid 5.3. ABGs ordered. Patient is intubated on ventilator. Panel Monitor consulted. Patient also history of smoking more than a pack per day since early age. 11/02: He still intubated, managed by inbound ingredient logistics specialist. Discussed with Dr. Roger 11/03: Failed spontaneous breathing trial today, will attempt to identify POA and clarify CODE STATUS 11/04: Off sedation, will need extubated this afternoon after having conversation with the family and making him a DO NOT INTUBATE 3. Shock most likely septic shock: There is concern of sepsis in view of acute hypercapnic respiratory failure, lactic acidosis, increased creatinine and acute encephalopathy. Patient has leukocytosis. Chest x-ray does not show acute infiltrate. CTA chest abdomen pelvis ordered. Panculture ordered. Empirically patient started on IV vancomycin and Zosyn. Patient had IV fluid bolus 30 mill per KG. 11/02: No fever or chills. Patient on Levophed drip. Urinary antigens are negative. Respiratory panel negative. COVID-19 PCR negative. Blood cultures x2 are pending. Lactic acid improved. 4. Upper GI bleed with concern of alcoholic hepatitis/cirrhosis with portal hypertension: Patient does not have prior abdominal imaging in our system. CTA chest abdomen and pelvis ordered by ER physician. OG tube still draining brownish/altered blood product. Hemoglobin 14.5/43.7%. H&H every 6 hourly for 24 hours. GI is consulted. Patient is started on Protonix drip after bolus and octreotide drip. Patient might have lactic acidosis from GI bleed. Patient is also history of longtime alcohol use disorder with more than 30 years of continuous, heavy drinking of whiskey. 11/02: Patient is still has NG tube and had altered blood on NG tube suction last night. Hemoglobin dropped about 2 to 3 g but does not need PRBC transfusion. Continue Protonix drip, octreotide drip and antibiotic. Discussed with the GI 11/03: Plan for EGD appreciate GIs assistance 11/04: EGD with multiple ulcers continue with present treatment 5. Inferior lateral wall STEMI after admission: Troponin 104. Cycle troponin enzymes. Serial EKG was done in ED from yesterday and today. First EKG from 10/31 shows sinus bradycardia 55 bpm. And today shows normal sinus rhythm with artifacts in inferior leads. Next EKG shows sinus irregular rhythm with PVCs and premature supraventricular complexes. EKG from 07/27 shows sinus rhythm with sinus arrhythmia. Patient does not have known prior cardiac disease. 11/02: Inferior lateral wall STEMI: Yesterday EKG showed ST elevation in inferior lateral leads suspicious for STEMI and patient was taken to Parking Enforcement Specialist. Troponin did not show any major delta change. Was found to have significant CAD with [id number] flow with significant stenosis in LAD and RCA, vessels were heavily calcified. No major occluded epicardial coronary artery. Patient cannot have antiplatelet agent or antithrombotic agent due to GI bleed. CK high at 1189 therefore will hold for high intensity statin. 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 No Doppler or palpable pulses felt at left PT and DPA. As revealed in cardiac cath with chronically significant stenosis with heavy calcification, I suspect similar pathology in left leg PAD. Unfortunately patient cannot have antithrombotic agent. Prior history of CVA: As per. No residual deficit from previous stroke. 6. Moderate chronic protein calorie malnutrition: BMI 16.5 kg/m?. Patient has mild to moderate muscle atrophy of extremities and craniofacial muscles. Care Consultant consult. Charges/Coding Visit Charges Inpatient E&M: 78186 Subs Hosp L2
--- NOTE | 2022-11-04 10:49 | NURSING ---
Dr Limon talked with POA Mahi Haji [phone] regarding plan of care , will extubate with no plan for reintubation as per POA request
[2022-11-05] VITALS (23 sets, daily range): BP systolic 130–168; BP diastolic 79–116; PULSE 90–112; RESP 18–35; TEMP 36.6–37.5; O2SAT 92–98; BMI 17.9
[2022-11-05] MEDS: Ipratropium/Albuterol Sulfate 3 ML AMPUL.NEB INHALATION ×5 (02:05→22:43)
[2022-11-05] MEDS: Lactulose 20 GM/30 ML UDC NG (02:30)
[2022-11-05 04:40] LABS: Anion Gap 4 (5-15); BUN 7 mg/dL (7-18); BUN/Creat Ratio 13.9 RATIO (10-20); Calcium,Total 7.9 mg/dL (8.5-10.1); Chloride 113 mmol/L (98-107); EST Glomerular Filtration Rate 172 mL/min (>60); Est Glom Filt Rate - Afr Amer 208 mL/min (>60); Estimated Creatinine Clearance 54.59 ml/min; Glucose 66 mg/dL (74-106); Potassium 3.9 mmol/L (3.5-5.1); Sodium Level 143 mmol/L (136-145)
--- NOTE | 2022-11-05 07:05 | PCM.PN.INT ---
Assessment & Plan Assessment/Plan (1) Acute CVA (cerebrovascular accident): (2) ST elevation (STEMI) myocardial infarction: (3) Acute alteration in mental status: PLAN: Plan RECOMMENDATIONS: 1. Increase activity as tolerated 2. Speech therapy for evaluation of p.o. intake 3. Okay to leave the intensive care unit 4. Continue cardiac optimization 5. Walking oximetry prior to discharge 6. Hemodynamically stable on minimal nasal cannula. Will sign off from a critical care perspective IMPRESSIONS: 1. Acute respiratory failure secondary to metabolic encephalopathy Patient currently off mechanical ventilation and tolerating well. Patient with minimal oxygen requirements at this time. Patient protecting airway. 2. Acute CVA Patient's MRI is showing an acute CVA. EEG shows no epileptiform activity, but patient does have global slowing. Unclear if this is secondary to underlying metabolic encephalopathy versus sedation. Patient does continue on Keppra. There was some concern for alcohol withdrawal seizure initially, but this appears to be ruled out. Patient is not having other forms of withdrawal symptoms, but does have an acute CVA that may have led to postictal activity. No seizure activity has been noted 3. Acute blood loss anemia secondary to upper GI bleed secondary to gastric ulcers Patient guaiac positive and found to have clots on ulcers in the stomach. These have been cauterized and injected. H&H appears to be stable. Likely okay to transition to p.o. PPI once passing swallow eval 4. ST elevation OH Management is complicated by calcification and problem #3. Patient is currently on aspirin, statin and plans to start beta-isadora in the future. Patient is off of pressors at this time and can likely be started on the low-dose beta-isadora if requested by cardiology. 5. Acute kidney injury Resolved. Likely secondary to initial hypotension. Patient's blood pressure is much improved and creatinine has normalized. Continue supportive care. 6. History of alcohol abuse/reported COPD/severe protein calorie malnutrition/advanced age Complicates care, management, recovery and prognosis. We will clarify with the family on whether patient is to be reintubated if he is not able to tolerate extubation. Patient does not appear to be showing signs of alcohol withdrawal at this time. Subjective Subjective Patient did okay overnight from a hemodynamic standpoint. Patient has had some issues with word finding, but has been appropriate. Patient is not reporting any pain at this time. Objective Data Objective Data Vital Signs: Vital Signs Temp Pulse Resp BP Pulse Ox O2 Del Method O2 Flow Rate 36.6 C 103 H 20 H 149/80 H 94 Nasal Cannula 4 11/05/22 04:00 11/05/22 06:00 11/05/22 06:00 11/05/22 06:00 11/05/22 06:00 11/05/22 06:00 11/05/22 06:00 FiO2 40 11/04/22 12:00 Oxygen Flow Rate (L/min) 4 Oxygen Delivery Method Nasal Cannula Weight: 56.961 kg Body Mass Index (BMI) 17.9 Intake & Output: Intake and Output for Last 24 Hours 11/03/22 11/04/22 11/05/22 23:59 23:59 23:59 Intake Total 3278.95 / 3283.55 2968.0633 / 2968.0633 50 / 50 Output Total 750 / 750 925 / 985 395 / 395 Balance 2528.95 / 2533.55 2042.0633 / 1982.0633 -345 / -345 Medical Nutrition Assessment Dietitian: Malnutrition Criteria Met Start: 11/01/22 14:49 Freq: Status: Active Protocol: Document 11/04/22 10:42 LO (Rec: 11/04/22 10:42 LO [id number]) Nutrition Malnutrition Evidence of Malnutrition Exists Yes Malnutrition (severe): Chronic,Social/Behavioral/ Environmental Evidenced By Suboptimal Energy Intake ( Severe),Weight Loss (Severe), Physical Changes (Severe) Intake Problem Inadequate Oral Intake Etiology related to intubation and altered GI function Signs/Symptoms as evidenced by NPO Status Active Problem Clinical Problem Chronic Disease or Condition Related Malnutrition Etiology Severe protein-calorie malnutrition in the context of chronic disease and social circumstance related to ETOH abuse and inadequate oral intake Signs/Symptoms as evidenced by BMI 16.6, currently NPO, ~6% recent wt loss noted x past 4-5 months, poor oral intake meeting less than 50% estimated nutrition needs x past 6-12 months, physical symptoms of muscle wasting/fat depletion visible through out including clavicle , face, arms and legs Status Active Problem Recommendation Dietitian Recommendations/Changes Initiate tf with Vital AF 1.2 at 20 ml/hr with 30 ml water flush every 4 hours to provide 576 yari/36 gm pro/ 570 ml free fluid/day. Monitor magnesium and phosphorous d/t risk of refeeding syndrome. When medically able, rec BELINDA to Regular with ONS as tolerated; consistency/texture as per DIETARY SERVICE AIDE. Lab / Micro Data Attestation: I reviewed the patient's lab results. Result Diagrams: 11/04/22 05:15 11/05/22 04:20 Labs: Laboratory Results - last 24 hr 11/05/22 04:20: Sodium 143, Potassium 3.9, Chloride 113 H, Carbon Dioxide 26.0, Anion Gap 4 L, BUN 7, Creatinine 0.50 L, Estim Creat Clear Calc 54.59, Est GFR (MDRD) Af Amer 208, Est GFR (MDRD) Non-Af 172, BUN/Creatinine Ratio 13.9, Glucose 66 L, Calcium 7.9 L Micro: Microbiology 11/01/22 11:35 Blood Culture (Wb) - Venous Blood Culture - Preliminary No growth in 48 hours. 11/01/22 11:25 Blood Culture (Wb) - Venous Blood Culture - Preliminary No growth in 48 hours. 11/01/22 13:45 Sputum, Induced/Lukens Gram Stain - Final 11/01/22 13:45 Sputum, Induced/Lukens Respiratory Culture - Final 11/01/22 11:54 Urine Catheter - Rodriguez Urine Culture - Final Culture exhibits no growth. 11/01/22 11:54 Urine Catheter - Rodriguez Legionella Antigen - Final 11/01/22 11:54 Urine Catheter - Rodriguez Streptococcus pneumoniae Antigen (M - Final 11/01/22 15:10 Mucosa - Nasopharyngeal Respiratory Panel (PCR) - Final Radiography Diagnostic Testing: Radiology Impression Abdomen Ultrasound 11/01/22 19:34 IMPRESSION: 1. No acute findings. 2. Mild hepatomegaly and hepatic cirrhosis. Electronically Signed: Gibson Lagos DO at 12:19 EDT , Physical Exam Const alert and no apparent distress Constitutional Narrative: Appears older than stated age General Appearance: cooperative and frail HEENT normocephalic and head/scalp atraumatic Eyes PERRL, EOMs intact bilaterally and conjunctivae normal Eyes Narrative: Tracks appropriately Neck full ROM and no lymphadenopathy Chest Chest: abnormal inspection of the chest increased A-P diameter Resp Auscultation: diminished lung sounds; Negative for rales, rhonchi or wheezes Cardio regular rate, regular rhythm, S1 normal heart sound, S2 normal heart sound, no murmurs, no rub and no gallops GI normal to inspection, nondistended, normoactive bowel sounds Extremity no clubbing, cyanosis or edema Extremity Narrative: Severely diminished peripheral pulses, especially left lower extremity General Extremity: clubbing; Negative for edema Skin no rashes or lesions noted Neuro moves all extremities Psych cooperative Mood & Affect: flat affect Charges/Coding Visit Charges Inpatient E&M: 07162 Subs Hosp L2
[2022-11-05] MEDS: CHLORHEXIDINE GLUC 2% CLOTH 1 EACH TOWELETTE TOPICAL (08:09)
--- NOTE | 2022-11-05 09:52 | PN.HOSP_ITS ---
Subjective Subjective Extubated and maintaining his oxygen sats on 4 L nasal cannula. Not very interactive this morning Objective Data Objective Data Vital Signs: Vital Signs Temp Pulse Resp BP Pulse Ox O2 Del Method O2 Flow Rate 97.8 F 109 H 34 H 151/85 H 94 Nasal Cannula 4 11/05/22 07:00 11/05/22 08:00 11/05/22 08:00 11/05/22 08:00 11/05/22 08:00 11/05/22 08:00 11/05/22 08:00 FiO2 40 11/04/22 12:00 Oxygen Flow Rate (L/min) 4 Oxygen Delivery Method Nasal Cannula Weight: 125 lb 9.245 oz Body Mass Index (BMI) 17.9 Intake & Output: Intake and Output for Last 24 Hours 11/04/22 11/05/22 11/06/22 03:59 03:59 03:59 Intake Total 2410.29 / 2414.89 2568.6633 / 2568.6633 Output Total 625 / 625 1060 / 1120 535 / 535 Balance 1785.29 / 1789.89 1508.6633 / 1448.6633 -535 / -535 Medical Nutrition Assessment Dietitian: Malnutrition Criteria Met Start: 11/01/22 14:49 Freq: Status: Active Protocol: Document 11/04/22 10:42 ANG (Rec: 11/04/22 10:42 ANG [id number]) Nutrition Malnutrition Evidence of Malnutrition Exists Yes Malnutrition (severe): Chronic,Social/Behavioral/ Environmental Evidenced By Suboptimal Energy Intake ( Severe),Weight Loss (Severe), Physical Changes (Severe) Intake Problem Inadequate Oral Intake Etiology related to intubation and altered GI function Signs/Symptoms as evidenced by NPO Status Active Problem Clinical Problem Chronic Disease or Condition Related Malnutrition Etiology Severe protein-calorie malnutrition in the context of chronic disease and social circumstance related to ETOH abuse and inadequate oral intake Signs/Symptoms as evidenced by BMI 16.6, currently NPO, ~6% recent wt loss noted x past 4-5 months, poor oral intake meeting less than 50% estimated nutrition needs x past 6-12 months, physical symptoms of muscle wasting/fat depletion visible through out including clavicle , face, arms and legs Status Active Problem Recommendation Dietitian Recommendations/Changes Initiate tf with Vital AF 1.2 at 20 ml/hr with 30 ml water flush every 4 hours to provide 576 yari/36 gm pro/ 570 ml free fluid/day. Monitor magnesium and phosphorous d/t risk of refeeding syndrome. When medically able, rec BELINDA to Regular with ONS as tolerated; consistency/texture as per MORTGAGE OR LOAN UNDERWRITER. Lab / Micro Data Result Diagrams: 11/04/22 05:15 11/05/22 04:20 Labs: Laboratory Results - last 24 hr 11/05/22 04:20: Sodium 143, Potassium 3.9, Chloride 113 H, Carbon Dioxide 26.0, Anion Gap 4 L, BUN 7, Creatinine 0.50 L, Estim Creat Clear Calc 54.59, Est GFR (MDRD) Af Amer 208, Est GFR (MDRD) Non-Af 172, BUN/Creatinine Ratio 13.9, Glucose 66 L, Calcium 7.9 L Micro: Microbiology 11/01/22 11:35 Blood Culture (Wb) - Venous Blood Culture - Preliminary No growth in 48 hours. 11/01/22 11:25 Blood Culture (Wb) - Venous Blood Culture - Preliminary No growth in 48 hours. 11/01/22 13:45 Sputum, Induced/Lukens Gram Stain - Final 11/01/22 13:45 Sputum, Induced/Lukens Respiratory Culture - Final 11/01/22 11:54 Urine Catheter - Rodriguez Urine Culture - Final Culture exhibits no growth. 11/01/22 11:54 Urine Catheter - Rodriguez Legionella Antigen - Final 11/01/22 11:54 Urine Catheter - Rodriguez Streptococcus pneumoniae Antigen (M - Final 11/01/22 15:10 Mucosa - Nasopharyngeal Respiratory Panel (PCR) - Final Physical Exam Narrative General: Alert, No apparent distress, not very interactive or responsive to questions though he does make eye contact HEENT: Atraumatic, PERRLA, EOMI, Normocephalic Oral: Moist Mucosa Neck: Supple, No JVD Lungs: Diminished, Normal air movement, No rhonchi, No wheeze, No rales Cardiovascular: Regular rate, Regular Rhythm, Normal S1, Normal S2, No murmurs Abdomen: Soft, Non Tender, Non-Distended, No Hepato-splenomegaly Extremities: No edema, diminished distal pulses Skin: No rashes, No breakdown Musculoskeletal: No Tenderness to Palpation of Joints or Extremities Neurological: Motor Exam 5/5 strength throughout, Sensory exam intact to light touch and pain Psych/Mental Status: Flat Assessment & Plan Assessment/Plan (1) Unresponsive episode: (2) GI bleed: PLAN: Plan 1. Altered mental status then unresponsiveness, acute encephalopathy exact etiology unclear: Possible differential diagnosis are metabolic encephalopathy from upper GI bleed, hypercapnia or infectious: Patient is intubated on ventilator. Patient is being admitted in ICU. MRI brain without contrast ordered when patient is hemodynamically stable. Rest as mentioned below 11/02: Patient opens eyes on command but does not follow motor function, hard. Possibility of seizure. Patient on Keppra. MRI of brain showed right temporal and posterior right frontal region consistent with acute cortical ischemia. Right temporal parietal chronic microvascular changes. Posterior fossa structures unremarkable. EEG still pending. Once we have the EEG he can have n euro consult but aspirin has been started after discussion with senior oracle database developer. 11/03: EEG pending 11/04: EEG is read as an abnormal EKG with generalized slowing with possible toxic or metabolic encephalopathy 11/05: Now that is extubated will obtain a speech therapy evaluation prior to starting a diet 2. Acute hypercapnic respiratory failure with COPD with high probability of exacerbation: As per POA, she did not notice acute change in breathing, cough or other URI symptoms. VBG 7.. Lactic acid 5.3. ABGs ordered. Patient is intubated on ventilator. Middle School Counselor consulted. Patient also history of smoking more than a pack per day since early age. 11/02: He still intubated, managed by senior oracle database developer. Discussed with Dr. Roger 11/03: Failed spontaneous breathing trial today, will attempt to identify POA and clarify CODE STATUS 11/04: Off sedation, will need extubated this afternoon after having conversation with the family and making him a DO NOT INTUBATE 11/05: Extubated maintaining oxygen sats on 4 L we will continue to monitor 3. Shock most likely septic shock: There is concern of sepsis in view of acute hypercapnic respiratory failure, lactic acidosis, increased creatinine and acute encephalopathy. Patient has leukocytosis. Chest x-ray does not show acute infiltrate. CTA chest abdomen pelvis ordered. Panculture ordered. Empirically patient started on IV vancomycin and Zosyn. Patient had IV fluid bolus 30 mill per KG. 11/02: No fever or chills. Patient on Levophed drip. Urinary antigens are negative. Respiratory panel negative. COVID-19 PCR negative. Blood cultures x2 are pending. Lactic acid improved. 4. Upper GI bleed with concern of alcoholic hepatitis/cirrhosis with portal hypertension: Patient does not have prior abdominal imaging in our system. CTA chest abdomen and pelvis ordered by ER physician. OG tube still draining brownish/altered blood product. Hemoglobin 14.5/43.7%. H&H every 6 hourly for 24 hours. GI is consulted. Patient is started on Protonix drip after bolus and octreotide drip. Patient might have lactic acidosis from GI bleed. Patient is also history of longtime alcohol use disorder with more than 30 years of continuous, heavy drinking of whiskey. 11/02: Patient is still has NG tube and had altered blood on NG tube suction last night. Hemoglobin dropped about 2 to 3 g but does not need PRBC transfusion. Continue Protonix drip, octreotide drip and antibiotic. Discussed with the GI 11/03: Plan for EGD appreciate GIs assistance 11/04: EGD with multiple ulcers continue with present treatment 5. Inferior lateral wall STEMI after admission: Troponin 104. Cycle troponin enzymes. Serial EKG was done in ED from yesterday and today. First EKG from 10/31 shows sinus bradycardia 55 bpm. And today shows normal sinus rhythm with artifacts in inferior leads. Next EKG shows sinus irregular rhythm with PVCs and premature supraventricular complexes. EKG from 07/27 shows sinus rhythm with sinus arrhythmia. Patient does not have known prior cardiac disease. 11/02: Inferior lateral wall STEMI: Yesterday EKG showed ST elevation in inferior lateral leads suspicious for STEMI and patient was taken to [facility]. Troponin did not show any major delta change. Was found to have significant CAD with JUANCARLOS-3 flow with significant stenosis in LAD and RCA, vessels were heavily calcified. No major occluded epicardial coronary artery. Patient cannot have antiplatelet agent or antithrombotic agent due to GI bleed. CK high at 1189 therefore will hold for high intensity statin. Left leg PAD: My clinical suspicion is that patient has chronically occluded left lower DIRECTOR OF VITAL STATISTICS and DPA with collaterals as there is no acute pale, cyanosis, mottling, or change in color but mild cold. No Doppler or palpable pulses felt at left PT and DPA. As revealed in cardiac cath with chronically significant stenosis with heavy calcification, I suspect similar pathology in left leg PAD. Unfortunately patient cannot have antithrombotic agent. Prior history of CVA: As per. No residual deficit from previous stroke. 6. Moderate chronic protein calorie malnutrition: BMI 16.5 kg/m?. Patient has mild to moderate muscle atrophy of extremities and craniofacial muscles. Broach Setter consult. Charges/Coding Visit Charges Inpatient E&M: 52901 Subs Hosp L2
--- NOTE | 2022-11-05 10:24 | CASEMGMT ---
After interdisciplinary rounds SW attempted to talk with patient about halfway facility. Patient continues to have difficulty talking. SW let patient know SW will continue to follow and work with him and his power of trial attorney for healthcare on a discharge plan. Elida Piña TELEGRAPH REPEATER INSTALLERJacqueline ESTRADA
--- NOTE | 2022-11-05 12:09 | NURSING ---
report called to MARYCARMEN Cote on PCU at this time. Transferred to PCU via DOLORES Fowler
[2022-11-06] VITALS (11 sets, daily range): BP systolic 114–143; BP diastolic 41–112; PULSE 87–98; RESP 20–28; TEMP 36.6–37.6; O2SAT 93–96; BMI 17.6
[2022-11-06] MEDS: Ipratropium/Albuterol Sulfate 3 ML AMPUL.NEB INHALATION ×5 (03:33→20:15)
[2022-11-06 07:15] LABS: Absolute Lymphocyte Count 1.26 X10^3/uL (0.83-4.51); Absolute Neutrophil Count 7.3 X10^3/uL (2.0-7.7); Basophil# 0.09 X10^3/uL; Basophil% 0.9 % (0-1); Eosinophil# 0.09 X10^3/uL; Eosinophils% 0.9 % (0-5); Hematocrit 35.8 % (40-54); Hemoglobin 11.2 g/dL (13.0-16.5); Lymphocyte # 1.26 X10^3/ul (0.83-4.51); Lymphocyte % 12.4 % (19-41); Mean Corp Hgb Conc 31.3 g/dL (32-36); Mean Corpuscular Hgb 29.9 pg (27.0-32.0); Mean Corpuscular Volume 95.5 fL (80-94); Mean Platelet Vol. 9.4 fl (6.2-12.0); Monocyte# 1.16 X10^3/uL; Monocyte% 11.5 % (0-10); NRBC Flagged by Analyzer 0 % (0-5); Neutrophil # 7.32 X10^3/uL (2.7-7.7); Neutrophil % 72.2 % (47-70); Platelet Count 210 K/mm3 (150-450); RBC Distribution Width CV 14.4 % (11.6-14.6); RBC Distribution Width SD 49.9 fl (35.1-43.9); Red Blood Count 3.75 M/mm3 (4.6-6.2); White Blood Count 10.1 K/mm3 (4.4-11.0)
[2022-11-06 07:42] LABS: Anion Gap 11 (5-15); BUN 13 mg/dL (7-18); BUN/Creat Ratio 20.8 RATIO (10-20); Calcium,Total 8.4 mg/dL (8.5-10.1); Chloride 113 mmol/L (98-107); Creatinine, Serum 0.62 mg/dL (0.70-1.30); EST Glomerular Filtration Rate 135 mL/min (>60); Est Glom Filt Rate - Afr Amer 163 mL/min (>60); Estimated Creatinine Clearance 53.57 ml/min; Glucose 57 mg/dL (74-106); Potassium 3.7 mmol/L (3.5-5.1); Sodium Level 146 mmol/L (136-145)
--- NOTE | 2022-11-06 08:15 | PCM.PN.INT ---
Assessment & Plan Assessment/Plan (1) Acute CVA (cerebrovascular accident): (2) ST elevation (STEMI) myocardial infarction: (3) Acute alteration in mental status: PLAN: Plan RECOMMENDATIONS: 1. Increase activity as tolerated 2. Speech therapy for evaluation of p.o. intake 3. Encourage incentive spirometer 4. Continue cardiac optimization 5. Walking oximetry prior to discharge 6. Hemodynamically stable on minimal nasal cannula. Will sign off from a critical care perspective IMPRESSIONS: 1. Acute respiratory failure secondary to metabolic encephalopathy Patient currently off mechanical ventilation and tolerating well. Patient with minimal oxygen requirements at this time. Patient protecting airway. Clinical suspicion for residual hypoxia secondary to atelectasis 2. Acute CVA Patient's MRI is showing an acute CVA. EEG shows no epileptiform activity, but patient does have global slowing. Unclear if this is secondary to underlying metabolic encephalopathy versus sedation. Patient does continue on Keppra. There was some concern for alcohol withdrawal seizure initially, but this appears to be ruled out. Patient is not having other forms of withdrawal symptoms, but does have an acute CVA that may have led to postictal activity. No seizure activity has been noted. Likely should be continued on Keppra until outpatient follow-up with neurology 3. Acute blood loss anemia secondary to upper GI bleed secondary to gastric ulcers Patient guaiac positive and found to have clots on ulcers in the stomach. These have been cauterized and injected. H&H appears to be stable. Likely okay to transition to p.o. PPI once passing swallow eval 4. ST elevation GA Management is complicated by calcification and problem #3. Patient is currently on aspirin, statin and plans to start beta-isadora in the future. Patient is off of pressors at this time and can likely be started on the low-dose beta-isadora if requested by cardiology. 5. Acute kidney injury Resolved. Likely secondary to initial hypotension. Patient's blood pressure is much improved and creatinine has normalized. Continue supportive care. 6. History of alcohol abuse/reported COPD/severe protein calorie malnutrition/advanced age Complicates care, management, recovery and prognosis. We will clarify with the family on whether patient is to be reintubated if he is not able to tolerate extubation. Patient does not appear to be showing signs of alcohol withdrawal at this time. Subjective Subjective Patient transferred out of the intensive care unit yesterday. Patient hemodynamically stable overnight. Patient has remained n.p.o. secondary to speech therapy concerns. Patient is not reporting any current chest pain or abdominal pain. No dyspnea has been reported, but patient did require 3 L nasal cannula overnight. Patient has not been able to tolerate incentive spirometer secondary to mental issues. Objective Data Objective Data Vital Signs: Vital Signs Temp Pulse Resp BP Pulse Ox O2 Del Method O2 Flow Rate 36.7 C 97 20 H 114/62 96 Nasal Cannula 3 11/06/22 06:49 11/06/22 04:40 11/06/22 04:40 11/06/22 04:40 11/06/22 04:40 11/06/22 08:02 11/06/22 08:02 FiO2 40 11/04/22 12:00 Oxygen Flow Rate (L/min) 3 Oxygen Delivery Method Nasal Cannula Weight: 55.9 kg Body Mass Index (BMI) 17.6 Intake & Output: Intake and Output for Last 24 Hours 11/04/22 11/05/22 11/06/22 23:59 23:59 23:59 Intake Total 2968.0633 / 2968.0633 417.5 / 417.5 267.5 / 267.5 Output Total 925 / 985 1345 / 1345 250 / 250 Balance 2043.0633 / 1983.0633 -927.5 / -927.5 17.5 / 17.5 Medical Nutrition Assessment Dietitian: Malnutrition Criteria Met Start: 11/01/22 14:49 Freq: Status: Active Protocol: Document 11/05/22 10:31 LO (Rec: 11/05/22 10:32 [id number]) Nutrition Malnutrition Evidence of Malnutrition Exists Yes Malnutrition (severe): Chronic,Social/Behavioral/ Environmental Evidenced By Suboptimal Energy Intake ( Severe),Weight Loss (Severe), Physical Changes (Severe) Intake Problem Inadequate Oral Intake Etiology related to inability to consume sufficient energy Signs/Symptoms as evidenced by NPO pending speech therapy evaluation. Status Active Problem Clinical Problem Chronic Disease or Condition Related Malnutrition Etiology Severe protein-calorie malnutrition in the context of chronic disease and social circumstance related to ETOH abuse and inadequate oral intake Signs/Symptoms as evidenced by BMI 16.6, currently NPO, ~6% recent wt loss noted x past 4-5 months, poor oral intake meeting less than 50% estimated nutrition needs x past 6-12 months, physical symptoms of muscle wasting/fat depletion visible through out including clavicle , face, arms and legs Status Active Problem Recommendation Dietitian Recommendations/Changes ADAT to Regular with texture/ consistency per CUSTOMER SERVICE SUPERVISOR as medically able to optimize oral intakes. Recommend 120mL Ensure Plus High Protein to provide supplemental energy; consistency/texture as per CUSTOMER SERVICE SUPERVISOR . Lab / Micro Data Attestation: I reviewed the patient's lab results. Result Diagrams: 11/06/22 06:56 11/06/22 06:56 Labs: Laboratory Results - last 24 hr 11/06/22 06:56: Sodium 146 H, Potassium 3.7, Chloride 113 H, Carbon Dioxide 22.0, Anion Gap 11, BUN 13, Creatinine 0.62 L, Estim Creat Clear Calc 53.57, Est GFR (MDRD) Af Amer 163, Est GFR (MDRD) Non-Af 135, BUN/Creatinine Ratio 20.8 H, Glucose 57 L, Calcium 8.4 L 11/06/22 06:56: WBC 10.1, RBC 3.75 L, Hgb 11.2 L, Hct 35.8 L, MCV 95.5 H, MCH 29.9, MCHC 31.3 L, RDW Std Deviation 49.9 H, RDW Coeff of Gabrielle 14.4, Plt Count 210, MPV 9.4, Immature Gran % (Auto) 2.100 H, Neut % (Auto) 72.2 H, Lymph % (Auto) 12.4 L, Branch % (Auto) 11.5 H, Eos % (Auto) 0.9, Baso % (Auto) 0.9, Absolute Neuts (auto) 7.3, Absolute Lymphs (auto) 1.26, Nucleated RBC % 0 Micro: Microbiology 11/01/22 11:35 Blood Culture (Wb) - Venous Blood Culture - Preliminary No growth in 48 hours. 11/01/22 11:25 Blood Culture (Wb) - Venous Blood Culture - Preliminary No growth in 48 hours. 11/01/22 13:45 Sputum, Induced/Lukens Gram Stain - Final 11/01/22 13:45 Sputum, Induced/Lukens Respiratory Culture - Final 11/01/22 11:54 Urine Catheter - Rodriguez Urine Culture - Final Culture exhibits no growth. 11/01/22 11:54 Urine Catheter - Rodriguez Legionella Antigen - Final 11/01/22 11:54 Urine Catheter - Rodriguez Streptococcus pneumoniae Antigen (M - Final 11/01/22 15:10 Mucosa - Nasopharyngeal Respiratory Panel (PCR) - Final Physical Exam Const alert and no apparent distress Constitutional Narrative: Appears older than stated age General Appearance: cooperative and frail HEENT normocephalic and head/scalp atraumatic HEENT Narrative: Prefers lying head to the left side, but not true torticollis Eyes PERRL, EOMs intact bilaterally and conjunctivae normal Eyes Narrative: Tracks appropriately Neck full ROM and no lymphadenopathy Chest Chest: abnormal inspection of the chest increased A-P diameter Resp Auscultation: diminished lung sounds; Negative for rales, rhonchi or wheezes Cardio regular rate, regular rhythm, S1 normal heart sound, S2 normal heart sound, no murmurs, no rub and no gallops GI normal to inspection, nondistended, normoactive bowel sounds Extremity no clubbing, cyanosis or edema Extremity Narrative: Severely diminished peripheral pulses, especially left lower extremity General Extremity: clubbing; Negative for edema Skin no rashes or lesions noted Neuro moves all extremities Psych cooperative Mood & Affect: flat affect Charges/Coding Visit Charges Inpatient E&M: 90392 Subs Hosp L2
--- NOTE | 2022-11-06 09:44 | PN.HOSP_ITS ---
Subjective Subjective Doing well, no issues overnight. He thinks he is breathing little bit easier. Objective Data Objective Data Vital Signs: Vital Signs Temp Pulse Resp BP Pulse Ox O2 Del Method O2 Flow Rate 99.1 F 87 20 H 143/56 H 93 Nasal Cannula 2 11/06/22 09:40 11/06/22 09:40 11/06/22 09:40 11/06/22 09:40 11/06/22 09:40 11/06/22 09:40 11/06/22 09:40 FiO2 40 11/04/22 12:00 Oxygen Flow Rate (L/min) 2 Oxygen Delivery Method Nasal Cannula Weight: 123 lb 3.814 oz Body Mass Index (BMI) 17.6 Intake & Output: Intake and Output for Last 24 Hours 11/05/22 11/06/22 11/07/22 03:59 03:59 03:59 Intake Total 2568.6633 / 2568.6633 635.0 / 635.0 50 / 50 Output Total 1060 / 1120 1210 / 1210 250 / 250 Balance 1508.6633 / 1448.6633 -575.0 / -575.0 -200 / -200 Medical Nutrition Assessment Dietitian: Malnutrition Criteria Met Start: 11/01/22 14:49 Freq: Status: Active Protocol: Document 11/05/22 10:31 ANG (Rec: 11/05/22 10:32 [id number]) Nutrition Malnutrition Evidence of Malnutrition Exists Yes Malnutrition (severe): Chronic,Social/Behavioral/ Environmental Evidenced By Suboptimal Energy Intake ( Severe),Weight Loss (Severe), Physical Changes (Severe) Intake Problem Inadequate Oral Intake Etiology related to inability to consume sufficient energy Signs/Symptoms as evidenced by NPO pending speech therapy evaluation. Status Active Problem Clinical Problem Chronic Disease or Condition Related Malnutrition Etiology Severe protein-calorie malnutrition in the context of chronic disease and social circumstance related to ETOH abuse and inadequate oral intake Signs/Symptoms as evidenced by BMI 16.6, currently NPO, ~6% recent wt loss noted x past 4-5 months, poor oral intake meeting less than 50% estimated nutrition needs x past 6-12 months, physical symptoms of muscle wasting/fat depletion visible through out including clavicle , face, arms and legs Status Active Problem Recommendation Dietitian Recommendations/Changes ADAT to Regular with texture/ consistency per FERRY PILOT as medically able to optimize oral intakes. Recommend 120mL Ensure Plus High Protein to provide supplemental energy; consistency/texture as per FERRY PILOT . Lab / Micro Data Result Diagrams: 11/06/22 06:56 11/06/22 06:56 Labs: Laboratory Results - last 24 hr 11/06/22 06:56: Sodium 146 H, Potassium 3.7, Chloride 113 H, Carbon Dioxide 22.0, Anion Gap 11, BUN 13, Creatinine 0.62 L, Estim Creat Clear Calc 53.57, Est GFR (MDRD) Af Amer 163, Est GFR (MDRD) Non-Af 135, BUN/Creatinine Ratio 20.8 H, Glucose 57 L, Calcium 8.4 L 11/06/22 06:56: WBC 10.1, RBC 3.75 L, Hgb 11.2 L, Hct 35.8 L, MCV 95.5 H, MCH 29.9, MCHC 31.3 L, RDW Std Deviation 49.9 H, RDW Coeff of Gabrielle 14.4, Plt Count 210, MPV 9.4, Immature Gran % (Auto) 2.100 H, Neut % (Auto) 72.2 H, Lymph % (Auto) 12.4 L, Collier % (Auto) 11.5 H, Eos % (Auto) 0.9, Baso % (Auto) 0.9, A bsolute Neuts (auto) 7.3, Absolute Lymphs (auto) 1.26, Nucleated RBC % 0 Micro: Microbiology 11/01/22 11:35 Blood Culture (Wb) - Venous Blood Culture - Preliminary No growth in 48 hours. 11/01/22 11:25 Blood Culture (Wb) - Venous Blood Culture - Preliminary No growth in 48 hours. 11/01/22 13:45 Sputum, Induced/Lukens Gram Stain - Final 11/01/22 13:45 Sputum, Induced/Lukens Respiratory Culture - Final 11/01/22 11:54 Urine Catheter - Rodriguez Urine Culture - Final Culture exhibits no growth. 11/01/22 11:54 Urine Catheter - Rodriguez Legionella Antigen - Final 11/01/22 11:54 Urine Catheter - Rodriguez Streptococcus pneumoniae Antigen (M - Final 11/01/22 15:10 Mucosa - Nasopharyngeal Respiratory Panel (PCR) - Final Physical Exam Narrative General: Alert, No apparent distress, not very interactive or responsive to questions though he does make eye contact HEENT: Atraumatic, PERRLA, EOMI, Normocephalic Oral: Moist Mucosa Neck: Supple, No JVD Lungs: Diminished, Normal air movement, No rhonchi, No wheeze, No rales Cardiovascular: Regular rate, Regular Rhythm, Normal S1, Normal S2, No murmurs Abdomen: Soft, Non Tender, Non-Distended, No Hepato-splenomegaly Extremities: No edema, diminished distal pulses Skin: No rashes, No breakdown Musculoskeletal: No Tenderness to Palpation of Joints or Extremities Neurological: Motor Exam 5/5 strength throughout, Sensory exam intact to light touch and pain Psych/Mental Status: Flat Assessment & Plan Assessment/Plan (1) Unresponsive episode: (2) GI bleed: PLAN: Plan 1. Altered mental status then unresponsiveness, acute encephalopathy exact etiology unclear: Possible differential diagnosis are metabolic encephalopathy from upper GI bleed, hypercapnia or infectious: Patient is intubated on josi tilator. Patient is being admitted in ICU. MRI brain without contrast ordered when patient is hemodynamically stable. Rest as mentioned below 11/02: Patient opens eyes on command but does not follow motor function, hard. Possibility of seizure. Patient on Keppra. MRI of brain showed right temporal and posterior right frontal region consistent with acute cortical ischemia. Right temporal parietal chronic microvascular changes. Posterior fossa structures unremarkable. EEG still pending. Once we have the EEG he can have neuro consult but aspirin has been started after discussion with photographic specialist. 11/03: EEG pending 11/04: EEG is read as an abnormal EKG with generalized slowing with possible toxic or metabolic encephalopathy 11/05: Now that is extubated will obtain a speech therapy evaluation prior to starting a diet 11/06: Evaluated by speech therapy continue with n.p.o. status 2. Acute hypercapnic respiratory failure with COPD with high probability of exacerbation: As per POA, she did not notice acute change in breathing, cough or other URI symptoms. VBG 7.. Lactic acid 5.3. ABGs ordered. Patient is intubated on ventilator. Qa Software Tester consulted. Patient also history of smoking more than a pack per day since early age. 11/02: He still intubated, managed by photographic specialist. Discussed with Dr. Roger 11/03: Failed spontaneous breathing trial today, will attempt to identify POA and clarify CODE STATUS 11/04: Off sedation, will need extubated this afternoon after having conversation with the family and making him a DO NOT INTUBATE 11/05: Extubated maintaining oxygen sats on 4 L we will continue to monitor 3. Shock most likely septic shock: There is concern of sepsis in view of acute hypercapnic respiratory failure, lactic acidosis, increased creatinine and acute encephalopathy. Patient has leukocytosis. Chest x-ray does not show acute infiltrate. CTA chest abdomen pelvis ordered. Panculture ordered. Empirically patient started on IV vancomycin and Zosyn. Patient had IV fluid bolus 30 mill per KG. 11/02: No fever or chills. Patient on Levophed drip. Urinary antigens are negative. Respiratory panel negative. COVID-19 PCR negative. Blood cultures x2 are pending. Lactic acid improved. 11/06: All culture data is negative, will discontinue antibiotics 4. Upper GI bleed with concern of alcoholic hepatitis/cirrhosis with portal hypertension: Patient does not have prior abdominal imaging in our system. CTA chest abdomen and pelvis ordered by ER physician. OG tube still draining brownish/altered blood product. Hemoglobin 14.5/43.7%. H&H every 6 hourly for 24 hours. GI is consulted. Patient is started on Protonix drip after bolus and octreotide drip. Patient might have lactic acidosis from GI bleed. Patient is also history of longtime alcohol use disorder with more than 30 years of continuous, heavy drinking of whiskey. 11/02: Patient is still has NG tube and had altered blood on NG tube suction last night. Hemoglobin dropped about 2 to 3 g but does not need PRBC transfusion. Continue Protonix drip, octreotide drip and antibiotic. Discussed with the GI 11/03: Plan for EGD appreciate GIs assistance 11/04: EGD with multiple ulcers continue with present treatment 5. Inferior lateral wall STEMI after admission: Troponin 104. Cycle troponin enzymes. Serial EKG was done in ED from yesterday and today. First EKG from 10/31 shows sinus bradycardia 55 bpm. And today shows normal sinus rhythm with artifacts in inferior leads. Next EKG shows sinus irregular rhythm with PVCs and premature supraventricular complexes. EKG from 07/27 shows sinus rhythm with sinus arrhythmia. Patient does not have known prior cardiac disease. 11/02: Inferior lateral wall STEMI: Yesterday EKG showed ST elevation in inferior lateral leads suspicious for STEMI and patient was taken to Joint Supervisor. Troponin did not show any major delta change. Was found to have significant CAD with JUANCARLOS-3 flow with significant stenosis in LAD and RCA, vessels were heavily calcified. No major occluded epicardial coronary artery. Patient cannot have antiplatelet agent or antithrombotic agent due to GI bleed. CK high at 1189 therefore will hold for high intensity statin. Left leg PAD: My clinical suspicion is that patient has chronically occluded left lower DIRECTOR OF PUBLIC SAFETY and DPA with collaterals as there is no acute pale, cyanosis, mottling, or change in color but mild cold. No Doppler or palpable pulses felt at left PT and DPA. As revealed in cardiac cath with chronically significant stenosis with heavy calcification, I suspect similar pathology in left leg PAD. Unfortunately patient cannot have antithrombotic agent. Prior history of CVA: As per. No residual deficit from previous stroke. 6. Moderate chronic protein calorie malnutrition: BMI 16.5 kg/m?. Patient has mild to moderate muscle atrophy of extremities and craniofacial muscles. Breakfast And Room Attendant consult. Charges/Coding Visit Charges Inpatient E&M: 74802 Subs Hosp L2
--- NOTE | 2022-11-06 10:25 | CASEMGMT ---
TALI reviewed therapy notes and custodial facility is being recommended. TALI called patient's Healthcare Power of Plastic Welder (HCPOA) Mahi. TALI explained recommendations. Mahi said she would like for patient to come home. TALI explained that right now patient is not able to stand. Mahi said if patient can stand and walk a little bit she could take him home. Mahi would prefer [facility] as patient has been there in the past. Mahi declined a list of custodial facilities. Mahi was okay with SW making a referral to [facility]. TALI asked Darshana d/c production planning supervisor to please send a referral to [facility]. Elida Piña NEUROSURGERY PHYSICIAN SEAN
--- NOTE | 2022-11-06 10:42 | CASEMGMT ---
Discharge Planning Referral sent to [facility] via [facility]. Darshana Mcguire, Discharge Planning Asst.
--- NOTE | 2022-11-06 11:44 | WOUNDNOTE ---
wound photo: right elbow
--- NOTE | 2022-11-06 13:37 | NURSING ---
Patient 94% on 2L, weaned to RA
--- NOTE | 2022-11-06 13:59 | CASEMGMT ---
[facility]. [facility]: [facility] unless patient improves enough to go home with roommates. Elida Piña COSTUME MAKER SEAN
--- NOTE | 2022-11-06 17:40 | NURSING ---
Weaned to RA this shift, however, patient was 84% on RA when rechecked so placed back on 2L NC
[2022-11-07] VITALS (8 sets, daily range): BP systolic 104–140; BP diastolic 55–88; PULSE 71–100; RESP 18–20; TEMP 36.4–37; O2SAT 92–95; BMI 17.8
[2022-11-07 06:12] LABS: Anion Gap 9 (5-15); BUN 14 mg/dL (7-18); BUN/Creat Ratio 24.8 RATIO (10-20); Calcium,Total 8.1 mg/dL (8.5-10.1); Chloride 117 mmol/L (98-107); Creatinine, Serum 0.56 mg/dL (0.70-1.30); EST Glomerular Filtration Rate 151 mL/min (>60); Est Glom Filt Rate - Afr Amer 183 mL/min (>60); Estimated Creatinine Clearance 54.05 ml/min; Glucose 62 mg/dL (74-106); Potassium 3.4 mmol/L (3.5-5.1); Sodium Level 150 mmol/L (136-145)
[2022-11-07] MEDS: Ipratropium/Albuterol Sulfate 3 ML AMPUL.NEB INHALATION ×4 (06:47→23:28)
[2022-11-07] MEDS: 0.9% Saline Lock 10 ML Syringe IV ×2 (10:21→22:04)
--- NOTE | 2022-11-07 11:12 | ST.MBS ---
Modified Barium Swallow - Patient Information Study Date: 11/07/22 Study Time: 10:30 Direct Billable Minutes: 155 Total Minutes procedure & reportin Diagnosis: CVA (I63.9), STEMI (I21.3) Referring Physician: Steve Gilliam Reason for Referral: Objectively assess swallow function, risk for aspiration, and determine recommendations for least restrictive diet textures and compensatory strategies to improve safety of swallow. Medical History: Adis Ivey is a 72-year-old male with PMH including COPD, CVA, severe protein calorie malnutrition, current smoker, and ETOH abuse. He was brought to the [facility] ED 11/01/2022 for AMS for the past two days. He had presented 10/31/2022 for generalized weakness and concern of stroke as both arms felt numb and he could not get up. Basic work-up was done along with CT head did not show acute change. Mild hypokalemia and potassium replacement was sent home. As per friend and POA, he was still confused and disoriented at home so he brought him back to the ED. He also had dark-colored vomiting 1 time witnessed by . He became more confused, unresponsive, and was intubated. Patient was extubated 11/04/[address] consult to assess appropriateness for oral intake. Brain MRI 11/02/2022 IMPRESSION: 1. Focal acute cortical ischemic changes of the right frontal and temporal lobes. 2. Chronic ischemic changes. Current Diet Ordered: NPO Dentition: Missing Teeth Mental Status: Impaired Respiratory Status: Oxygenating on 2L/M nasal cannula - Penetration-Aspiration Scale Penetration-Aspiration Scale: OBJECTIVE ASSESSMENT OF SWALLOW FUNCTION (QUANTITATIVE ? PER TRIAL): PENETRATION / ASPIRATION SCALE (RAMSEY): 1 = does not enter airway 2 = enters airway/above vocal folds/ejected 3 = enters airway/above vocal folds/not ejected 4 = enters airway/contacts vocal folds/ejected 5 = enters airway/contacts vocal folds/not ejected 6 = enters airway/below vocal folds/ejected 7 = enters airway/below vocal folds/not ejected despite effort 8 = enters airway/below vocal folds/no effort VIDEOFLOROSCOPIC SCALE SCORE (RAMSEY): Grade I = aspiration of material that has penetrated into the laryngeal vestibule, intact cough reflex Grade II = aspiration < 10 % of the bolus, intact cough reflex Grade III = aspiration of < 10 % of the bolus, reduced cough reflex or aspiration of > 10 % of the bolus, intact cough reflex Grade IV = aspiration of > 10 % of the bolus, reduced cough reflex - Penetration-Aspiration Scale Score Pudding Result: 2= enter airway/above vocal folds/ejected Thin Liquid via single sip from straw Result: 3= enters airways/above vocal folds/not ejected Thin Liquid via single sip from straw Trial 2 Result: 8= enters airway/below vocal folds/no effort - Oral Phase Labial Seal: No Labial Escape Tongue Control During Bolus Hold: Posterior escape of greater than half of bolus Bolus Transport/Lingual Motion: Repetitive/disorganized tongue motion Oral Residue: Majority of bolus remaining - Pharyngeal Phase Initiation of Pharyngeal Swallow: Bolus head in pyriforms Soft Palate Elevation: No bolus between soft palate and pharyngeal wall Laryngeal Elevation: Min superior movement thyroid cart/min apprx aryte cart-epig petiole Anterior Hyoid Excursion: Partial anterior movement Epiglottic Movement: Partial inversion Laryngeal Vestibule Closure at Height of Swallow: Incomplete; narrow column of air/contrast in laryngeal vestibule Pharyngeal Stripping Wave: Present - diminished Pharyngoesophageal Segment Opening: Minimal distension and minimal duration; marked obstruction of flow Tongue Base Retraction: Wide column of contrast between tongue base & post. pharyngeal wall Pharyngeal Residue: Majority of contrast within or on pharyngeal structures - Diagnosis/Impression Diagnosis: severe oropharyngeal dysphagia R13.12 Impression: Patient participated in re-assessment of swallow function at bedside this morning 11/07/22 where he was able to tolerate several sips via straw and puree consistencies w/ no overt s/s of penetration/aspiration. As patient seemed to be tolerating PO at bedside, it was recommended for instrumental of swallow function to determine LRD to maintain adequate nutrition and hydration w/o overt s/s of dysphagia. During instrumental, patient w/ fluctuating alertness and difficult to follow commands. D/t patient's significant head tilt, a head strap was used for patient to be in an upright position. Under fluro, patient was provided w/ thin via straw and puree consistency. Patient is unable to trial thin via cup as his labial seal is very poor. D/t patient demonstrating poor swallow function in the first few trials, NATIONAL P[employer] T[employer] GUIDE decided to discontinue PO trials. Patient presents w/ severe oropharyngeal dysphagia. Oral phase primarily marked by... - lingual pumping w/ severely impaired AP transit contributing to significant oral residue. - patient requiring several swallows to clear 1 sip of thin via straw - patient requiring 6+ swallows to somewhat clear 1/2 tsp of pudding. - residue from the oral cavity spilling to the vallecula. - patient required several verbal cues to elicit swallow as one of the first thin via straw trials, patient did not elicit swallow as bolus spilled to the pyriforms. Pharyngeal phase primarily marked by... - significantly delayed pharyngeal swallow onset resulting in suboptimal bolus location upon swallow onset. Bolus in the pyriforms upon swallow onset. - reduced airway closure w/ thin via straw attributed to reduced laryngeal elevation, anterior hyoid excursion, and insufficient epiglottic inversion. - penetration of pudding and silent aspiration of thin via straw observed under fluro. - poor pharyngeal motility resulting in significant pharyngeal residue remaining in the vallecula and pyriforms. N[employer] T[employer] GUIDE provided patient w/ liquid wash that did NOT decrease pharyngeal residue. Patient does independently complete multiple swallows to clear pharyngeal residues however multiple swallows only minimally decreases residue. - little to no UES opening resulting in residue remaining in the vallecula and pyriforms. Recommending GI consult. Patient is at very high risk for pre and post prandial aspiration. - Recommendations Diet: NPO Recommend Repeat Modified Barium Swallow: Yes Need for Skilled Speech Therapy Services: Yes Recommended Referrals: GI Consult Education Completed: 1. Described result of evaluation., 2. Pt understands evaluation & agrees with goals and treatment plan. - Status Active ST Patient: Active - Contact Information [facility] Speech Therapy:: Christelle Herrera M.A. [facility]-[employer] GUIDE Speech-Language Pathologist [facility] [address] [place] [address] [email or web address] [phone] 11/07/22 14:15
--- NOTE | 2022-11-07 11:14 | PCM.PN.HOSP ---
Subjective Subjective Doing well, no issues overnight Objective Data Objective Data Vital Signs: Vital Signs Temp Pulse Resp BP Pulse Ox O2 Del Method O2 Flow Rate 98.4 F 89 20 H 140/77 H 93 Nasal Cannula 2 11/07/22 03:20 11/07/22 06:47 11/07/22 06:47 11/07/22 03:20 11/07/22 06:47 11/07/22 06:47 11/07/22 06:47 FiO2 40 11/04/22 12:00 Oxygen Flow Rate (L/min) 2 Oxygen Delivery Method Nasal Cannula Weight: 124 lb 5.451 oz Body Mass Index (BMI) 17.8 Intake & Output: Intake and Output for Last 24 Hours 11/06/22 11/07/22 11/08/22 03:59 03:59 03:59 Intake Total 635.0 / 635.0 485.0 / 485.0 Output Total 1210 / 1210 750 / 750 150 / 150 Balance -575.0 / -575.0 -265.0 / -265.0 -150 / -150 Medical Nutrition Assessment Dietitian: Malnutrition Criteria Met Start: 11/01/22 14:49 Freq: Status: Active Protocol: Document 11/05/22 10:31 LO (Rec: 11/05/22 10:32 [id number]) Nutrition Malnutrition Evidence of Malnutrition Exists Yes Malnutrition (severe): Chronic,Social/Behavioral/ Environmental Evidenced By Suboptimal Energy Intake ( Severe),Weight Loss (Severe), Physical Changes (Severe) Intake Problem Inadequate Oral Intake Etiology related to inability to consume sufficient energy Signs/Symptoms as evidenced by NPO pending speech therapy evaluation. Status Active Problem Clinical Problem Chronic Disease or Condition Related Malnutrition Etiology Severe protein-calorie malnutrition in the context of chronic disease and social circumstance related to ETOH abuse and inadequate oral intake Signs/Symptoms as evidenced by BMI 16.6, currently NPO, ~6% recent wt loss noted x past 4-5 months, poor oral intake meeting less than 50% estimated nutrition needs x past 6-12 months, physical symptoms of muscle wasting/fat depletion visible through out including clavicle , face, arms and legs Status Active Problem Recommendation Dietitian Recommendations/Changes ADAT to Regular with texture/ consistency per OBSTETRICAL ANESTHESIOLOGIST as medically able to optimize oral intakes. Recommend 120mL Ensure Plus High Protein to provide supplemental energy; consistency/texture as per OBSTETRICAL ANESTHESIOLOGIST . Lab / Micro Data Result Diagrams: 11/06/22 06:56 11/07/22 05:18 Labs: Laboratory Results - last 24 hr 11/07/22 05:18: Sodium 150 H, Potassium 3.4 L, Chloride 117 H, Carbon Dioxide 24.0, Anion Gap 9, BUN 14, Creatinine 0.56 L, Estim Creat Clear Calc 54.05, Est GFR (MDRD) Af Amer 183, Est GFR (MDRD) Non-Af 151, BUN/Creatinine Ratio 24.8 H, Glucose 62 L, Calcium 8.1 L Micro: Microbiology 11/01/22 11:35 Blood Culture (Wb) - Venous Blood Culture - Final No growth in 5 days. 11/01/22 11:25 Blood Culture (Wb) - Venous Blood Culture - Final No growth in 5 days. 11/01/22 13:45 Sputum, Induced/Lukens Gram Stain - Final 11/01/22 13:45 Sputum, Induced/Lukens Respiratory Culture - Final 11/01/22 11:54 Urine Catheter - Rodriguez Urine Culture - Final Culture exhibits no growth. 11/01/22 11:54 Urine Catheter - Rodriguez Legionella Antigen - Final 11/01/22 11:54 Urine Catheter - Rodriguez Streptococcus pneumoniae Antigen (M - Final 11/01/22 15:10 Mucosa - Nasopharyngeal Respiratory Panel (PCR) - Final Physical Exam Narrative General: Alert, No apparent distress, cooperative HEENT: Atraumatic, PERRLA, EOMI, Normocephalic Oral: Moist Mucosa Neck: Supple, No JVD Lungs: Diminished, Normal air movement, No rhonchi, No wheeze, No rales Cardiovascular: Regular rate, Regular Rhythm, Normal S1, Normal S2, No murmurs Abdomen: Soft, Non Tender, Non-Distended, No Hepato-splenomegaly Extremities: No edema, diminished distal pulses Skin: No rashes, No breakdown Musculoskeletal: No Tenderness to Palpation of Joints or Extremities Neurological: Motor Exam 5/5 strength throughout, Sensory exam intact to light touch and pain Psych/Mental Status: Flat Assessment & Plan Assessment/Plan (1) Unresponsive episode: (2) GI bleed: PLAN: Plan 1. Altered mental status then unresponsiveness, acute encephalopathy exact etiology unclear/CVA: Possible differential diagnosis are metabolic encephalopathy from upper GI bleed, hypercapnia or infectious: Patient is intubated on ventilator. Patient is being admitted in ICU. MRI brain without contrast ordered when patient is hemodynamically stable. Rest as mentioned below 11/02: Patient opens eyes on command but does not follow motor function, hard. Possibility of seizure. Patient on Keppra. MRI of brain showed right temporal and posterior right frontal region consistent with acute cortical ischemia. Right temporal parietal chronic microvascular changes. Posterior fossa structures unremarkable. EEG still pending. Once we have the EEG he can have neuro consult but aspirin has been started after discussion with secretary board of commissioners. 11/03: EEG pending 11/04: EEG is read as an abnormal EKG with generalized slowing with possible toxic or metabolic encephalopathy 11/05: Now that is extubated will obtain a speech therapy evaluation prior to starting a diet 11/06: Evaluated by speech therapy continue with n.p.o. status 2. Acute hypercapnic respiratory failure with COPD with high probability of exacerbation: As per POA, she did not notice acute change in breathing, cough or other URI symptoms. VBG 7.. Lactic acid 5.3. ABGs ordered. Patient is intubated on ventilator. Hot Die Press Operator consulted. Patient also history of smoking more than a pack per day since early age. 11/02: He still intubated, managed by secretary board of commissioners. Discussed with Dr. Roger 11/03: Failed spontaneous breathing trial today, will attempt to identify POA and clarify CODE STATUS 11/04: Off sedation, will need extubated this afternoon after having conversation with the family and making him a DO NOT INTUBATE 11/05: Extubated maintaining oxygen sats on 4 L we will continue to monitor 11/07: Oxygen requirement is slowly improving 3. Shock most likely septic shock: There is concern of sepsis in view of acute hypercapnic respiratory failure, lactic acidosis, increased creatinine and acute encephalopathy. Patient has leukocytosis. Chest x-ray does not show acute infiltrate. CTA chest abdomen pelvis ordered. Panculture ordered. Empirically patient started on IV vancomycin and Zosyn. Patient had IV fluid bolus 30 mill per KG. 11/02: No fever or chills. Patient on Levophed drip. Urinary antigens are negative. Respiratory panel negative. COVID-19 PCR negative. Blood cultures x2 are pending. Lactic acid improved. 11/06: All culture data is negative, will discontinue antibiotics 4. Upper GI bleed with concern of alcoholic hepatitis/cirrhosis with portal hypertension: Patient does not have prior abdominal imaging in our system. CTA chest abdomen and pelvis ordered by ER physician. OG tube still draining brownish/altered blood product. Hemoglobin 14.5/43.7%. H&H every 6 hourly for 24 hours. GI is consulted. Patient is started on Protonix drip after bolus and octreotide drip. Patient might have lactic acidosis from GI bleed. Patient is also history of longtime alcohol use disorder with more than 30 years of continuous, heavy drinking of whiskey. 11/02: Patient is still has NG tube and had altered blood on NG tube suction last night. Hemoglobin dropped about 2 to 3 g but does not need PRBC transfusion. Continue Protonix drip, octreotide drip and antibiotic. Discussed with the GI 11/03: Plan for EGD appreciate GIs assistance 11/04: EGD with multiple ulcers continue with present treatment 5. Inferior lateral wall STEMI after admission: Troponin 104. Cycle troponin enzymes. Serial EKG was done in ED from yesterday and today. First EKG from 10/31 shows sinus bradycardia 55 bpm. And today shows normal sinus rhythm with artifacts in inferior leads. Next EKG shows sinus irregular rhythm with PVCs and premature supraventricular complexes. EKG from 07/27 shows sinus rhythm with sinus arrhythmia. Patient does not have known prior cardiac disease. 11/02: Inferior lateral wall STEMI: Yesterday EKG showed ST elevation in inferior lateral leads suspicious for STEMI and patient was taken to Set Up Technician. Troponin did not show any major delta change. Was found to have significant CAD with JUANCARLOS-3 flow with significant stenosis in LAD and RCA, vessels were heavily calcified. No major occluded epicardial coronary artery. Patient cannot have antiplatelet agent or antithrombotic agent due to GI bleed. CK high at 1189 therefore will hold for high intensity statin. 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 No Doppler or palpable pulses felt at left PT and DPA. As revealed in cardiac cath with chronically significant stenosis with heavy calcification, I suspect similar pathology in left leg PAD. Unfortunately patient cannot have antithrombotic agent. Prior history of CVA: As per. No residual deficit from previous stroke. 6. Moderate chronic protein calorie malnutrition: BMI 16.5 kg/m?. Patient has mild to moderate muscle atrophy of extremities and craniofacial muscles. Supervisor [employer] consult. Disposition: Pending SNF placement Charges/Coding Visit Charges Inpatient E&M: 27047 Subs Hosp L2
[2022-11-07 11:44] LABS: Phosphorus 2.1 mg/dL (2.5-4.9)
--- NOTE | 2022-11-07 12:37 | CASEMGMT ---
SW completed PASRR in HENS. Elida Piña NEWS PRODUCTION SUPERVISOR SEAN
--- NOTE | 2022-11-07 13:31 | CASEMGMT ---
TALI called patient's Healthcare Power of Fancy Stitcher, Mahi and left her a voice mail letting her know [facility] can take patient. TALI did tell Mahi patient was not able to stand with therapy again today. Physician thinks patient will be here through the weekend and if that is the case SW can follow up with her on Thursday. However, if patient is ready over the weekend patient can go to [facility]. Plan: d/c to [facility] under skilled level of care. Elida ESTRADA
[2022-11-08] VITALS (14 sets, daily range): BP systolic 82–143; BP diastolic 49–90; PULSE 70–97; RESP 16–20; TEMP 36.8–37.3; O2SAT 84–98; BMI 17.8; BMI 18.1
[2022-11-08] MEDS: Ipratropium/Albuterol Sulfate 3 ML AMPUL.NEB INHALATION ×5 (03:39→19:45)
[2022-11-08 07:15] LABS: Absolute Lymphocyte Count 1.17 X10^3/uL (0.83-4.51); Absolute Neutrophil Count 3.7 X10^3/uL (2.0-7.7); Basophil# 0.06 X10^3/uL; Eosinophil# 0.27 X10^3/uL; Eosinophils% 4.6 % (0-5); Hematocrit 30.4 % (40-54); Hemoglobin 9.5 g/dL (13.0-16.5); Lymphocyte # 1.17 X10^3/ul (0.83-4.51); Lymphocyte % 20.1 % (19-41); Mean Corp Hgb Conc 31.3 g/dL (32-36); Mean Corpuscular Hgb 29.5 pg (27.0-32.0); Mean Corpuscular Volume 94.4 fL (80-94); Mean Platelet Vol. 9.2 fl (6.2-12.0); Monocyte% 8.6 % (0-10); NRBC Flagged by Analyzer 0 % (0-5); Neutrophil # 3.65 X10^3/uL (2.7-7.7); Neutrophil % 62.9 % (47-70); Platelet Count 186 K/mm3 (150-450); RBC Distribution Width CV 14.3 % (11.6-14.6); RBC Distribution Width SD 48.7 fl (35.1-43.9); Red Blood Count 3.22 M/mm3 (4.6-6.2); White Blood Count 5.8 K/mm3 (4.4-11.0)
[2022-11-08 07:52] LABS: Anion Gap 7 (5-15); BUN 9 mg/dL (7-18); Calcium,Total 7.5 mg/dL (8.5-10.1); Chloride 113 mmol/L (98-107); EST Glomerular Filtration Rate 174 mL/min (>60); Est Glom Filt Rate - Afr Amer 211 mL/min (>60); Estimated Creatinine Clearance 54.82 ml/min; Glucose 112 mg/dL (74-106); Potassium 2.7 mmol/L (3.5-5.1); Sodium Level 148 mmol/L (136-145)
[2022-11-08 09:39] LABS: Magnesium 1.8 mg/dL (1.6-2.6); Phosphorus 2.1 mg/dL (2.5-4.9)
--- NOTE | 2022-11-08 10:04 | PCM.PN.HOSP ---
Subjective Subjective No issues overnight, he failed his cookie swallow yesterday and not very alert or interactive early this morning Objective Data Objective Data Vital Signs: Vital Signs Temp Pulse Resp BP Pulse Ox O2 Del Method O2 Flow Rate 99 F 71 16 143/70 H 95 Nasal Cannula 2 11/08/22 03:46 11/08/22 06:44 11/08/22 06:44 11/08/22 03:46 11/08/22 06:44 11/08/22 06:44 11/08/22 06:44 FiO2 40 11/04/22 12:00 Oxygen Flow Rate (L/min) 2 Oxygen Delivery Method Nasal Cannula Weight: 126 lb 1.671 oz Body Mass Index (BMI) 18.1 Intake & Output: Intake and Output for Last 24 Hours 11/07/22 11/08/22 11/09/22 03:59 03:59 03:59 Intake Total 485.0 / 485.0 1742.0 / 1742.0 0 / 0 Output Total 750 / 750 650 / 650 150 / 150 Balance -265.0 / -265.0 1092.0 / 1092.0 -150 / -150 Medical Nutrition Assessment Dietitian: Malnutrition Criteria Met Start: 11/01/22 14:49 Freq: Status: Active Protocol: Document 11/05/22 10:31 LO (Rec: 11/05/22 10:32 [id number]) Nutrition Malnutrition Evidence of Malnutrition Exists Yes Malnutrition (severe): Chronic,Social/Behavioral/ Environmental Evidenced By Suboptimal Energy Intake ( Severe),Weight Loss (Severe), Physical Changes (Severe) Intake Problem Inadequate Oral Intake Etiology related to inability to consume sufficient energy Signs/Symptoms as evidenced by NPO pending speech therapy evaluation. Status Active Problem Clinical Problem Chronic Disease or Condition Related Malnutrition Etiology Severe protein-calorie malnutrition in the context of chronic disease and social circumstance related to ETOH abuse and inadequate oral intake Signs/Symptoms as evidenced by BMI 16.6, currently NPO, ~6% recent wt loss noted x past 4-5 months, poor oral intake meeting less than 50% estimated nutrition needs x past 6-12 months, physical symptoms of muscle wasting/fat depletion visible through out including clavicle , face, arms and legs Status Active Problem Recommendation Dietitian Recommendations/Changes ADAT to Regular with texture/ consistency per PHOTOVOLTAIC PANEL INSTALLER as medically able to optimize oral intakes. Recommend 120mL Ensure Plus High Protein to provide supplemental energy; consistency/texture as per PHOTOVOLTAIC PANEL INSTALLER . Lab / Micro Data Result Diagrams: 11/08/22 06:26 11/08/22 06:26 Labs: Laboratory Results - last 24 hr 11/07/22 05:18: Phosphorus 2.1 L, Magnesium 2.0 11/08/22 06:26: WBC 5.8, RBC 3.22 L, Hgb 9.5 L, Hct 30.4 L, MCV 94.4 H, MCH 29.5, MCHC 31.3 L, RDW Std Deviation 48.7 H, RDW Coeff of Gabrielle 14.3, Plt Count 186, MPV 9.2, Immature Gran % (Auto) 2.800 H, Neut % (Auto) 62.9, Lymph % (Auto) 20.1, [place] % (Auto) 8.6, Eos % (Auto) 4.6, Baso % (Auto) 1.0, Absolute Neuts (auto) 3.7, Absolute Lymphs (auto) 1.17, Nucleated RBC % 0 11/08/22 06:26: Sodium 148 H, Potassium 2.7 L*, Chloride 113 H, Carbon Dioxide 28.0, Anion Gap 7, BUN 9, Creatinine 0.50 L, Estim Creat Clear Calc 54.82, Est GFR (MDRD) Af Amer 211, Est GFR (MDRD) Non-Af 174, BUN/Creatinine Ratio 18.0, Glucose 112 H, Calcium 7.5 L 11/08/22 06:26: Phosphorus 2.1 L, Magnesium 1.8 Micro: Microbiology 11/01/22 11:35 Blood Culture (Wb) - Venous Blood Culture - Final No growth in 5 days. 11/01/22 11:25 Blood Culture (Wb) - Venous Blood Culture - Final No growth in 5 days. 11/01/22 13:45 Sputum, Induced/Lukens Gram Stain - Final 11/01/22 13:45 Sputum, Induced/Lukens Respiratory Culture - Final 11/01/22 11:54 Urine Catheter - Rodriguez Urine Culture - Final Culture exhibits no growth. 11/01/22 11:54 Urine Catheter - Rodriguez Legionella Antigen - Final 11/01/22 11:54 Urine Catheter - Rodriguez Streptococcus pneumoniae Antigen (M - Final 11/01/22 15:10 Mucosa - Nasopharyngeal Respiratory Panel (PCR) - Final Physical Exam Narrative General: Drowsy but arousable, No apparent distress, cooperative HEENT: Atraumatic, PERRLA, EOMI, Normocephalic Oral: Moist Mucosa Neck: Supple, No JVD Lungs: Diminished, Normal air movement, No rhonchi, No wheeze, No rales Cardiovascular: Regular rate, Regular Rhythm, Normal S1, Normal S2, No murmurs Abdomen: Soft, Non Tender, Non-Distended, No Hepato-splenomegaly Extremities: No edema, diminished distal pulses Skin: No rashes, No breakdown Musculoskeletal: No Tenderness to Palpation of Joints or Extremities Neurological: Motor Exam 5/5 strength throughout, Sensory exam intact to light touch and pain Psych/Mental Status: Flat Const General Appearance: intubated and patient mechanically ventilated HEENT normocephalic Eyes PERRL and conjunctivae normal Neck supple and no JVD Resp normal respiratory effort, no retractions and no use of accessory muscles Resp Narrative: Diminished Auscultation: Negative for crackles, rales, rhonchi or wheezes Cardio regular rate, regular rhythm, S1 normal heart sound, S2 normal heart sound and no murmurs GI soft to palpation and non-distended; Negative for hepatosplenomegaly Extremity no clubbing, cyanosis or edema Skin no rashes or lesions noted Neuro Sensorium / Orientation: sedated on vent Psych Appearance: intubated Assessment & Plan Assessment/Plan (1) Unresponsive episode: (2) GI bleed: PLAN: Plan 1. Altered mental status then unresponsiveness, acute encephalopathy exact etiology unclear/CVA: Possible differential diagnosis are metabolic encephalopathy from upper GI bleed, hypercapnia or infectious: Patient is intubated on ventilator. Patient is being admitted in ICU. MRI brain without contrast ordered when patient is hemodynamically stable. Rest as mentioned below 11/02: Patient opens eyes on command but does not follow motor function, hard. Possibility of seizure. Patient on Keppra. MRI of brain showed right temporal and posterior right frontal region consistent with acute cortical ischemia. Right temporal parietal chronic microvascular changes. Posterior fossa structures unremarkable. EEG still pending. Once we have the EEG he can have neuro consult but aspirin has been started after discussion with rn mental health. 11/03: EEG pending 11/04: EEG is read as an abnormal EKG with generalized slowing with possible toxic or metabolic encephalopathy 11/05: Now that is extubated will obtain a speech therapy evaluation prior to starting a diet 11/06: Evaluated by speech therapy continue with n.p.o. status 11/08: Had a modified barium swallow which places him at very high risk for aspiration he is continued n.p.o. status. Based on this alone will need to discuss with his POA advance care planning as I do not think that he is a great candidate for PEG tube 2. Acute hypercapnic respiratory failure with COPD with high probability of exacerbation: As per POA, she did not notice acute change in breathing, cough or other URI symptoms. VBG 7.. Lactic acid 5.3. ABGs ordered. Patient is intubated on ventilator. Radio Assembler consulted. Patient also history of smoking more than a pack per day since early age. 11/02: He still intubated, managed by rn mental health. Discussed with Dr. Roger 11/03: Failed spontaneous breathing trial today, will attempt to identify POA and clarify CODE STATUS 11/04: Off sedation, will need extubated this afternoon after having conversation with the family and making him a DO NOT INTUBATE 11/05: Extubated maintaining oxygen sats on 4 L we will continue to monitor 11/07: Oxygen requirement is slowly improving 3. Shock most likely septic shock: There is concern of sepsis in view of acute hypercapnic respiratory failure, lactic acidosis, increased creatinine and acute encephalopathy. Patient has leukocytosis. Chest x-ray does not show acute infiltrate. CTA chest abdomen pelvis ordered. Panculture ordered. Empirically patient started on IV vancomycin and Zosyn. Patient had IV fluid bolus 30 mill per KG. 11/02: No fever or chills. Patient on Levophed drip. Urinary antigens are negative. Respiratory panel negative. COVID-19 PCR negative. Blood cultures x2 are pending. Lactic acid improved. 11/06: All culture data is negative, will discontinue antibiotics 4. Upper GI bleed with concern of alcoholic hepatitis/cirrhosis with portal hypertension: Patient does not have prior abdominal imaging in our system. CTA chest abdomen and pelvis ordered by ER physician. OG tube still draining brownish/altered blood product. Hemoglobin 14.5/43.7%. H&H every 6 hourly for 24 hours. GI is consulted. Patient is started on Protonix drip after bolus and octreotide drip. Patient might have lactic acidosis from GI bleed. Patient is also history of longtime alcohol use disorder with more than 30 years of continuous, heavy drinking of whiskey. 11/02: Patient is still has NG tube and had altered blood on NG tube suction last night. Hemoglobin dropped about 2 to 3 g but does not need PRBC transfusion. Continue Protonix drip, octreotide drip and antibiotic. Discussed with the GI 11/03: Plan for EGD appreciate GIs assistance 11/04: EGD with multiple ulcers continue with present treatment 5. Inferior lateral wall STEMI after admission: Troponin 104. Cycle troponin enzymes. Serial EKG was done in ED from yesterday and today. First EKG from 10/31 shows sinus bradycardia 55 bpm. And today shows normal sinus rhythm with artifacts in inferior leads. Next EKG shows sinus irregular rhythm with PVCs and premature supraventricular complexes. EKG from 07/27 shows sinus rhythm with sinus arrhythmia. Patient does not have known prior cardiac disease. 11/02: Inferior lateral wall STEMI: Yesterday EKG showed ST elevation in inferior lateral leads suspicious for STEMI and patient was taken to Nuclear Plant Equipment Operator. Troponin did not show any major delta change. Was found to have significant CAD with JUANCARLOS-3 flow with significant stenosis in LAD and RCA, vessels were heavily calcified. No major occluded epicardial coronary artery. Patient cannot have antiplatelet agent or antithrombotic agent due to GI bleed. CK high at 1189 therefore will hold for high intensity statin. 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 No Doppler or palpable pulses felt at left PT and DPA. As revealed in cardiac cath with chronically significant stenosis with heavy calcification, I suspect similar pathology in left leg PAD. Unfortunately patient cannot have antithrombotic agent. Prior history of CVA: As per. No residual deficit from previous stroke. 6. Moderate chronic protein calorie malnutrition: BMI 16.5 kg/m?. Patient has mild to moderate muscle atrophy of extremities and craniofacial muscles. Pricing Lead consult. Disposition: Pending SNF placement Charges/Coding Visit Charges Inpatient E&M: 00061 Subs Hosp L2
[2022-11-08] MEDS: Potassium Chloride 10mEq/100mL 10 MEQ/100 ML IV.SOLN. 100 MEQ IV BOLUS ×3 (11:42→14:44)
[2022-11-08] MEDS: NYSTATIN 500,000 UNIT/5 ML UDC 500000 UNIT PO ×2 (17:46→22:01)
[2022-11-09] VITALS (11 sets, daily range): BP systolic 133–146; BP diastolic 66–82; PULSE 82–105; RESP 16–28; TEMP 36.1–37.1; O2SAT 92–96; BMI 18.1; BMI 18.3
[2022-11-09 05:42] LABS: Absolute Lymphocyte Count 1.04 X10^3/uL (0.83-4.51); Absolute Neutrophil Count 4.3 X10^3/uL (2.0-7.7); Basophil# 0.04 X10^3/uL; Basophil% 0.6 % (0-1); Eosinophils% 6.3 % (0-5); Hematocrit 31.8 % (40-54); Hemoglobin 10.2 g/dL (13.0-16.5); Lymphocyte # 1.04 X10^3/ul (0.83-4.51); Lymphocyte % 16.3 % (19-41); Mean Corp Hgb Conc 32.1 g/dL (32-36); Mean Corpuscular Volume 93.5 fL (80-94); Mean Platelet Vol. 8.9 fl (6.2-12.0); Monocyte# 0.44 X10^3/uL; Monocyte% 6.9 % (0-10); NRBC Flagged by Analyzer 0 % (0-5); Neutrophil % 67.1 % (47-70); Platelet Count 192 K/mm3 (150-450); RBC Distribution Width CV 14.2 % (11.6-14.6); RBC Distribution Width SD 48.7 fl (35.1-43.9); White Blood Count 6.4 K/mm3 (4.4-11.0)
[2022-11-09 06:28] LABS: Anion Gap 6 (5-15); BUN 6 mg/dL (7-18); BUN/Creat Ratio 15.2 RATIO (10-20); Calcium,Total 7.4 mg/dL (8.5-10.1); Chloride 109 mmol/L (98-107); EST Glomerular Filtration Rate 228 mL/min (>60); Est Glom Filt Rate - Afr Amer 276 mL/min (>60); Estimated Creatinine Clearance 55.58 ml/min; Glucose 104 mg/dL (74-106); Phosphorus 2.5 mg/dL (2.5-4.9); Potassium 2.9 mmol/L (3.5-5.1); Sodium Level 141 mmol/L (136-145)
[2022-11-09] MEDS: Ipratropium/Albuterol Sulfate 3 ML AMPUL.NEB INHALATION ×4 (06:50→19:29)
[2022-11-09] MEDS: NYSTATIN 500,000 UNIT/5 ML UDC 500000 UNIT PO ×4 (09:52→22:19)
--- NOTE | 2022-11-09 10:29 | NURSING ---
pt again during assessment noted to have breakthrough seizures. noted 2 within 15min lasting about 30sec. pt eyes deviate to lt and head will turn and just stares with no corneal reflex. increased resp rate also noted during episode and arms bassam lt with extension. dr clarkeonas aware.
--- NOTE | 2022-11-09 10:30 | PN.HOSP_ITS ---
Subjective Subjective More alert today, he does not know where he is but he knows what year it is Objective Data Objective Data Vital Signs: Vital Signs Temp Pulse Resp BP Pulse Ox O2 Del Method O2 Flow Rate 98.8 F 87 16 141/66 H 95 Nasal Cannula 2 11/09/22 04:03 11/09/22 06:50 11/09/22 06:50 11/09/22 04:03 11/09/22 06:50 11/09/22 06:50 11/09/22 06:50 FiO2 40 11/04/22 12:00 Oxygen Flow Rate (L/min) 2 Oxygen Delivery Method Nasal Cannula Weight: 127 lb 13.89 oz Body Mass Index (BMI) 18.3 Intake & Output: Intake and Output for Last 24 Hours 11/08/22 11/09/22 11/10/22 03:59 03:59 03:59 Intake Total 1742.0 / 1742.0 2099.0 / 2099.0 903.75 / 903.75 Output Total 650 / 650 600 / 600 250 / 250 Balance 1092.0 / 1092.0 1499.0 / 1499.0 653.75 / 653.75 Medical Nutrition Assessment Dietitian: Malnutrition Criteria Met Start: 11/01/22 14:49 Freq: Status: Active Protocol: Document 11/08/22 11:11 ANG (Rec: 11/08/22 11:11 [id number]) Nutrition Malnutrition Evidence of Malnutrition Exists Yes Malnutrition (severe): Chronic,Social/Behavioral/ Environmental Evidenced By Suboptimal Energy Intake ( Severe),Weight Loss (Severe), Physical Changes (Severe) Intake Problem Inadequate Oral Intake Etiology related to inability to consume sufficient energy Signs/Symptoms as evidenced by NPO x7 days. Status Active Problem Clinical Problem Chronic Disease or Condition Related Malnutrition Etiology Severe protein-calorie malnutrition in the context of chronic disease and social circumstance related to ETOH abuse and inadequate oral intake Signs/Symptoms as evidenced by BMI 16.6, currently NPO, ~6% recent wt loss noted x past 4-5 months, poor oral intake meeting less than 50% estimated nutrition needs x past 6-12 months, physical symptoms of muscle wasting/fat depletion visible through out including clavicle , face, arms and legs Status Active Problem Recommendation Dietitian Recommendations/Changes ADAT to Regular with texture/ consistency per PREPARATION SUPERVISOR as medically able to optimize oral intakes. Recommend 120mL Ensure Plus High Protein to provide supplemental energy; consistency/texture as per PREPARATION SUPERVISOR . Lab / Micro Data Result Diagrams: 11/09/22 05:11 11/09/22 05:11 Labs: Laboratory Results - last 24 hr 11/09/22 05:11: WBC 6.4, RBC 3.40 L, Hgb 10.2 L, Hct 31.8 L, MCV 93.5, MCH 30.0, MCHC 32.1, RDW Std Deviation 48.7 H, RDW Coeff of Gabrielle 14.2, Plt Count 192, MPV 8.9, Immature Gran % (Auto) 2.800 H, Neut % (Auto) 67.1, Lymph % (Auto) 16.3 L, [place] % (Auto) 6.9, Eos % (Auto) 6.3 H, Baso % (Auto) 0.6, Absolute Neuts (auto) 4.3, Absolute Lymphs (auto) 1.04, Nucleated RBC % 0 11/09/22 05:11: Sodium 141, Potassium 2.9 L, Chloride 109 H, Carbon Dioxide 26.0, Anion Gap 6, BUN 6 L, Creatinine 0.40 L, Estim Creat Clear Calc 55.58, Est GFR (MDRD) Af Amer 276, Est GFR (MDRD) Non-Af 228, BUN/Creatinine Ratio 15.2, Glucose 104, Calcium 7.4 L, Phosphorus 2.5, Magnesium 2.0 Micro: Microbiology 11/01/22 11:35 Blood Culture (Wb) - Venous Blood Culture - Final No growth in 5 days. 11/01/22 11:25 Blood Culture (Wb) - Venous Blood Culture - Final No growth in 5 days. 11/01/22 13:45 Sputum, Induced/Lukens Gram Stain - Final 11/01/22 13:45 Sputum, Induced/Lukens Respiratory Culture - Final 11/01/22 11:54 Urine Catheter - Rodriguez Urine Culture - Final Culture exhibits no growth. 11/01/22 11:54 Urine Catheter - Rodriguez Legionella Antigen - Final 11/01/22 11:54 Urine Catheter - Rodriguez Streptococcus pneumoniae Antigen (M - Final 11/01/22 15:10 Mucosa - Nasopharyngeal Respiratory Panel (PCR) - Final Physical Exam Narrative General: Alerrt, No apparent distress, cooperative HEENT: Atraumatic, PERRLA, EOMI, Normocephalic Oral: Moist Mucosa Neck: Supple, No JVD Lungs: Diminished, Normal air movement, No rhonchi, No wheeze, No rales Cardiovascular: Regular rate, Regular Rhythm, Normal S1, Normal S2, No murmurs Abdomen: Soft, Non Tender, Non-Distended, No Hepato-splenomegaly Extremities: No edema, diminished distal pulses Skin: No rashes, No breakdown Musculoskeletal: No Tenderness to Palpation of Joints or Extremities Neurological: Motor Exam 5/5 strength throughout, Sensory exam intact to light touch and pain Psych/Mental Status: Flat Assessment & Plan Assessment/Plan (1) Unresponsive episode: (2) GI bleed: PLAN: Plan 1. Altered mental status then unresponsiveness, acute encephalopathy exact etiology unclear/CVA: Possible differential diagnosis are metabolic encephalopathy from upper GI bleed, hypercapnia or infectious: Patient is intubated on ventilator. Patient is being admitted in ICU. MRI brain without contrast ordered when patient is hemodynamically stable. Rest as mentioned below 11/02: Patient opens eyes on command but does not follow motor function, hard. Possibility of seizure. Patient on Keppra. MRI of brain showed right temporal and posterior right frontal region consistent with acute cortical ischemia. Right temporal parietal chronic microvascular changes. Posterior fossa structures unremarkable. EEG still pending. Once we have the EEG he can have neuro consult but aspirin has been started after discussion with roof designer. 11/03: EEG pending 11/04: EEG is read as an abnormal EKG with generalized slowing with possible toxic or metabolic encephalopathy 11/05: Now that is extubated will obtain a speech therapy evaluation prior to starting a diet 11/06: Evaluated by speech therapy continue with n.p.o. status 11/08: Had a modified barium swallow which places him at very high risk for aspiration he is continued n.p.o. status. Based on this alone will need to discuss with his A advance care planning as I do not think that he is a great candidate for PEG tube 11/09: We will increase Keppra to 1000 mg twice daily as nursing is noticing activity consistent with seizures 2. Acute hypercapnic respiratory failure with COPD with high probability of exacerbation: As per POA, she did not notice acute change in breathing, cough or other URI symptoms. VBG 7.. Lactic acid 5.3. ABGs ordered. Patient is intubated on ventilator. Automated Equipment Engineer Technician consulted. Patient also history of smoking more than a pack per day since early age. 11/02: He still intubated, managed by roof designer. Discussed with Dr. Roger 11/03: Failed spontaneous breathing trial today, will attempt to identify POA and clarify CODE STATUS 11/04: Off sedation, will need extubated this afternoon after having conversation with the family and making him a DO NOT INTUBATE 11/05: Extubated maintaining oxygen sats on 4 L we will continue to monitor 11/07: Oxygen requirement is slowly improving 3. Shock most likely septic shock: There is concern of sepsis in view of acute hypercapnic respiratory failure, lactic acidosis, increased creatinine and acute encephalopathy. Patient has leukocytosis. Chest x-ray does not show acute infiltrate. CTA chest abdomen pelvis ordered. Panculture ordered. Empirically patient started on IV vancomycin and Zosyn. Patient had IV fluid bolus 30 mill per KG. 11/02: No fever or chills. Patient on Levophed drip. Urinary antigens are negative. Respiratory panel negative. COVID-19 PCR negative. Blood cultures x2 are pending. Lactic acid improved. 11/06: All culture data is negative, will discontinue antibiotics 4. Upper GI bleed with concern of alcoholic hepatitis/cirrhosis with portal hypertension: Patient does not have prior abdominal imaging in our system. CTA chest abdomen and pelvis ordered by ER physician. OG tube still draining brownish/altered blood product. Hemoglobin 14.5/43.7%. H&H every 6 hourly for 24 hours. GI is consulted. Patient is started on Protonix drip after bolus and octreotide drip. Patient might have lactic acidosis from GI bleed. Patient is also history of longtime alcohol use disorder with more than 30 years of continuous, heavy drinking of whiskey. 11/02: Patient is still has NG tube and had altered blood on NG tube suction last night. Hemoglobin dropped about 2 to 3 g but does not need PRBC transfusion. Continue Protonix drip, octreotide drip and antibiotic. Discussed with the GI 11/03: Plan for EGD appreciate GIs assistance 11/04: EGD with multiple ulcers continue with present treatment 5. Inferior lateral wall STEMI after admission: Troponin 104. Cycle troponin enzymes. Serial EKG was done in ED from yesterday and today. First EKG from 10/31 shows sinus bradycardia 55 bpm. And today shows normal sinus rhythm with artifacts in inferior leads. Next EKG shows sinus irregular rhythm with PVCs and premature supraventricular complexes. EKG from 07/27 shows sinus rhythm with sinus arrhythmia. Patient does not have known prior cardiac disease. 11/02: Inferior lateral wall STEMI: Yesterday EKG showed ST elevation in inferior lateral leads suspicious for STEMI and patient was taken to Technical Support Manager. Troponin did not show any major delta change. Was found to have significant CAD with JUANCARLOS-3 flow with significant stenosis in LAD and RCA, vessels were heavily calcified. No major occluded epicardial coronary artery. Patient cannot have antiplatelet agent or antithrombotic agent due to GI bleed. CK high at 1189 therefore will hold for high intensity statin. 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 No Doppler or palpable pulses felt at left PT and DPA. As revealed in cardiac cath with chronically significant stenosis with heavy calcification, I suspect similar pathology in left leg PAD. Unfortunately patient cannot have antithrombotic agent. Prior history of CVA: As per. No residual deficit from previous stroke. 6. Moderate chronic protein calorie malnutrition: BMI 16.5 kg/m?. Patient has mild to moderate muscle atrophy of extremities and craniofacial muscles. Construction Equipment Technician consult. Disposition: Pending SNF placement Charges/Coding Visit Charges Inpatient E&M: 24577 Subs Hosp L2
--- NOTE | 2022-11-09 15:00 | NURSING ---
therapy in and pt stood with sit to stand lift. pt stood for 20sec and able to bear some weight. back to bed and stated, there i go shitting myself again pt with audible bowel sounds and passing gas per therapy.
[2022-11-09] MEDS: levETIRAcetam IV 1,000 MG/100 ML BAG 400 MG IV (22:04)
--- NOTE | 2022-11-09 22:05 | NURSING ---
Patient noted to have seizure acticity. two seizures within 30 minutes that last 15- 20 seconds with left arm extension and lips smacking, pt eyes deviated to left side. Dr Garcia aware. Pt given 2mg Ativan IV and added IV Dilantin.
[2022-11-09] MEDS: Menthol/Lanolin/Calamine/Znox 113 GM Tube 1 APPLIC TOPICAL (22:19)
--- NOTE | 2022-11-09 23:05 | NURSING ---
SOC on to assess pt. Pt not awake d/t admin of ativan, attempted to do NIH and several attempts to wake pt. SOC gave recommendation and is to communicate with Dr. Garcia about pt condition and recommendations
[2022-11-09] MEDS: LORazepam 2 MG/ML Syringe IV (23:28)
[2022-11-10] VITALS (7 sets, daily range): BP systolic 86–118; BP diastolic 62–70; PULSE 85–103; RESP 18–22; TEMP 36.7–36.9; O2SAT 92–99; BMI 18.3
[2022-11-10] MEDS: 0.9% Saline Lock 10 ML Syringe IV (01:17)
--- NOTE | 2022-11-10 03:04 | NURSING ---
seizure pads in place with aspiration precautions
[2022-11-10 05:51] LABS: Anion Gap 7 (5-15); BUN 3 mg/dL (7-18); BUN/Creat Ratio 6.9 RATIO (10-20); Calcium,Total 7.6 mg/dL (8.5-10.1); Chloride 108 mmol/L (98-107); Creatinine, Serum 0.43 mg/dL (0.70-1.30); EST Glomerular Filtration Rate 205 mL/min (>60); Est Glom Filt Rate - Afr Amer 248 mL/min (>60); Estimated Creatinine Clearance 55.58 ml/min; Glucose 97 mg/dL (74-106); Phosphorus 2.4 mg/dL (2.5-4.9); Potassium 2.8 mmol/L (3.5-5.1); Sodium Level 139 mmol/L (136-145)
[2022-11-10] MEDS: Ipratropium/Albuterol Sulfate 3 ML AMPUL.NEB INHALATION ×3 (06:53→15:03)
--- NOTE | 2022-11-10 08:37 | CASEMGMT ---
Discharge Planning Updates sent to [facility] via [facility]. Darshana Mcguire, Discharge Planning Asst.
[2022-11-10] MEDS: Menthol/Lanolin/Calamine/Znox 113 GM Tube 1 APPLIC TOPICAL (08:58)
[2022-11-10] MEDS: NYSTATIN 500,000 UNIT/5 ML UDC 500000 UNIT PO (08:58)
--- NOTE | 2022-11-10 09:43 | CASEMGMT ---
Physician told SW that patient will go to [facility]. Physician spoke with patient's Healthcare Power of [facility] and she agreed to have patient go to [facility]. SW called [facility] as per physician this is the one Mahi preferred and made a referral. SW also faxed information to Hospice. SW called Negra at [facility]osp[facility] and let her know referral will be coming soon. Plan: d/c to [facility]. Elida Piña TRUCK TERMINAL MANAGERJacqueline ESTRADA
--- NOTE | 2022-11-10 10:38 | TREXTCAR_ITS ---
Diet Diet Order/Speech Therapy: 11/01/22 13:24 Diet: Nothing Per Oral Is pt able to select menu?: No Routine Orders/Code Status Code Status: DNRCC Wound(s) Left elbow: Wound Type: Skin Tear Generalized: Wound Type: scabbing right elbow: Wound Type: 2 small skin tears Dressing Change: Mepilex Therapies Speech Therapy: Eval and Treat Problem/Diagnosis (1) Unresponsive episode: Status: Acute Code(s): R40.4 - Transient alteration of awareness (2) GI bleed: Status: Acute Code(s): K92.2 - Gastrointestinal hemorrhage, unspecified Plan 1. Altered mental status then unresponsiveness, acute encephalopathy exact etiology unclear/CVA: Possible differential diagnosis are metabolic encephalopathy from upper GI bleed, hypercapnia or infectious: Patient is intubated on ventilator. Patient is being admitted in ICU. MRI brain without contrast ordered when patient is hemodynamically stable. Rest as mentioned below 11/02: Patient opens eyes on command but does not follow motor function, hard. Possibility of seizure. Patient on Keppra. MRI of brain showed right temporal and posterior right frontal region consistent with acute cortical ischemia. Rig ht temporal parietal chronic microvascular changes. Posterior fossa structures unremarkable. EEG still pending. Once we have the EEG he can have neuro consult but aspirin has been started after discussion with change coordinator. 11/03: EEG pending 11/04: EEG is read as an abnormal EKG with generalized slowing with possible toxic or metabolic encephalopathy 11/05: Now that is extubated will obtain a speech therapy evaluation prior to starting a diet 11/06: Evaluated by speech therapy continue with n.p.o. status 11/08: Had a modified barium swallow which places him at very high risk for aspiration he is continued n.p.o. status. Based on this alone will need to discuss with his A advance care planning as I do not think that he is a great candidate for PEG tube 11/09: We will increase Keppra to 1000 mg twice daily as nursing is noticing activity consistent with seizures 2. Acute hypercapnic respiratory failure with COPD with high probability of exacerbation: As per POA, she did not notice acute change in breathing, cough or other URI symptoms. VBG 7.. Lactic acid 5.3. ABGs ordered. Patient is intubated on ventilator. Traffic And Transport Planner consulted. Patient also history of smoking more than a pack per day since early age. 11/02: He still intubated, managed by change coordinator. Discussed with Dr. Roger 11/03: Failed spontaneous breathing trial today, will attempt to identify POA and clarify CODE STATUS 11/04: Off sedation, will need extubated this afternoon after having conversation with the family and making him a DO NOT INTUBATE 11/05: Extubated maintaining oxygen sats on 4 L we will continue to monitor 11/07: Oxygen requirement is slowly improving 3. Shock most likely septic shock: There is concern of sepsis in view of acute hypercapnic respiratory failure, lactic acidosis, increased creatinine and acute encephalopathy. Patient has leukocytosis. Chest x-ray does not show acute infiltrate. CTA chest abdomen pelvis ordered. Panculture ordered. Empirically patient started on IV vancomycin and Zosyn. Patient had IV fluid bolus 30 mill per KG. 11/02: No fever or chills. Patient on Levophed drip. Urinary antigens are negative. Respiratory panel negative. COVID-19 PCR negative. Blood cultures x2 are pending. Lactic acid improved. 11/06: All culture data is negative, will discontinue antibiotics 4. Upper GI bleed with concern of alcoholic hepatitis/cirrhosis with portal hypertension: Patient does not have prior abdominal imaging in our system. CTA chest abdomen and pelvis ordered by ER physician. OG tube still draining brownish/altered blood product. Hemoglobin 14.5/43.7%. H&H every 6 hourly for 24 hours. GI is consulted. Patient is started on Protonix drip after bolus and octreotide drip. Patient might have lactic acidosis from GI bleed. Patient is also history of longtime alcohol use disorder with more than 30 years of continuous, heavy drinking of whiskey. 11/02: Patient is still has NG tube and had altered blood on NG tube suction last night. Hemoglobin dropped about 2 to 3 g but does not need PRBC transfusion. Continue Protonix drip, octreotide drip and antibiotic. Discussed with the GI 11/03: Plan for EGD appreciate GIs assistance 11/04: EGD with multiple ulcers continue with present treatment 5. Inferior lateral wall STEMI after admission: Troponin 104. Cycle troponin enzymes. Serial EKG was done in ED from yesterday and today. First EKG from 10/31 shows sinus bradycardia 55 bpm. And today shows normal sinus rhythm with artifacts in inferior leads. Next EKG shows sinus irregular rhythm with PVCs and premature supraventricular complexes. EKG from 07/27 shows sinus rhythm with sinus arrhythmia. Patient does not have known prior cardiac disease. 11/02: Inferior lateral wall STEMI: Yesterday EKG showed ST elevation in inferior lateral leads suspicious for STEMI and patient was taken to Health Policy Manager. Troponin did not show any major delta change. Was found to have significant CAD with JUANCARLOS-3 flow with significant stenosis in LAD and RCA, vessels were heavily calcified. No major occluded epicardial coronary artery. Patient cannot have antiplatelet agent or antithrombotic agent due to GI bleed. CK high at 1189 therefore will hold for high intensity statin. Left leg PAD: My clinical suspicion is that patient has chronically occluded left lower VISUAL EDUCATION DIRECTOR and DPA with collaterals as there is no acute pale, cyanosis, mottling, or change in color but mild cold. No Doppler or palpable pulses felt at left PT and DPA. As revealed in cardiac cath with chronically significant stenosis with heavy calcification, I suspect similar pathology in left leg PAD. Unfortunately patient cannot have antithrombotic agent. Prior history of CVA: As per. No residual deficit from previous stroke. 6. Moderate chronic protein calorie malnutrition: BMI 16.5 kg/m?. Patient has mild to moderate muscle atrophy of extremities and craniofacial muscles. Traveling Electrician consult. Disposition: Pending SNF placement Allergies/Procedures Done in Hospital Allergies No Known Allergies Allergy (Verified 11/01/22 10:10) Procedures: Cardiac catheterization, EGD and Intubation Type of Care/Length of Stay Estimated LOS: Convalescent Care Less Than 30 days Type of Care Needed: Inpt Hospice Facility Rehab Potential: None Prognosis: None Additional Orders/Day of Discharge Day of Discharge: 11/10/22 Dietary and Speech Recommendations Dietitian Recommendations/Changes: ADAT to Regular with texture/consistency per FINANCIAL SERVICES ASSISTANT as medically able to optimize oral intakes. Recommend 120mL Ensure Plus High Protein to provide supplemental energy; consistency/texture as per FINANCIAL SERVICES ASSISTANT. Discharge Plan Admission Admit Date/Time: 11/01/22 11:37 Attending Provider: Steve Gilliam Primary Care Provider: Richard Escobedo Consulting Providers: Eleazar Diehl ; Deshaun Limon ; Tank Perales ; Aman Washington ; Landry Cody ; Latha Mejias AIRFIELD SERVICES OFFICER Discharge Orders/Prescriptions Prescriptions: New sucralfate 1 gram Tablet 1 g PO TID@0700,1100,1600 Qty: 0 0RF Continued atorvastatin 40 mg tablet 40 mg PO DAILY Label Comments: TAKE 1 TABLET BY MOUTH ONCE DAILY aspirin 81 mg tablet,delayed release (DR/EC) 81 mg PO DAILY Label Comments: TAKE 1 TABLET BY MOUTH ONCE DAILY albuterol sulfate 90 mcg/actuation HFA aerosol inhaler INHALATION Label Comments: Inhale 2 Puffs as instructed every 4 hours as needed for wheezing/shortness of breath. Referrals / Follow Up: Richard Escobedo MD [Primary Care Provider] - Disposition Disposition (needs filled in before D/C Order can be placed): Hospice in Medical Facility
--- NOTE | 2022-11-10 10:49 | CASEMGMT ---
TALI received a call from Negra at Hospice. Negra spoke with Mahi and she would like to meet with them once patient is at [facility]. TALI let Negra know patient will be discharged today and TALI will let her know about transportation time. Plan: d/c to [facility] under intermediate level of care on [facility]. Elida Piña APPRENTICE ARCHITECT SEAN
--- NOTE | 2022-11-10 11:21 | PHA.DC.MR ---
Pharmacy Service has performed discharge medication reconciliation for this patient. The patient's discharge medication list was reviewed for discrepancies and discrepancies were resolved. Home Medications albuterol sulfate 90 mcg/actuation aerosol inhaler inhalation 11/01/22 aspirin 81 mg tablet,delayed release 81 mg PO DAILY 11/01/22 atorvastatin 40 mg tablet 40 mg PO DAILY 11/01/22 levetiracetam 1,000 mg tablet (Keppra) 1,000 mg PO Q12H #1 TAB 11/10/22 sucralfate 1 gram tablet 1 g PO TID@0700,1100,1600 #0 tabs 11/10/22
--- NOTE | 2022-11-10 11:37 | CASEMGMT ---
SW did not complete a PHQ 9 with patient as he has been confused and unable to participate. Elida Piña ASSOCIATE ARTISTIC DIRECTOR SEAN
--- NOTE | 2022-11-10 12:00 | CASEMGMT ---
Patient is ready for discharge to [facility]. Once transport is arranged Hospice will be notified. Plan: d/c to [facility] under intermediate level of care on [facility]. Elida ESTRADA
--- NOTE | 2022-11-10 12:12 | CASEMGMT ---
Discharge Planning Transport was scheduled with Physicians for 4p. He will be transferred by cot. Negra banerjee/[facility], , [facility], and nursing all notified Darshana Mcguire, Discharge Planning Asst.
[2022-11-10] MEDS: Potassium Chloride 10mEq/100mL 10 MEQ/100 ML IV.SOLN. 100 MEQ IV BOLUS ×3 (12:16→14:21)
--- NOTE | 2022-11-10 12:58 | PCM.DC.SUM ---
Providers Date of Admission: 11/01/22 Primary Care Physician: Dr. Richard Escobedo MD Consultations 11/01/22 13:23 Consult: Gastroenterology Routine Consulting Provider: Tamara Gastroentermayi Reason for Consult: Concern for variceal bleed EMERGENT Consult: No Notified: Yes Date Notified: 11/01/22 Time Notified: 12:22 Method of Notification: Verbal Consult: Refrigeration System Installer / Pulmonary Medicine Urgent Consulting Provider: Pulmonary Medicine [facility] Reason for Consult: intubated, unresponsive, sepsis? EMERGENT Consult: No Notified: Yes Date Notified: 11/01/22 Time Notified: 12:34 Method of Notification: ED Physician Initiated Reason For Visit: AMS Diagnosis Discharge Diagnosis (1) Unresponsive episode: Status: Acute Code(s): R40.4 - Transient alteration of awareness (2) GI bleed: Status: Acute Code(s): K92.2 - Gastrointestinal hemorrhage, unspecified Medications at Discharge Home Medications albuterol sulfate 90 mcg/actuation aerosol inhaler inhalation 11/01/22 aspirin 81 mg tablet,delayed release 81 mg PO DAILY 11/01/22 atorvastatin 40 mg tablet 40 mg PO DAILY 11/01/22 levetiracetam 1,000 mg tablet (Keppra) 1,000 mg PO Q12H #1 TAB 11/10/22 sucralfate 1 gram tablet 1 g PO TID@0700,1100,1600 #0 tabs 11/10/22 Hospital Course Procedures Cardiac catheterization, EGD and Intubation Summary of Care Provided Minutes Spent on Discharge: 39 Hospital Course: Per HPI: PAULA HA, is a 72 M was brought to ED for altered mental status.? Patient's friend and POA is present near the bedside.? Patient was here yesterday for generalized weakness and concern of a stroke varies both arms felt numb and could not get up.? Basic work-up was done along with CT head did not show acute change.? Mild hypokalemia and potassium replacement was sent home.? As per POA, he was still confused and disoriented at home, looking at ceiling, not comprehendible and does not follow command therefore was brought to ED.? Glucose was 79.? Patient also had dark-colored vomiting 1 time witnessed by it may be couple more.? He has brownish staining of the mouth.? ER physician felt diffuse encephalopathic and no focal neurological deficit in terms of weakness or loss of sensation therefore stroke alert was not called.? Patient head and neck and eyes deviated to left side. Later on patient got more confused and unresponsive and was intubated. I saw the patient after intubated, on IV fentanyl drip. Social history: As per POA, patient has alcohol use disorder and has been drinking for more than 30 years, hard liquor whiskey continuously.? History of smoking cigarettes and COPD. Hospital Course: 1. Altered mental status then unresponsiveness, acute encephalopathy exact etiology unclear/CVA: Possible differential diagnosis are metabolic encephalopathy from upper GI bleed, hypercapnia or infectious: Patient is intubated on ventilator. Patient is being admitted in ICU. MRI brain without contrast ordered when patient is hemodynamically stable. Rest as mentioned below 11/02: Patient opens eyes on command but does not follow motor function, hard. Possibility of seizure. Patient on Keppra. MRI of brain showed right temporal and posterior right frontal region consistent with acute cortical ischemia. Right temporal parietal chronic microvascular changes. Posterior fossa structures unremarkable. EEG still pending. Once we have the EEG he can have neuro consult but aspirin has been started after discussion with paraffin plant operator. 11/03: EEG pending 11/04: EEG is read as an abnormal EKG with generalized slowing with possible toxic or metabolic encephalopathy 11/05: Now that is extubated will obtain a speech therapy evaluation prior to starting a diet 11/06: Evaluated by speech therapy continue with n.p.o. status 11/08: Had a modified barium swallow which places him at very high risk for aspiration he is continued n.p.o. status. Based on this alone will need to discuss with his [facility] advance care planning as I do not think that he is a great candidate for PEG tube 11/09: We will increase Keppra to 1000 mg twice daily as nursing is noticing activity consistent with seizures 11/10: Overnight he did have further seizures SOC was consulted and recommended increasing Keppra to 1500 mg p.o. twice daily 2. Acute hypercapnic respiratory failure with COPD with high probability of exacerbation: As per POA, she did not notice acute change in breathing, cough or other URI symptoms. VBG 7.. Lactic acid 5.3. ABGs ordered. Patient is intubated on ventilator. Refrigeration System Installer consulted. Patient also history of smoking more than a pack per day since early age. 11/02: He still intubated, managed by paraffin plant operator. Discussed with Dr. Roger 11/03: Failed spontaneous breathing trial today, will attempt to identify POA and clarify CODE STATUS 11/04: Off sedation, will need extubated this afternoon after having conversation with the family and making him a DO NOT INTUBATE 11/05: Extubated maintaining oxygen sats on 4 L we will continue to monitor 11/07: Oxygen requirement is slowly improving 3. Shock most likely septic shock: There is concern of sepsis in view of acute hypercapnic respiratory failure, lactic acidosis, increased creatinine and acute encephalopathy. Patient has leukocytosis. Chest x-ray does not show acute infiltrate. CTA chest abdomen pelvis ordered. Panculture ordered. Empirically patient started on IV vancomycin and Zosyn. Patient had IV fluid bolus 30 mill per KG. 11/02: No fever or chills. Patient on Levophed drip. Urinary antigens are negative. Respiratory panel negative. COVID-19 PCR negative. Blood cultures x2 are pending. Lactic acid improved. 11/06: All culture data is negative, will discontinue antibiotics 4. Upper GI bleed with concern of alcoholic hepatitis/cirrhosis with portal hypertension: Patient does not have prior abdominal imaging in our system. CTA chest abdomen and pelvis ordered by ER physician. OG tube still draining brownish/altered blood product. Hemoglobin 14.5/43.7%. H&H every 6 hourly for 24 hours. GI is consulted. Patient is started on Protonix drip after bolus and octreotide drip. Patient might have lactic acidosis from GI bleed. Patient is also history of longtime alcohol use disorder with more than 30 years of continuous, heavy drinking of whiskey. 11/02: Patient is still has NG tube and had altered blood on NG tube suction last night. Hemoglobin dropped about 2 to 3 g but does not need PRBC transfusion. Continue Protonix drip, octreotide drip and antibiotic. Discussed with the GI 11/03: Plan for EGD appreciate GIs assistance 11/04: EGD with multiple ulcers continue with present treatment 11/10: We will continue with Carafate 5. Inferior lateral wall STEMI after admission: Troponin 104. Cycle troponin enzymes. Serial EKG was done in ED from yesterday and today. First EKG from 10/31 shows sinus bradycardia 55 bpm. And today shows normal sinus rhythm with artifacts in inferior leads. Next EKG shows sinus irregular rhythm with PVCs and premature supraventricular complexes. EKG from 07/27 shows sinus rhythm with sinus arrhythmia. Patient does not have known prior cardiac disease. 11/02: Inferior lateral wall STEMI: Yesterday EKG showed ST elevation in inferior lateral leads suspicious for STEMI and patient was taken to Feed Manager. Troponin did not show any major delta change. Was found to have significant CAD with JUANCARLOS-3 flow with significant stenosis in LAD and RCA, vessels were heavily calcified. No major occluded epicardial coronary artery. Patient cannot have antiplatelet agent or antithrombotic agent due to GI bleed. CK high at 1189 therefore will hold for high intensity statin. Left leg PAD: My clinical suspicion is that patient has chronically occluded left lower CAT SCAN TECH and DPA with collaterals as there is no acute pale, cyanosis, mottling, or change in color but mild cold. No Doppler or palpable pulses felt at left PT and DPA. As revealed in cardiac cath with chronically significant stenosis with heavy calcification, I suspect similar pathology in left leg PAD. Unfortunately patient cannot have antithrombotic agent. Prior history of CVA: As per. No residual deficit from previous stroke. 6. Moderate chronic protein calorie malnutrition: BMI 16.5 kg/m?. Patient has mild to moderate muscle atrophy of extremities and craniofacial muscles. Career Resource Technician consult. I had extensive discussions with his POA and I was also able to talk to him yesterday when he was little bit more alert and the decision was made to send him to the senior care today despite his n.p.o. status for comfort feeds and hospice care given quality of life with his recent illnesses and his baseline medical health. Yesterday when he was more alert, as overnight he received doses of Ativan for seizure-like activity, we discussed his medical history and his current medical problems and he seemed to grasp the severity but in-depth conversations was difficult given his mental status. We will plan for discharge today to SNF for hospice care. Physical Exam Narrative General: Drowsy but arousable, No apparent distress, cooperative HEENT: Atraumatic, PERRLA, EOMI, Normocephalic Oral: Moist Mucosa Neck: Supple, No JVD Lungs: Diminished, Normal air movement, No rhonchi, No wheeze, No rales Cardiovascular: Regular rate, Regular Rhythm, Normal S1, Normal S2, No murmurs Abdomen: Soft, Non Tender, Non-Distended, No Hepato-splenomegaly Extremities: No edema, diminished distal pulses Skin: No rashes, No breakdown Musculoskeletal: No Tenderness to Palpation of Joints or Extremities Neurological: Motor Exam 5/5 strength throughout, Sensory exam intact to light touch and pain Psych/Mental Status: Flat Medical Records Data Medical Nutrition Assessment Dietitian: Malnutrition Criteria Met Start: 11/01/22 14:49 Freq: Status: Active Protocol: Document 11/08/22 11:11 (Rec: 11/08/22 11:11 [id number]) Nutrition Malnutrition Evidence of Malnutrition Exists Yes Malnutrition (severe): Chronic,Social/Behavioral/ Environmental Evidenced By Suboptimal Energy Intake ( Severe),Weight Loss (Severe), Physical Changes (Severe) Intake Problem Inadequate Oral Intake Etiology related to inability to consume sufficient energy Signs/Symptoms as evidenced by NPO x7 days. Status Active Problem Clinical Problem Chronic Disease or Condition Related Malnutrition Etiology Severe protein-calorie malnutrition in the context of chronic disease and social circumstance related to ETOH abuse and inadequate oral intake Signs/Symptoms as evidenced by BMI 16.6, currently NPO, ~6% recent wt loss noted x past 4-5 months, poor oral intake meeting less than 50% estimated nutrition needs x past 6-12 months, physical symptoms of muscle wasting/fat depletion visible through out including clavicle , face, arms and legs Status Active Problem Recommendation Dietitian Recommendations/Changes ADAT to Regular with texture/ consistency per SPUD GRADER as medically able to optimize oral intakes. Recommend 120mL Ensure Plus High Protein to provide supplemental energy; consistency/texture as per SPUD GRADER . Weight / BMI Weight Weight: 127 lb 13.89 oz Body Mass Index (BMI) 18.3 ABG / Lab / Microbiology Data Result Diagrams: 11/09/22 05:11 11/10/22 04:23 Laboratory: Laboratory Results - last 24 hr 11/10/22 04:23: Sodium 139, Potassium 2.8 L, Chloride 108 H, Carbon Dioxide 24.0, Anion Gap 7, BUN 3 L, Creatinine 0.43 L, Estim Creat Clear Calc 55.58, Est GFR (MDRD) Af Amer 248, Est GFR (MDRD) Non-Af 205, BUN/Creatinine Ratio 6.9 L, Glucose 97, Calcium 7.6 L, Phosphorus 2.4 L Microbiology: Microbiology 11/01/22 11:35 Blood Culture (Wb) - Venous Blood Culture - Final No growth in 5 days. 11/01/22 11:25 Blood Culture (Wb) - Venous Blood Culture - Final No growth in 5 days. 11/01/22 13:45 Sputum, Induced/Lukens Gram Stain - Final 11/01/22 13:45 Sputum, Induced/Lukens Respiratory Culture - Final 11/01/22 11:54 Urine Catheter - Rodriguez Urine Culture - Final Culture exhibits no growth. 11/01/22 11:54 Urine Catheter - Rodriguez Legionella Antigen - Final 11/01/22 11:54 Urine Catheter - Rodriguez Streptococcus pneumoniae Antigen (M - Final 11/01/22 15:10 Mucosa - Nasopharyngeal Respiratory Panel (PCR) - Final Meaningful Use Info Meaningful Use Diagnoses (Choose all that apply): None applicable Discharge Plan Admission Admit Date/Time: 11/01/22 11:37 Attending Provider: Steve Gilliam Primary Care Provider: Richard Escobedo Consulting Providers: Eleazar Diehl ; Deshaun Limon ; Tank Perales ; Aman Washington ; Landry Cody ; Latha Mejias ENGRAVER COPPERPLATE Discharge Orders/Prescriptions Prescriptions: New sucralfate 1 gram Tablet 1 g PO TID@0700,1100,1600 Qty: 0 0RF levetiracetam [Keppra] 1,000 mg tablet 1,000 mg PO Q12H Qty: 1 0RF Continued atorvastatin 40 mg tablet 40 mg PO DAILY Label Comments: TAKE 1 TABLET BY MOUTH ONCE DAILY aspirin 81 mg tablet,delayed release (DR/EC) 81 mg PO DAILY Label Comments: TAKE 1 TABLET BY MOUTH ONCE DAILY albuterol sulfate 90 mcg/actuation HFA aerosol inhaler INHALATION Label Comments: Inhale 2 Puffs as instructed every 4 hours as needed for wheezing/shortness of breath. Referrals / Follow Up: Richard Escobedo MD [Primary Care Provider] - Disposition Disposition (needs filled in before D/C Order can be placed): Hospice in Medical Facility Charges/Coding Visit Charges Inpatient E&M: 00724 Disch Hosp >30min
--- NOTE | 2022-11-10 13:06 | CASEMGMT ---
Discharge Planning Patients [facility] Mahi SÁNCHEZ, notified of transport time. Darshana Mcguire, Discharge Planning Asst.
--- NOTE | 2022-11-10 14:27 | NURSING ---
attempted times two to call Christiano Hidalgo with report. [place] states she will leave message to have nurse call hospital when she is available.
--- NOTE | 2022-11-10 14:39 | NURSING ---
Nursing report given to Nurse at [facility].
--- NOTE | 2022-11-10 16:26 | NURSING ---
Patient discharged to [facility]. Transported via squad. Family aware.
== END 2022-11-10 16:12 | disposition hospice, inpatient (51) | DRG 870 ==
LOC: ED 11:35 → ICU 13:18 → PCU 11-05 12:19
PROVIDERS: Hospitalist; Internal Medicine; Internal Medicine Critical Care Medicine; Internal Medicine Gastroenterology; Admitting Provider Internal Medicine; Emergency Provider Emergency Medicine; PCP Internal Medicine; Visit Provider Family Medicine
PROC: 0DJ08ZZ Inspection of Upper Intestinal Tract, Via Natural or Artificial Opening Endoscopic (ICD-10-PCS; CPT 43235; principal; 2022-11-03 11:55)
DX: A41.9 Sepsis, unspecified organism (principal); J96.02 Acute respiratory failure with hypercapnia; I63.9 Cerebral infarction, unspecified; R65.21 Severe sepsis with septic shock; G93.41 Metabolic encephalopathy; I21.19 ST elevation (STEMI) myocardial infarction involving other coronary artery of inferior wall; E44.0 Moderate protein-calorie malnutrition; F10.231 Alcohol dependence with withdrawal delirium; N17.9 Acute kidney failure, unspecified; J44.1 Chronic obstructive pulmonary disease with (acute) exacerbation; E87.4 Mixed disorder of acid-base balance; M62.82 Rhabdomyolysis; D62 Acute posthemorrhagic anemia; E87.20 Acidosis, unspecified; Z68.1 Body mass index [BMI] 19.9 or less, adult; I73.9 Peripheral vascular disease, unspecified; K74.60 Unspecified cirrhosis of liver; G40.909 Epilepsy, unspecified, not intractable, without status epilepticus; I49.8 Other specified cardiac arrhythmias; I25.10 Atherosclerotic heart disease of native coronary artery without angina pectoris; I25.2 Old myocardial infarction; F17.210 Nicotine dependence, cigarettes, uncomplicated; K29.80 Duodenitis without bleeding; D50.9 Iron deficiency anemia, unspecified; K29.00 Acute gastritis without bleeding; E87.6 Hypokalemia; Z66 Do not resuscitate; R74.02 Elevation of levels of lactic acid dehydrogenase [LDH]; Z51.5 Encounter for palliative care; Z79.82 Long term (current) use of aspirin; Z86.73 Personal history of transient ischemic attack (TIA), and cerebral infarction without residual deficits
CPT/HCPCS: 31500; 31720; 36415; 36569; 36600; 51702; 70450; 70551; 71045; 71250; 74018; 74176; 74230; 76705; 80048; 80053; 80061; 80307; 81001; 82077; 82140; 82550; 82803; 82962; 83605; 83690; 83735; 84100; 84145; 84439; 84443; 84481; 84484; 85014; 85018; 85025; 85027; 85610; 85730; 87040; 87070; 87086; 87205; 87449; 87633; 87635; 88305; 88342; 92526; 92610; 92611; 93005; 93454; 94002; 94003; 94640; 94660; 94762; 95819; 97110; 97163; 97166; 97530; 97535; 97802; 97803; 99252; 99285; 99406; J7030; J7040; J7050; J7120; A4216; C1769; C1894; G0463; J3490; Q9967